=== PATIENT | male | born 1955 | race Caucasian/White ===

== ENCOUNTER → 2018-03-08 10:27 | Outpatient (CLI) | payer MEDICARE, SELFPAY ==
--- NOTE | 2018-03-08 10:30 | CT_ITS ---
CT lung screening EXAM: CT LUNG LOW DOSE WO CONTRAST COMPARISON: 09/14/2017 HISTORY: 63-year-old male with 96 pack-year smoking history asymptomatic, 6 month follow-up ITS.REASON: smoker; 6 month repeat recommended ORDERING PHYSICIAN: STACIA George PATIENT AGE: 63 years TECHNIQUE: The exam was performed on a GE Light Speed [address] scanner using 2.90 mGy CTDI. A low dose helical CT CHEST was performed on a multi-detector scanner. All CT scans at the facility use one or more dose reduction, viz: automated exposure control; ma/kV adjustment per patient size (including targeted exams where dose is matched to indication; i.e. head); or iterative reconstruction technique. The LDCT was performed in a facility that meets the criteria for the screening program. Data regarding this exam was submitted to ACR which is an approved registry. The order for this exam indicates that it came as a result of a lung cancer screening counseling shard decision-making visit that included all the elements required of such a visit including smoking cessation. The radiologist interpreting this exam meets the CMS criteria for the LDCT lung cancer screening program. The exam is reported using the Lung-RADS classification scale and reported to the ACR registry. NOTE: This study was performed for the specific purposes of lung cancer screening and is not an alternative to diagnostic chest CT. RADIATION DOSE: CTDI vol(CT dose Index-volume) = 2.90mG DLP (Dose Length Product) = 111.90 mGcm FINDINGS: Centrilobular emphysema with hyperinflation and mild diffuse bronchial thickening Previously described 4 mm nodule right upper lobe laterally somewhat less apparent.. 4 mm nodule central aspect of the right lower lobe unchanged.. The nodule within the right lung base laterally and lingula is not identified. There is however a new cavitating nodule within the right middle lobe measuring approximately 7 mm with some irregularity of the margins. This could be inflammatory/infective, or neoplastic. [address] follow-up suggested. Small nodes are present within mediastinum and axilla. Mild thickening noted of the pericardium as before. Degenerative changes are present in the thoracic and lumbar spine with sclerosis of T11-T12 endplates at L2 and L3 endplates. IMPRESSION: 1. Lung RADS Category: 4, suspicious. New 7 mm cavitating lesion within the right middle lobe 2. Other findings: Centrilobular emphysema/COPD RECOMMENDATIONS: [address] chest without and with contrast
== END ==
PROVIDERS: Family Provider Physician Assistant; PCP Physician Assistant; Visit Provider Physician Assistant
DX: Z87.891 Personal history of nicotine dependence (principal); Z12.2 Encounter for screening for malignant neoplasm of respiratory organs

== ENCOUNTER → 2018-09-05 14:32 | Outpatient (POV) | payer MEDICARE, MEDICAID, SELFPAY ==
[2018-09-05 14:58] VITALS: BP 156/82; PULSE 78; RESP 18; O2SAT 98
--- NOTE | 2018-09-06 08:30 | HMH.PMCON ---
Assessment and Plan (1) Degenerative joint disease of cervical spine Current visit: Yes Status: Chronic Qualifiers: Spinal osteoarthritis complication: with radiculopathy Qualified Code(s): M47.22 - Other spondylosis with radiculopathy, cervical region Category: Medical Code(s): M47.812 - Spondylosis without myelopathy or radiculopathy, cervical region (2) Lumbar disc disease with radiculopathy Current visit: No Status: Chronic Category: Medical - Assessment and plan all Dx Assessment and Plan for all problems:: I discussed with the patient that we would not be prescribing narcotic medications for him as a maintenance to his Suboxone program. I encouraged him to continue with his Suboxone clinic and the physician there. Patient and I discussed neurostimulator. I did provide him information on this. If patient is interested and would like to move forward with this he is going to contact our office and let us know. I will follow-up with the patient if he would like to pursue this. This note was dictated using voice recognition software and may contain errors or omissions HPI - Data of Consult Consult date: 09/05/18 Requesting Physician: Renae Hicks APRN Primary Care Provider: STACIA Lebron Family Provider: STACIA Lebron - Consult Narrative Reason for consult: Generalized pain History of present illness: Mr. Morgan is a 63 year old male who presents today for consultation in regards to his generalized pain. Patient was being seen by [facility] pain back in 2016. Patient stated he became immune to the Lortab that he was receiving and started buying Suboxone off the street. Patient states that after he realized Suboxone was working for him he enrolled in a Suboxone clinic. Patient states he has had injections in the past however he has not had any good relief with them. Patient states that he would like to add some maintenance medication to his Suboxone regimen. I had a discussion with him that this would not be appropriate. I encouraged him to continue with his Suboxone clinic and their management plan. Patient rates his pain today a 6 out of 10. He states that it is mostly in his low back and neck. Patient also has a lot of numbness in his left wrist. Patient states that rest decreases his pain. CC: Renae Hicks APRN [facility] History I have reviewed the patient's past medical history: Yes Medical History: Reports:: Asthma, Cancer, Chronic Obstructive Pulmonary Disease (COPD) Denies:: Internal Pacemaker, Seizures Other Medical History: Reports: Glaucoma Laterality Cases: Left: Carpal Tunnel Release Other Surgeries: Yes: Cholecystectomy. No: Pacemaker Amputation: No Fractures: No - *Social History Smoking Status: Current every day smoker Tobacco Type: cigarettes # Packs/Day (cigarettes): 1 Alcohol Intake: never Alcohol Intake Frequency:: holidays/special occasions only Substance Use Type: former substance user, painkillers Occupational Status: unemployed Household Members: spouse - Psychiatric History Expresses thoughts of harming self/others: None Suicide Plan Description: No Plan *Family Hx:: Cancer, Coronary Artery Disease, Diabetes, Stroke, Heart Attack Review of Systems - Review of Systems ROS General: no recent weight change, no fever, no sleep disturbances Respiratory: no cough, no shortness of air, no recurring pulmonary infections Cardiovascular/Peripheral Vascular: No chest pain, No palpitations, no edema, no shortness of breath. Gastrointestinal: no incontinence, normal bowel movements reported Genitourinary: no incontinence Musculoskeletal: Neck pain, back pain, arm pain, leg pain Psychiatric: normal mood/ affect Neurological: [denies weakness in extremities], [denies balance issues] Meds Home Medications Medication Instructions Recorded Confirmed Type buprenorphine 8 mg-naloxone 2 mg 1 film SUBLINGUAL Q24H
--- NOTE | 2018-09-06 08:34 | P.CONS_ITS ---
Assessment and Plan (1) Degenerative joint disease of cervical spine Current visit: Yes Status: Chronic Qualifiers: Spinal osteoarthritis complication: with radiculopathy Qualified Code(s): M47.22 - Other spondylosis with radiculopathy, cervical region Category: Medical Code(s): M47.812 - Spondylosis without myelopathy or radiculopathy, cervical region (2) Lumbar disc disease with radiculopathy Current visit: No Status: Chronic Category: Medical - Assessment and plan all Dx Assessment and Plan for all problems:: I discussed with the patient that we would not be prescribing narcotic medications for him as a maintenance to his Suboxone program. I encouraged him to continue with his Suboxone clinic and the physician there. Patient and I discussed neurostimulator. I did provide him information on this. If patient is interested and would like to move forward with this he is going to contact our office and let us know. I will follow-up with the patient if he would like to pursue this. This note was dictated using voice recognition software and may contain errors or omissions HPI - Data of Consult Consult date: 09/05/18 Requesting Physician: Renae Hicks APRN Primary Care Provider: STACIA Lebron Family Provider: STACIA Lebron - Consult Narrative Reason for consult: Generalized pain History of present illness: Mr. Morgan is a 63 year old male who presents today for consultation in regards to his generalized pain. Patient was being seen by [facility] pain back in 2016. Patient stated he became immune to the Lortab that he was receiving and started buying Suboxone off the street. Patient states that after he realized Suboxone was working for him he enrolled in a Suboxone clinic. Patient states he has had injections in the past however he has not had any good relief with them. Patient states that he would like to add some maintenance medication to his Suboxone regimen. I had a discussion with him that this would not be appropriate. I encouraged him to continue with his Suboxone clinic and their management plan. Patient rates his pain today a 6 out of 10. He states that it is mostly in his low back and neck. Patient also has a lot of numbness in his left wrist. Patient states that rest decreases his pain. CC: Renae Hciks APRN [facility] History I have reviewed the patient's past medical history: Yes Medical History: Reports:: Asthma, Cancer, Chronic Obstructive Pulmonary Disease (COPD) Denies:: Internal Pacemaker, Seizures Other Medical History: Reports: Glaucoma Laterality Cases: Left: Carpal Tunnel Release Other Surgeries: Yes: Cholecystectomy. No: Pacemaker Amputation: No Fractures: No - *Social History Smoking Status: Current every day smoker Tobacco Type: cigarettes # Packs/Day (cigarettes): 1 Alcohol Intake: never Alcohol Intake Frequency:: holidays/special occasions only Substance Use Type: former substance user, painkillers Occupational Status: unemployed Household Members: spouse - Psychiatric History Expresses thoughts of harming self/others: None Suicide Plan Description: No Plan *Family Hx:: Cancer, Coronary Artery Disease, Diabetes, Stroke, Heart Attack Review of Systems - Review of Systems ROS General: no recent weight change, no fever, no sleep disturbances Respiratory: no cough, no shortness of air, no recurring pulmonary infections Cardiovascular/Peripheral Vascular: No chest pain, No palpitations, no edema, no shortness of breath. Gastrointestinal: no incontine
== END ==
PROVIDERS: Family Provider Physician Assistant; PCP Physician Assistant; Visit Provider Clinical Nurse Specialist Family Health
DX: M47.22 Other spondylosis with radiculopathy, cervical region (principal); M51.16 Intervertebral disc disorders with radiculopathy, lumbar region
CPT/HCPCS: 99202

== ENCOUNTER → 2018-10-04 09:45 | Outpatient (CLI) | payer MEDICARE, SELFPAY | PROVIDERS: PCP Physician Assistant; Visit Provider Physician Assistant | DX: M54.5 Low back pain (principal) ==

== ENCOUNTER → 2018-10-07 14:32 | Outpatient (CLI) | payer MEDICARE, MEDICAID, SELFPAY ==
--- NOTE | 2018-10-07 14:43 | MR_ITS ---
MR lumbar spine wo con, MR 3-d myelogram/MRCP HISTORY: Low back pain radiating into legs. ITS.REASON: back pain ORDERING PHYSICIAN: STACIA George PATIENT AGE: 63 years Comparison: None TECHNIQUE: Standard multiplanar multiecho sequences are performed without contrast. 3-D MIP and myelographic images are also rendered and reviewed FINDINGS: The spinal cord ends at the L1-L2 level. There is mild lumbar scoliosis convex left. There is multilevel degenerative disc disease with bulging discs, endplate hypertrophy, and facet and ligamentum flavum hypertrophy. T11-T12: Degenerative disc disease with mild bulging disc. T12-L1: Degenerative disc disease with minimal bulging disc. L1-L2: Degenerative disc disease with bulging disc along with facet and ligamentum flavum hypertrophy. There is moderate bilateral lateral recess and foraminal narrowing. The apex of the scoliosis convex left is at this level L2-L3: Degenerative disc disease with bulging disc and endplate hypertrophic changes. There is facet and ligamentum flavum hypertrophy. There is moderate right lateral recess and severe right-sided foraminal narrowing. Borderline canal stenosis at this level. L3-L4: Degenerative disc disease with bulging disc with a small right paracentral disc protrusion along with facet and ligamentum flavum hypertrophy with severe bilateral lateral recess narrowing and severe right-sided foraminal narrowing. There is borderline canal stenosis. L4-5: Degenerative disc disease with bulging disc. There is mild anterolisthesis of L4.. There is facet and ligamentum flavum hypertrophy with severe left-sided foraminal narrowing. Type III endplate changes are present on the left with prominent left-sided lateral marginal osteophytes. There is borderline transverse narrowing of the canal. L5-S1: 5 mm anterolisthesis of L5 with degenerative disc disease. There is severe bilateral foraminal narrowing contributed by the spondylolisthesis. There appears to be a bilateral pars defect. This however is not for certain and could be confirmed with CT if clinically warranted. IMPRESSION: Abnormal MRI of the lumbar spine. There is severe lumbar spondylosis with multilevel degenerative disc disease from T11 to S1 with bulging disc along with facet and ligamentum flavum hypertrophy with resultant borderline canal stenosis, lateral recess and foraminal narrowing in varying degrees. PLEASE SEE ABOVE FOR DETAILED DESCRIPTION AT EACH LEVEL. No extruded herniated disc evident. There is a small right paracentral disc protrusion at L3-L4 and there is mild spondylolisthesis of L5 on S1 along with mild lumbar scoliosis convex left
== END ==
PROVIDERS: PCP Physician Assistant; Visit Provider Physician Assistant
DX: M51.16 Intervertebral disc disorders with radiculopathy, lumbar region (principal); M54.5 Low back pain
CPT/HCPCS: 72148; 76376

== ENCOUNTER → 2018-12-02 07:59 | Outpatient (CLI) | payer MEDICARE, MEDICAID, SELFPAY ==
--- NOTE | 2018-12-02 08:03 | XR_ITS ---
XR knee RT 4V HISTORY: Right posterior knee pain ITS.REASON: pain ORDERING PHYSICIAN: Nuzhat Milian PATIENT AGE: 63 years COMPARISON: None FINDINGS: No fracture or dislocation. No lytic or blastic change. Normal mineralization. No significant arthritic changes evident. There is an accessory ossification center along the lateral aspect of the patella there is increased density in the suprapatellar region indicating knee joint effusion. On the lateral view there is a faint calcific density along the posterior aspect of the patella centrally which could be from overlap from the accessory ossification center versus an avulsion injury. Please correlate with clinical findings. CT may further evaluated clinically warranted. IMPRESSION: 1. Suprapatellar effusion. 2. Accessory center of ossification lateral to the patella which may be causing the calcific density along the posterior aspect of the patella on the lateral view. An avulsion fracture could have a similar appearance. CT may be of further value if clinically warranted
== END ==
PROVIDERS: PCP Emergency Medicine; Visit Provider Nurse Practitioner Family
DX: M25.561 Pain in right knee (principal)
CPT/HCPCS: 73564

== ENCOUNTER → 2019-04-06 13:33 | Outpatient (CLI) | payer MEDICARE, MEDICAID, SELFPAY ==
[2019-04-06 14:16] LABS: Anion Gap 12.5 mEq/L (5-15); Blood Urea Nitrogen 12 mg/dL (7-18); Calcium 9.4 mg/dL (8.5-10.1); Carbon Dioxide 34 mmol/L (21.0-32.0); Chloride 91 mmol/L (98-107); Creatinine,Serum 0.81 mg/dL (0.70-1.30); Estimated Glomerular Filt Rate 96 ml/min (>60); GFR (African American) 116 ML/MIN (>60); Glucose 186 mg/dL (74-106); Potassium 4.5 mmoL/L (3.5-5.1); Sodium 133 mmol/L (136-145)
--- NOTE | 2019-04-06 14:22 | CT_ITS ---
CT chest wo/w con HISTORY: Recent pneumonia, lung mass follow-up ITS.REASON: F/U abnormal CT ORDERING PHYSICIAN: STACIA Lebron PATIENT AGE: 64 years COMPARISON: 03/08/2018, 02/24/2019 Technique: Axial images obtained without and with contrast. 75 mL Optiray 350 utilized. Sagittal, and coronal reformatted images are also generated and reviewed. All CT scans at the facility use one or more dose reduction, viz: automated exposure control, ma/kV adjustment per patient size (including targeted exams where dose is matched to indication, i.e. head), or iterative reconstruction technique. FINDINGS: No mediastinal or hilar mass or adenopathy. There is mild thickening of the pericardium anteriorly measuring up to 9 mm suggesting a small pericardial effusion. No central obstructing lesions. There is COPD with centrilobular emphysema. There is a patchy area of increased density in the right upper lobe anteriorly axial image 33 may be due to an area of patchy infiltrate or developing fibrosis not readily apparent on the previous exam. Patchy density also noted within the right middle lobe axial image #48. There is a faint nodular opacity in the right middle lobe measuring 5 mm. Previously there was a small cavitating nodule at this area. There are small air space opacities in the right middle lobe inferiorly which have developed since the previous exam. There is a partially calcified nodule in the right lower lobe unchanged and some scattered small airspace opacities in the right lower lobe laterally. The left lower lobe atelectasis has improved. Upper abdominal images show a left renal cyst and mild dilatation of the left renal pelvis and proximal ureter. There are degenerative changes in thoracic spine with mild wedging of T7 not significantly changed. IMPRESSION: 1. COPD with centrilobular edema. 2. Cavitating nodule within the right middle lobe has slightly decreased in size and no longer has central cavitation now measuring 5 mm previously 7 mm.. This may have been inflammatory/infectious in nature. Continued follow-up in one year is suggested. 3. There are patchy airspace opacities noted in the right upper and right middle lobe and may be due to small areas of pneumonia.
== END ==
PROVIDERS: Visit Provider Physician Assistant
DX: Z01.818 Encounter for other preprocedural examination (principal); R91.8 Other nonspecific abnormal finding of lung field
CPT/HCPCS: 36415; 71270; 80048

== ENCOUNTER → 2019-07-12 15:22 | Outpatient (CLI) | payer MEDICARE, MEDICAID, SELFPAY ==
[2019-07-12 18:27] LABS: Blood Urea Nitrogen 6 mg/dL (7-18); Calcium 9.3 mg/dL (8.5-10.1); Carbon Dioxide 32 mmol/L (21.0-32.0); Chloride 100 mmol/L (98-107); Creatinine,Serum 0.71 mg/dL (0.70-1.30); Estimated Glomerular Filt Rate 111 ml/min (>60); GFR (African American) 135 ML/MIN (>60); Glucose 109 mg/dL (74-106); Sodium 136 mmol/L (136-145)
== END ==
PROVIDERS: Urology; Visit Provider Physician Assistant
DX: R06.02 Shortness of breath (principal); R07.9 Chest pain, unspecified
CPT/HCPCS: 36415; 80048; 83880

== ENCOUNTER → 2019-07-28 08:40 | Outpatient (CLI) | payer MEDICARE, MEDICAID, SELFPAY ==
--- NOTE | 2019-07-28 08:42 | CA_ITS ---
APPROVED REPORT EXAM: Comprehensive 2D, Doppler, and color-flow Echocardiogram Corporate Aircraft Mechanic: Martha Amin RDCS Ht: 5 ft 8 in Wt: 146lbs BSA: 1.79 BP: 111/73 mmHg Indications: Shortness of Breath, Hypertension/HDD Hypertension/HDD SMOKER COPD EDEMA 2D Dimensions LVOT 2.40 cm (M/F) 1.5-2.5 M-Mode Dimensions RVDd 2.70 cm (0.9-2.6) LA Diam 2.90 cm (1.9-4.0) LVDd 4.40 cm (3.5-5.7) Ao Diam 3.40 cm (2.0-3.7) LVDs 3.10 cm (3.5-5.7) AV Cusp 2.00 cm (1.5-2.6) IVSd 1.00 cm (0.6-1.1) PWd 0.70 cm (0.6-1.1) EF (Teich) 56.80% FS 29.50% EDV (Teich) 87.70 mL ESV (Teich) 37.90 mL LV Diastology E/A Ratio 0.8 MED E' 6.82 (< 7 cm/sec) E'/MED E' Ratio 10.30 (>14) LAT E' 9.26 (<10 cm/sec) E/LAT E' Ratio 7.60 (>14) Mitral Valve MV E Max Leonel. 70.10 (40-130 cm/s) MV A Velocity 83.90 (40-130 cm/s) E/A Ratio 0.80 Tricuspid Valve TR P. Velocity 267.00 cm/s RAP Estimate 10.00 mmHg RVSP 39.00 mmHg Left Ventricle Left atrium is mildly enlarged, left ventricle is normal size, there is no concentric left ventricular hypertrophy, visually estimated ejection fraction 55% with no regional wall motion abnormality, grade 1 diastolic dysfunction seen without tissue Doppler evidence of raise left atrial pressure. Right Ventricle Right atrium and right ventricular mildly enlarged with normal contractility. Aortic Valve Aortic valve is minimally thickened and fibrosed, there is no aortic stenosis aortic insufficiency. Mitral Valve Mitral valve is grossly normal, there is mild mitral regurgitation. Tricuspid Valve Tricuspid valve is grossly normal, there is mild tricuspid regurgitation, tricuspid regurgitation jet velocity is inadequate for calculation of the right ventricular systolic pressure. Pulmonic Valve Pulmonic valve is poorly visualized. Great Vessels Aortic root is normal size. Pericardium No significant pericardial effusion noted. Conclusion 1. Mild biatrial enlargement, normal left ventricular size, visually estimated ejection fraction 55% with no regional wall motion abnormality, diastolic parameters are consistent with grade 1 diastolic dysfunction without tissue Doppler evidence of raise left atrial pressure. 2. Mildly enlarged right atrium and right ventricle, contractility of the right ventricle is normal. 3. Mild mitral and tricuspid regurgitation. 4. No significant pericardial effusion noted, inferior vena cava is mildly dilated without significant inspiratory collapse. Electronically signed by : Manolo Arcos, 07/28/2019 13:40:16
--- NOTE | 2019-07-28 08:42 | US_ITS ---
APPROVED REPORT Exam Type: Lower Extremity Segmental Pressures Steak Sauce Maker: Martha Amin RDCS Indications Claudication: Rest Pain: Edema PAD Current Smoker History of Smoking Pressures/Indices Right Indices Left Indices Brachial 99.00 mmHg Brachial 107.00 mmHg Low Thigh 132.00 mmHg 1.23 Low Thigh Calf 120.00 mmHg 1.12 Calf 127.00 mmHg 1.19 Ankle(PT) 142.00 mmHg 1.33 Ankle(PT) 129.00 mmHg 1.21 Ankle(DP) 140.00 mmHg 1.31 Ankle(DP) 129.00 mmHg 1.21 Digit 88.00 mmHg 0.82 Digit 90.00 mmHg 0.84 Findings R DIANE 1.3 L DIANE 1.2 R TBI .8 L TBI .8 NORMAL PULSES AND WAVEFORMS Conclusion No evidence significant arterial disease throughout the right and left lower extremities as evidenced by normal resting PVR waveforms and normal resting indices. Electronically signed by : Matthew Albrecht MD 07/28/2019 17:02:56
== END ==
PROVIDERS: PCP Physician Assistant; Visit Provider Urology
DX: R06.02 Shortness of breath (principal); R07.9 Chest pain, unspecified; I73.9 Peripheral vascular disease, unspecified
CPT/HCPCS: 93306; 93923

== ENCOUNTER → 2019-08-03 14:51 | Outpatient (CLI) | payer MEDICARE, MEDICAID, SELFPAY ==
[2019-08-03 16:07] LABS: Anion Gap 11.3 mEq/L (5-15); Blood Urea Nitrogen 11 mg/dL (7-18); Calcium 9.2 mg/dL (8.5-10.1); Carbon Dioxide 35 mmol/L (21.0-32.0); Chloride 98 mmol/L (98-107); Creatinine,Serum 0.75 mg/dL (0.70-1.30); Estimated Glomerular Filt Rate 105 ml/min (>60); GFR (African American) 126 ML/MIN (>60); Glucose 105 mg/dL (74-106); Potassium 3.3 mmoL/L (3.5-5.1); Sodium 141 mmol/L (136-145)
== END ==
PROVIDERS: Visit Provider Internal Medicine Cardiovascular Disease
DX: R06.02 Shortness of breath (principal); R60.9 Edema, unspecified
CPT/HCPCS: 36415; 80048

== ENCOUNTER → 2019-11-13 11:49 | Outpatient (CLI) | payer MEDICARE, MEDICAID, SELFPAY ==
--- NOTE | 2019-11-13 11:53 | XR_ITS ---
PROCEDURE: XR CHEST 2V CLINICAL HISTORY: cough COMPARISON: CXR CHEST(2 VIEWS-NOT PORTABLE) from 11/30/2014 CXR2V XR chest 2V from 02/24/[address] chest wo/w con from 04/06/2019 FINDINGS: The cardiomediastinal silhouette and pulmonary vascularity are within normal limits. There is stable elevation of the left hemidiaphragm. Lungs are clear. There is a stable 10 millimeter rectangular shaped sclerotic density distal 1/3 of the right clavicle suggesting benign bone island or bone reaction from old occult stress injury. IMPRESSION: No acute findings. Dictated by: Nathaniel Wakefield 11/13/2019 18:56 Electronically signed by Nathaniel Wakefield in [place] 11/13/2019 18:56
== END ==
PROVIDERS: PCP Emergency Medicine; Visit Provider Nurse Practitioner Family
DX: R05 Cough (principal); R06.2 Wheezing
CPT/HCPCS: 71046

== ENCOUNTER 2019-12-29 14:41 | Inpatient (IN) ==
[2019-12-29 15:09] LABS: Basophils % 0.4 % (0.1-2.0); Eosinophils # 0.1 K/mm3 (0.0-0.4); Eosinophils % 0.9 % (0.1-12.0); Hematocrit 40.6 % (42.0-52.0); Hemoglobin 12.7 g/dL (14.1-18.0); Lymphocytes # 2.2 K/mm3 (0.7-4.5); Lymphocytes % 23.8 % (10-50); Mean Corpuscular HGB Conc 31.2 g/dL (31.8-35.4); Mean Corpuscular Volume 91.1 fl (80-94); Mean Platelet Volume 7.9 fl (7.4-10.4); Monocytes # 0.6 K/mm3 (0.1-1.0); Neutrophils # 6.4 K/mm3 (1.8-7.8); Neutrophils % 68.8 % (37.0-80.0); Platelet Count 332 K/mm3 (142-424); Red Blood Count 4.45 M/mm3 (4.60-6.20); Red Cell Distribution Width 14.7 % (11.5-17.5); White Blood Count 9.3 K/mm3 (4.8-10.8)
[2019-12-29 15:22] LABS: Albumin/Globulin Ratio 1.2 (1.1-1.8); Anion Gap 7.2 mEq/L (5-15); Bilirubin,Total 0.5 mg/dL (0.2-1.0); Globulin 3.3 gm/dl (1.3-3.2); Total Protein,Serum 7.3 gm/dL (6.4-8.2)
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
[2019-12-29 16:22] LABS: Amphetamine/Metha Screen,Urine Negative ng/mL (<1000); Barbiturates Screen,Urine Negative ng/mL (<200); Benzodiazepines Screen,Urine Positive ng/mL (<200); Cannabinoid Screen,Urine Negative ng/mL (<50); Cocaine Screen,Urine Negative ng/mL (<300); Methadone Screen,Urine Negative ng/mL (<300); Opiate Screen,Urine Positive ng/mL (<300); Phencyclidine Screen,Urine Negative ng/mL (<25)
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
[2019-12-30 03:06] LABS: Basophils % 0.4 % (0.1-2.0); Eosinophils # 0.1 K/mm3 (0.0-0.4); Eosinophils % 1.7 % (0.1-12.0); Lymphocytes # 1.2 K/mm3 (0.7-4.5); Lymphocytes % 17.4 % (10-50); Mean Corpuscular HGB Conc 31.9 g/dL (31.8-35.4); Mean Corpuscular Volume 89.3 fl (80-94); Mean Platelet Volume 8.8 fl (7.4-10.4); Monocytes # 0.5 K/mm3 (0.1-1.0); Monocytes % 7.1 % (1.7-9.3); Neutrophils # 5.2 K/mm3 (1.8-7.8); Neutrophils % 73.4 % (37.0-80.0); Platelet Count 222 K/mm3 (142-424); Red Blood Count 3.81 M/mm3 (4.60-6.20); Red Cell Distribution Width 13.8 % (11.5-17.5); White Blood Count 7.1 K/mm3 (4.8-10.8)
[2019-12-30 03:08] LABS: Hemoglobin 10.8 g/dL (14.1-18.0)
[2019-12-30 03:36] LABS: Anion Gap 8.1 mEq/L (5-15); Blood Urea Nitrogen 10 mg/dL (7-18); Calcium 8.6 mg/dL (8.5-10.1); Carbon Dioxide 36 mmol/L (21.0-32.0); Chloride 105 mmol/L (98-107); Glucose 112 mg/dL (74-106); Sodium 145 mmol/L (136-145)
--- NOTE | 2019-12-30 08:20 | Progress Note ---
Internal Medicine - PN: Subj *Date: 12/30/19 *Time: 08:19 Interval history: Patient did fairly well overnight medically, he has some complaints about the timing of his pain Acacian administration and his lack of nicotine patch placement. Exam Vital signs and Labs for Last 24 Hours: Temp Pulse Resp BP Pulse Ox 98.5 F 78 17 94/58 L 91 L 12/30/19 04:00 12/30/19 04:00 12/30/19 04:00 12/30/19 04:00 12/30/19 04:00 Laboratory Results - last 24 hr 12/29/19 15:00: WBC 9.3, RBC 4.45 L, Hgb 12.7 L, Hct 40.6 L, MCV 91.1, MCH 28.4, MCHC 31.2 L, RDW 14.7, Plt Count 332, MPV 7.9, Neut % (Auto) 68.8, Lymph % (Auto) 23.8, [place] % (Auto) 6.0, Eos % (Auto) 0.9, Baso % (Auto) 0.4, Neut # (Auto) 6.4, Lymph # (Auto) 2.2, [place] # (Auto) 0.6, Eos # (Auto) 0.1, Baso # (Auto) 0.0 12/29/19 15:00: Sodium 137, Potassium 3.2 L, Chloride 98, Carbon Dioxide 35 H, Anion Gap 7.2, BUN 9, Creatinine 0.77, Estimated Creat Clear 75, Estimated GFR 101, Est GFR ( Amer) 123, Glucose 120 H, Calcium 9.0, Total Bilirubin 0. 5, AST 26, ALT 21, Alkaline Phosphatase 96, Total Protein 7.3, Albumin 4.0, Globulin 3.3 H, Albumin/Globulin Ratio 1.2 12/29/19 16:00: Urine Opiates Screen Positive H, Urine Methadone Screen Negative, Ur Barbituates Screen Negative, Ur Phencyclidine Scrn Negative, Ur Amphetamines Screen Negative, U Benzodiazepines Scrn Positive H, Urine Cocaine Screen Negative, U Marijuana (THC) Screen Negative 12/29/19 20:46: Troponin I < 0.02 12/30/19 02:55: WBC 7.1, RBC 3.81 L, Hgb 10.8 L D, Hct 34.0 L, MCV 89.3, MCH 28.5, MCHC 31.9, RDW 13.8, Plt Count 222 D, MPV 8.8, Neut % (Auto) 73.4, Lymph % (Auto) 17.4, [place] % (Auto) 7.1, Eos % (Auto) 1.7, Baso % (Auto) 0.4, Neut # (Auto) 5.2, Lymph # (Auto) 1.2, [place] # (Auto) 0.5, Eos # (Auto) 0.1, Baso # (Auto) 0.0 12/30/19 02:55: Sodium 145, Potassium 4.1 D, Chloride 105, Carbon Dioxide 36 H, Anion Gap 8.1, BUN 10, Creatinine 0.69 L, Estimated Creat Clear 71, Estimated GFR 115, Est GFR ( Amer) 139, Glucose 112 H, Calcium 8.6, Troponin I < 0.02 I & O for Last 24 hours: Intake & Output 12/27/19 12/28/19 12/29/19 12/30/19 11:59 11:59 11:59 11:59 Intake Total 828 / 828 Output Total 800 / 800 Balance Weight 151 lb 4.993 oz Narrative: Patient is awake, alert. Oriented x3. Oropharynx moist. No JVD. Lungs have fairly good air entry, in fact better than yesterday, minimal rhonc hi. Heart rate regular. Abdomen soft. Extremity exam unchanged. Assessment and Plan (1) Diastolic CHF Current visit: Yes Status: Acute Category: Medical Code(s): I50.30 - Unspecified diastolic (congestive) heart failure (2) Intertrochanteric fracture of right femur Current visit: Yes Status: Acute Qualifiers: Encounter type: initial encounter Fracture type: closed Fracture alignment: nondisplaced Qualified Code(s): S72.144A - Nondisplaced intertrochanteric fracture of right femur, initial encounter for closed fracture Category: Medical Code(s): S72.141A - Displaced intertrochanteric fracture of right femur, initial encounter for closed fracture (3) COPD (chronic obstructive pulmonary disease) Current visit: No Status: Chronic Qualifiers: COPD type: unspecified COPD Qualified Code(s): J44.9 - Chronic obstructive pulmonary disease, unspecified Category: Medical Code(s): J44.9 - Chronic obstructive pulmonary disease, unspecified - Assessment and plan all Dx Assessment and Plan for all problems:: Medically stable overnight, plan for corrective surgery of femur fracture
--- NOTE | 2019-12-30 09:36 | Progress Note ---
[facility] Anesthesia Checklist - Structural Data Admitted From: Inpatient Planned Operative Procedure/s: orif r hip Consent for Planned Operative Procedure(s) Verified: Yes - Airway Assessment C-Spine Mobility Assessed: Yes TMJ Mobility Assessed: Yes Dentition: Poor Dentition - Neurological Assessment Level of Consciousness: Awake, Alert, Appropriate - Anesthesia Plan Anesthesia Risk discussed: Yes Anesthesia Plan: Verified ASA Class: III Anesthesia Type: MAC w/Spinal [facility] History I have reviewed the patient's past medical history: Yes Medical History: Reports:: Asthma, Cancer, Congestive Heart Failure (Diastolic heart failure, preserved ejection fraction on heart cath 2017), Chronic Obstructive Pulmonary Disease (COPD) (Oxygen requiring at night), Hypertension Denies:: Internal Pacemaker, Seizures *Have you ever received a pneumonia vaccine?: Yes *Have you received a flu vaccine this season?: Yes Other Medical History: Reports: Glaucoma Anesthesia experience/problems:: none Laterality Cases: Left: Carpal Tunnel Release, Bilateral: Tonsillectomy Other Surgeries: Yes: Cardiac Catheterization, Cholecystectomy, Colonoscopy, Other. No: Pacemaker Amputation: No Fractures: Yes - *Social History Educational Level: Completed High School Smoking Status: Current every day smoker Tobacco Type: cigarettes # Packs/Day (cigarettes): 1 Alcohol Intake: never Alcohol Intake Frequency:: holidays/special occasions only Substance Use Type: former substance user, painkillers *Occupational Status:: retired Housing: house Household Members: spouse *Travel in the last 8 weeks: None Family Hx:: Cancer, Coronary Artery Disease, Diabetes, Stroke, Heart Attack
--- NOTE | 2019-12-30 10:26 | Progress Note ---
[facility] Anesthesia Record Part I Intake, IV Amount: 2,500 Estimated blood loss (mL): 25 Urine output (mL): 250 Blood Pressure: 107/63 SaO2: 96 Pulse Rate: 100 Respiratory Rate: 12 Temperature: 97.6 F Patient is:: Awake, Stable Stable to PACU at:: 10:20
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
--- NOTE | 2019-12-30 10:43 | Progress Note ---
Subjective Date: 12/30/19 Time: 10:40 Principal diagnosis: R hip IT fx Interval history: The patient underwent IMN R femur this morning for IT fx. Currently in PACU, spinal anesthesia still in effect and patient is comfortable. No complications occurred during the case. PN: Obj Ex Vital signs: Temp Pulse Resp BP Pulse Ox 97.6 F 100 H 12 107/63 L 95 12/30/19 10:26 12/30/19 10:26 12/30/19 10:26 12/30/19 10:12/30/19 08:00 - Constitutional no acute distress - Routine Respiratory Exam Present: CTA bilaterally - Routine Cardiovascular Exam Present: RRR - Routine Extremities Exam Comments: R hip dressings c/d/i spinal in effect, no movement/sensation below waist palpable pedal pulses RLE, foot warm/pink with brisk capillary refill Progress Note: A&P (1) Diastolic CHF Status: Acute Current Visit: Yes (2) Intertrochanteric fracture of right femur Status: Acute Current Visit: Yes (3) COPD (chronic obstructive pulmonary disease) Status: Chronic Current Visit: No Assessment and Plan for All Diagnoses:: 64yo M POD 0 s/p IMN R femur for IT fx -- WBAT RLE -- PT to eval -- ice pack R hip PRN -- pain control: norco/morphine ordered -- encourage IS 10x/hr while awake -- SCDs BLE -- complete 24 hr antibiotic prophylaxis -- lovenox to start tomorrow -- medical management per Dr. Guerrero -- dispo planning: pending PT eval
--- NOTE | 2019-12-30 11:50 | Electrocardiograph Report ---
APPROVED REPORT Exam: Resting ECG HR:76 bpm ECG Measurements Heart Rate 76 AXES IN 134 P 61 QRSd 76 QRS 65 QT 376 T61 QTc 423 <Conclusion> Normal sinus rhythm Low voltage QRS Borderline ECG Electronically signed by : Navdeep Guerrero, 12/30/2019 11:49:45
--- NOTE | 2019-12-30 13:36 | Pharmacy Consult Notes ---
[facility] Pharmacy VTE Monitoring - Patient Demographics Admission date: 12/29/19 Report Date: 12/30/19 Time: 13:35 Allergies/Adverse Reactions: Patient Allergies NSAIDS (Non-Steroidal Anti-Inflamma Allergy (Severe, Verified 11/13/19 10:52) STONACH PAIN Height: 1.73 m Weight: 68.634 kg Patient Problems: Current Active Problems Fall (Acute) Intertrochanteric fracture of right femur (Acute) Diastolic CHF (Acute) Tobacco user (Chronic) - VTE Risk Labs: VTE Related Lab Results Hgb 10.8 g/dL (14.1-18.0) L D 12/30/19 02:55 Hct 34.0 % (42.0-52.0) L 12/30/19 02:55 Plt Count 222 K/mm3 (142-424) D 12/30/19 02:55 BUN 10 mg/dL (7-18) 12/30/19 02:55 Creatinine 0.69 mg/dL (0.70-1.30) L 12/30/19 02:55 Estimated Creat Clear 71 mL/min (50-200) 12/30/19 02:55 - Prophylaxis VTE Prophylaxis Ordered?: Yes Types of VTE Prophylaxis: IPCS Thigh High, Pharmacological Location of Applied Device: Bilateral Lower Extremeties Pharmacologic Type: Enoxaparin
[2019-12-31 07:13] LABS: Basophils % 0.1 % (0.1-2.0); Eosinophils # 0.1 K/mm3 (0.0-0.4); Eosinophils % 1.1 % (0.1-12.0); Hematocrit 30.9 % (42.0-52.0); Lymphocytes # 1.3 K/mm3 (0.7-4.5); Lymphocytes % 15.4 % (10-50); Mean Corpuscular HGB Conc 32.3 g/dL (31.8-35.4); Mean Corpuscular Volume 89.7 fl (80-94); Monocytes # 0.5 K/mm3 (0.1-1.0); Monocytes % 6.4 % (1.7-9.3); Neutrophils # 6.3 K/mm3 (1.8-7.8); Platelet Count 184 K/mm3 (142-424); Red Blood Count 3.45 M/mm3 (4.60-6.20); Red Cell Distribution Width 13.6 % (11.5-17.5); White Blood Count 8.2 K/mm3 (4.8-10.8)
[2019-12-31 07:33] LABS: Anion Gap 10.4 mEq/L (5-15); Calcium 8.3 mg/dL (8.5-10.1)
--- NOTE | 2019-12-31 08:47 | Progress Note ---
Internal Medicine - PN: Subj *Date: 12/31/19 *Time: 08:45 Interval history: Surgery notes reviewed. Excellent surgical outcome. Patient complains of pain but notes his breathing is doing well. Notes that he is doing well with the incentive spirometer. Exam Vital signs and Labs for Last 24 Hours: Temp Pulse Resp BP Pulse Ox 98.5 F 84 18 108/65 L 87 L 12/31/19 07:41 12/31/19 07:41 12/31/19 07:41 12/31/19 07:41 12/31/19 07:41 Laboratory Results - last 24 hr 12/30/19 10:00: Urine Color Yellow, Urine Appearance Clear, Urine pH 7.5, Ur Specific [place] 1.015, Urine Protein Negative, Urine Glucose (UA) Negative, Urine Ketones Negative, Urine Blood Negative, Urine Nitrate Negative, Urine Bilirubin Negative, Urine Urobilinogen 0.2, Ur Leukocyte Esterase Negative, Urine RBC Occasional, Urine WBC Occasional, Ur Squamous Epith Cells None, Urine Bacteria None 12/31/19 06:55: WBC 8.2, RBC 3.45 L, Hgb 10.0 L, Hct 30.9 L, MCV 89.7, MCH 28.9, MCHC 32.3, RDW 13.6, Plt Count 184, MPV 9.0, Neut % (Auto) 77.0, Lymph % (Auto) 15.4, [place] % (Auto) 6.4, Eos % (Auto) 1.1, Baso % (Auto) 0.1, Neut # (Auto) 6.3, Lymph # (Auto) 1.3, [place] # (Auto) 0.5, Eos # (Auto) 0.1, Baso # (Auto) 0.0 12/31/19 06:55: Sodium 142, Potassium 4.4, Chloride 104, Carbon Dioxide 32, Anion Gap 10.4, BUN 10, Creatinine 0.74, Estimated Creat Clear 78, Estimated GFR 106, Est GFR ( Amer) 128, Glucose 118 H, Calcium 8.3 L I & O for Last 24 hours: Intake & Output 12/28/19 12/29/19 12/30/19 12/31/19 11:59 11:59 11:59 11:59 Intake Total 3688 / 3688 1772 / 1772 Output Total 800 / 800 2700 / 2700 Balance 2888 / 2888 -928 / -928 Weight 151 lb 4.993 oz 164 lb 6 oz Narrative: Patient has is normal talkative and garrulous affect. In no distress. Able to pull 1000 mL's on the incentive spirometer. When instructed in proper technique was able to pull 1200 mL's. Lungs actually sound better than yesterday, clearer-this may be because he is not smoking over the past 24 hours. Abdomen soft, heart rate regular. Oropharynx clear, no JVD. ENT exam otherwise on concerning. Extremities show no clubbing or cyanosis or edema. Able to wiggle his right foot, orthopedically is in much better position. Assessment and Plan (1) Diastolic CHF Current visit: Yes Status: Acute Category: Medical Code(s): I50.30 - Unspecified diastolic (congestive) heart failure (2) Intertrochanteric fracture of right femur Current visit: Yes Status: Acute Qualifiers: Encounter type: initial encounter Fracture type: closed Fracture alignment: nondisplaced Qualified Code(s): S72.144A - Nondisplaced intertrochanteric fracture of right femur, initial encounter for closed fracture Category: Medical Code(s): S72.141A - Displaced intertrochanteric fracture of right femur, initial encounter for closed fracture (3) COPD (chronic obstructive pulmonary disease) Current visit: No Status: Chronic Qualifiers: COPD type: unspecified COPD Qualified Code(s): J44.9 - Chronic obstructive pulmonary disease, unspecified Category: Medical Code(s): J44.9 - Chronic obstructive pulmonary disease, unspecified - Assessment and plan all Dx Assessment and Plan for all problems:: Continue current management, aggressive pulmonary toilet. Patient will need discussion tomorrow with his rehab team and primary physician about rehab placement versus going home. Patient aggressively wishes to be discharged home tomorrow. Patient is drinking well. Stop IV fluids today.
--- NOTE | 2019-12-31 13:03 | Progress Note ---
Subjective Date: 12/31/19 Time: 12:00 Principal diagnosis: R hip IT fx Interval history: The patient is doing well this morning. He has been out of bed with PT and performed well; some pain present in R hip, managed with pain medication. Otherwise well without complaint. PN: Obj Ex Vital signs: Temp Pulse Resp BP Pulse Ox 98.5 F 84 20 108/65 L 93 L 12/31/19 07:41 12/31/19 07:41 12/31/19 11:27 12/31/19 07:41 12/31/19 08:00 - Constitutional no acute distress - Routine HEENT Exam Head: Present: normocephalic Eye: Present: EOMI ENT: Present: mucous membranes moist - Routine Respiratory Exam Absent: wheezes - Routine Cardiovascular Exam Present: RRR - Routine Abdominal Exam Present: soft. Absent: tenderness - Routine Extremities Exam Comments: R hip dressings c/d/i +DF/PF/EHL RLE SILT distally RLE R calf soft, non-tender palpable pedal pulses RLE, foot warm with brisk cap refill - Routine Skin Exam Present: warm. Absent: ecchymosis - Routine Neurological Exam Present: alert, oriented X3, moving all extremities, normal tone, hearing grossly intact, normal speech. Absent: sensory deficit, motor deficit, altered mental status - Urinary Catheter Management Whitmore Cath placed during this visit: no Progress Note: A&P (1) Diastolic CHF Status: Acute Current Visit: Yes (2) Intertrochanteric fracture of right femur Status: Acute Current Visit: Yes (3) COPD (chronic obstructive pulmonary disease) Status: Chronic Current Visit: No Assessment and Plan for All Diagnoses:: 64yo M POD 1 s/p IMN R femur for IT fx -- WBAT RLE, continue PT -- ice pack R hip PRN -- pain control: norco/morphine ordered -- encourage IS 10x/hr while awake -- DVT prophy: lovenox + SCDs BLE -- medical management per Dr. Guerrero -- dispo planning: pending PT eval
[2020-01-01 06:38] LABS: Basophils % 0.3 % (0.1-2.0); Eosinophils # 0.1 K/mm3 (0.0-0.4); Hemoglobin 10.3 g/dL (14.1-18.0); Lymphocytes # 1.1 K/mm3 (0.7-4.5); Lymphocytes % 16.9 % (10-50); Mean Corpuscular HGB Conc 31.3 g/dL (31.8-35.4); Mean Corpuscular Volume 92.1 fl (80-94); Mean Platelet Volume 7.8 fl (7.4-10.4); Monocytes # 0.5 K/mm3 (0.1-1.0); Monocytes % 7.6 % (1.7-9.3); Neutrophils # 4.9 K/mm3 (1.8-7.8); Neutrophils % 74.3 % (37.0-80.0); Platelet Count 211 K/mm3 (142-424); Red Blood Count 3.58 M/mm3 (4.60-6.20); White Blood Count 6.6 K/mm3 (4.8-10.8)
[2020-01-01 06:46] LABS: Anion Gap 11.4 mEq/L (5-15); Calcium 8.7 mg/dL (8.5-10.1)
--- NOTE | 2020-01-01 09:10 | Progress Note ---
Internal Medicine - PN: Subj *Date: 01/01/20 *Time: 09:06 Interval history: Patient laying in bed voiced no complaints at this time Exam Vital signs and Labs for Last 24 Hours: Temp Pulse Resp BP Pulse Ox 98.1 F 81 18 122/71 93 L 01/01/20 08:00 01/01/20 08:00 01/01/20 08:00 01/01/20 08:00 01/01/20 08:00 Laboratory Results - last 24 hr 01/01/20 06:20: WBC 6.6, RBC 3.58 L, Hgb 10.3 L, Hct 33.0 L, MCV 92.1, MCH 28.8, MCHC 31.3 L, RDW 14.0, Plt Count 211, MPV 7.8, Neut % (Auto) 74.3, Lymph % (Auto) 16.9, [place] % (Auto) 7.6, Eos % (Auto) 1.0, Baso % (Auto) 0.3, Neut # (Auto) 4.9, Lymph # (Auto) 1.1, [place] # (Auto) 0.5, Eos # (Auto) 0.1, Baso # (Auto) 0.0 01/01/20 06:20: Sodium 140, Potassium 4.4, Chloride 105, Carbon Dioxide 28, Anion Gap 11.4, BUN 9, Creatinine 0.66 L, Estimated Creat Clear 73, Estimated GFR 121, Est GFR ( Amer) 147, Glucose 99, Calcium 8.7 I & O for Last 24 hours: Intake & Output 12/29/19 12/30/19 12/31/19 01/01/20 11:59 11:59 11:59 11:59 Intake Total 3688 / 3688 1772 / 1772 2260 / 2260 Output Total 800 / 800 2700 / 2700 2140 / 2140 Balance 2888 / 2888 -928 / -928 120 / 120 Weight 151 lb 4.993 oz 164 lb 6 oz 155 lb 7 oz - Constitutional no acute distress - *Routine HEENT Exam Head: Present: normocephalic Eye: Present: PERRL ENT: Present: mucous membranes moist - *Routine Neck Exam Present: supple. Absent: lymphadenopathy - *Routine Respiratory Exam Present: rhonchi - *Routine Cardiovascular Exam Present: RRR - *Routine Abdominal Exam Present: soft, normoactive bowel sounds. Absent: tenderness - *Routine Extremities Exam Present: full ROM, normal capillary refill. Absent: cyanosis, clubbing, edema - *Routine Skin Exam Present: warm. Absent: rash Comments: 2 dressing to rt hip c/d/i - *Routine Neurological Exam Present: alert, oriented X3 - Routine Psychiatric Exam Present: normal affect Assessment and Plan (1) Diastolic CHF Current visit: Yes Status: Acute Category: Medical Code(s): I50.30 - Unspecified diastolic (congestive) heart failure (2) Intertrochanteric fracture of right femur Current visit: Yes Status: Acute Qualifiers: Encounter type: initial encounter Fracture type: closed Fracture alignment: nondisplaced Qualified Code(s): S72.144A - Nondisplaced intertrochanteric fracture of right femur, initial encounter for closed fracture Category: Medical Code(s): S72.141A - Displaced intertrochanteric fracture of right femur, initial encounter for closed fracture Waiting for Ortho okay for discharge (3) COPD (chronic obstructive pulmonary disease) Current visit: No Status: Chronic Qualifiers: COPD type: unspecified COPD Qualified Code(s): J44.9 - Chronic obstructive pulmonary disease, unspecified Category: Medical Code(s): J44.9 - Chronic obstructive pulmonary disease, unspecified - Assessment and plan all Dx Assessment and Plan for all problems:: Rounded with Dr. Garcia all orders per Jose
--- NOTE | 2020-01-01 13:23 | Progress Note ---
Subjective Date: 01/01/20 Time: 12:00 Principal diagnosis: R hip IT fx Interval history: The patient is doing well this morning but doesn't feel ready to discharge yet. He would rather wait to be d/c tomorrow. Still requiring O2 via nasal cannula to maintain sats >90%. Pain present in R hip, no numbness/tingling, no drainage from wounds. PN: Obj Ex Vital signs: Temp Pulse Resp BP Pulse Ox 98.1 F 83 18 122/71 90 L 01/01/20 08:00 01/01/20 12:02 01/01/20 08:00 01/01/20 08:00 01/01/20 12:39 - Constitutional no acute distress - Routine Extremities Exam Comments: R hip dressings c/d/i --> dressings changed, incisions c/d/i with kalia intact, no erythema/drainage +DF/PF/EHL RLE SILT distally RLE R calf soft, non-tender palpable pedal pulses RLE, foot warm with brisk cap refill - Urinary Catheter Management Whitmore Cath placed during this visit: no Progress Note: A&P (1) Diastolic CHF Status: Acute Current Visit: Yes (2) Intertrochanteric fracture of right femur Status: Acute Current Visit: Yes (3) COPD (chronic obstructive pulmonary disease) Status: Chronic Current Visit: No Assessment and Plan for All Diagnoses:: 64yo M POD 2 s/p IMN R femur for IT fx -- WBAT RLE, continue PT -- ice pack R hip PRN -- pain control: norco/morphine ordered -- encourage IS 10x/hr while awake -- DVT prophy: lovenox + SCDs BLE -- medical management per Dr. Guerrero -- dispo planning: anticipate d/c later today or tomorrow; care management working on home health PT and DME
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
== END 2020-01-02 11:25 | disposition home health service (06) | DRG 480 ==
LOC: ER 14:41 → 2ND 17:06
PROVIDERS: ADMIT Internal Medicine Adolescent Medicine; ATTEND Emergency Medicine
CPT/HCPCS: 36415; 71010; 71045; 73502; 73552; 76000; 80048; 80053; 80305; 81001; 84484; 85025; 93005; 94640; 94761; 96375; 97110; 97116; 97163; 97530; 99284; C1713; J2405

== ENCOUNTER → 2020-01-15 11:59 | Outpatient (CLI) | payer MEDICARE, MEDICAID, SELFPAY ==
--- NOTE | 2020-01-15 12:07 | XR_ITS ---
PROCEDURE: XR FEMUR RT 2V CLINICAL INDICATION: post imn Rt femur 12/30/2019 COMPARISON: XR FEMUR RT 2V from 12/29/2019 XR HIP RT 2-3V W/PELVIS from 12/29/2019 XR HIP RT 2-3V W/PELVIS from 12/30/2019 FINDINGS: Status post ORIF intertrochanteric hip fracture on the right. Gamma nail with short intramedullary dhara is present. The mid distal aspect of the right femur have an unremarkable appearance. Right hip joint is intact. There are skin clips present. IMPRESSION: Good alignment status post ORIF intertrochanteric fracture of the right Dictated by: Matthew Albrecht MD 01/15/2020 12:34 Electronically signed by Matthew Albrecht MD in [place] 01/15/2020 12:34
== END ==
PROVIDERS: PCP Physician Assistant; Visit Provider Orthopaedic Surgery
DX: S72.141A Displaced intertrochanteric fracture of right femur, initial encounter for closed fracture (principal)
CPT/HCPCS: 73552

== ENCOUNTER → 2020-04-12 12:28 | Outpatient (CLI) | payer MEDICARE, MEDICAID, SELFPAY ==
--- NOTE | 2020-04-12 12:47 | CT_ITS ---
PROCEDURE: CT CHEST WO/W CON CLINCAL INDICATION: 12 mth f/u Follow-up pulmonary nodule COMPARISON: LUNGSCREEN CT lung screening from 03/08/[address] chest wo/w con from 04/06/2019 TECHNIQUE: IV Contrast: 75ml Optiray 350 Axial images obtained with sagittal and coronal reformats. All CT scans at the facility use one or more dose reduction, viz: automated exposure control, ma/kV adjustment per patient size (including targeted exams where dose is matched to indication, i.e. head), or iterative reconstruction technique. FINDINGS: HEART AND MEDIASTINAL STRUCTURES: No mediastinal or hilar mass or adenopathy. There is mild thickening of the pericardium anteriorly. This is less prominent than when compared to the previous exam LUNGS AND PLEURAL SPACES: COPD with centrilobular emphysema. There is mild bronchial thickening nonspecific patchy ground-glass density is present in the lingula. Mild fibrotic change or atelectasis in the left lung base. Patchy ground-glass density left lower lobe posteriorly nonspecific no suspicious nodules are evident. Previously noted nodule in the right middle lobe is no longer apparent. Left hemidiaphragm is elevated BONY STRUCTURES: Degenerative changes are present in thoracic spine. There is mild chronic wedging of T6 and T7 unchanged UPPER ABDOMEN: 2.5 cm left renal cyst. There is moderate thickening of the cardia and body of the stomach. This in part could be related to nondistention. cannot exclude the possibility of an infiltrating process such as gastritis or neoplasm. ADDITIONAL FINDINGS: No other significant abnormalities. IMPRESSION: 1. Centrilobular emphysema 2. Previously noted right middle lobe nodule no longer apparent. No suspicious nodules evident. 3. Thickening of the cardia and body of the stomach which could be due to nondistention. Infiltrative process such as neoplasm or gastritis is also consideration. Upper GI or upper endoscopy may provide further evaluation Dictated by: Matthew Albrecht MD 04/13/2020 08:34 Electronically signed by Matthew Albrecht MD in [place] 04/13/2020 08:34
[2020-04-12 12:58] LABS: Blood Urea Nitrogen 5 mg/dl (9-20); Estimated Glomerular Filt Rate 166 ml/min (>60); GFR (African American) 201 ML/MIN (>60)
== END ==
PROVIDERS: PCP Physician Assistant; Visit Provider Physician Assistant
DX: R91.1 Solitary pulmonary nodule (principal)
CPT/HCPCS: 36415; 71270; 82565; 84520; Q9967

== ENCOUNTER → 2020-05-16 13:20 | Outpatient (CLI) | payer MEDICARE, MEDICAID, SELFPAY ==
--- NOTE | 2020-05-16 13:21 | MR_ITS ---
PROCEDURE: MR HEAD/BRAIN WO CON CLINICAL INDICATION: Known MS COMPARISON: No exams were available for comparison TECHNIQUE: Standard unenhanced MRI brain protocol FINDINGS: No restricted diffusion abnormalities. The vertebrobasilar vascular flow voids, pituitary, 7th and 8th nerves, and orbits are unremarkable. There is mild mucosal thickening in the ethmoidal sinuses. There is scattered foci of T2 prolongation within the subcortical, periventricular, and pontine white matter. There is no definite evidence of a hemorrhage. IMPRESSION: Supratentorial lesions consistent with the diagnosis of multiple sclerosis as described above Dictated by: oRshan Carr 05/16/2020 14:55 Electronically signed by Roshan Carr in [place] 05/16/2020 14:55
== END ==
PROVIDERS: PCP Physician Assistant; Visit Provider Emergency Medicine
DX: G35 Multiple sclerosis (principal)
CPT/HCPCS: 70551

== ENCOUNTER 2020-07-21 12:53 | Inpatient (IN) | payer MEDICARE, MEDICAID, SELFPAY ==
[2020-07-21] VITALS (11 sets, daily range): BP systolic 113–127; BP diastolic 72–106; PULSE 71–89; RESP 18–22; TEMP 36.4–37.1; O2SAT 84–94; BMI 23.1; BMI 23.4
--- NOTE | 2020-07-21 13:31 | PC.NURSE ---
Pain reassessment, pt currently sleeping in bed
--- NOTE | 2020-07-21 13:33 | [facility].EDGENADL ---
ED Disposition Clinical Impression: Closed left hip fracture Qualifiers: Encounter type: initial encounter Qualified Code(s): S72.002A - Fracture of unspecified part of neck of left femur, initial encounter for closed fracture Disposition: Admitted As Inpatient Condition on Discharge: Fair - Critical Care Critical Care Time: No Attestation: On 07/21/20, the high probability of a clinically significant, sudden or life threatening deterioration of the following system(s) required my full and direct attention, intervention and personal management. The time I documented below is in addition to time spent performing reported procedures but includes the following listed in this critical care notation. Medical Decision Making - Medical Records Medical records reviewed: Yes: I reviewed the patient's medical records. - Sami Inquiry Pt receiving controlled substance: Yes Sami was queried for this patient: No Reason not queried -: Emergent pt cond-no time Risks and benefits of using a controlled substance: were not discussed with pt by me Vital Signs: 07/21/20 12:59 07/21/20 13:10 07/21/20 13:16 Temperature 97.5 F L Temperature Source Oral Pulse Rate [Right Brachial] 86 80 80 Respiratory Rate 22 20 Blood Pressure [Right Arm] 124/106 H 122/82 122/82 Blood Pressure Mean [Right Arm] 112 95 95 Blood Pressure Source [Right Arm] Automatic Cuff Automatic Cuff Automatic Cuff Blood Pressure Position [Right Arm] Supine Sitting Supine 02 Sat by Pulse Oximetry 89 L 93 L 92 L Oxygen Delivery Method Room Air Room Air Nasal Cannula Oxygen Flow Rate (LPM) 1 07/21/20 13:30 07/21/20 14:30 07/21/20 14:45 Temperature Temperature Source Pulse Rate [Right Brachial] 71 74 Respiratory Rate 18 20 Blood Pressure [Right Arm] 118/73 126/78 Blood Pressure Mean [Right Arm] 88 94 Blood Pressure Source [Right Arm] Automatic Cuff Automatic Cuff Blood Pressure Position [Right Arm] Supine Supine 02 Sat by Pulse Oximetry 92 L 90 L 84 L Oxygen Delivery Method Nasal Cannula Nasal Cannula Room Air Oxygen Flow Rate (LPM) 1 1 07/21/20 15:00 Temperature Temperature Source Pulse Rate [Right Brachial] 85 Respiratory Rate Blood Pressure [Right Arm] 127/77 Blood Pressure Mean [Right Arm] 93 Blood Pressure Source [Right Arm] Automatic Cuff Blood Pressure Position [Right Arm] Supine 02 Sat by Pulse Oximetry 91 L Oxygen Delivery Method Nasal Cannula Oxygen Flow Rate (LPM) 1 - Lab Data Lab results reviewed: Yes: I reviewed the patient's lab results. Lab Results 07/21/20 13:55: Urine Color Yellow, Urine Appearance Clear, Urine pH 7.5, Ur Specific [place] 1.010, Urine Protein Negative, Urine Glucose (UA) Negative, Urine Ketones Negative, Urine Blood Negative, Urine Nitrate Negative, Urine Bilirubin Negative, Urine Urobilinogen 0.2, Ur Leukocyte Esterase Negative, Urine RBC None, Urine WBC None, Ur Squamous Epith Cells Occasional, Urine Bacteria None 07/21/20 14:40: Sodium 132 L, Potassium 3.9, Chloride 94 L, Carbon Dioxide 33 H, Anion Gap 8.9, BUN 11, Creatinine 0.50 L, Estimated Creat Clear 71, Estimated GFR 166, Est GFR ( Amer) 201, Glucose 111 H, Calcium 8.9, Total Bilirubin 0.7, AST 31, ALT 17, Alkaline Phosphatase 104, Total Protein 6.3, Albumin 3.7, Globulin 2.6, Albumin/Globulin Ratio 1.4 07/21/20 14:40: SARS-CoV-2 IgG Ab (Rapid) Negative, SARS-CoV-2 IgM Ab (Rapid) Negative Result diagrams: 07/21/20 14:40 Orders (Tests/Meds): ED MEDICATIONS Generic Name Dose Route Start Last Admin Trade Name Michael PRN Reason Stop Dose Admin Buprenorphine/Naloxone 1 each 07/22/20 09:00 Suboxone 8mg/2mg Odt SL 08/21/20 08:59 DAILY NISA Furosemide 40 mg 07/21/20 21:00 Lasix 40mg Tablet PO 08/20/20 20:59 BID NISA Gabapentin 600 mg 07/21/20 17:00 Neurontin 600mg Tablet PO 08/20/20 16:59 QID NSIA Metoprolol Succinate 25 mg 07/22/20 09:00 Toprol Xl 25mg Tablet PO 08/21/20 08:59 DAILY SC
--- NOTE | 2020-07-21 13:34 | XR_ITS ---
PROCEDURE: XR FEMUR LT 2V CLINICAL INDICATION: fall Posttraumatic pain COMPARISON: CR XR FEMUR RT 2V from 01/15/2020 CR XR HIP LT 2-3V W/PELVIS from 07/21/2020 FINDINGS: There is a nondisplaced intertrochanteric fracture of the left hip. Mid distal aspect of the left femur have an unremarkable appearance. There is a gamma nail in the right femoral neck with intramedullary dhara. There is a linear area of sclerotic density noted in the medial aspect of the left femoral head IMPRESSION: Nondisplaced intertrochanteric left hip fracture Dictated by: Matthew Albrecht MD 07/21/2020 19:10 Matthew Albrecht MD in [place] 07/21/2020 19:10
[2020-07-21 14:14] LABS: Microscopic, Urine URINE MICROSCOPIC (MICROSCOPIC)
[2020-07-21 14:16] LABS: Appearance,Urine CLEAR (Clear); Bilirubin,Urine Negative (Negative); Blood, Urine Negative (Negative); Color,Urine YELLOW (Yellow); Glucose,Urine (UA) Negative (Negative); Ketones,Urine Negative (Negative); Leukocyte Esterase,Urine Negative (Negative); Nitrate,Urine Negative (Negative); PH,Urine 7.5 (5.0-8.5); Protein,Urine Negative (Negative); Urobilinogen,Urine 0.2 EU/dl (0.2)
--- NOTE | 2020-07-21 14:19 | XR_ITS ---
PROCEDURE: XR CHEST PORTABLE CLINICAL HISTORY: hip fracture COMPARISON: CR CXR2V XR chest 2V from 02/24/2019 CR XR CHEST 2V from 11/13/2019 CR XR CHEST PORTABLE from 12/29/[address] CHEST WO/W CON from 04/12/2020 FINDINGS: The cardiomediastinal silhouette and pulmonary vascularity are within normal limits. COPD with chronic changes. There is an opacity in the left lung base which may be due to an area of fibrosis/scarring not significantly changed. Degenerative changes of the shoulders. No acute bony abnormalities. IMPRESSION: Chronic change, no acute finding Dictated by: Matthew Albrecht MD 07/21/2020 19:06 Matthew Albrecht MD in OV 07/21/2020 19:06
[2020-07-21 14:20] LABS: Squamous Epithelial Cell,Urine Occasional #/hpf (0-5)
--- NOTE | 2020-07-21 14:22 | PC.NURSE ---
pt refused servin cath
--- NOTE | 2020-07-21 14:24 | PC.NURSE ---
Paging Dr. Millard, can not leave VM d/t box full. Will attempt to call again
--- NOTE | 2020-07-21 14:48 | PC.NURSE ---
bettie Lainez at this time.
--- NOTE | 2020-07-21 14:48 | PC.NURSE ---
DR AREVALO HAS AGREED TO ACCEPT PT , HE WILL DO SURGERY IN THE AM HE REQUESTED 5 LB TRACTION TO LEG , NPO AFTER MIDNIGHT
--- NOTE | 2020-07-21 14:51 | PC.NURSE ---
Pt SaO2 94% on 1LPM NC, room air trial was 84%. Pt placed back on O2 at 1LPM SaO2 currently 90%. Pt has h/o COPD and home O2 of 2.5LPM during sleep.
[2020-07-21 14:58] LABS: Chloride 94 mmol/L (98-107); Potassium 3.9 mmoL/L (3.5-5.1); Sodium 132 mmol/L (136-145)
[2020-07-21 15:01] LABS: Alanine Aminotransferase 17 U/L (12-78); Albumin Level 3.7 g/dl (3.5-5.0); Albumin/Globulin Ratio 1.4 (1.1-1.8); Alkaline Phosphatase 104 U/L (38-126); Anion Gap 8.9 mEq/L (5-15); Aspartate Amino Transferase 31 U/L (17-59); Bilirubin,Total 0.7 mg/dl (0.2-1.3); Blood Urea Nitrogen 11 mg/dl (9-20); Carbon Dioxide 33 mmol/L (22.0-30.0); Creatinine Clearance Estimated 71 mL/min (50-200); Estimated Glomerular Filt Rate 166 ml/min (>60); GFR (African American) 201 ML/MIN (>60); Globulin 2.6 g/dL (1.3-3.2); Total Protein,Serum 6.3 g/dl (6.3-8.2)
[2020-07-21 15:02] LABS: Calcium 8.9 mg/dl (8.4-10.2); Glucose 111 mg/dl (74-100)
--- NOTE | 2020-07-21 15:13 | ECG_ITS ---
APPROVED REPORT Exam: Resting ECG HR:77 bpm ECG Measurements Heart Rate 77 AXES FL 132 P 72 QRSd 78 QRS 34 QT 378 T 53 QTc 427 <Conclusion> Sinus rhythm with premature supraventricular complexes Low voltage QRS Borderline ECG Electronically signed by : Navdeep Guerrero, 07/26/2020 06:41:12
[2020-07-21 15:55] LABS: Coronavirus 19 IgG Antibody Negative (Negative); Coronavirus 19 IgM Antibody Negative (Negative)
--- NOTE | 2020-07-21 16:14 | PC.NURSE ---
called report to Alyse Rodrigues RN
--- NOTE | 2020-07-21 16:20 | PC.NURSE ---
Spoke with Jazmyn Love RN in ER and received report. Also, confirmed to run cbc and have notified lab of this and replaced order.
[2020-07-21 16:31] LABS: Basophils % 0.2 % (0.1-2.0); Eosinophils # 0.1 K/mm3 (0.0-0.4); Eosinophils % 0.7 % (0.1-12.0); Hematocrit 35.9 % (42.0-52.0); Hemoglobin 12.3 g/dL (14.1-18.0); Lymphocytes # 1.5 K/mm3 (0.7-4.5); Lymphocytes % 14.9 % (10-50); Mean Corpuscular HGB Conc 34.4 g/dL (31.8-35.4); Mean Corpuscular Hemoglobin 30.6 pg (27.0-31.2); Mean Platelet Volume 7.6 fl (7.4-10.4); Monocytes # 0.7 K/mm3 (0.1-1.0); Monocytes % 6.8 % (1.7-9.3); Neutrophils # 7.8 K/mm3 (1.8-7.8); Neutrophils % 77.4 % (37.0-80.0); Platelet Count 256 K/mm3 (142-424); Red Blood Count 4.03 M/mm3 (4.60-6.20); Red Cell Distribution Width 13.8 % (11.5-17.5); White Blood Count 10.1 K/mm3 (4.8-10.8)
--- NOTE | 2020-07-21 19:55 | INFXCTL.NOTE ---
Pt alert and oriented and able to make needs known. RR even and unlabored at this time. Pt is on 2 L NC. Pt is resting and has been given prn morphine x 1 per jan r/t pain in L hip -08/01. [place] traction is in place and pt tolerating well. CB in reach. Urinal in use. Lungs rhonchi upper lodes aleksandra. BS X 4. VSS. Have made RN now in charge on pt of need for consent and planned surgery in am. Pt has been informed of planned surgery as well and been made aware of NPO status at 0000.
[2020-07-22] VITALS (30 sets, daily range): BP systolic 96–142; BP diastolic 60–90; PULSE 80–112; RESP 14–25; TEMP 36.5–43; O2SAT 85–98; BMI 25.3
--- NOTE | 2020-07-22 03:12 | PC.NURSE ---
Pt is currently resting in bed. Has c/o some discomfort. Repositioning and Morphine IV admin this shift. [place] traction remains on LLE. Has tolerated it fair. Pt is currently NPO for morning procedure. Pt states he will take bath this AM. VSS. No other concerns at this time. Will continue to monitor.
--- NOTE | 2020-07-22 06:31 | PC.NURSE ---
LATE ENTRY- 628 PT OFF THE FLOOR VIA BED W/OR STAFF.
--- NOTE | 2020-07-22 06:32 | PC.NURSE ---
Consent for surgery obtained. Pt left floor with surgery team.
--- NOTE | 2020-07-22 06:39 | PC.NURSE ---
Patient was weighted with a Boyer's traction.
--- NOTE | 2020-07-22 07:08 | HMH.ORTHOCON ---
*Admission Date: 07/22/20 *Reason for consult:: L hip fracture *History of present illness: 65-year-old gentleman admitted yesterday through the ER after a fall at 2 AM that morning at home. He states that a rug came out from underneath his feet and he fell directly on the left side. He had pain in the left hip radiating down into the thigh and was unable to stand or ambulate. He underwent intramedullary nail placement on the right femur earlier this year in December by myself. The patient return for one postoperative follow-up to have his kalia removed, and then was lost to follow-up. We have tried multiple times to call the patient with no response, and he declined physical therapy. DEXA was planned during his recovery but has not been able to be done. Despite this, he says he is doing very well with regards to the right hip, which he says went on to heal well with no pain. His only complaint at this time is left hip pain. He has a medical history significant for congestive heart failure, pulmonary hypertension, COPD, depression, anxiety, hypertension, and home oxygen use. He denies any anticoagulant use at baseline. Denies any current chest pain or shortness of breath beyond baseline, though he has had a recent color change in his normal sputum production. No loss of consciousness reported during the injury. [facility] History I have reviewed the patient's past medical history: Yes Medical History: Reports:: Anxiety, Asthma, Congestive Heart Failure, Chronic Obstructive Pulmonary Disease (COPD), Depression, Home Oxygen, Hypertension, Lung Disease, Migraine Denies:: Cancer, Diabetes Mellitus Type 1, Diabetes Mellitus Type 2, Internal Pacemaker, MRSA, Seizures *Have you ever received a pneumonia vaccine?: No *Have you received a flu vaccine this season?: No Other Medical History: Reports: Anemia, Arthritis, Glaucoma Laterality Cases: Left: Carpal Tunnel Release, Bilateral: Tonsillectomy Other Surgeries: Yes: Cardiac Catheterization, Cholecystectomy, Colonoscopy, Other. No: Pacemaker Amputation: No Fractures: Yes (R hip fx 12/2019) - *Social History Last grade of school completed: High school graduate Smoking Status: Current every day smoker Tobacco Type: cigarettes # Packs/Day (cigarettes): 1 Alcohol Intake: never Alcohol Intake Frequency:: holidays/special occasions only Substance Use Type: former substance user, painkillers *Occupational Status:: retired Housing: house Household Members: spouse *Travel in the last 8 weeks: None - Psychiatric History Pschychiatric History:: Reports:: Anxiety, Depression Family Hx:: Cancer, Coronary Artery Disease, Diabetes, Stroke, Heart Attack Review of Systems - Review of Systems Review of systems:: pertinent systems reviewed and negative unless documented below - *Neurologic Denies headache(s), Denies numbness, Denies weakness Meds Home Medications Medication Instructions Recorded Confirmed Type Furosemide [Furosemide 40MG tAB] 40 mg PO BID 12/29/19 07/21/20 History Potassium Chloride 20 meq PO BID 12/29/19 07/21/20 History buprenorphine 8 mg-naloxone 2 mg 2.5 tab SL DAILY 01/15/20 07/22/20 History sublingual tablet Fluticasone/Umeclidin/Vilanter 1 puff IH DAILY 07/21/20 07/22/20 History [Trelegy Ellipta] Gabapentin 600 mg PO QID 07/21/20 07/21/20 History Albuterol Sulfate [Proventil Hfa] 2 puff IH Q6H 07/22/20 07/22/20 History Sildenafil Citrate [Sildenafil] 100 mg PO DAILYP PRN 07/22/20 07/22/20 History Allergies Allergy/AdvReac Type Severity Reaction Status Date / Time NSAIDS (Non-Steroidal AdvReac Severe STOMACH Verified 07/21/20 13:29 Anti-Inflamma PAIN Exam Vital signs and Labs for Last 24 Hours: Temp Pulse Resp BP Pulse Ox 97.7 F 93 H 18 112/66 91 L 07/22/20 04:00 07/22/20 04:00 07/22/20 04:00 07/22/20 04:00 07/22/20 04:00 Laboratory Results - last 24 hr 07/21/20 13:55: Urine Color Yellow, Urine Appearance Clear, Urine pH 7.5, Ur Specific
--- NOTE | 2020-07-22 07:30 | HMH.PHAINT ---
MEDICATION RECONCILIATION COMPLETED ON PATIENT USING EXTERNAL FILL HISTORY FROM PHARMACY. -ANAND BENEDICT, DAMID
--- NOTE | 2020-07-22 07:31 | P.CONPHA_ITS ---
[facility] Pharmacy VTE Monitoring - Patient Demographics Admission date: 07/21/20 Report Date: 07/22/20 Time: 07:31 Allergies/Adverse Reactions: Patient Allergies NSAIDS (Non-Steroidal Anti-Inflamma Adverse Reaction (Severe, Verified 07/21/20 13:29) STOMACH PAIN Height: 1.73 m Weight: 75.778 kg Patient Problems: Current Active Problems (Last Updated 08/03/19 @ 14:33 by Jazzmine Leone RN) Closed left hip fracture (Acute) - VTE Risk Labs: VTE Related Lab Results Hgb 12.3 g/dL (14.1-18.0) L 07/21/20 15:45 Hct 35.9 % (42.0-52.0) L 07/21/20 15:45 Plt Count 256 K/mm3 (142-424) 07/21/20 15:45 BUN 11 mg/dl (9-20) 07/21/20 14:40 Creatinine 0.50 mg/dl (0.66-1.25) L 07/21/20 14:40 Estimated Creat Clear 71 mL/min (50-200) 07/21/20 14:40 VTE Score: 4 VTE Risk Level: Low Risk - Prophylaxis VTE Prophylaxis Ordered?: Yes Types of VTE Prophylaxis: TEDS Knee High Location of Applied Device: Right Leg
--- NOTE | 2020-07-22 08:25 | SUR.OPER ---
0820-pt's updated at this time
--- NOTE | 2020-07-22 08:27 | XR_ITS ---
PROCEDURE: XR HIP LT 2-3V W/PELVIS CLINICAL INDICATION: FEMORAL NAILING IN OR Intertrochanteric fracture COMPARISON: CR XR HIP LT 2-3V W/PELVIS from 07/21/2020 FINDINGS: Fluoroscopy time: 1 minutes and 54 seconds. Multiple images are submitted during ORIF of the left intertrochanteric hip fracture. A short intramedullary dhara with a gamma nail was placed with good alignment IMPRESSION: Alignment status post ORIF left hip fracture Dictated by: Matthew Albrecht MD 07/22/2020 11:05 Matthew Albrecht MD in [place] 07/22/2020 11:05
--- NOTE | 2020-07-22 08:47 | P.PN_ITS ---
[facility] Anesthesia Checklist - Patient Identification Patient Identification: Arm Band, Verbal (Name & ) - Structural Data Admitted From: Inpatient Planned Operative Procedure/s: Left hip IM nailing Consent for Planned Operative Procedure(s) Verified: Yes Verified Documents: Surgical Consent, History and Physical - NPO Status Verified Time NPO: 00:00 - Chart Verification Results Verified: CBC, BMP - Additional verifications Anesthesia Reactions: No - Airway Assessment C-Spine Mobility Assessed: Yes TMJ Mobility Assessed: Yes Dentition: Poor Dentition (Missing teeth) - Neurological Assessment Level of Consciousness: Awake, Alert, Appropriate, Follows Commands Hx Seizures: No Numbness or tingling in extremities: No - Anesthesia Plan Anesthesia Risk discussed: Yes Anesthesia Plan: Verified ASA Class: III Anesthesia Type: General [facility] History I have reviewed the patient's past medical history: Yes Medical History: Reports:: Anxiety, Asthma, Congestive Heart Failure, Chronic Obstructive Pulmonary Disease (COPD), Depression, Home Oxygen, Hypertension, Lung Disease, Migraine Denies:: Cancer, Diabetes Mellitus Type 1, Diabetes Mellitus Type 2, Internal Pacemaker, MRSA, Seizures *Have you ever received a pneumonia vaccine?: No *Have you received a flu vaccine this season?: No Other Medical History: Reports: Anemia, Arthritis, Glaucoma Anesthesia experience/problems:: No prior complications Laterality Cases: Left: Carpal Tunnel Release, Bilateral: Tonsillectomy Other Surgeries: Yes: Cardiac Catheterization, Cholecystectomy, Colonoscopy, Other. No: Pacemaker Amputation: No Fractures: Yes (R hip fx 12/2019) - *Social History Last grade of school completed: High school graduate Smoking Status: Current every day smoker Tobacco Type: cigarettes # Packs/Day (cigarettes): 1 Alcohol Intake: never Alcohol Intake Frequency:: holidays/special occasions only Substance Use Type: former substance user, painkillers *Occupational Status:: retired Housing: house Household Members: spouse *Travel in the last 8 weeks: None - Psychiatric History Pschychiatric History:: Reports:: Anxiety, Depression Family Hx:: Cancer, Coronary Artery Disease, Diabetes, Stroke, Heart Attack
--- NOTE | 2020-07-22 08:47 | XR_ITS ---
PROCEDURE: XR CHEST PORTABLE CLINICAL HISTORY: possible rib fracture Pain COMPARISON: CR XR CHEST 2V from 11/13/2019 CR XR CHEST PORTABLE from 12/29/[address] CHEST WO/W CON from 04/12/2020 CR XR CHEST PORTABLE from 07/21/2020 FINDINGS: The left hemidiaphragm is elevated with chronic changes in the left lung base. There are changes of COPD. No lobar consolidation or collapse is evident. There are increased markings in the left suprahilar region. These may be vascular. Follow-up is recommended. No new areas of lobar consolidation. There is a nondisplaced fracture involving the left 9th rib laterally IMPRESSION: Nondisplaced left 9th rib fracture. Elevated left diaphragm with chronic changes in the left lung base. Dictated by: Matthew Albrecht MD 07/22/2020 10:05 Matthew Albrecht MD in [place] 07/22/2020 10:05
--- NOTE | 2020-07-22 08:49 | HMH.ANESI ---
[facility] Anesthesia Record Part I Intake, IV Amount: 400 Estimated blood loss (mL): 50 Urine output (mL): 0 (NM) Blood Products used (#): none Blood Pressure: 129/84 SaO2: 97 Pulse Rate: 112 Respiratory Rate: 16 Temperature: 97.8 F Patient is:: Awake, Drowsy, Nasal O2 (4 L O2 via NC), Stable Stable to PACU at:: 08:40
--- NOTE | 2020-07-22 08:51 | XR_ITS ---
PROCEDURE: XR HIP LT 2-3V W/PELVIS CLINICAL INDICATION: s/p left hip IM nailing Follow-up intertrochanteric fracture repair COMPARISON: CR XR HIP LT 2-3V W/PELVIS from 07/21/2020 FINDINGS: There has been interval insertion of a gamma nail and a short intramedullary dhara stabilizing the left intertrochanteric fracture which is in good alignment. Soft tissue gas noted along the lateral aspect of the hip with surgical clips present. IMPRESSION: Status post ORIF of the left hip with good alignment with postsurgical changes Dictated by: Matthew Albrecht MD 07/22/2020 10:43 Matthew Albrecht MD in [place] 07/22/2020 10:43
--- NOTE | 2020-07-22 09:43 | HMH.OPNOTE ---
Date of procedure: 07/23/20 Pre-op Diagnosis:: intertrochanteric fracture L femur Post-op Diagnosis:: intertrochanteric fracture L femur Procedure performed:: intramedullary nail (IMN) L femur Surgeon:: Marquita Merida MD Stadium Attendant(s):: Ivana Watt CUSTOMER SUPPORT SPECIALIST:: Robin Wilcox Anesthesia: GETA Estimated blood loss (mL): 25 Clinical Note:: 65-year-old gentleman admitted yesterday through the ER after a fall at 2 AM that morning at home. He states that a rug came out from underneath his feet and he fell directly on the left side. He had pain in the left hip radiating down into the thigh and was unable to stand or ambulate. He underwent intramedullary nail placement on the right femur earlier this year in December by myself. The patient return for one postoperative follow-up to have his kalia removed, and then was lost to follow-up. We have tried multiple times to call the patient with no response, and he declined physical therapy. DEXA was planned during his recovery but has not been able to be done. Despite this, he says he is doing very well with regards to the right hip, which he says went on to heal well with no pain. His only complaint at this time is left hip pain. He has a medical history significant for congestive heart failure, pulmonary hypertension, COPD, depression, anxiety, hypertension, and home oxygen use. He denies any anticoagulant use at baseline. Denies any current chest pain or shortness of breath beyond baseline, though he has had a recent color change in his normal sputum production. No loss of consciousness reported during the injury. I discussed the nature of the injury with the patient, including treatment options. He has the same fracture as the right side did in December, and I am recommending the same treatment: intramedullary nail placement. I discussed the risks and benefits to the procedure, including bleeding, infection, fracture non-union, persistent pain/limp, and need for further surgery, as well as the risk of anesthesia. The patient vocalized understanding and provided informed consent for the procedure. Operative findings:: [employer] gamma 3 femoral IMN system nail: 11 x 180mm; 125 degree lag screw: 10.5 x 100mm distal interlock: 5 x 40mm Operative note:: The patient was identified in preoperative holding and the L hip signed by myself. The patient was then taken to the operating room where he was left on his hospital bed and general anesthesia induced. Just prior to induction, 1g Ancef was infused intravenously. Once the patient was anesthetized, he was transferred to the fracture table. During positioning, the patient lost pulses and was identified to be in PEA. ACLS protocol was initiated and CPR immediately started. After 5 chest compressions, rapid ROSC was obtained and no further CPR needed. BP was in the 50's systolic, and ephedrine was given x1 dose to treat this; there were no further hemodynamic issues reported and we proceeded with surgery. The L leg was secured to the foot plate of the fracture table and the R leg placed in an extended/lowered position, scissoring the legs so that the R leg was well protected but out of the way of both the L hip and C-arm. Timeout was performed, identifying the correct patient, correct procedure and correct site. Next the L hip fracture was visualized under fluoro and as this was a nondisplaced fracture, no reduction maneuvers were necessary. The L hip was then prepped and draped in the usual sterile fashion for a femoral intramedullary nail procedure. The procedure was begun by using a free guide pin held over the L hip to localize the level of the greater trochanter. Approximately 3cm proximal to this, a longitudinal incision was made on the lateral aspect of the hip approximately 3 cm long. The guidepin was placed over the tip of the greater trochanter and fluoroscopy used to confirm the appropriate starting point on both AP and lateral views. The guidepin was advanc
--- NOTE | 2020-07-22 09:56 | HMH.HP ---
*Admission Date: 07/21/20 *Chief complaint: fracture hip *History of present illness: 65-year-old male presented to ed with pain in left hip. xray shows left hip fracture, pt admitted for left hip fracture after falling. Patient states the rug slipped out from underneath him causing him to fall and then had hip pain and could not stand. Patient states he is still recovering from a recent surgical repair of his right hip fracture in dec. Patient had no complications perioperatively earlier this year with hip repair. Pt was taken to the OR this morning for surgical repair of his left hip. Per Note after receiving anesthesia the patient developed hypotension and pulseless electrical activity. CPR was started along with epinephrine and IV fluids with successful return of circulation very quickly. Surgical correction of the hip was undertaken thereafter without complications. cardiology consult placed [facility] History I have reviewed the patient's past medical history: Yes Medical History: Reports:: Anxiety, Asthma, Congestive Heart Failure, Chronic Obstructive Pulmonary Disease (COPD), Depression, Home Oxygen, Hypertension, Lung Disease, Migraine Denies:: Cancer, Diabetes Mellitus Type 1, Diabetes Mellitus Type 2, Internal Pacemaker, MRSA, Seizures *Have you ever received a pneumonia vaccine?: No *Have you received a flu vaccine this season?: No Other Medical History: Reports: Anemia, Arthritis, Glaucoma Anesthesia experience/problems:: No prior complications Laterality Cases: Left: Carpal Tunnel Release, Bilateral: Tonsillectomy Other Surgeries: Yes: Cardiac Catheterization, Cholecystectomy, Colonoscopy, Other. No: Pacemaker Amputation: No Fractures: Yes (R hip fx 12/2019) - *Social History Last grade of school completed: High school graduate Smoking Status: Current every day smoker Tobacco Type: cigarettes # Packs/Day (cigarettes): 1 Alcohol Intake: never Alcohol Intake Frequency:: holidays/special occasions only Substance Use Type: former substance user, painkillers *Occupational Status:: retired Housing: house Household Members: spouse *Travel in the last 8 weeks: None - Psychiatric History Pschychiatric History:: Reports:: Anxiety, Depression Family Hx:: Cancer, Coronary Artery Disease, Diabetes, Stroke, Heart Attack Review of Systems - Review of Systems Review of systems:: pertinent systems reviewed and negative unless documented below - Constitutional Denies body ache(s) - Eyes Denies change in vision - ENT Denies change in voice, Denies sore throat - *Cardiovascular Denies fast heart rate - *Respiratory Denies shortness of breath with activity - *Gastrointestinal Denies change in bowel habits - *Genitourinary Denies urinary urgency - *Musculoskeletal Reports abnormal walking, Reports joint pain, Reports limited joint movement, Reports radiating pain into limb, Reports other - Integumentary/Breasts Denies rash - *Neurologic Denies headache(s), Denies numbness, Denies weakness - Psychiatric Denies anxiety - Endocrine Denies increased thirst - Hematologic/Lymphatic Denies enlarged lymph nodes - Allergic/Immunologic Denies lip swelling Meds Home Medications Medication Instructions Recorded Confirmed Type Furosemide [Furosemide 40MG tAB] 40 mg PO BID 12/29/19 07/21/20 History Potassium Chloride 20 meq PO BID 12/29/19 07/21/20 History buprenorphine 8 mg-naloxone 2 mg 2.5 tab SL DAILY 01/15/20 07/22/20 History sublingual tablet Fluticasone/Umeclidin/Vilanter 1 puff IH DAILY 07/21/20 07/22/20 History [Trelegy Ellipta] Gabapentin 600 mg PO QID 07/21/20 07/21/20 History Albuterol Sulfate [Proventil Hfa] 2 puff IH Q6H 07/22/20 07/22/20 History Sildenafil Citrate [Sildenafil] 100 mg PO DAILYP PRN 07/22/20 07/22/20 History Allergies Allergy/AdvReac Type Severity Reaction Status Date / Time NSAIDS (Non-Steroidal AdvReac Severe STOMACH Verified 07/21/20 13:29 Anti-Inflamma PAIN
--- NOTE | 2020-07-22 09:58 | CA_ITS ---
APPROVED REPORT EXAM: Comprehensive 2D, Doppler, and color-flow Echocardiogram Criminal Justice Teacher: Martha Amin RDCS Ht: 5 ft 8 in Wt: 167lbs BSA: 1.89 BP: 129/84 mmHg Indications: PEA DURING LEFT HIP FX,H/O CHF,COPD,HTN 2D Dimensions LVOT 1.95 cm (M/F) 1.5-2.5 M-Mode Dimensions RVDd 2.46 cm (0.9-2.6) LVDd 4.74 cm (3.5-5.7) LVDs 3.15 cm (3.5-5.7) IVSd 0.83 cm (0.6-1.1) PWd 0.68 cm (0.6-1.1) EF (Teich) 62.30% FS 33.50% EDV (Teich) 104.40 mL ESV (Teich) 39.40 mL LV Diastology E/A Ratio 0.66 Mitral Valve MV A Velocity 78.00 (40-130 cm/s) Left Ventricle Left atrium is mildly enlarged, left ventricle is normal size, mild concentric left ventricular hypertrophy, visually estimated ejection fraction 55%, there is abnormal septal motion. There is no regional wall motion abnormality, grade 1 diastolic dysfunction seen without tissue Doppler evidence of raise left atrial pressure. Right Ventricle Right atrium and right ventricle mildly enlarged with normal contractility. Aortic Valve Aortic valve is thickened and calcified leaflet continue to display good mobility, there is no aortic stenosis or aortic insufficiency. Mitral Valve Mitral valve leaflets are grossly normal, there is mild mitral regurgitation. Tricuspid Valve Tricuspid valve is grossly normal, there is mild tricuspid regurgitation. Pulmonic Valve Pulmonic valve is poorly visualized. Great Vessels Aortic root is normal size. Pericardium No significant pericardial effusion noted. Conclusion 1. Mild biatrial enlargement, normal left ventricular size, mild concentric left ventricular hypertrophy, visually estimated ejection fraction 55%, there is abnormal septal motion, grade 1 diastolic dysfunction seen without tissue Doppler evidence of raise left atrial pressure. 2. Mildly enlarged right ventricle with normal contractility. 3. Mild mitral and tricuspid regurgitation. 4. No significant pericardial effusion noted. Electronically signed by : Manolo Arcos, 07/22/2020 18:05:01
--- NOTE | 2020-07-22 11:57 | CT_ITS ---
PROCEDURE: CT ANGIO CHEST CLINCIAL INDICATION: PEA Shortness of air, recent code blue in operating room COMPARISON: CT CT CHEST WO/W CON from 04/12/2020 CR XR CHEST PORTABLE from 07/22/2020 TECHNIQUE: IV Contrast: 70ML OPTIRAY 350 Axial images obtained with sagittal and coronal reformats. All CT scans at the facility use one or more dose reduction, viz: automated exposure control, ma/kV adjustment per patient size (including targeted exams where dose is matched to indication, i.e. head), or iterative reconstruction technique. FINDINGS: HEART AND MEDIASTINAL STRUCTURES: No evidence of aortic aneurysm or dissection. No evidence of pulmonary embolus.. No mediastinal or hilar mass or adenopathy. LUNGS AND PLEURAL SPACES: Centrilobular emphysema with changes of COPD and scattered areas of scarring. There are atelectatic changes in the lower lobes on both sides more extensive on the left with consolidation and volume loss in the left lung base posteriorly. There is mild bronchial thickening at this area as well. There are trace bilateral effusions slightly larger on the left. BONY STRUCTURES: There are wedge compression changes of T6 with sclerosis along the superior aspect. There is loss of height of T6 of approximately 40 percent without obvious retropulsion stippled calcifications are present along the lower aspect of T6 which are unchanged. Coarse calcifications are also present along the lower aspect of T7 unchanged with mild wedging of T7 unchanged. UPPER ABDOMEN: Small left renal cyst is noted unchanged ADDITIONAL FINDINGS: No other significant abnormalities. IMPRESSION: 1. No evidence of pulmonary embolus, aortic aneurysm, or aortic dissection. 2. Bibasilar atelectatic changes left greater than right with trace bilateral effusions left greater than right with consolidation/volume loss in the left lower lobe posteriorly. 3. Centrilobular emphysema with COPD 4. Wedge compression changes of T6 with increased density along the mid and upper aspect of the T6 vertebral body possibly due to the increased wedge compression changes Dictated by: Matthew Albrecht MD 07/22/2020 13:53 Matthew Albrecht MD in OV 07/22/2020 13:53
--- NOTE | 2020-07-22 12:12 | HMH.CNCARD ---
History of Present Illness Consult date: 07/22/20 Requesting physician: Marquita Merida Chief complaint: Left hip fracture Additional Medical History:: 1. Severe diastolic dysfunction with normal coronary arteries, 05/2018 [facility], 05/2018, ANGIOGRAPHIC RESULTS: 1. The left main artery normal 2. The left anterior descending artery normal 3. The circumflex artery normal 4. The right coronary artery dominant normal 5. The GEORGE ventriculogram reveals normal 65% 6. The left ventricular end-diastolic pressure severely elevated 30 mmHg 2. Multiple sclerosis confirmed by MRI, 04/2020, A. No restricted diffusion abnormalities. The vertebrobasilar vascular flow voids, pituitary, 7th and 8th nerves, and orbits are unremarkable. There is mild mucosal thickening in the ethmoidal sinuses. There is scattered foci of T2 prolongation within the subcortical, periventricular, and pontine white matter. There is no definite evidence of a hemorrhage. 3. Hypertension A. Echo, 07/2019,1. Mild biatrial enlargement, normal left ventricular size, visually estimated ejection fraction 55% with no regional wall motion abnormality, diastolic parameters are consistent with grade 1 diastolic dysfunction without tissue Doppler evidence of raise left atrial pressure. 2. Mildly enlarged right atrium and right ventricle, contractility of the right ventricle is normal. 3. Mild mitral and tricuspid regurgitation. 4. No significant pericardial effusion noted, inferior vena cava is mildly dilated without significant inspiratory collapse. 4. Tobacco abuse with COPD 5. History of anxiety/depression 6. History of asthma History of present illness: 65-year-old white male admitted for left hip fracture after falling. Patient states the rug slipped out from underneath him causing him to fall. Pain noted in the left hip with evaluation in the ER confirming fracture. Patient is still recovering from a recent surgical repair of his right hip fracture earlier this year. Patient had no complications perioperatively earlier this year and was taken to the OR this morning for surgical repair of his left hip. After receiving anesthesia the patient developed hypotension and pulseless electrical activity. CPR was started along with epinephrine and IV fluids with successful return of circulation very quickly. Surgical correction of the hip was undertaken thereafter without complications. Cardiology was consulted postoperatively for evaluation and recommendations. As noted above patient has history of normal coronary arteries and elevated LVEDP in 2018 and echocardiogram in 2019 showing evidence of diastolic dysfunction. [facility] History Medical History: Reports:: Anxiety, Asthma, Congestive Heart Failure, Chronic Obstructive Pulmonary Disease (COPD), Depression, Home Oxygen, Hypertension, Lung Disease, Migraine Denies:: Cancer, Diabetes Mellitus Type 1, Diabetes Mellitus Type 2, Internal Pacemaker, MRSA, Seizures *Have you ever received a pneumonia vaccine?: No *Have you received a flu vaccine this season?: No Other Medical History: Reports: Anemia, Arthritis, Glaucoma Anesthesia experience/problems:: No prior complications Laterality Cases: Left: Carpal Tunnel Release, Bilateral: Tonsillectomy Other Surgeries: Yes: Cardiac Catheterization, Cholecystectomy, Colonoscopy, Other. No: Pacemaker Amputation: No Fractures: Yes (R hip fx 12/2019) - *Social History Last grade of school completed: High school graduate Smoking Status: Current every day smoker Tobacco Type: cigarettes # Packs/Day (cigarettes): 1 Alcohol Intake: never Alcohol Intake Frequency:: holidays/special occasions only Substance Use Type: former substance user, painkillers *Occupational Status:: retired Housing: house Household Members: spouse *Travel in the last 8 weeks: None - Psychiatric History Pschychiatric History:: Reports:: Anxiety, Depression Family Hx:: Cancer, Coronary A
[2020-07-22 12:55] LABS: Chloride 95 mmol/L (98-107); Potassium 5.3 mmoL/L (3.5-5.1); Sodium 134 mmol/L (136-145)
[2020-07-22 12:58] LABS: Anion Gap 10.3 mEq/L (5-15); Blood Urea Nitrogen 11 mg/dl (9-20); Carbon Dioxide 34 mmol/L (22.0-30.0); Creatinine Clearance Estimated 78 mL/min (50-200); Estimated Glomerular Filt Rate 135 ml/min (>60); GFR (African American) 163 ML/MIN (>60); Phosphorous 3.7 mg/dl (2.5-4.5)
[2020-07-22 12:59] LABS: Calcium 9.4 mg/dl (8.4-10.2); Glucose 144 mg/dl (74-100); Lactic Acid 1.1 mmol/L (0.7-2.1)
--- NOTE | 2020-07-22 13:06 | HMH.PULMCON ---
*Admission Date: 07/21/20 *Reason for consult:: Status post PEA *History of present illness: Mr. Morgan is a 65-year-old male with a history of COPD at 2 to 1/2 L long-term oxygen therapy at home, hip fracture in December status post repair, diastolic heart failure, presented to the hospital for hip fracture hip fracture. In the operation room today patient had an event of PEA where she received he received 5 -6 chest compressions with ROSC. Patient did not receive any drugs. Blood loss with the surgery minimal. On further questioning the patient he said that he has been experiencing worsening cough with yellowish phlegm production for the last couple of days, not associated with any fevers, no chills, no sick contacts. Patient covered serology negative. Patient states that he is back to his baseline except his chest is sore. [facility] History Medical History: Reports:: Anxiety, Asthma, Congestive Heart Failure, Chronic Obstructive Pulmonary Disease (COPD), Depression, Home Oxygen, Hypertension, Lung Disease, Migraine Denies:: Cancer, Diabetes Mellitus Type 1, Diabetes Mellitus Type 2, Internal Pacemaker, MRSA, Seizures *Have you ever received a pneumonia vaccine?: No *Have you received a flu vaccine this season?: No Other Medical History: Reports: Anemia, Arthritis, Glaucoma Anesthesia experience/problems:: No prior complications Laterality Cases: Left: Carpal Tunnel Release, Bilateral: Tonsillectomy Other Surgeries: Yes: Cardiac Catheterization, Cholecystectomy, Colonoscopy, Other. No: Pacemaker Amputation: No Fractures: Yes (R hip fx 12/2019) - *Social History Last grade of school completed: High school graduate Smoking Status: Current every day smoker Tobacco Type: cigarettes # Packs/Day (cigarettes): 1 Alcohol Intake: never Alcohol Intake Frequency:: holidays/special occasions only Substance Use Type: former substance user, painkillers *Occupational Status:: retired Housing: house Household Members: spouse *Travel in the last 8 weeks: None - Psychiatric History Pschychiatric History:: Reports:: Anxiety, Depression Family Hx:: Cancer, Coronary Artery Disease, Diabetes, Stroke, Heart Attack [facility] Pulmonology ROS - Review of Systems Review of systems:: pertinent systems reviewed and negative unless documented below - Constitutional Reports body ache(s), Denies anorexia, Denies headache(s) - *Cardiovascular Reports chest pain, Denies leg swelling - *Respiratory Respiratory: Yes change in phlegm color, Yes chest congestion, Yes cough, Yes excessive phlegm production - *Gastrointestinal Gastrointestingal: Reports: system reviewed and no additional complaints, except as docu - *Musculoskeletal Musculoskeletal: Reports system reviewed and no additional complaints, except as docu ( ) - *Neurologic Denies headache(s), Denies numbness, Denies weakness Meds Home Medications Medication Instructions Recorded Confirmed Type Furosemide [Furosemide 40MG tAB] 40 mg PO BID 12/29/19 07/21/20 History Potassium Chloride 20 meq PO BID 12/29/19 07/21/20 History buprenorphine 8 mg-naloxone 2 mg 2.5 tab SL DAILY 01/15/20 07/22/20 History sublingual tablet Fluticasone/Umeclidin/Vilanter 1 puff IH DAILY 07/21/20 07/22/20 History [Trelegy Ellipta] Gabapentin 600 mg PO QID 07/21/20 07/21/20 History Albuterol Sulfate [Proventil Hfa] 2 puff IH Q6H 07/22/20 07/22/20 History Sildenafil Citrate [Sildenafil] 100 mg PO DAILYP PRN 07/22/20 07/22/20 History Allergies Allergy/AdvReac Type Severity Reaction Status Date / Time NSAIDS (Non-Steroidal AdvReac Severe STOMACH Verified 07/21/20 13:29 Anti-Inflamma PAIN Exam Vital signs and Labs for Last 24 Hours: Temp Pulse Resp BP Pulse Ox 97.9 F 95 H 16 124/80 93 L 07/22/20 10:30 07/22/20 11:01 07/22/20 10:30 07/22/20 10:30 07/22/20 10:30 Laboratory Results - last 24 hr 07/21/20 13:55: Urine Color Yellow, Urine Appearance Clear, Urine pH 7.5, Ur Specific [place] 1.010, U
--- NOTE | 2020-07-22 15:48 | PC.NURSE ---
Patient is s/p Left Hip repair this shift, on 3LNC at this time, alert and oriented, vss, scud on R leg, medicated for pain per emar, no s/s of distress noted, nsr per telemetry, will continue to monitor.
--- NOTE | 2020-07-22 15:59 | SW/DCPLANNER ---
Addendum entered by [facility] 07/25/20 13:28: Maricarmen from [facility] has stated they will deliver a portable O2 tank to patients room today prior to discharge. I have informed patients nurse (Charisse). Addendum entered by [facility] 07/25/20 13:25: I have spoke with Sulma with [facility]....Sulma has stated that services will begin within the next 48 hours. Addendum entered by [facility] 07/25/20 10:59: Patient information and order for home health services (SN/PT/OT) has been faxed to Lorin with [facility]. I will follow up with Lorin once patient information is reviewed. Addendum entered by [facility] 07/24/20 10:29: I have spoke with Dia at [facility]. This patient already has continuous home O2 (thought he had only at night). This was confirmed by Dia. Once patient is stable for discharge I will set up with [facility]. Patient concurs with this plan. Original Note: I have spoke with this patient regarding discharge plans post hip fracture. Patient stated that he lives at home with significant other and intends to return there once stable for discharge. Patient stated that this past Dec he had surgery on his opposite hip and returned home with home health services with [facility]. Patient prefers to use [facility] at time of discharge. Patient stated that he will need a rolling walker at discharge. However a rolling walker was ordered for patient in December at previous admission. I explained to patient that his insurance will only pay for a walker every 5 years. Patient stated that a family member will let him borrow one. I will follow up with this patient once PT evaluation is completed tomorrow. Discharge date is unknown at this time.
--- NOTE | 2020-07-22 19:18 | PC.NURSE ---
report given to martha
--- NOTE | 2020-07-22 22:41 | PC.NURSE ---
He is A&Ox4. Have attempted to educate him on incentive spirometer use and he kept interupting saying he knew how then he blew into the spirometer. Would not allow full education. He has received PRN pain medication for left hip pain. While in his room he was snoring but awakened while public relations writer was in the room and he asked for pain medication. Went back into room to give PO PRN medication and he is snoring. Asked if he is awake and he did not respond. Respirations even, unlabored. DSG on left hip is C/D/I. He continues on 2LPM n/c. Voiding per urinal. Urine is dark yellow, clear.
[2020-07-23] VITALS (20 sets, daily range): BP systolic 89–160; BP diastolic 45–85; PULSE 70–90; RESP 13–18; TEMP 36.1–36.8; O2SAT 88–100; BMI 24.5
--- NOTE | 2020-07-23 06:38 | P.PN_ITS ---
[facility] Anesthesia Record Part II Discharge Time: 09:52 Destination: Medical Surgical Department PACU nurse assessment reviewed?: Yes Patient Condition:: Good Anesthesia Complications:: None Swallowing reflex intact?: Yes Cyanosis?: No Blood Pressure: 132/85 Pulse Rate: 90 Temperature: 97.8 F Mental Status: Alert & Oriented Pain level:: 7 Nausea and/or vomitting:: None Intake, IV Amount: 0
[2020-07-23 06:41] LABS: Basophils % 0.1 % (0.1-2.0); Eosinophils % 0.1 % (0.1-12.0); Hematocrit 32.1 % (42.0-52.0); Hemoglobin 10.8 g/dL (14.1-18.0); Lymphocytes # 1.1 K/mm3 (0.7-4.5); Lymphocytes % 10.6 % (10-50); Mean Corpuscular HGB Conc 33.5 g/dL (31.8-35.4); Mean Corpuscular Hemoglobin 31.1 pg (27.0-31.2); Mean Corpuscular Volume 92.8 fl (80-94); Mean Platelet Volume 7.8 fl (7.4-10.4); Monocytes # 0.8 K/mm3 (0.1-1.0); Monocytes % 7.1 % (1.7-9.3); Neutrophils # 8.8 K/mm3 (1.8-7.8); Neutrophils % 82.1 % (37.0-80.0); Platelet Count 223 K/mm3 (142-424); Red Blood Count 3.46 M/mm3 (4.60-6.20); Red Cell Distribution Width 13.7 % (11.5-17.5); White Blood Count 10.7 K/mm3 (4.8-10.8)
[2020-07-23 06:43] LABS: Chloride 97 mmol/L (98-107); Potassium 4.7 mmoL/L (3.5-5.1); Sodium 135 mmol/L (136-145)
[2020-07-23 06:46] LABS: Alanine Aminotransferase 13 U/L (12-78); Albumin Level 2.9 g/dl (3.5-5.0); Albumin/Globulin Ratio 1.1 (1.1-1.8); Alkaline Phosphatase 74 U/L (38-126); Anion Gap 7.7 mEq/L (5-15); Aspartate Amino Transferase 22 U/L (17-59); Bilirubin,Total 0.4 mg/dl (0.2-1.3); Blood Urea Nitrogen 11 mg/dl (9-20); Carbon Dioxide 35 mmol/L (22.0-30.0); Creatinine Clearance Estimated 78 mL/min (50-200); Estimated Glomerular Filt Rate 166 ml/min (>60); GFR (African American) 201 ML/MIN (>60); Globulin 2.6 g/dL (1.3-3.2); Total Protein,Serum 5.5 g/dl (6.3-8.2)
[2020-07-23 06:47] LABS: Calcium 8.9 mg/dl (8.4-10.2); Glucose 122 mg/dl (74-100)
--- NOTE | 2020-07-23 09:29 | HMH.PNCARD ---
Subjective Date: 07/23/20 Time: 09:29 Principal diagnosis: Status post hip fracture repair, PEA Interval history: 65-year-old white male in bed in no acute distress. Much more alert today and in no acute distress. Denies any chest pain except related to the rib fracture related to CPR. CTA of the chest showed no evidence of pulmonary embolus. Exam Vital signs and Labs for Last 24 Hours: Temp Pulse Resp BP Pulse Ox 97 F L 90 18 132/85 96 07/23/20 08:00 07/23/20 06:39 07/23/20 04:00 07/23/20 06:39 07/23/20 06:29 Laboratory Results - last 24 hr 07/22/20 12:40: Sodium 134 L, Potassium 5.3 H D, Chloride 95 L, Carbon Dioxide 34 H, Anion Gap 10.3, BUN 11, Creatinine 0.60 L, Estimated Creat Clear 78, Estimated GFR 135, Est GFR ( Amer) 163, Glucose 144 H D, Calcium 9.4, Phosphorus 3.7, Magnesium 2.0 07/22/20 12:40: Lactate 1.1 07/23/20 05:30: WBC 10.7, RBC 3.46 L, Hgb 10.8 L, Hct 32.1 L, MCV 92.8, MCH 31.1, MCHC 33.5, RDW 13.7, Plt Count 223, MPV 7.8, Neut % (Auto) 82.1 H, Lymph % (Auto) 10.6, Johnson % (Auto) 7.1, Eos % (Auto) 0.1, Baso % (Auto) 0.1, Neut # (Auto) 8.8 H, Lymph # (Auto) 1.1, Johnson # (Auto) 0.8, Eos # (Auto) 0.0, Baso # (Auto) 0.0 07/23/20 05:30: Sodium 135 L, Potassium 4.7, Chloride 97 L, Carbon Dioxide 35 H, Anion Gap 7.7, BUN 11, Creatinine 0.50 L, Estimated Creat Clear 78, Estimated GFR 166, Est GFR ( Amer) 201 D, Glucose 122 H, Calcium 8.9, Total Bilirubin 0.4, AST 22 D, ALT 13, Alkaline Phosphatase 74, Total Protein 5.5 L, Albumin 2.9 L, Globulin 2.6, Albumin/Globulin Ratio 1.1 I & O for Last 24 hours: Intake & Output 07/20/20 07/21/20 07/22/20 07/23/20 11:59 11:59 11:59 11:59 Intake Total 760 / 760 3297 / 3297 Output Total 625 / 625 200 / 200 Balance 135 / 135 3097 / 3097 Weight 167 lb 1 oz 162 lb 3 oz - *Routine Respiratory Exam Present: wheezes - *Routine Cardiovascular Exam Present: RRR - *Routine Extremities Exam Absent: cyanosis, clubbing, edema - *Routine Neurological Exam Present: alert, oriented X3 Progress Note: A&P (1) Intertrochanteric fracture of left femur Status: Acute Current Visit: Yes (2) Fall Status: Acute Current Visit: No (3) COPD (chronic obstructive pulmonary disease) Status: Chronic Current Visit: No (4) Nicotine dependence Status: Chronic Current Visit: No Assessment and Plan for All Diagnoses:: Cardiac status stable. Patient could be discharged home when cleared from orthopedic standpoint. We will restart Lasix therapy tomorrow. Follow up with Dr. JAMESON in 2-4 wks
--- NOTE | 2020-07-23 10:06 | HMH.ORTHPN ---
Subjective Date: 07/23/20 Time: 09:00 Principal diagnosis: s/p IMN L femur Interval history: The patient is doing well this morning. He is using his incentive spirometer and coughing up yellow sputum. Vitals are stable, oxygen saturation acceptable on 2 L nasal cannula, which is his baseline. Reports soreness in the left hip, tolerable with pain medication. He declined physical therapy yesterday, says he will participate today. PN: Obj Ex Vital signs: Temp Pulse Resp BP Pulse Ox 97 F L 90 18 132/85 96 07/23/20 08:00 07/23/20 06:39 07/23/20 04:00 07/23/20 06:39 07/23/20 06:29 - Constitutional no acute distress - Routine HEENT Exam Head: Present: normocephalic Eye: Present: EOMI ENT: Present: mucous membranes moist - Routine Respiratory Exam Absent: respiratory distress - Routine Cardiovascular Exam Present: RRR - Routine Abdominal Exam Present: soft. Absent: tenderness - Routine Extremities Exam Comments: L hip dressings c/d/i, no strikethrough/drainage +DF/PF/EHL LLE SILT distally LLE L calf soft, non-tender palpable pedal pulses LLE, foot pink/warm - Routine Skin Exam Present: warm - Routine Neurological Exam Present: alert, oriented X3, moving all extremities, normal tone, vision grossly intact, hearing grossly intact, normal speech. Absent: sensory deficit, motor deficit, altered mental status - Routine Psychiatric Exam Present: normal affect Progress Note: A&P (1) Intertrochanteric fracture of left femur Status: Acute Current Visit: Yes (2) Fall Status: Acute Current Visit: No (3) COPD (chronic obstructive pulmonary disease) Status: Chronic Current Visit: No (4) Nicotine dependence Status: Chronic Current Visit: No Assessment and Plan for All Diagnoses:: 65yo M POD 1 s/p IMN L femur -- WBAT LLE, OOB as pato with assist -- PT/OT to eval -- care mgmt consult for dispo planning -- pain control: oral/IV ordered PRN -- DVT prophy: lovenox 40mg SQ daily to start today -- finish 24hr antibiotic surgical prophy -- continue SCDs, encourage IS 10x/hr while awake
--- NOTE | 2020-07-23 10:33 | HMH.PTEV ---
Physical Therapy Evaluation Rehab PT IP Evaluation Start: 07/22/20 09:36 Freq: ONCE Status: Active Protocol: Document 07/23/20 09:00 FARIBA (Rec: 07/23/20 10:33 [id number]) Subjective/History History History THis is the initial IP PT evaluation for Parish Morgan. Pt is a 65 y/o male admitted to [facility] thru ER after fall at home. Pt reports he was in kitchen getting ready to go back into the living room and the rug slipped from underneath him causing him to fall. Pt reports he landed on L side fx L hip. Pt fx'd R hip earlier in the year. Pt had IMN placement Subjective Subjective Pt reprots c/o pain in LLE Rehab PT IP Eval Objective Appearance Patient Behavior Appropriate,Cooperative, Fearful Patient Orientation Name,Birthday,Year Difficulty following instructions none Speech Pattern Clear,Appropriate Ambulation Patient Able to Ambulate Yes Ambulation Observation IP General Gait Pattern Observation Antalgic Gait,Shuffling Step Ambulation Distance (feet) 10 Ambulation Assistive Device Standard Walker Ambulation Ability Contact Guard/Hand Hold Balance Ability to Arise Able, uses arms to help Sitting Balance Steady, safe Standing Balance Steady, wide stance Dynamic Sitting Balance Ability Normal Dynamic Standing Balance Ability Fair Transfers Bed Transfer Ability Contact Guard/Hand Hold Chair Transfer Ability Contact Guard/Hand Hold Sit to Stand Bed Transfer Ability Contact Guard/Hand Hold Sit to Stand Chair Transfer Ability Contact Guard/Hand Hold ROM All Extremities PT ROM Status WFL MMT All Extremities PT MMT WFL Rehab PT IP prob,goals,plan Problems Date of Evaluation: 07/23/20 PT IP Problems Bed Mobility,Transfers,Gait, Self care Rehab Potential Rehab Potential Fair Equipment Needs Assistive Devices Rolling / Wheeled Walker Plan PT Intervention Plan Bed Mobility,Transfers,Gait, Balance,Self care,Safety, Therapeutic Exercise PT Plan Frequency BID Duration LOS Discharge Goals Sit to Stand Chair Transfer Ability Contact Guard/Hand Hold Ambulation Assistive Device Rolling Walker Amb
--- NOTE | 2020-07-23 12:06 | HMH.ACPN2 ---
Internal Medicine - PN: Subj *Date: 07/23/20 *Time: 19:47 Interval history: 65-year-old male patient lying in bed resting quietly, he denies chest pain or shortness of breath during the night. He does complain of bilateral rib pain, he does have a nondisplaced ninth rib fracture per x-ray. Elastoplast dressing clean dry and intact to left hip. He was instructed to use I-S 10 times every hour, and he demonstrated use correctly. Pulmonary has seen and rec: pLAN: - f/u BMP Magnesium and phsphorus and replete if needed as per the primary team -We will await serum lactate -Follow-up with CT PE study -Continue Ancef as per Ortho recommendations for 24 hours and then change to azithromycin for a total of 5 days for COPD exacerbation -Trelegy once a day along with duo nebs every 6 hours as needed for shortness of breath and wheezing -We will follow the patient in 4 weeks after discharge for the management of his COPD -Continue oxygen supplementation with a sat goal above 92% Exam Vital signs and Labs for Last 24 Hours: Temp Pulse Resp BP Pulse Ox 98.0 F 81 16 160/63 H 97 07/23/20 12:00 07/23/20 12:00 07/23/20 12:00 07/23/20 12:00 07/23/20 12:00 Laboratory Results - last 24 hr 07/22/20 12:40: Sodium 134 L, Potassium 5.3 H D, Chloride 95 L, Carbon Dioxide 34 H, Anion Gap 10.3, BUN 11, Creatinine 0.60 L, Estimated Creat Clear 78, Estimated GFR 135, Est GFR ( Amer) 163, Glucose 144 H D, Calcium 9.4, Phosphorus 3.7, Magnesium 2.0 07/22/20 12:40: Lactate 1.1 07/23/20 05:30: WBC 10.7, RBC 3.46 L, Hgb 10.8 L, Hct 32.1 L, MCV 92.8, MCH 31.1, MCHC 33.5, RDW 13.7, Plt Count 223, MPV 7.8, Neut % (Auto) 82.1 H, Lymph % (Auto) 10.6, [place] % (Auto) 7.1, Eos % (Auto) 0.1, Baso % (Auto) 0.1, Neut # (Auto) 8.8 H, Lymph # (Auto) 1.1, [place] # (Auto) 0.8, Eos # (Auto) 0.0, Baso # (Auto) 0.0 07/23/20 05:30: Sodium 135 L, Potassium 4.7, Chloride 97 L, Carbon Dioxide 35 H, Anion Gap 7.7, BUN 11, Creatinine 0.50 L, Estimated Creat Clear 78, Estimated GFR 166, Est GFR ( Amer) 201 D, Glucose 122 H, Calcium 8.9, Total Bilirubin 0.4, AST 22 D, ALT 13, Alkaline Phosphatase 74, Total Protein 5.5 L, Albumin 2.9 L, Globulin 2.6, Albumin/Globulin Ratio 1.1 I & O for Last 24 hours: Intake & Output 07/20/20 07/21/20 07/22/20 07/23/20 23:59 23:59 23:59 23:59 Intake Total 360 / 360 1084 / 1084 2613 / 2613 Output Total 450 / 450 375 / 375 Balance -90 / -90 709 / 709 2613 / 2613 Weight 154 lb 3 oz 167 lb 1 oz 162 lb 3 oz - Constitutional no acute distress - *Routine HEENT Exam Head: Present: normocephalic ENT: Present: mucous membranes moist, sinus tenderness - *Routine Neck Exam Present: full ROM, trachea midline. Absent: JVD, tracheal deviation - *Routine Respiratory Exam Present: accessory muscle use, wheezes - *Routine Cardiovascular Exam Present: RRR - *Routine Abdominal Exam Present: soft, normoactive bowel sounds. Absent: tenderness, firm - *Routine Extremities Exam Present: edema, pulses intact, tenderness - *Routine Skin Exam Present: warm, wounds Comments: Dressing L Hip C/D/I - *Routine Neurological Exam Present: alert, oriented X3, CN II-XII intact. Absent: altered mental status Assessment and Plan (1) Intertrochanteric fracture of left femur Current visit: Yes Status: Acute Category: Medical Code(s): S72.142A - Displaced intertrochanteric fracture of left femur, initial encounter for closed fracture (2) Fall Current visit: No Status: Acute Qualifiers: Encounter type: initial encounter Qualified Code(s): W19.XXXA - Unspecified fall, initial encounter Category: Medical Code(s): W19.XXXA - Unspecified fall, initial encounter (3) COPD (chronic obstructive pulmonary disease) Current visit: No Status: Chronic Qualifiers: COPD type: unspecified COPD Qualified Code(s): J44.9 - Chronic obstructive pulmonary disease, unspecified Category: Medical Code(
--- NOTE | 2020-07-23 12:20 | HMH.PULMPN ---
Internal Medicine - PN: Subj *Date: 07/23/20 *Time: 12:20 Interval history: Patient denies any new complaints today. Stable 2 L nasal cannula Exam Vital signs and Labs for Last 24 Hours: Temp Pulse Resp BP Pulse Ox 98.0 F 81 16 160/63 H 97 07/23/20 12:00 07/23/20 12:00 07/23/20 12:00 07/23/20 12:00 07/23/20 12:00 Laboratory Results - last 24 hr 07/22/20 12:40: Sodium 134 L, Potassium 5.3 H D, Chloride 95 L, Carbon Dioxide 34 H, Anion Gap 10.3, BUN 11, Creatinine 0.60 L, Estimated Creat Clear 78, Estimated GFR 135, Est GFR ( Amer) 163, Glucose 144 H D, Calcium 9.4, Phosphorus 3.7, Magnesium 2.0 07/22/20 12:40: Lactate 1.1 07/23/20 05:30: WBC 10.7, RBC 3.46 L, Hgb 10.8 L, Hct 32.1 L, MCV 92.8, MCH 31.1, MCHC 33.5, RDW 13.7, Plt Count 223, MPV 7.8, Neut % (Auto) 82.1 H, Lymph % (Auto) 10.6, [place] % (Auto) 7.1, Eos % (Auto) 0.1, Baso % (Auto) 0.1, Neut # (Auto) 8.8 H, Lymph # (Auto) 1.1, [place] # (Auto) 0.8, Eos # (Auto) 0.0, Baso # (Auto) 0.0 07/23/20 05:30: Sodium 135 L, Potassium 4.7, Chloride 97 L, Carbon Dioxide 35 H, Anion Gap 7.7, BUN 11, Creatinine 0.50 L, Estimated Creat Clear 78, Estimated GFR 166, Est GFR ( Amer) 201 D, Glucose 122 H, Calcium 8.9, Total Bilirubin 0.4, AST 22 D, ALT 13, Alkaline Phosphatase 74, Total Protein 5.5 L, Albumin 2.9 L, Globulin 2.6, Albumin/Globulin Ratio 1.1 I & O for Last 24 hours: Intake & Output 07/20/20 07/21/20 07/22/20 07/23/20 23:59 23:59 23:59 23:59 Intake Total 360 / 360 1084 / 1084 2613 / 2613 Output Total 450 / 450 375 / 375 Balance -90 / -90 709 / 709 2613 / 2613 Weight 154 lb 3 oz 167 lb 1 oz 162 lb 3 oz - *Routine HEENT Exam Head: Present: normocephalic, atraumatic - *Routine Neck Exam Present: supple, full ROM. Absent: lymphadenopathy, thyromegaly - *Routine Respiratory Exam Present: CTA bilaterally, wheezes. Absent: accessory muscle use, patient mechanically ventilated - *Routine Cardiovascular Exam Present: RRR, Normal S1, Normal S2 - *Routine Abdominal Exam Present: soft, normoactive bowel sounds. Absent: tenderness, distended, rebound, guarding, organomegaly - *Routine Extremities Exam Absent: cyanosis, clubbing, edema - *Routine Skin Exam Present: intact, normal turgor. Absent: cyanosis, erythema Assessment and Plan (1) Intertrochanteric fracture of left femur Current visit: Yes Status: Acute Category: Medical Code(s): S72.142A - Displaced intertrochanteric fracture of left femur, initial encounter for closed fracture (2) Fall Current visit: No Status: Acute Qualifiers: Qualified Code(s): W19.XXXA - Unspecified fall, initial encounter Category: Medical Code(s): W19.XXXA - Unspecified fall, initial encounter (3) COPD (chronic obstructive pulmonary disease) Current visit: No Status: Chronic Qualifiers: Qualified Code(s): J44.9 - Chronic obstructive pulmonary disease, unspecified Category: Medical Code(s): J44.9 - Chronic obstructive pulmonary disease, unspecified (4) Nicotine dependence Current visit: No Status: Chronic Qualifiers: Qualified Code(s): F17.210 - Nicotine dependence, cigarettes, uncomplicated Category: Medical Code(s): F17.200 - Nicotine dependence, unspecified, uncomplicated - Assessment and plan all Dx Assessment and Plan for all problems:: #Acute exacerbation of COPD: # Status post PEA: # Leg left hip fracture status post repair: 65-year-old COPD on home oxygen presents for left hip repair in the OR where he experienced a PEA with ROSC after 5 compressions or CPR with not needing any medications. Patient is back to his baseline, no evidence of tachycardia. Saturating 95% on 2 L oxygen. CTA personally reviewed, did not show any evidence of pulmonary embolism /airspace disease. Serum electrolytes are within normal limits. Patient clinically stable since yesterday, respiratory status back to his baseline. No acute events overnight. Sophia
--- NOTE | 2020-07-23 16:19 | HMH.OTEV ---
OT Inpatient Evaluation Rehab OT IP Evaluation Start: 07/22/20 09:36 Freq: ONCE Status: Complete Protocol: Document 07/23/20 16:12 JACKELYNJOCELYNE (Rec: 07/23/20 16:18 ADRIANNADENIS [id number]) Rehab OT IP Assessment Subjective History 65 year old male admitted to [facility] after having an recent fall at home resulting in L hip pain. Findings were intertrochanteric fx of L femur with having s/p left hip IM nailing on 07/23/20. PMH: CHF, Pulmonary HTN, COPD, Depression and Anxiety. Subjective I'm still in alot of pain. Patient reported recently getting back into bed this p.m . and refused to get back out of of bed during OT evaluation . Patient agreed to participate in B UE exer while upright in bed. Objective Patient Orientation Person,Place,Time,Name,Age, Birthday,Day of Month,Day of Week,Month,Year Upper Extremity Gross ROM WNL Feeding Ability Independent Rehab OT IP prob,goals,plan Problems Date of Evaluation: 07/23/20 OT IP Problems Bed Mobility,Transfers,Gait, Balance,Self care Rehab Potential Rehab Potential Good Equipment Needs Assistive Devices None / NA Plan OT intervention Plan Bed Mobility,Transfers,Balance ,Self care,Therapeutic Exercise OT Plan Frequency Daily Duration LOS Discharge Goals Bed Mobility Ability Standby Assistance Sit to Stand Chair Transfer Ability Supervision/Stand by Chair Transfer Ability Supervision/Stand by Chair Transfer Technique Stand Step Pivot Chair Transfer Assistive Devices Rolling Walker Self care skills fully toilet trained Feeding Ability Independent Lower Body Dressing Ability Standby Assistance Upper Body Dressing Ability Standby Assistance Bathing Ability Standby Assistance Performing Toilet Hygiene Ability Standby Assistance Overall Commode/Toilet Transfer Ability Standby Assistance Commode/Toilet Transfer Technique Sit to/from Ambulatory Commode/Toilet Transfer Assistive Raised Toilet Seat Devices Discharge Plan OT Discharge Plan Planned to be d/c to home with HH se
--- NOTE | 2020-07-23 20:03 | PC.NURSE ---
Pt remains on 2 L O2 per nasal cannula w/ no s/s of resp distress. Has been medicated throughout shift w/ prn medication w/ noted relief. Dressing to L Hip remains C/D/I. Pt participated w/ PT today and sat up in chair for a few hours today, tolerated well. Voiding w/o difficulty. Urine noted to be izabel in color. Stool softener given to pt this AM. States that his last BM was on 07/21. No new needs voiced. Report given to Ngozi Jamil RN.
[2020-07-24] VITALS (9 sets, daily range): BP systolic 92–97; BP diastolic 59–68; PULSE 70–90; RESP 14–18; TEMP 31.7–36.7; O2SAT 92–96; BMI 25.0
--- NOTE | 2020-07-24 00:30 | PC.NURSE ---
He is A&Ox4. He continues on 2.5LPM n/c. Paulie barneye and SCD in place on right leg. He reported pain a 9/10 in his left hip and a 5/10 in his ribs during his initial assessment. He stated he wanted to wait until 2200 to get the IV morphine. A woman came to visit him. During round at 2200 he was noted to be sleeping. He continues to be sleeping. Respirations are even unlabored. DSG on left hip is C/D/I.
--- NOTE | 2020-07-24 04:29 | PC.NURSE ---
Per his request, his code status was changed from DNR to Full code. He is A&Ox4. He had mentioned earlier in the shift that he was probably going to change his code status.
[2020-07-24 06:39] LABS: Basophils % 0.4 % (0.1-2.0); Eosinophils # 0.1 K/mm3 (0.0-0.4); Hematocrit 29.9 % (42.0-52.0); Hemoglobin 9.8 g/dL (14.1-18.0); Lymphocytes # 1.6 K/mm3 (0.7-4.5); Mean Corpuscular HGB Conc 32.7 g/dL (31.8-35.4); Mean Corpuscular Hemoglobin 30.4 pg (27.0-31.2); Mean Platelet Volume 7.9 fl (7.4-10.4); Monocytes # 0.6 K/mm3 (0.1-1.0); Monocytes % 7.3 % (1.7-9.3); Neutrophils # 5.6 K/mm3 (1.8-7.8); Neutrophils % 71.4 % (37.0-80.0); Platelet Count 197 K/mm3 (142-424); Red Blood Count 3.21 M/mm3 (4.60-6.20); Red Cell Distribution Width 13.9 % (11.5-17.5); White Blood Count 7.9 K/mm3 (4.8-10.8)
[2020-07-24 06:42] LABS: Chloride 99 mmol/L (98-107); Potassium 4.7 mmoL/L (3.5-5.1); Sodium 135 mmol/L (136-145)
[2020-07-24 06:45] LABS: Anion Gap 7.7 mEq/L (5-15); Blood Urea Nitrogen 11 mg/dl (9-20); Calcium 9.2 mg/dl (8.4-10.2); Carbon Dioxide 33 mmol/L (22.0-30.0); Creatinine Clearance Estimated 76 mL/min (50-200); Estimated Glomerular Filt Rate 166 ml/min (>60); GFR (African American) 201 ML/MIN (>60); Glucose 99 mg/dl (74-100)
--- NOTE | 2020-07-24 08:18 | HMH.ACPN2 ---
Internal Medicine - PN: Subj *Date: 07/24/20 *Time: 18:01 Interval history: 75-year-old male patient resting in bed quietly, he reports pain is better controlled today. Elastoplast Dressing clean dry and intact to left hip he reports he was up out of bed yesterday and is for today's visit participating in physical therapy. Reminded him on the importance of participating in and completing full physical therapy schedule. Lengthy discussion regarding smoking cessation. Patient reports he is using incentive spirometer 2-3 times per hour instructed it needs to be 10 times per hour patient verbalizes understanding and agrees Pulmonary seen a nd rec: Patient is back to his baseline, no evidence of tachycardia. Saturating 95% on 2 L oxygen. CTA personally reviewed, did not show any evidence of pulmonary embolism /airspace disease. Serum electrolytes are within normal limits. Patient clinically stable since yesterday, respiratory status back to his baseline. No acute events overnight. pLAN: -Continue azithromycin for a total of 5 days for COPD exacerbation. We will hold off on initiating steroids at this point of time given his recent hip surgery -Trelegy once a day along with duo nebs every 6 hours as needed for shortness of breath and wheezing -We will follow the patient in 4 weeks after discharge for the management of his COPD -Continue oxygen supplementation with a sat goal above 92% -Follow with cardiology recommendations Exam Vital signs and Labs for Last 24 Hours: Temp Pulse Resp BP Pulse Ox 98.1 F 77 17 96/59 L 94 L 07/24/20 08:00 07/24/20 08:00 07/24/20 08:00 07/24/20 08:00 07/24/20 08:00 Laboratory Results - last 24 hr 07/24/20 05:22: WBC 7.9 D, RBC 3.21 L, Hgb 9.8 L, Hct 29.9 L, MCV 93.0, MCH 30.4, MCHC 32.7, RDW 13.9, Plt Count 197, MPV 7.9, Neut % (Auto) 71.4, Lymph % (Auto) 20.0, [place] % (Auto) 7.3, Eos % (Auto) 1.0, Baso % (Auto) 0.4, Neut # (Auto) 5.6, Lymph # (Auto) 1.6, [place] # (Auto) 0.6, Eos # (Auto) 0.1, Baso # (Auto) 0.0 07/24/20 05:22: Sodium 135 L, Potassium 4.7, Chloride 99, Carbon Dioxide 33 H, Anion Gap 7.7, BUN 11, Creatinine 0.50 L, Estimated Creat Clear 76, Estimated GFR 166, Est GFR ( Amer) 201, Glucose 99, Calcium 9.2 I & O for Last 24 hours: Intake & Output 07/21/20 07/22/20 07/23/20 07/24/20 23:59 23:59 23:59 23:59 Intake Total 360 / 360 1084 / 1084 4914 / 4914 1830 / 1830 Output Total 450 / 450 375 / 375 750 / 750 550 / 550 Balance -90 / -90 709 / 709 4164 / 4164 1280 / 1280 Weight 154 lb 3 oz 167 lb 1 oz 162 lb 3 oz 165 lb 4.8 oz Microbiology Reports for the Last 24 Hours: Microbiology 07/23/20 20:53 Sputum - Expectorated Sputum Gram Stain - Final - Constitutional no acute distress - *Routine HEENT Exam Head: Present: normocephalic. Absent: tenderness of temporal artery ENT: Present: mucous membranes moist. Absent: sinus tenderness - *Routine Neck Exam Present: trachea midline. Absent: swelling, tracheal deviation - *Routine Respiratory Exam Present: rhonchi, wheezes. Absent: accessory muscle use - *Routine Cardiovascular Exam Present: RRR - *Routine Abdominal Exam Present: soft, normoactive bowel sounds. Absent: distended - *Routine Extremities Exam Present: pulses intact. Absent: clubbing, calf tenderness, extremity cold to touch - *Routine Skin Exam Present: wounds Comments: Elastaplast dressing C/D/I to L hip - *Routine Neurological Exam Present: alert, oriented X3, normal speech. Absent: tremors - Routine Psychiatric Exam Present: normal affect, normal thought process. Absent: visual hallucinations Assessment and Plan (1) Intertrochanteric fracture of left femur Current visit: Yes Status: Acute Category: Medical Code(s): S72.142A - Displaced intertrochanteric fracture of left femur, initial encounter for closed fracture (2) Fall Current visit: No Status: Acute Qualifiers: Encounter type: initial encoun
--- NOTE | 2020-07-24 13:54 | HMH.ORTHPN ---
Subjective Date: 07/24/20 Time: 12:00 Principal diagnosis: s/p IMN L femur Interval history: The patient is doing well today, reports continued soreness in the left hip. He would like to be home by Wednesday, but does not feel he is ready to go home today. The plan is tentatively home with home physical therapy. He reports no increased shortness of breath or chest pain today, beyond what shortness of breath he normally experiences at baseline. He continues to cough up yellow sputum. PN: Obj Ex Vital signs: Temp Pulse Resp BP Pulse Ox 98.0 F 84 18 93/68 L 95 07/24/20 11:45 07/24/20 11:45 07/24/20 11:45 07/24/20 11:45 07/24/20 11:45 - Constitutional no acute distress - Routine HEENT Exam Head: Present: normocephalic Eye: Present: EOMI ENT: Present: mucous membranes moist - Routine Neck Exam Present: trachea midline - Routine Respiratory Exam Absent: respiratory distress - Routine Cardiovascular Exam Present: RRR - Routine Abdominal Exam Present: soft. Absent: tenderness - Routine Extremities Exam Comments: L hip dressings c/d/i, no strikethrough/drainage dressing removed, L hip incisions c/d/i, no drainage no erythema, ecchymosis L hip incisions, minimal tenderness +DF/PF/EHL LLE SILT distally LLE L calf soft, non-tender palpable pedal pulses LLE, foot pink/warm - Routine Skin Exam Present: warm - Routine Neurological Exam Present: alert, oriented X3, moving all extremities, normal tone, vision grossly intact, hearing grossly intact. Absent: sensory deficit, motor deficit, altered mental status Progress Note: A&P (1) Intertrochanteric fracture of left femur Status: Acute Current Visit: Yes (2) Fall Status: Acute Current Visit: No (3) COPD (chronic obstructive pulmonary disease) Status: Chronic Current Visit: No (4) Nicotine dependence Status: Chronic Current Visit: No (5) Acute exacerbation of COPD with asthma Status: Acute Current Visit: Yes (6) Pulseless electrical activity Status: Acute Current Visit: Yes Assessment and Plan for All Diagnoses:: 65yo M POD 2 s/p IMN L femur -- WBAT LLE, OOB as pato with assist -- PT/OT to continue -- care mgmt consult for dispo planning --> likely d/c home with HHPT -- pain control: oral/IV ordered PRN -- DVT prophy: lovenox 40mg SQ daily; continue per PCP -- continue SCDs, encourage IS 10x/hr while awake -- ok to d/c home anytime from ortho standpoint; Rx for pain medication and written discharge instruction placed on patient's chart -- f/u with me in the office 08/08/20 at 1:15pm; will need XR prior to visit.
--- NOTE | 2020-07-24 18:31 | PC.NURSE ---
Pt is pleasant and cooperative. A&O X4. Pt has had multiple complaints of pain and has been medicated per MAR with favorable results. Lungs CTA. No edema noted. LT hip surgical dressing is C/D/I. Pt is receiving O2 @ 2 LPM with sats. > 90%. Pt ambulates with 1 assist and uses the urinal to void clear, yellow urine. No BM this shift. Pt sat up in the chair for several hours today. 20 G peripheral IV in the RT AC is patent and infusing LR @ 100 ML/HR. VSS. Call light within reach. Will continue to monitor.
--- NOTE | 2020-07-24 19:26 | PC.NURSE ---
report given to beena
--- NOTE | 2020-07-24 20:31 | PC.NURSE ---
Pt's room air sat at rest = 77%.
[2020-07-25] VITALS: BP 99/68; PULSE 70; PULSE 86; RESP 17; TEMP 36.6; O2SAT 92
[2020-07-25 04:00] VITALS: BP 101/68; PULSE 75; PULSE 80; RESP 18; TEMP 36.7; O2SAT 94
[2020-07-25 05:00] VITALS: BMI 25.0
[2020-07-25 06:12] LABS: Basophils % 0.3 % (0.1-2.0); Eosinophils # 0.1 K/mm3 (0.0-0.4); Eosinophils % 1.5 % (0.1-12.0); Hematocrit 31.3 % (42.0-52.0); Hemoglobin 10.4 g/dL (14.1-18.0); Lymphocytes # 1.4 K/mm3 (0.7-4.5); Lymphocytes % 21.3 % (10-50); Mean Corpuscular HGB Conc 33.1 g/dL (31.8-35.4); Mean Corpuscular Hemoglobin 30.4 pg (27.0-31.2); Mean Corpuscular Volume 91.8 fl (80-94); Mean Platelet Volume 7.5 fl (7.4-10.4); Monocytes # 0.5 K/mm3 (0.1-1.0); Monocytes % 7.9 % (1.7-9.3); Neutrophils # 4.5 K/mm3 (1.8-7.8); Neutrophils % 69.1 % (37.0-80.0); Platelet Count 226 K/mm3 (142-424); Red Blood Count 3.41 M/mm3 (4.60-6.20); Red Cell Distribution Width 13.7 % (11.5-17.5); White Blood Count 6.5 K/mm3 (4.8-10.8)
[2020-07-25 06:27] LABS: Chloride 96 mmol/L (98-107); Potassium 4.8 mmoL/L (3.5-5.1); Sodium 135 mmol/L (136-145)
[2020-07-25 06:30] LABS: Anion Gap 6.8 mEq/L (5-15); Blood Urea Nitrogen 11 mg/dl (9-20); Calcium 8.9 mg/dl (8.4-10.2); Carbon Dioxide 37 mmol/L (22.0-30.0); Creatinine Clearance Estimated 77 mL/min (50-200); Estimated Glomerular Filt Rate 166 ml/min (>60); GFR (African American) 201 ML/MIN (>60); Glucose 105 mg/dl (74-100)
--- NOTE | 2020-07-25 06:55 | PC.NURSE ---
shift summary, pt complained of pain, treated successfully with PRN medication, rested t/o shift, in between doses
[2020-07-25 08:00] VITALS: BP 97/64; PULSE 74; PULSE 80; RESP 18; TEMP 36.7; O2SAT 95
--- NOTE | 2020-07-25 11:43 | PC.NURSE ---
pt moved to room 203
[2020-07-25 11:44] VITALS: BP 126/80; PULSE 83; RESP 17; TEMP 36.6
--- NOTE | 2020-07-25 12:37 | HMH.DCSUM ---
General - General Admission date:: 07/21/20 HPI HPI: 65-year-old male presented to ed with pain in left hip. xray shows left hip fracture, pt admitted for left hip fracture after falling. Patient states the rug slipped out from underneath him causing him to fall and then had hip pain and could not stand. Patient states he is still recovering from a recent surgical repair of his right hip fracture in dec. Patient had no complications perioperatively earlier this year with hip repair. Pt was taken to the OR this morning for surgical repair of his left hip. Per Note after receiving anesthesia the patient developed hypotension and pulseless electrical activity. CPR was started along with epinephrine and IV fluids with successful return of circulation very quickly. Surgical correction of the hip was undertaken thereafter without complications. cardiology consult placed Hospital Course Hospital Course: admitted for fracture left hip post fall taken to OR 07/22/20 intramedullary nail placed PEA episode in OR successful measures taken to correct post-op course remarkable for cough/sputum pain from rib fracture (cpr) cardiology and pulmonary followed he will be discharged to mother in law's house and has made plans for physical therapy Objective Vital signs: Temp Pulse Resp BP Pulse Ox 97.9 F 83 17 126/80 95 07/25/20 11:44 07/25/20 11:44 07/25/20 11:44 07/25/20 11:44 07/25/20 08:00 no acute distress - *Routine HEENT Exam Head: Present: normocephalic Eye: Present: EOMI, PERRL ENT: Present: mucous membranes moist - *Routine Neck Exam Present: supple - *Routine Respiratory Exam Present: rhonchi. Absent: accessory muscle use - *Routine Cardiovascular Exam Present: RRR - *Routine Abdominal Exam Present: soft, normoactive bowel sounds. Absent: tenderness - *Routine Extremities Exam Absent: cyanosis, clubbing, edema, extremity cold to touch - *Routine Skin Exam Present: warm. Absent: rash - *Routine Neurological Exam Present: alert, oriented X3, moving all extremities. Absent: altered mental status - Routine Psychiatric Exam Present: normal affect, cooperative Results Labs on day of discharge: Labs from last 24 hours 07/25/20 07/25/20 05:25 05:25 WBC 6.5 RBC 3.41 L Hgb 10.4 L Hct 31.3 L MCV 91.8 MCH 30.4 MCHC 33.1 RDW 13.7 Plt Count 226 MPV 7.5 Neut % (Auto) 69.1 Lymph % (Auto) 21.3 [place] % (Auto) 7.9 Eos % (Auto) 1.5 Baso % (Auto) 0.3 Neut # (Auto) 4.5 Lymph # (Auto) 1.4 [place] # (Auto) 0.5 Eos # (Auto) 0.1 Baso # (Auto) 0.0 Sodium 135 L Potassium 4.8 Chloride 96 L Carbon Dioxide 37 H Anion Gap 6.8 BUN 11 Creatinine 0.50 L Estimated Creat Clear 77 Estimated GFR 166 Est GFR ( Amer) 201 Glucose 105 H Calcium 8.9 Preliminary micro results at discharge 07/23/20 20:53 Sputum Culture - Preliminary Sputum - Expectorated Sputum Gram Negative Rods DS: Diagnosis - Discharge Diagnosis (1) Intertrochanteric fracture of left femur Status: Acute (2) Fall Status: Acute (3) COPD (chronic obstructive pulmonary disease) Status: Chronic (4) Nicotine dependence Status: Chronic (5) Acute exacerbation of COPD with asthma Status: Acute (6) Pulseless electrical activity Status: Acute (7) Rib fracture Status: Acute Discharge Plan - Patient Discharge Instructions ACTIVITY: Limited activity, Up with assistance DIET: continue same diet Additional Instructions: Ortho discharge instructions: (see also typed d/c instruction sheet on chart) -- WBAT LLE, OOB as pato with assist -- PT/OT to continue with HHPT -- ice pack to L hip as needed -- change dressing once daily -- may shower as desired, but recommend shower chair/assistance; replaced clean dressing after shower -- f/u with Dr. Merida in clinic on 08/08/20 at 1:15pm; will need XR pr
--- NOTE | 2020-07-25 13:34 | PC.NURSE ---
received call from Dr. Merida. She will be unable to change hip dressing until later today. Pt has discharge orders in. Dr. Merida changed hip dressing yesterday and is ok with pt going home as long as he is agreeable. Will relay info to pt and if he has questions or if issues arise, I will call her office back. She verbalized understanding.
--- NOTE | 2020-07-25 17:03 | PC.NURSE ---
pt refused Lasix prior to discharge
== END 2020-07-25 17:02 | disposition home or self-care (01) | DRG 480 ==
LOC: ER 14:54 → 2ND 15:28
PROVIDERS: Internal Medicine Pulmonary Disease; Nurse Practitioner Family; Orthopaedic Surgery; Admitting Provider Internal Medicine Adolescent Medicine; Emergency Provider Emergency Medicine; PCP Physician Assistant; Visit Provider Family Medicine
PROC: 0QH736Z Insertion of Intramedullary Internal Fixation Device into Left Upper Femur, Percutaneous Approach (ICD-10-PCS; CPT 27245; principal; 2020-07-22 07:00)
DX: S72.145A Nondisplaced intertrochanteric fracture of left femur, initial encounter for closed fracture (principal); I46.9 Cardiac arrest, cause unspecified; I97.791 Other intraoperative cardiac functional disturbances during other surgery; S22.32XA Fracture of one rib, left side, initial encounter for closed fracture; I50.30 Unspecified diastolic (congestive) heart failure; J44.1 Chronic obstructive pulmonary disease with (acute) exacerbation; W01.0XXA Fall on same level from slipping, tripping and stumbling without subsequent striking against object, initial encounter; Z91.81 History of falling; Y92.019 Unspecified place in single-family (private) house as the place of occurrence of the external cause; G35 Multiple sclerosis; I27.20 Pulmonary hypertension, unspecified; I11.0 Hypertensive heart disease with heart failure; Z99.81 Dependence on supplemental oxygen; Z72.0 Tobacco use
CPT/HCPCS: 27245; 36415; 71045; 71275; 73502; 73552; 76000; 80048; 80053; 81001; 83605; 83735; 84100; 85025; 86328; 87070; 87077; 87186; 87205; 93005; 93306; 94640; 94760; 94761; 96374; 96375; 97110; 97116; 97162; 97165; 97530; 99285; C1713; J0574; J2405; J2710; Q9967

== ENCOUNTER → 2020-08-08 13:51 | Outpatient (CLI) | payer MEDICARE, MEDICAID, SELFPAY ==
--- NOTE | 2020-08-08 13:56 | XR_ITS ---
PROCEDURE: XR HIP LT 2-3V W/PELVIS CLINICAL INDICATION: s/p left hip fracture Follow-up hip fracture COMPARISON: CR XR HIP LT 2-3V W/PELVIS from 07/22/2020 FINDINGS: Status post ORIF left intertrochanteric fracture with gamma nail and short intramedullary dhara with good alignment and no significant displacement. Skin clips are present laterally. There is an old right gamma nail with intramedullary dhara also present. IMPRESSION: Good alignment status post ORIF left hip Dictated by: Matthew Albrecht MD 08/08/2020 15:05 Matthew Albrecht MD in [facility] 08/08/2020 15:05
== END ==
PROVIDERS: PCP Emergency Medicine; Visit Provider Orthopaedic Surgery
DX: S72.142A Displaced intertrochanteric fracture of left femur, initial encounter for closed fracture (principal)
CPT/HCPCS: 73502

== ENCOUNTER → 2020-09-05 10:49 | Outpatient (CLI) | payer MEDICARE, MEDICAID, SELFPAY ==
--- NOTE | 2020-09-05 10:53 | XR_ITS ---
PROCEDURE: XR HIP LT 2-3V W/PELVIS CLINICAL INDICATION: Lt hip FX FU- weightbearing COMPARISON: CR XR HIP LT 2-3V W/PELVIS from 08/08/2020 FINDINGS: AP view of the pelvis shows bilateral femoral decompression screws with intramedullary rods. There is a healing fracture in the left intertrochanteric region with good alignment. Degenerative disc disease is present in the lower lumbar spine. IMPRESSION: Status post ORIF bilateral hips with developing callus formation of the intertrochanteric region on the left Dictated by: Matthew Albrecht MD 09/05/2020 13:01 Matthew Albrecht MD in [facility] 09/05/2020 13:01
== END ==
PROVIDERS: PCP Physician Assistant; Visit Provider Orthopaedic Surgery
DX: S72.142A Displaced intertrochanteric fracture of left femur, initial encounter for closed fracture (principal)
CPT/HCPCS: 73502

== ENCOUNTER → 2021-03-19 13:03 | Outpatient (CLI) | payer MEDICARE, MEDICAID, SELFPAY ==
--- NOTE | 2021-03-19 13:03 | CT_ITS ---
PROCEDURE: CT LUNG SCREENING CLINICAL INDICATION: lung cancer screening Current smoker 50 pack year smoking history COMPARISON: CT CHESTWW CT chest wo/w con from 04/06/[address] ANGIO CHEST from 07/22/2020 TECHNIQUE: The exam was performed on a [employer] [address] scanner using 2.90 mGy CTDI. A low dose helical CT CHEST was performed on a multi-detector scanner. All CT scans at the facility use one or more dose reduction, viz: automated exposure control, ma/kV adjustment per patient size (including targeted exams where dose is matched to indication, i.e. head), or iterative reconstruction technique. The LDCT was performed in a facility that meets the criteria for the screening program. Data regarding this exam was submitted to ACR which is an approved registry. The order for this exam indicates that it came as a result of a lung cancer screening counseling shard decision-making visit that included all the elements required of such a visit including smoking cessation. The radiologist interpreting this exam meets the CMS criteria for the LDCT lung cancer screening program. The exam is reported using the Lung-RADS classification scale and reported to the ACR registry. NOTE: This study was performed for the specific purposes of lung cancer screening and is not an alternative to diagnostic chest CT. RADIATION DOSE: CTDI vol(CT dose Index-volume) = 2.90mG DLP (Dose Length Product) = 103.16 mGcm FINDINGS: COPD. Mild bronchial thickening. The left hemidiaphragm is elevated with vascular crowding in the left lung base. A small irregular opacity is present within the lingula at approximately 5 mm not readily apparent previously but could be due to an area atelectatic change or scarring. OTHER FINDINGS: There are new wedge compression changes at T6 with loss of height of approximately 50 percent. Mild wedge compression changes involve T7 with loss of height of 30-40 percent not significantly changed. IMPRESSION: Lung-RADS Category 3 Probably Benign Follow-up: [address] Chest without and with contrast. Wedge compression changes of T6 which have developed compared to the previous exam. Dictated by: Matthew Albrecht MD 03/21/2021 13:59 Matthew Albrecht MD in [facility] 03/21/2021 13:59
== END ==
PROVIDERS: PCP Physician Assistant; Visit Provider Internal Medicine Pulmonary Disease
DX: Z87.891 Personal history of nicotine dependence (principal); Z12.2 Encounter for screening for malignant neoplasm of respiratory organs
CPT/HCPCS: 71271

== ENCOUNTER 2021-03-24 10:32 | Emergency (ER) | payer MEDICARE, MEDICAID, SELFPAY ==
[2021-03-24 10:32] VITALS: BP 129/83; PULSE 88; RESP 18; TEMP 36.9; O2SAT 89; BMI 24.3
--- NOTE | 2021-03-24 10:33 | XR_ITS ---
PROCEDURE: XR forearm RT CLINICAL INDICATION: fall COMPARISON: No exams were available for comparison FINDINGS: There may be a nondisplaced radial neck fracture. CT may confirm. The mid distal aspect of the forearm has an unremarkable appearance. The joint spaces are well-preserved. No significant degenerative/arthritic changes. No erosive changes evident. Other findings:None. IMPRESSION: Suspect nondisplaced radial neck fracture otherwise negative Dictated by: Matthew Albrecht MD 03/24/2021 11:06 Matthew Albrecht MD in [facility] 03/24/2021 11:06
--- NOTE | 2021-03-24 10:33 | XR_ITS ---
PROCEDURE: XR ELBOW RT MIN 3V CLINICAL INDICATION: fall COMPARISON: No exams were available for comparison FINDINGS: There is a displaced fat pad anteriorly. On the oblique view there is a faint lucency at the radial neck raising the question of a nondisplaced radial neck fracture. The joint spaces are well-preserved. No significant degenerative/arthritic changes. No erosive changes evident. Other findings:None. IMPRESSION: Nondisplaced transverse radial neck fracture. Dictated by: Matthew Albrecht MD 03/24/2021 11:05 Matthew Albrecht MD in [facility] 03/24/2021 11:05
--- NOTE | 2021-03-24 11:46 | [facility]H.EDFALL ---
ED Disposition Clinical Impression: Elbow fracture, right Disposition: Home, Self-Care Condition on Discharge: Fair Instructions: How to Prevent Falls Additional Instructions: Please note we have checked your head CT and it shows no acute findings; there is a non displaced radial neck fracture of the right forearm we have spoken to Dr. Casas and she has advised for you to follow-up with Dr. Vela at 10 AM we have provided you with a sling rest ice and anti-inflammatory medications are also advised Referrals: Marianna Larson PA [Primary Care Provider] - Time of Disposition: 13:15 - Critical Care Critical Care Time: No Attestation: On 03/24/21, the high probability of a clinically significant, sudden or life threatening deterioration of the following system(s) required my full and direct attention, intervention and personal management. The time I documented below is in addition to time spent performing reported procedures but includes the following listed in this critical care notation. Medical Decision Making - Medical Records Medical records reviewed: Yes: I reviewed the patient's medical records. MR Comment: 66 year old male here with a complaint that he tripped and fell and hit his head he has a small superficial laceration he also has pain in his right elbow. Radiology findings normal head CT , x-ray of the elbow showed nondisplaced radial neck fracture of the right to Dr. Casas and she has advised that the patient may follow-up with Dr. Vela at 10 AM tomorrow morning and advised a sling - Sami Inquiry Pt receiving controlled substance: No Vital Signs: 03/24/21 10:32 Temperature 98.4 F Temperature Source Oral Pulse Rate [Right Radial] 88 Respiratory Rate 18 Blood Pressure [Right Arm] 129/83 Blood Pressure Mean [Right Arm] 98 Blood Pressure Source [Right Arm] Automatic Cuff Blood Pressure Position [Right Arm] Sitting 02 Sat by Pulse Oximetry 89 L Oxygen Delivery Method Room Air Fall HPI - General Chief Complaint: Fall Stated Complaint: fall Time Seen by Provider: 03/24/21 11:15 Mode of Arrival: EMS Source of Information: Patient Limitations: No Limitations Description of Symptoms (Recalled from ER Triage Doc. by RN): Pt reports he tripped and fell on the sidewalk. Pt c/o R elbow and R humerus area pain, laceration above R eyebrow(no bleeding noted), abrasion to bridge of nose. Pt denies LOC. - History of Present Illness HPI Narrative: 66 year old male here with a complaint that he tripped and fell and hit his head he has a small superficial laceration he also has pain in his right elbow MD complaint: fall Onset (ago): hour(s) Fall from: walking Place fall occurred: home Loss of consciousness: none Prolonged down time: no Symptoms prior to fall: none Context: tripped/slipped Location of injury: head, other (right arm) Location of injury - extremities: Right: forearm Severity: mild Severity scale (1-10): 2 Quality: sharp Associated symptoms (after fall): denies - Related Data Home Medications Medication Instructions Recorded Confirmed buprenorphine 8 mg-naloxone 2 mg 2.5 tab SL DAILY 01/15/20 02/11/21 sublingual tablet Previous Rx's Medication Instructions Recorded albuterol sulfate 90 mcg/actuation 2 puff INHALATION Q6H #18 g 10/29/20 aerosol inhaler sildenafil (pulm.hypertension) 20 20 mg PO DAILYP PRN #20 tab 01/10/21 mg tablet fluticasone fur. 100 mcg-umeclid See Rx Instructions .ROUTE 01/30/21 62.5 mcg-vilant 25 mcg .COMPLEX #3 each inhalat.powder furosemide 40 mg tablet 40 mg PO BID #180 tab 01/30/21 ipratropium 0.5 mg-albuterol 3 mg 3 ml INHALATION Q6H PRN #180 ml 01/30/21 (2.5 mg base)/3 mL nebulization soln ipratropium 20 mcg-albuterol 100 1 puff INHALATION Q6H #4 g 01/30/21 mcg/actuation mist for inhalation potassium chloride 20 mEq 20 meq PO BID #180 tab 01/30/21 tablet,extended release ranolazine 500 mg tablet,
--- NOTE | 2021-03-24 11:52 | CT_ITS ---
PROCEDURE: CT HEAD/BRAIN WO CON CLINICAL INDICATION: headache worse than any previous COMPARISON: MR MR HEAD/BRAIN WO CON from 05/16/2020 TECHNIQUE: Axial images obtained. All CT scans at the facility use one or more dose reduction, viz: automated exposure control, ma/kV adjustment per patient size (including targeted exams where dose is matched to indication, i.e. head), or iterative reconstruction technique. FINDINGS: No midline shift, mass effect, intracranial hemorrhage, hydrocephalus, or extra-axial fluid collection is evident. There is mild mucosal thickening of the maxillary and ethmoid sinuses. The calvarium has an unremarkable appearance. No mastoid effusion. No sinus air-fluid level. Mild soft tissue swelling is present in the right supraorbital region. IMPRESSION: No acute intracranial finding Dictated by: Matthew Albrecht MD 03/24/2021 12:20 Matthew Albrecht MD in [facility] 03/24/2021 12:20
--- NOTE | 2021-03-24 11:53 | PC.NURSE ---
LEFT VOICEMAIL FOR ORTHO DOCTOR GEOSPATIAL INFORMATION TECHNOLOGIST TO PAGE ER DOCTOR
--- NOTE | 2021-03-24 12:02 | PC.NURSE ---
pt to CT
[2021-03-24 13:47] VITALS: BP 129/83; PULSE 88; RESP 18; TEMP 36.9; O2SAT 89
== END 2021-03-24 13:47 | disposition home or self-care (01) ==
PROVIDERS: Emergency Provider Emergency Medicine; PCP Physician Assistant
DX: S52.134A Nondisplaced fracture of neck of right radius, initial encounter for closed fracture (principal); S01.111A Laceration without foreign body of right eyelid and periocular area, initial encounter; S00.31XA Abrasion of nose, initial encounter; W01.0XXA Fall on same level from slipping, tripping and stumbling without subsequent striking against object, initial encounter; Y92.480 Sidewalk as the place of occurrence of the external cause; F41.9 Anxiety disorder, unspecified; J44.9 Chronic obstructive pulmonary disease, unspecified; I10 Essential (primary) hypertension; I50.9 Heart failure, unspecified; F32.9 Major depressive disorder, single episode, unspecified; F17.210 Nicotine dependence, cigarettes, uncomplicated; Z79.899 Other long term (current) drug therapy; Z99.81 Dependence on supplemental oxygen
CPT/HCPCS: 70450; 73060; 73080; 99282

== ENCOUNTER → 2021-03-25 11:04 | Outpatient (CLI) | payer MEDICARE, MEDICAID, SELFPAY | PROVIDERS: Visit Provider Internal Medicine Pulmonary Disease | DX: J44.9 Chronic obstructive pulmonary disease, unspecified (principal); Z87.891 Personal history of nicotine dependence | CPT/HCPCS: 87070; 87077; 87205 ==

== ENCOUNTER → 2021-04-07 09:58 | Outpatient (CLI) | payer MEDICARE, MEDICAID, SELFPAY ==
--- NOTE | 2021-04-07 10:03 | XR_ITS ---
PROCEDURE: XR ELBOW RT MIN 3V CLINICAL INDICATION: right radial neck fracture follow up COMPARISON: CR XR ELBOW RT MIN 3V from 03/24/2021 FINDINGS: There is a nondisplaced fracture of the radial neck not significantly changed. Displaced anterior fat pad once again noted. The joint spaces are well-preserved. No significant degenerative/arthritic changes. No erosive changes evident. Other findings:None. IMPRESSION: No change nondisplaced radial neck fracture with joint effusion. Dictated by: Matthew Albrecht MD 04/07/2021 10:32 Matthew Albrecht MD in [facility] 04/07/2021 10:32
== END ==
PROVIDERS: PCP Physician Assistant; Visit Provider Orthopaedic Surgery
DX: S52.131A Displaced fracture of neck of right radius, initial encounter for closed fracture (principal)
CPT/HCPCS: 73080

== ENCOUNTER → 2021-05-07 09:33 | Outpatient (CLI) | payer MEDICARE, MEDICAID, SELFPAY ==
--- NOTE | 2021-05-07 09:38 | XR_ITS ---
PROCEDURE: XR HIP LT 2-3V W/PELVIS CLINICAL INDICATION: sp femur/hip nailing by Dr Merida COMPARISON: CR XR HIP LT 2-3V W/PELVIS from 09/05/2020 FINDINGS: Postop changes of ORIF of left intertrochanteric hip fracture noted. No acute fracture or dislocation. Prior ORIF right intertrochanteric hip fracture noted. Some degenerative change of the lower lumbar spine. SI joints are normal. Pelvis appears intact. IMPRESSION: Postop changes of ORIF left intertrochanteric hip fracture with no acute abnormality noted. Prior or after right intertrochanteric hip fracture. Some degenerative change of both hip joints and visualized lower lumbar spine. Dictated by: Cain Cullen MD 05/07/2021 11:10 Cain Cullen MD in [facility] 05/07/2021 11:10
--- NOTE | 2021-05-07 10:20 | CT_ITS ---
PROCEDURE: CT HIP LT WO CON CLINICAL HISTORY: Fall on lt hip; s/p LT IMN 12/30/2019 COMPARISON: CR XR HIP LT 2-3V W/PELVIS from 05/07/2021 TECHNIQUE: Axial images obtained with sagittal and coronal reformats. All CT scans at the facility use one or more dose reduction, viz: automated exposure control, ma/kV adjustment per patient size (including targeted exams where dose is matched to indication, i.e. head), or iterative reconstruction technique. FINDINGS: Postop changes of ORIF of intertrochanteric fracture of the left hip noted. No abnormality of orthopedic hardware. Mild degenerative change of the left hip joint. There is mild soft tissue swelling about hip. No focal fluid collection. No other abnormality. IMPRESSION: Postop changes or if intertrochanteric fracture of the left hip with no abnormality of orthopedic hardware. Mild degenerative change of the left hip joint. Dictated by: Cain Cullen MD 05/07/2021 10:46 Cain Cullen MD in [facility] 05/07/2021 10:46
== END ==
PROVIDERS: PCP Physician Assistant; Visit Provider Orthopaedic Surgery Sports Medicine
DX: Z09 Encounter for follow-up examination after completed treatment for conditions other than malignant neoplasm (principal); M25.552 Pain in left hip
CPT/HCPCS: 73502; 73700

== ENCOUNTER → 2021-05-19 13:17 | Outpatient (CLI) | payer MEDICARE, MEDICAID, SELFPAY ==
--- NOTE | 2021-05-19 13:17 | MR_ITS ---
PROCEDURE: MR THORACIC SPINE WO CON CLINICAL INDICATION: thoracic compression fracture chest CT Mid back pain. Compression hx found on CT. Fell in December 2019. COMPARISON: No exams were available for comparison TECHNIQUE: Routine multiplanar multi echo sequences are performed without gadolinium enhancement. FINDINGS: There is normal alignment. At C6-C7 there is degenerative disc disease with bulging disc with suspected canal stenosis only imaged in the sagittal plane and on the edge the imaging field. There is multilevel degenerative disc disease at involving the entire thoracic spine and lower cervical spine. Minimal bulging disc at T3-T4 T4-T5 and T5-T6. Wedge compression changes are present at T6 with loss of height anteriorly of 50 percent. There is also mild wedge compression changes of T7 with loss of height anteriorly of 30-40 percent. These compression changes do not appear acute as there is no significant underlying bone marrow edema. No retropulsion evident. Minimal left paracentral disc protrusion at T6-T7 causing mild left lateral recess narrowing. Minimal bulging disc at T7-T8. Schmorl's node is present along the inferior aspect of T7. Bulging disc is present at T9-T10 with canal stenosis along with facet hypertrophic change with severe bilateral foraminal narrowing.. Facet hypertrophic changes at T10-T11 with severe bilateral foraminal narrowing with small bulging disc. Degenerative disc disease T11-T12 with bulging disc and facet hypertrophy with severe left-sided foraminal narrowing. Degenerative disc disease T12-L1 with bulging disc and mild facet hypertrophic change with moderate right and mild left-sided foraminal narrowing. Incidental note made of left renal cysts IMPRESSION: 1. Abnormal MRI of the thoracic spine with multilevel thoracic spondylosis with bulging disc, degenerative disc disease, and facet hypertrophic changes resulting in severe degrees of foraminal narrowing. Please see above for detailed description at each level. 2. Wedge compression changes at T6 and T7 which appear chronic. Dictated by: Matthew Albrecht MD 05/21/2021 08:57 Matthew Albrecht MD in [facility] 05/21/2021 08:57
--- NOTE | 2021-05-19 14:14 | XR_ITS ---
PROCEDURE: XR DEXA AXIAL SKELETON CLINICAL HISTORY: multiple fractures COMPARISON: No exams were available for comparison FINDINGS: The right forearm BMD is 0.565 with a T-score of -4.8. The lumbar spine BMD is 1.087 with a T-score of 0.0. IMPRESSION: This patient is considered osteoporotic according to the World Health Organization criteria. Fracture risk is high. Treatment is advised. Based on these results a follow-up exam is recommended in 1 year. Dictated by: Matthew Albrecht MD 05/20/2021 07:53 aMtthew Albrecht MD in [facility] 05/20/2021 07:55
== END ==
PROVIDERS: PCP Physician Assistant; Visit Provider Physician Assistant
DX: S22.000A Wedge compression fracture of unspecified thoracic vertebra, initial encounter for closed fracture (principal); T07.XXXA Unspecified multiple injuries, initial encounter
CPT/HCPCS: 72146; 77080

== ENCOUNTER 2021-08-05 08:00 | Inpatient (IN) | payer MEDICARE, MEDICAID, SELFPAY ==
[2021-08-05] VITALS (23 sets, daily range): BP systolic 106–140; BP diastolic 73–90; PULSE 78–103; RESP 16–30; TEMP 36.4–37; O2SAT 82–100; BMI 22.8; BMI 22.6
--- NOTE | 2021-08-05 08:06 | XR_ITS ---
PROCEDURE: XR CHEST PORTABLE CLINICAL HISTORY: sob, COVID COMPARISON: CR XR CHEST PORTABLE from 12/29/2019 CR XR CHEST PORTABLE from 07/21/[address] ANGIO CHEST from 07/22/2020 CR XR CHEST PORTABLE from 07/22/2020 FINDINGS: The cardiomediastinal silhouette and pulmonary vascularity are within normal limits. There has been interval development of consolidation in the right upper lobe inferiorly and left lower lobe consistent with bilateral pneumonia superimposed upon COPD. Persistent elevation of left hemidiaphragm. Degenerative changes of the shoulders. IMPRESSION: Interval development of bilateral pneumonia Dictated by: Matthew Albrecht MD 08/05/2021 09:02 Matthew Albrecht MD in [facility] 08/05/2021 09:02
--- NOTE | 2021-08-05 08:07 | HMH.EDGENADL ---
ED Disposition Clinical Impression: Acute respiratory failure with hypoxia, COVID-19 Pulmonary emboli Qualifiers: Pulmonary embolism type: multiple subsegmental (without acute cor pulmonale) Qualified Code(s): I26.94 - Multiple subsegmental pulmonary emboli without acute cor pulmonale Disposition: Admitted As Inpatient Condition on Discharge: Fair Time of Disposition: 15:24 - Critical Care Critical Care Time: Yes Attestation: On , the high probability of a clinically significant, sudden or life threatening deterioration of the following system(s) required my full and direct attention, intervention and personal management. The time I documented below is in addition to time spent performing reported procedures but includes the following listed in this critical care notation. Total Critical Care Time: 35 Vital system(s) involved:: Respiratory Failure My critical care processes included: Assessment & monitoring of V/S, Initial and Re-exams, Data Review/Interpretation, Coordinating Care, Medication Orders and management, Documentation Medical Decision Making - Medical Records Medical records reviewed: Yes: I reviewed the patient's medical records. - Sami Inquiry Pt receiving controlled substance: No Vital Signs: 08/05/21 08:00 08/05/21 08:30 08/05/21 09:00 Temperature 98.6 F Temperature Source Oral Pulse Rate 103 H 94 H Pulse Rate [Left Radial] 98 H Respiratory Rate 30 H 22 20 Blood Pressure 131/74 122/74 Blood Pressure [Left Arm] 106/74 L Blood Pressure Mean 93 90 Blood Pressure Mean [Left Arm] 84 Blood Pressure Source [Left Arm] Automatic Cuff Blood Pressure Position [Left Arm] Sitting 02 Sat by Pulse Oximetry 86 L 95 98 Oxygen Delivery Method Non-Rebreather Vapotherm Vapotherm Oxygen Flow Rate (LPM) 15 08/05/21 09:30 08/05/21 10:00 08/05/21 10:30 Temperature Temperature Source Pulse Rate 82 85 83 Pulse Rate [Left Radial] Respiratory Rate 20 20 20 Blood Pressure 131/79 117/79 121/83 Blood Pressure [Left Arm] Blood Pressure Mean 88 88 91 Blood Pressure Mean [Left Arm] Blood Pressure Source [Left Arm] Blood Pressure Position [Left Arm] 02 Sat by Pulse Oximetry 100 100 100 Oxygen Delivery Method Vapotherm Vapotherm Vapotherm Oxygen Flow Rate (LPM) 40 40 40 08/05/21 11:00 08/05/21 11:30 08/05/21 12:30 Temperature Temperature Source Pulse Rate 83 88 83 Pulse Rate [Left Radial] Respiratory Rate 18 16 20 Blood Pressure 127/79 122/73 128/84 Blood Pressure [Left Arm] Blood Pressure Mean 90 84 93 Blood Pressure Mean [Left Arm] Blood Pressure Source [Left Arm] Blood Pressure Position [Left Arm] 02 Sat by Pulse Oximetry 97 100 97 Oxygen Delivery Method Vapotherm Oxygen Flow Rate (LPM) 40 08/05/21 13:00 08/05/21 13:30 08/05/21 14:00 Temperature Temperature Source Pulse Rate 82 82 86 Pulse Rate [Left Radial] Respiratory Rate 20 20 22 Blood Pressure 124/81 115/77 129/82 Blood Pressure [Left Arm] Blood Pressure Mean 92 91 101 Blood Pressure Mean [Left Arm] Blood Pressure Source [Left Arm] Blood Pressure Position [Left Arm] 02 Sat by Pulse Oximetry 98 98 82 L Oxygen Delivery Method Vapotherm Oxygen Flow Rate (LPM) 08/05/21 14:30 Temperature Temperature Source Pulse Rate 84 Pulse Rate [Left Radial] Respiratory Rate 22 Blood Pressure 140/85 Blood Pressure [Left Arm] Blood Pressure Mean 104 Blood Pressure Mean [Left Arm] Blood Pressure Source [Left Arm] Blood Pressure Position [Left Arm] 02 Sat by Pulse Oximetry 90 L Oxygen Delivery Method Vapotherm Oxygen Flow Rate (LPM) - Lab Data Lab results reviewed: Yes: I reviewed the patient's lab results. Lab Results 08/05/21 08:00: WBC 10.3, RBC 3.89 L, Hgb 11.3 L, Hct 35.7 L, MCV 91.9, MCH 29.1, MCHC 31.7 L, RDW 13.9, Plt Count 329, MPV 8.4, Neut % (Auto) 90.0 H, Lymph % (Auto) 6.0 L, Dixon % (Auto) 3.8, Eos % (Auto) 0.1, Baso % (Auto) 0.1, Ne
--- NOTE | 2021-08-05 08:15 | PC.NURSE ---
pt placed on Vapotherm per RT upon arrival to ED
[2021-08-05 08:18] LABS: Basophils % 0.1 % (0.1-2.0); Eosinophils % 0.1 % (0.1-12.0); Hematocrit 35.7 % (42.0-52.0); Hemoglobin 11.3 g/dL (14.1-18.0); Lymphocytes # 0.6 K/mm3 (0.7-4.5); Mean Corpuscular HGB Conc 31.7 g/dL (31.8-35.4); Mean Corpuscular Hemoglobin 29.1 pg (27.0-31.2); Mean Corpuscular Volume 91.9 fl (80-94); Mean Platelet Volume 8.4 fl (7.4-10.4); Monocytes # 0.4 K/mm3 (0.1-1.0); Monocytes % 3.8 % (1.7-9.3); Neutrophils # 9.2 K/mm3 (1.8-7.8); Platelet Count 329 K/mm3 (142-424); Red Blood Count 3.89 M/mm3 (4.60-6.20); Red Cell Distribution Width 13.9 % (11.5-17.5); White Blood Count 10.3 K/mm3 (4.8-10.8)
[2021-08-05 08:24] LABS: MANUAL DIFFERENTIAL MANUAL DIFFERENTIAL (MANUAL DIFF)
--- NOTE | 2021-08-05 08:33 | PC.NURSE ---
rad at for portable cxr
[2021-08-05 08:34] LABS: Lymphocytes % 5 % (10-50); Monocytes % 6 % (2-9); Neutrophils % 89 % (42-76); Nucleated Red Blood Cells 1; Total Cells Counted 100
[2021-08-05 08:35] LABS: Hypochromasia 2+; Microcytosis 1+; Platelet Estimate Normal
[2021-08-05 08:47] LABS: Alanine Aminotransferase 33 U/L (12-78); Albumin Level 3.6 g/dl (3.5-5.0); Albumin/Globulin Ratio 1.1 (1.1-1.8); Alkaline Phosphatase 91 U/L (38-126); Aspartate Amino Transferase 55 U/L (17-59); Blood Urea Nitrogen 29 mg/dl (9-20); Calcium 8.8 mg/dl (8.4-10.2); Carbon Dioxide 33 mmol/L (22.0-30.0); Chloride 95 mmol/L (98-107); Creatinine Clearance Estimated 69 mL/min (50-200); Estimated Glomerular Filt Rate 84 ml/min (>60); GFR (African American) 102 ML/MIN (>60); Globulin 3.2 g/dL (1.3-3.2); Glucose 124 mg/dl (74-100); Sodium 139 mmol/L (136-145); Total Protein,Serum 6.8 g/dl (6.3-8.2)
[2021-08-05 08:59] LABS: Troponin I 0.02 ng/ml (0.00-0.034)
--- NOTE | 2021-08-05 10:48 | ECG_ITS ---
APPROVED REPORT Exam: Resting ECG HR:95 bpm ECG Measurements Heart Rate 95 AXES AK 120 P 68 QRSd 78 QRS 59 QT 332 T 58 QTc 417 Conclusion Sinus rhythm with premature atrial complexes Possible Left atrial enlargement Low voltage QRS Borderline ECG Electronically signed by : Navdeep Guerrero MD 08/06/2021 20:44:42
[2021-08-05 10:56] LABS: Influenza A, PCR Not Detected (NotDetected); Influenza B, PCR Not Detected (NotDetected)
--- NOTE | 2021-08-05 11:18 | CT_ITS ---
PROCEDURE: CT ANGIO CHEST PE PROTOCOL CLINCIAL INDICATION: resp failure, covid COMPARISON: CT CT ANGIO CHEST from 07/22/2020 CR XR CHEST PORTABLE from 08/05/2021 TECHNIQUE: IV Contrast: 70ML Isovue 370 Axial images obtained with sagittal and coronal reformats. All CT scans at the facility use one or more dose reduction, viz: automated exposure control, ma/kV adjustment per patient size (including targeted exams where dose is matched to indication, i.e. head), or iterative reconstruction technique. FINDINGS: HEART AND MEDIASTINAL STRUCTURES: There is a small embolus within the apical segmental branch of the right upper lobe pulmonary artery as well as a small embolus within the right middle lobe pulmonary artery medial segment and posterior basilar segmental right pulmonary artery. The RV/LV ratio is greater than 1 however, this was also present on 07/22/2020. The right ventricle and the right atrium are slightly enlarged somewhat similar to the previous exam. No evidence of aortic aneurysm or dissection. There is a small pericardial effusion LUNGS AND PLEURAL SPACES: There is a background of COPD now with prominence of the interstitial markings in the right upper lobe, left upper lobe, and left lower lobe. This could be due to a combination of interstitial pneumonitis non up on chronic COPD changes. Developing interstitial fibrosis is also consideration. This does not have the normal ground-glass pattern of consolidation for Covid19 pneumonia. There are mild bibasilar atelectatic changes. No evidence of pneumothorax. There is some minimal subpleural opacity in the right lower lobe posteriorly and superiorly. No significant effusion. BONY STRUCTURES: There chronic wedge compression changes of T6, T7, T11 and T12. The T11 compression changes have developed since the previous exam. UPPER ABDOMEN: Unremarkable. ADDITIONAL FINDINGS: No other significant abnormalities. IMPRESSION: 1. Positive for small pulmonary emboli to the right upper and right lower lobe 2. RV/LV ratio is greater than 1 with dilated right ventricle and right atrium. This however was present on the previous exam. There is reflux of contrast into the inferior vena cava which is enlarged suggesting right heart strain or dysfunction. 3. COPD with interval development of a prominent interstitial thickening in the right upper lobe, left upper lobe and left lower lobe. This could be inflammatory or infectious in nature. Diffuse acute interstitial pneumonitis is considered. This is not typical pattern for Covid19 pneumonia. Dictated by: Matthew Albrecht MD 08/05/2021 12:29 Matthew Albrecht MD in [facility] 08/05/2021 12:29
[2021-08-05 11:19] LABS: Coronavirus 19, PCR Detected (NotDetected)
--- NOTE | 2021-08-05 13:06 | PC.NURSE ---
Paged Dr.Gainey janet DOUGLAS
--- NOTE | 2021-08-05 13:31 | PC.NURSE ---
RT adjusted vapotherm pt is now on 60% and 35L
--- NOTE | 2021-08-05 13:33 | CA_ITS ---
APPROVED REPORT EXAM: Comprehensive 2D, Doppler, and color-flow Echocardiogram Dental Technologist: Tracy Maldonado, RT(R) Ht: 5 ft 8 in Wt: 150lbs BSA: 1.81 BP: 120/58 mmHg Indications: COVID, COPD, ex smoker, HTN, family history of HD, hypoxia, CHF, home o2, former substance user, currently on vapotherm, SOA 2D Dimensions LVOT 2.13 cm (M/F) 1.5-2.5 M-Mode Dimensions RVDd 2.87 cm (0.9-2.6) LA Diam 3.01 cm (1.9-4.0) LVDd 3.29 cm (3.5-5.7) Ao Diam 3.01 cm (2.0-3.7) LVDs 2.52 cm (3.5-5.7) IVSd 1.01 cm (0.6-1.1) PWd 0.79 cm (0.6-1.1) EF (Teich) 47.90% FS 23.40% EDV (Teich) 43.80 mL ESV (Teich) 22.80 mL LV Diastology E Decel Time 197.00 (160-240 msec) E/A Ratio 0.6 MED E' 9.30 (< 7 cm/sec) E'/MED E' Ratio 6.63 (>14) LAT E' 13.50 (<10 cm/sec) E/LAT E' Ratio 4.57 (>14) Mitral Valve MV E Max Leonel. 62.00 (40-130 cm/s) MV A Velocity 98.00 (40-130 cm/s) E/A Ratio 0.63 MV Decel. Time 197.00 (160-240 ms) MV PHT 58.00 ms Tricuspid Valve TR P. Velocity 219.00 cm/s RAP Estimate 15.00 mmHg RVSP 34.30 mmHg Left Ventricle Technically difficult study because of the patient fact in poor acoustic windows. Left atrium is mildly enlarged, left ventricle is normal size, mild concentric left ventricular hypertrophy, visually estimated ejection fraction 50% with no regional wall motion abnormality, diastolic parameters are inconclusive in the study, there is abnormal septal motion. Right Ventricle Right atrium and right ventricle mildly enlarged with normal contractility. Aortic Valve Aortic valve is minimally thickened and fibrosed, there is no aortic stenosis or aortic insufficiency. Mitral Valve Mitral valve looks grossly normal, there is mild mitral regurgitation. Tricuspid Valve Tricuspid valve grossly normal, there is mild tricuspid regurgitation, tricuspid regurgitation jet velocity is inadequate for calculation of the right ventricular systolic pressure. Pulmonic Valve Pulmonic valve is poorly visualized. Great Vessels Aortic root is normal size. Inferior vena cava is mildly dilated with less than 50% inspiratory collapse. Pericardium No significant pericardial effusion noted. Conclusion 1. Technically difficult study because of the patient factors and poor acoustic windows. Left atrium is mildly enlarged, left ventricle is normal size, mild concentric left ventricular hypertrophy, visually estimated ejection fraction 50% with no obvious regional wall motion abnormality, there is abnormal septal motion. Diastolic parameters are inconclusive. 2. Mildly enlarged right ventricle with normal contractility. 3. Mild mitral and tricuspid regurgitation, tricuspid regurgitation jet velocity is inadequate for calculation of the right ventricular systolic pressure. 4. No significant pericardial effusion noted 5. Inferior vena cava is mildly dilated with less than 50% inspiratory collapse. Electronically signed by : Manolo Arcos MD 08/05/2021 17:39:04
--- NOTE | 2021-08-05 13:40 | PC.NURSE ---
SPEAKING TO DR BROWN
--- NOTE | 2021-08-05 14:45 | PC.NURSE ---
RT has made multiple attempts to obtain blood gas on pt, RT is still trying, ER is aware.
[2021-08-05 15:11] LABS: ABG HCO3 27.3 mmhg (22.0-26.0); ABG Oxygen Saturation 89 % (90-100); ABG PCO2 40.9 mmhg (35.0-45.0); ABG PH 7.44 mmol/L (7.35-7.45); ABG PO2 57.1 mmhg (80-100); ABG TCO2 28.6 mmhg (23-27)
[2021-08-05 15:13] LABS: Allen's Test Acceptable; Oxygen 100% %; Source Right Radial; Tidal Volume 40 L; Vent Rate VAPOTHERM
--- NOTE | 2021-08-05 15:15 | PC.NURSE ---
RT increased pt vapotherm back to 40L and 100% r/t desatting while trying to get pt ABG
--- NOTE | 2021-08-05 15:51 | PC.NURSE ---
pt will be boarding in ER until bed is available, per limehouse worker there should be another bed available soon
--- NOTE | 2021-08-05 16:38 | PC.NURSE ---
per second floor staff pt has an assigned room but it needs to be cleaned, states they will let us know when room is ready for pt
--- NOTE | 2021-08-05 17:26 | PC.NURSE ---
pt sitting up in bed at this time, attempting to eat, pt is easily exerted, Sats drop to mid to low 80s while trying to eat. Will continue to monitor
--- NOTE | 2021-08-05 17:33 | PC.NURSE ---
report given to irving haji
--- NOTE | 2021-08-05 18:10 | PC.NURSE ---
PT ARRIVED TO THE FLOOR AT THIS TIME
[2021-08-06] VITALS: BP 107/74; PULSE 70; RESP 18; TEMP 36.4; O2SAT 93
[2021-08-06 03:41] VITALS: BP 109/72; PULSE 74; RESP 18; TEMP 36.6
--- NOTE | 2021-08-06 04:43 | PC.NURSE ---
Shift summary. No acute changes this shift. Pt continues to be on vapotherm 25 L 100% and has tolerated well with sats above 90%. Pt has not voiced any complaints to staff t/o shift. Pt currently sitting up in bed watching tv. Call light within reach. Will continue to monitor.
--- NOTE | 2021-08-06 06:28 | PC.NURSE ---
Chika KLEIN NOTIFIED OF CONSULT
[2021-08-06 07:13] LABS: Basophils % 0.3 % (0.1-2.0); Hematocrit 31.9 % (42.0-52.0); Hemoglobin 10.4 g/dL (14.1-18.0); Lymphocytes # 0.4 K/mm3 (0.7-4.5); Mean Corpuscular HGB Conc 32.7 g/dL (31.8-35.4); Mean Corpuscular Hemoglobin 30.2 pg (27.0-31.2); Mean Corpuscular Volume 92.5 fl (80-94); Mean Platelet Volume 7.8 fl (7.4-10.4); Monocytes # 0.3 K/mm3 (0.1-1.0); Monocytes % 5.6 % (1.7-9.3); Neutrophils # 3.9 K/mm3 (1.8-7.8); Neutrophils % 85.1 % (37.0-80.0); Platelet Count 284 K/mm3 (142-424); Red Blood Count 3.45 M/mm3 (4.60-6.20); Red Cell Distribution Width 13.8 % (11.5-17.5); White Blood Count 4.6 K/mm3 (4.8-10.8)
[2021-08-06 07:15] LABS: Anion Gap 11.9 mEq/L (5-15); Blood Urea Nitrogen 20 mg/dl (9-20); Calcium 8.3 mg/dl (8.4-10.2); Carbon Dioxide 33 mmol/L (22.0-30.0); Chloride 102 mmol/L (98-107); Creatinine Clearance Estimated 69 mL/min (50-200); Estimated Glomerular Filt Rate 134 ml/min (>60); GFR (African American) 163 ML/MIN (>60); Glucose 116 mg/dl (74-100); Magnesium 2.1 mg/dl (1.6-2.3); Potassium 4.9 mmoL/L (3.5-5.1); Sodium 142 mmol/L (136-145)
--- NOTE | 2021-08-06 07:28 | P.CONPHA_ITS ---
[facility] Pharm[facility] VTE Monitoring - Patient Demographics Admission date: 08/05/21 Report Date: 08/06/21 Time: 07:28 Allergies/Adverse Reactions: Patient Allergies amoxicillin [From Augmentin] Allergy (Verified 08/05/21 17:29) clavulanic acid [From Augmentin] Allergy (Verified 08/05/21 17:29) NSAIDS (Non-Steroidal Anti-Inflamma Adverse Reaction (Severe, Verified 05/07/21 10:06) STOMACH PAIN Height: 1.73 m Weight: 67.585 kg Patient Problems: Current Active Problems (Last Updated 08/03/19 @ 14:33 by Jazzmine Leone RN) Acute respiratory failure with hypoxia (Acute) COVID-19 (Acute) Pulmonary emboli (Acute) - VTE Risk Labs: VTE Related Lab Results Hgb 10.4 g/dL (14.1-18.0) L 08/06/21 06:47 Hct 31.9 % (42.0-52.0) L 08/06/21 06:47 Plt Count 284 K/mm3 (142-424) 08/06/21 06:47 BUN 20 mg/dl (9-20) D 08/06/21 06:47 Creatinine 0.60 mg/dl (0.66-1.25) L D 08/06/21 06:47 Estimated Creat Clear 69 mL/min (50-200) 08/06/21 06:47 Clinical Trial Participant: No - Prophylaxis VTE Prophylaxis Ordered?: Yes Types of VTE Prophylaxis: TEDS Knee High, Pharmacological (XARELTO)
[2021-08-06 07:29] LABS: MANUAL DIFFERENTIAL MANUAL DIFFERENTIAL (MANUAL DIFF)
--- NOTE | 2021-08-06 07:30 | XR_ITS ---
PROCEDURE: XR CHEST PORTABLE CLINICAL HISTORY: sob COMPARISON: CR XR CHEST PORTABLE from 07/21/2020 CR XR CHEST PORTABLE from 07/22/[address] ANGIO CHEST from 07/22/[address] ANGIO CHEST PE PROTOCOL from 08/05/2021 CR XR CHEST PORTABLE from 08/05/2021 FINDINGS: Mild cardiomegaly without failure. COPD with prominence of the interstitium once again noted.. Prominent interstitial markings in the left lower lobe and right upper lobe are once again noted slightly improved in the right upper lobe. Left hemidiaphragm remains elevated. IMPRESSION: Slightly improved pneumonia in the right upper lobe with persistent prominence of the interstitium especially in the left lower lobe overall not significantly changed on the left. Dictated by: Matthew Albrecht MD 08/06/2021 09:30 Matthew Albrecht MD in OV 08/06/2021 09:30
--- NOTE | 2021-08-06 07:45 | HMH.PHAINT ---
MEDICATION RECONCILIATION COMPLETED USING EXTERNAL FILL HISTORY AND OFFICE VISIT.
--- NOTE | 2021-08-06 07:59 | HMH.CNCARD ---
History of Present Illness Consult date: 08/06/21 Requesting physician: Parish Garcia Consult reason: shortness of breath Chief complaint: COVID, PE Additional Medical History:: 1. Severe diastolic dysfunction with normal coronary arteries, 05/2018 [facility], 05/2018, ANGIOGRAPHIC RESULTS: 1. The left main artery normal 2. The left anterior descending artery normal 3. The circumflex artery normal 4. The right coronary artery dominant normal 5. The GEORGE ventriculogram reveals normal 65% 6. The left ventricular end-diastolic pressure severely elevated 30 mmHg 2. Multiple sclerosis confirmed by MRI, 04/2020, A. No restricted diffusion abnormalities. The vertebrobasilar vascular flow voids, pituitary, 7th and 8th nerves, and orbits are unremarkable. There is mild mucosal thickening in the ethmoidal sinuses. There is scattered foci of T2 prolongation within the subcortical, periventricular, and pontine white matter. There is no definite evidence of a hemorrhage. 3. Hypertension A. Echo, 07/2021, . 1. Technically difficult study because of the patient factors and poor acoustic windows. Left atrium is mildly enlarged, left ventricle is normal size, mild concentric left ventricular hypertrophy, visually estimated ejection fraction 50% with no obvious regional wall motion abnormality, there is abnormal septal motion. Diastolic parameters are inconclusive. 2. Mildly enlarged right ventricle with normal contractility. 3. Mild mitral and tricuspid regurgitation, tricuspid regurgitation jet velocity is inadequate for calculation of the right ventricular systolic pressure. 4. No significant pericardial effusion noted 5. Inferior vena cava is mildly dilated with less than 50% inspiratory collapse. Electronically signed by : Manolo Arcos MD 08/05/2021 17:39:04 4. Tobacco abuse with COPD A. Pulmonary hypertension, on sildenafil therapy 5. History of anxiety/depression 6. History of asthma 7. Hyperlipidemia 8. History of bilateral hip fracture status post surgery on 2 separate occasions 9. Chronic pain medication use in the form of Suboxone History of present illness: 66yo M evaluated for shortness of breath with reported Covid positive status. Chest x-ray, blood work is ordered. Patient is started on Vapotherm nasal cannula as I do not have a BiPAP available at this time. He is tolerating that therapy well and it is improving his O2 saturations. Patient's blood work is nonactionable. Patient Covid test in house is positive. He was sent for a CT with contrast and found to have small right-sided pulmonary emboli, 1 upper lobe and one lower lobe. Case discussed with Dr. Garcia for admission. He request repeat ABG and an echocardiogram be completed prior to decision to admit. He has placed these orders. Dr. Garcia is willing to admit the patient for further management and states he will place his own admission orders. The above per Dr. Ray Patient admitted through the ER for increasing shortness of breath over the last several days. Found to be Covid positive and also having having multiple pulmonary emboli on CT of the chest for which he was started on anticoagulation therapy. Currently denies any chest pain except with coughing or breathing. Echocardiogram performed yesterday shows preserved ejection fraction but technically limited study due to pulmonary issues. Patient feels that he was exposed to the COVID-19 virus through his . 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 [facility] History Medical History: Reports:: Anxiety, Asthma, Congestive Heart Failure, Chronic Obstructive Pulmonary Disease (COPD), Depression, Home Oxygen, Hypertension, Lung Disease, Migraine Denies:: Cancer, Diabetes Mellitus Type 1, Diabetes Mellitus Type 2, Internal Pacemaker, MRSA, Seizures *Have you ever received a pneumon
[2021-08-06 08:00] VITALS: BP 115/76; PULSE 91; PULSE 92; RESP 15; TEMP 36.3; O2SAT 980
[2021-08-06 08:28] LABS: Lymphocytes % 7 % (10-50); Monocytes % 5 % (2-9); Neutrophils % 88 % (42-76); Total Cells Counted 100
[2021-08-06 08:29] LABS: Hypochromasia 1+; Platelet Estimate Normal
--- NOTE | 2021-08-06 08:37 | CA_ITS ---
APPROVED REPORT Bilateral Lower Extremity Venous Study for DVT. Garnisher: Bety Rudd RVT Indications Lower Extremity Edema: Bilateral Pulmonary Embolism Shortness of breath History of Smoking Pulmonary emboli, COVID 19 infection Vein Imaging CFV (R): compressive, spontaneous, phasic, augmentation FEM (R): compressive, spontaneous, phasic, augmentation POP (R): compressive, spontaneous, phasic, augmentation PTV (R): Compressible GSV (R): Compressible Peroneals (R):Thrombus GAS (R): Compressible CFV (L): compressive, spontaneous, phasic, augmentation FEM (L): compressive, spontaneous, phasic, augmentation POP (L): compressive, spontaneous, phasic, augmentation PTV (L): Compressible GSV (L): Compressible Peroneals (L):Compressible GAS (L): Thrombus Findings Study suggests a DVT in the right peroneal vein. Other deep veins of the right lower extremity are normal. Study suggests a DVT in the left gastrocnemius vein. Other deep veins of the left lower extremity are normal. Conclusion Study suggests a DVT in the right peroneal vein. Other deep veins of the right lower extremity are normal. Study suggests a DVT in the left gastrocnemius vein. Other deep veins of the left lower extremity are normal. Critical Notification Physician Notified Date: 08/06/2021 Time: 09:51 Physician Name: Jazmyn Byrd Electronically signed by : Matthew Albrecht MD 08/06/2021 16:22:42
[2021-08-06 08:41] LABS: Alanine Aminotransferase 23 U/L (12-78); Albumin/Globulin Ratio 1.1 (1.1-1.8); Alkaline Phosphatase 76 U/L (38-126); Aspartate Amino Transferase 41 U/L (17-59); Bilirubin,Total 0.3 mg/dl (0.2-1.3); Blood Urea Nitrogen 20 mg/dl (9-20); Calcium 8.4 mg/dl (8.4-10.2); Carbon Dioxide 32 mmol/L (22.0-30.0); Chloride 101 mmol/L (98-107); Creatinine Clearance Estimated 69 mL/min (50-200); Estimated Glomerular Filt Rate 166 ml/min (>60); GFR (African American) 201 ML/MIN (>60); Globulin 2.8 g/dL (1.3-3.2); Glucose 118 mg/dl (74-100); Sodium 141 mmol/L (136-145); Total Protein,Serum 5.8 g/dl (6.3-8.2)
--- NOTE | 2021-08-06 10:36 | PC.NURSE ---
Pt states he takes his suboxone spread out t/o the day. 1 tablet in the morning, 1 in afternoon, and .5 tab in the evening. Order states 2.5 tablets daily 0938-spoke to Ariel Philip regarding this. Parker confirmed that 2.5 tab had to be given 0949-Spoke to Brii Bonds regarding pt's frequent hypoxia and concern of pt taking 2.5tab at once. Jorge to return call [phone]- BRII Bonds stated MD Garcia states to give the whole dose of 2.5tab of suboxone 1035- 2.5 tablets given to pt
--- NOTE | 2021-08-06 11:31 | PC.NURSE ---
Sputum induced, specimen cup left at bedside.
[2021-08-06 11:35] VITALS: BMI 22.7
--- NOTE | 2021-08-06 11:47 | HMH.PULMCON ---
*Admission Date: 08/05/21 *Reason for consult:: Acute hypoxic respiratory failure, COVID-19 pneumonia, community-acquired p *History of present illness: Mr. Dobson is a 66-year-old male greater than 72-ceyi-htap smoking despite smoker is following in pulmonary clinic for exertional dyspnea presented to hospital worsening respiratory issues and found to be COVID-19 positive and pulmonary was called for further management. Patient has been having symptoms for the last 2 weeks recommended COVID-19 testing and treatment for community-acquired pneumonia however patient delayed his COVID-19 testing and received the testing a week ago during which she was resulted positive and eventually after that patient delayed presentation to the ER and eventually presented to the ER patient was revealed hypoxic respiratory failure needing high flow nasal cannula oxygen supplementation and pulmonary was called for further management. [facility] History Medical History: Reports:: Anxiety, Asthma, Congestive Heart Failure, Chronic Obstructive Pulmonary Disease (COPD), Depression, Home Oxygen, Hypertension, Lung Disease, Migraine Denies:: Cancer, Diabetes Mellitus Type 1, Diabetes Mellitus Type 2, Internal Pacemaker, MRSA, Seizures *Have you ever received a pneumonia vaccine?: No *Have you received a flu vaccine this season?: No Other Medical History: Reports: Anemia, Arthritis, Glaucoma Laterality Cases: Left: Carpal Tunnel Release, Bilateral: Tonsillectomy Other Surgeries: Yes: Cardiac Catheterization, Cholecystectomy, Colonoscopy, Other. No: Pacemaker Amputation: No Fractures: Yes (R hip fx 12/2019) - *Social History Smoking Status: Former smoker Tobacco Type: cigarettes # Packs/Day (cigarettes): 1 Alcohol Intake: former Alcohol Intake Frequency:: holidays/special occasions only Substance Use Type: former substance user, painkillers *Occupational Status:: retired Housing: house Household Members: spouse *Travel in the last 8 weeks: None - Psychiatric History Pschychiatric History:: Reports:: Anxiety, Depression Family Hx:: No significant family history ROS - Cons Reports anorexia, Reports body ache(s), Reports chills - Eyes Denies blind spots - ENT Denies bleeding gums - Card Reports shortness of breath, Reports shortness of breath with activity - Resp Respiratory: Reports change in phlegm color, Reports chest congestion, Reports cough, Reports excessive phlegm production - GI Gastrointestingal: Denies: abdominal pain - [place] Musculoskeletal: Reports back pain, Reports deformity - Psych Reports abnormal sleep pattern Meds Home Medications Medication Instructions Recorded Confirmed Type buprenorphine 8 mg-naloxone 2 mg 2.5 tab SL DAILY 01/15/20 08/05/21 History sublingual tablet furosemide 40 mg tablet 40 mg PO BID #180 tab 01/30/21 08/05/21 Rx potassium chloride 20 mEq 20 meq PO BID #180 tab 01/30/21 08/05/21 Rx tablet,extended release nystatin 100,000 unit/mL oral 10 ml PO QID #400 ml 02/03/21 08/05/21 Rx suspension ipratropium 0.5 mg-albuterol 3 mg 3 ml INHALATION Q6H PRN #180 ml 03/25/21 08/05/21 Rx (2.5 mg base)/3 mL nebulization soln ipratropium 20 mcg-albuterol 100 1 puff INHALATION Q6H #4 g 03/25/21 08/06/21 Rx mcg/actuation mist for inhalation sildenafil (pulm.hypertension) 20 20 mg PO Q12H PRN #60 tab 05/06/21 08/05/21 Rx mg tablet alendronate 70 mg tablet 70 mg PO WEEKLY #5 tab 05/20/21 08/05/21 Rx calcium carbonate 600 mg (1,500 1 tab PO DAILY #30 tab 05/20/21 08/05/21 Rx mg)-vitamin D3 400 unit tablet gabapentin 600 mg tablet 600 mg PO QID #120 tab 07/31/21 08/05/21 Rx Albuterol Sulfate [Proair 2 puffs IH Q6H 08/06/21 08/06/21 History Respiclick] Fluticasone/Umeclidin/Vilanter 1 dose IH DAILY 08/06/21 08/06/21 History [Trelegy Ellipta 100-62.5-25] Ranolazine [Ranolazine ER] 500 mg PO BID PRN 08/06/21 08/06/21 History Allergies Allergy/AdvReac Type Severity Reaction Status Date / T
--- NOTE | 2021-08-06 13:25 | HMH.HP ---
*Admission Date: 08/05/21 *Chief complaint: covid *History of present illness: 66yo M evaluated for shortness of breath with reported Covid positive status. Chest x-ray, blood work is ordered. Patient is started on Vapotherm nasal cannula as I do not have a BiPAP available at this time. Patient Covid test in house is positive. He was sent for a CT with contrast and found to have small right-sided pulmonary emboli, 1 upper lobe and one lower lobe. Patient admitted for increasing shortness of breath over the last several days. Found to be Covid positive and also having having multiple pulmonary emboli on CT of the chest for which he was started on anticoagulation therapy. Currently denies any chest pain except with coughing or breathing. Echocardiogram performed yesterday shows preserved ejection fraction but technically limited study due to pulmonary issues.Patient feels that he was exposed to the COVID-19 virus through his . 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 [facility] History I have reviewed the patient's past medical history: Yes Medical History: Reports:: Anxiety, Asthma, Congestive Heart Failure, Chronic Obstructive Pulmonary Disease (COPD), Depression, Home Oxygen, Hypertension, Lung Disease, Migraine Denies:: Cancer, Diabetes Mellitus Type 1, Diabetes Mellitus Type 2, Internal Pacemaker, MRSA, Seizures *Have you ever received a pneumonia vaccine?: No *Have you received a flu vaccine this season?: No Other Medical History: Reports: Anemia, Arthritis, Glaucoma Laterality Cases: Left: Carpal Tunnel Release, Bilateral: Tonsillectomy Other Surgeries: Yes: Cardiac Catheterization, Cholecystectomy, Colonoscopy, Other. No: Pacemaker Amputation: No Fractures: Yes (R hip fx 12/2019) - *Social History Smoking Status: Former smoker Tobacco Type: cigarettes # Packs/Day (cigarettes): 1 Alcohol Intake: former Alcohol Intake Frequency:: holidays/special occasions only Substance Use Type: former substance user, painkillers *Occupational Status:: retired Housing: house Household Members: spouse *Travel in the last 8 weeks: None - Psychiatric History Pschychiatric History:: Reports:: Anxiety, Depression Family Hx:: No significant family history Review of Systems - Review of Systems Review of systems:: pertinent systems reviewed and negative unless documented below - Constitutional Reports fatigue, Denies body ache(s) - Eyes Denies blurry vision - ENT Denies bleeding gums - *Cardiovascular Reports shortness of breath, Reports shortness of breath with activity, Denies chest pain at rest - *Respiratory Reports shortness of breath, Reports shortness of breath with activity - *Gastrointestinal Denies abdominal pain - *Genitourinary Denies difficulty urinating - *Musculoskeletal Denies joint pain - Integumentary/Breasts Denies rash - *Neurologic Denies dizziness - Psychiatric Denies lack of enjoyment - Endocrine Denies excessive sweating - Hematologic/Lymphatic Denies easy bleeding - Allergic/Immunologic Denies itchy eyes Meds Home Medications Medication Instructions Recorded Confirmed Type buprenorphine 8 mg-naloxone 2 mg 2.5 tab SL DAILY 01/15/20 08/05/21 History sublingual tablet furosemide 40 mg tablet 40 mg PO BID #180 tab 01/30/21 08/05/21 Rx potassium chloride 20 mEq 20 meq PO BID #180 tab 01/30/21 08/05/21 Rx tablet,extended release nystatin 100,000 unit/mL oral 10 ml PO QID #400 ml 02/03/21 08/05/21 Rx suspension ipratropium 0.5 mg-albuterol 3 mg 3 ml INHALATION Q6H PRN #180 ml 03/25/21 08/05/21 Rx (2.5 mg base)/3 mL nebulization soln ipratropium 20 mcg-albuterol 100 1 puff INHALATION Q6H #4 g 03/25/21 08/06/21 Rx mcg/actuation mist for inhalation sildenafil (pulm.hypertension) 20 20 mg PO Q12H PRN #60 tab 05/06/21 08/05/21 Rx mg tablet alendronate 70 mg tablet 70 mg PO WEEKLY
[2021-08-06 16:00] VITALS: BP 106/69; PULSE 76; RESP 16; TEMP 36.5; O2SAT 87
[2021-08-06 18:27] VITALS: PULSE 79; PULSE 82; O2SAT 98
[2021-08-06 20:00] VITALS: BP 122/74; PULSE 88; RESP 20; TEMP 36.7; O2SAT 90
[2021-08-07] VITALS (9 sets, daily range): BP systolic 102–125; BP diastolic 68–81; PULSE 64–88; RESP 16–22; TEMP 36.4–36.8; O2SAT 76–99; BMI 22.6
--- NOTE | 2021-08-07 04:20 | PC.NURSE ---
pt AxOx4, has been restless this shift, Was on 20/60% vapotherm until around 3, sats dropped to mid 70's at this point, and vapotherm was increased to 25L/100%, sats returned to mid 90's at this point, inspiratory and expiratory rhonchi noted on auscultation
[2021-08-07 07:28] LABS: Basophils % 0.2 % (0.1-2.0); Eosinophils % 0.1 % (0.1-12.0); Hematocrit 34.2 % (42.0-52.0); Hemoglobin 10.6 g/dL (14.1-18.0); Lymphocytes # 0.7 K/mm3 (0.7-4.5); Lymphocytes % 8.3 % (10-50); Mean Corpuscular HGB Conc 31.1 g/dL (31.8-35.4); Mean Corpuscular Hemoglobin 28.6 pg (27.0-31.2); Monocytes # 0.5 K/mm3 (0.1-1.0); Monocytes % 6.3 % (1.7-9.3); Neutrophils % 85.1 % (37.0-80.0); Platelet Count 341 K/mm3 (142-424); Red Blood Count 3.72 M/mm3 (4.60-6.20); Red Cell Distribution Width 13.7 % (11.5-17.5); White Blood Count 8.2 K/mm3 (4.8-10.8)
[2021-08-07 07:31] LABS: Alanine Aminotransferase 21 U/L (12-78); Albumin Level 2.9 g/dl (3.5-5.0); Alkaline Phosphatase 74 U/L (38-126); Anion Gap 10.2 mEq/L (5-15); Aspartate Amino Transferase 34 U/L (17-59); Bilirubin,Total 0.3 mg/dl (0.2-1.3); Blood Urea Nitrogen 23 mg/dl (9-20); Calcium 8.5 mg/dl (8.4-10.2); Carbon Dioxide 33 mmol/L (22.0-30.0); Chloride 101 mmol/L (98-107); Creatinine Clearance Estimated 69 mL/min (50-200); Estimated Glomerular Filt Rate 112 ml/min (>60); GFR (African American) 136 ML/MIN (>60); Globulin 2.8 g/dL (1.3-3.2); Glucose 117 mg/dl (74-100); Potassium 4.2 mmoL/L (3.5-5.1); Sodium 140 mmol/L (136-145); Total Protein,Serum 5.7 g/dl (6.3-8.2)
[2021-08-07 07:39] LABS: MANUAL DIFFERENTIAL MANUAL DIFFERENTIAL (MANUAL DIFF)
[2021-08-07 08:08] LABS: Lymphocytes % 5 % (10-50); Monocytes % 3 % (2-9); Neutrophils % 92 % (42-76); Nucleated Red Blood Cells 1; Total Cells Counted 100
[2021-08-07 08:09] LABS: Anisocytosis 1+; Hypochromasia 1+; Macrocytosis 1+; Platelet Estimate Normal
--- NOTE | 2021-08-07 08:28 | HMH.PNCARD ---
Subjective Date: 08/07/21 Time: 08:28 Principal diagnosis: Covid, PE, DVT Interval history: 66-year-old white male in bed in no acute distress. Still on high flow oxygen at 30 L/min with oxygen saturation maintaining 95 to 98%. Patient feels like he is getting better but knows he continues to need hospitalization. Lower extremity Doppler revealed bilateral DVTs. Exam Vital signs and Labs for Last 24 Hours: Temp Pulse Resp BP Pulse Ox 97.6 F 82 16 111/70 98 08/07/21 03:39 08/07/21 06:10 08/07/21 03:39 08/07/21 03:39 08/07/21 06:10 Laboratory Results - last 24 hr 08/06/21 06:47: Total Counted 100, Neutrophils % (Manual) 88 H, Lymphocytes % (Manual) 7 L, Monocytes % (Manual) 5, Platelet Estimate Normal, Hypochromasia 1+ 08/06/21 06:47: Sodium 141, Potassium 5.0, Chloride 101, Carbon Dioxide 32 H, Anion Gap 13.0, BUN 20, Creatinine 0.50 L, Estimated Creat Clear 69, Estimated GFR 166, Est GFR ( Amer) 201 D, Glucose 118 H, Calcium 8.4, Total Bilirubin 0.3, AST 41 D, ALT 23 D, Alkaline Phosphatase 76, Total Protein 5.8 L, Albumin 3.0 L D, Globulin 2.8, Albumin/Globulin Ratio 1.1 08/07/21 06:37: Sodium 140, Potassium 4.2, Chloride 101, Carbon Dioxide 33 H, Anion Gap 10.2, BUN 23 H, Creatinine 0.70 D, Estimated Creat Clear 69, Estimated GFR 112, Est GFR ( Amer) 136 D, Glucose 117 H, Calcium 8.5, Total Bilirubin 0.3, AST 34, ALT 21, Alkaline Phosphatase 74, Total Protein 5.7 L, Albumin 2.9 L, Globulin 2.8, Albumin/Globulin Ratio 1.0 L 08/07/21 06:37: WBC 8.2 D, RBC 3.72 L, Hgb 10.6 L, Hct 34.2 L, MCV 92.0, MCH 28.6, MCHC 31.1 L, RDW 13.7, Plt Count 341, MPV 8.0, Neut % (Auto) 85.1 H, Lymph % (Auto) 8.3 L, [place] % (Auto) 6.3, Eos % (Auto) 0.1, Baso % (Auto) 0.2, Neut # (Auto) 7.0, Lymph # (Auto) 0.7, [place] # (Auto) 0.5, Eos # (Auto) 0.0, Baso # (Auto) 0.0, Total Counted 100, Neutrophils % (Manual) 92 H, Lymphocytes % (Manual) 5 L, Monocytes % (Manual) 3, Nucleated RBCs 1, Platelet Estimate Normal, Hypochromasia 1+, Anisocytosis 1+, Macrocytosis 1+ I & O for Last 24 hours: Intake & Output 08/04/21 08/05/21 08/06/21 08/07/21 11:59 11:59 11:59 11:59 Intake Total 240 / 240 490 / 490 Output Total 1000 / 1000 925 / 925 Balance -760 / -760 -435 / -435 Weight 150 lb 149 lb 14.629 oz 149 lb 8 oz Microbiology Reports for the Last 24 Hours: Microbiology 08/06/21 16:45 Sputum - Expectorated Sputum Gram Stain - Final - *Routine Respiratory Exam Present: rhonchi, wheezes, diminished air movement - *Routine Cardiovascular Exam Present: RRR - *Routine Extremities Exam Present: edema. Absent: cyanosis, clubbing Progress Note: A&P (1) Acute respiratory failure with hypoxia Status: Acute (2) COVID-19 Status: Acute (3) Pulmonary emboli Status: Acute (4) Diastolic CHF Status: Acute (5) COPD (chronic obstructive pulmonary disease) Status: Chronic (6) Nicotine dependence Status: Chronic (7) Tobacco user Status: Chronic Assessment and Plan for All Diagnoses:: 1. Acute respiratory failure with hypoxia secondary to COVID-19 infection with along with multiple pulmonary emboli. Patient is on levofloxacin, dexamethasone and remdesivir therapy along with Xarelto 15 mg twice daily. 2. Pulmonary emboli likely related to COVID-19 infection, continue anticoagulation therapy with Xarelto 3. History of severe diastolic dysfunction with pulmonary hypertension, Patient is in a net negative fluid status at this point. Continue to monitor renal status and adjust Lasix with potassium as needed. 4. History of normal coronary arteries by cardiac catheterization 2017 but will continue Ranexa therapy for endothelial dysfunction related to tobacco use. 5. COPD with continued tobacco use 6. Bilateral lower extremity DVT, continue Xarelto therapy. Nothing further to add at this point. Recommend Xarelto therapy 15 mg twice daily for a total of 21 days and then switching to 20 mg daily
--- NOTE | 2021-08-07 09:23 | HMH.ACPN2 ---
Internal Medicine - PN: Subj *Date: 08/07/21 *Time: 15:31 Interval history: 66-year-old male patient sitting up in bed Vapotherm in place. He does get extremely short of breath while to having discussion he does report shortness of breath during night Exam Vital signs and Labs for Last 24 Hours: Temp Pulse Resp BP Pulse Ox 97.6 F 82 16 111/70 98 08/07/21 03:39 08/07/21 06:10 08/07/21 03:39 08/07/21 03:39 08/07/21 06:10 Laboratory Results - last 24 hr 08/07/21 06:37: Sodium 140, Potassium 4.2, Chloride 101, Carbon Dioxide 33 H, Anion Gap 10.2, BUN 23 H, Creatinine 0.70 D, Estimated Creat Clear 69, Estimated GFR 112, Est GFR ( Amer) 136 D, Glucose 117 H, Calcium 8.5, Total Bilirubin 0.3, AST 34, ALT 21, Alkaline Phosphatase 74, Total Protein 5.7 L, Albumin 2.9 L, Globulin 2.8, Albumin/Globulin Ratio 1.0 L 08/07/21 06:37: WBC 8.2 D, RBC 3.72 L, Hgb 10.6 L, Hct 34.2 L, MCV 92.0, MCH 28.6, MCHC 31.1 L, RDW 13.7, Plt Count 341, MPV 8.0, Neut % (Auto) 85.1 H, Lymph % (Auto) 8.3 L, [place] % (Auto) 6.3, Eos % (Auto) 0.1, Baso % (Auto) 0.2, Neut # (Auto) 7.0, Lymph # (Auto) 0.7, [place] # (Auto) 0.5, Eos # (Auto) 0.0, Baso # (Auto) 0.0, Total Counted 100, Neutrophils % (Manual) 92 H, Lymphocytes % (Manual) 5 L, Monocytes % (Manual) 3, Nucleated RBCs 1, Platelet Estimate Normal, Hypochromasia 1+, Anisocytosis 1+, Macrocytosis 1+ I & O for Last 24 hours: Intake & Output 08/04/21 08/05/21 08/06/21 08/07/21 23:59 23:59 23:59 23:59 Intake Total 730 / 730 Output Total 400 / 400 1125 / 1325 400 / 400 Balance -400 / -400 -395 / -595 -400 / -400 Weight 149 lb 149 lb 14.629 oz 149 lb 8 oz Microbiology Reports for the Last 24 Hours: Microbiology 08/06/21 16:45 Sputum - Expectorated Sputum Gram Stain - Final - Constitutional mild distress, chronically ill appearing - *Routine HEENT Exam Head: Present: normocephalic Eye: Present: EOMI ENT: Present: mucous membranes moist - *Routine Neck Exam Present: trachea midline. Absent: tracheal deviation - *Routine Respiratory Exam Present: wheezes, crackles - *Routine Cardiovascular Exam Present: RRR - *Routine Abdominal Exam Present: soft, normoactive bowel sounds. Absent: tenderness, distended - *Routine Extremities Exam Present: full ROM, pulses intact. Absent: cyanosis, clubbing - *Routine Skin Exam Present: intact, cyanosis, dry, warm. Absent: erythema - *Routine Neurological Exam Present: alert, oriented X3. Absent: altered mental status - Routine Psychiatric Exam Present: normal affect, normal thought process Assessment and Plan (1) Acute respiratory failure with hypoxia Status: Acute Category: Medical Code(s): J96.01 - Acute respiratory failure with hypoxia (2) COVID-19 Status: Acute Category: Medical Code(s): U07.1 - COVID-19 (3) Pulmonary emboli Status: Acute Qualifiers: Pulmonary embolism type: multiple subsegmental (without acute cor pulmonale) Qualified Code(s): I26.94 - Multiple subsegmental pulmonary emboli without acute cor pulmonale Category: Medical Code(s): I26.99 - Other pulmonary embolism without acute cor pulmonale (4) Diastolic CHF Status: Acute Category: Medical Code(s): I50.30 - Unspecified diastolic (congestive) heart failure (5) COPD (chronic obstructive pulmonary disease) Status: Chronic Qualifiers: COPD type: unspecified COPD Qualified Code(s): J44.9 - Chronic obstructive pulmonary disease, unspecified Category: Medical Code(s): J44.9 - Chronic obstructive pulmonary disease, unspecified (6) Nicotine dependence Status: Chronic Qualifiers: Nicotine product type: cigarettes Substance use status: uncomplicated Qualified Code(s): F17.210 - Nicotine dependence, cigarettes, uncomplicated Category: Medical Code(s): F17.200 - Nicotine dependence, unspecified, uncomplicated (7) Tobacco user Status: Chronic Category: Social Hx C
--- NOTE | 2021-08-07 09:27 | HMH.PULMPN ---
Internal Medicine - PN: Subj *Date: 08/07/21 *Time: 11:45 Interval history: No acute respiratory events overnight. Patient admits improvement in his symptoms. Exam - Constitutional Constitutional:: Present: no acute distress, comfortable - HENMT Exam HENMT: Present: normocephalic, atraumatic - Eye Exam Eyes:: Present: normal appearance both eyes and related structures - Neck Exam Neck:: Present: normal visual inspection - Respiratory Exam Respiratory:: Present: able to speak in complete sentences, no respiratory distress, crackles, wheezing - Cardiovascular Exam Cardiac:: Present: S1, S2 - GI Exam GI:: Present: soft - Skin Exam Skin: Present: warm, no rash - Neurological Exam Neurological: Present: alert, awake, normal cognition - Extremities Exam Extremities: Present: no cyanosis, no clubbing, no edema Assessment and Plan (1) Acute respiratory failure with hypoxia Status: Acute Category: Medical Code(s): J96.01 - Acute respiratory failure with hypoxia (2) COVID-19 Status: Acute Category: Medical Code(s): U07.1 - COVID-19 (3) Pulmonary emboli Status: Acute Qualifiers: Pulmonary embolism type: multiple subsegmental (without acute cor pulmonale) Qualified Code(s): I26.94 - Multiple subsegmental pulmonary emboli without acute cor pulmonale Category: Medical Code(s): I26.99 - Other pulmonary embolism without acute cor pulmonale (4) Diastolic CHF Status: Acute Category: Medical Code(s): I50.30 - Unspecified diastolic (congestive) heart failure (5) COPD (chronic obstructive pulmonary disease) Status: Chronic Qualifiers: COPD type: unspecified COPD Qualified Code(s): J44.9 - Chronic obstructive pulmonary disease, unspecified Category: Medical Code(s): J44.9 - Chronic obstructive pulmonary disease, unspecified (6) Nicotine dependence Status: Chronic Qualifiers: Nicotine product type: cigarettes Substance use status: uncomplicated Qualified Code(s): F17.210 - Nicotine dependence, cigarettes, uncomplicated Category: Medical Code(s): F17.200 - Nicotine dependence, unspecified, uncomplicated (7) Tobacco user Status: Chronic Category: Social Hx Code(s): Z72.0 - Tobacco use - Assessment and plan all Dx Assessment and Plan for all problems:: #Acute on chronic hypoxic respiratory failure: #Community-acquired pneumonia: #COVID-19 pneumonia: 66-year-old COPD recently diagnosed with community-acquired pneumonia present with worsening respiratory and found to be COVID-19 pneumonia positive. CTA on admission showed evidence of pulmonary embolism. CT also showed bilateral lower lobe predominant diffuse patchy airspace disease along with interstitial prominence. CT also showed evidence of elevated right-sided pressures. Evidence of lymphopenia. Afebrile. Patient respiratory status continued to improve throughout this hospital admission. We will continue to wean his high flow as tolerated, this morning decreased to 20 L 55% with saturations maintaining at 93%. We will continue to wean as tolerated. Plan: -Continue remdesivir dexamethasone for his COVID-19 pneumonia. -DuoNebs every 6 hours scheduled along with budesonide every 12 scheduled -Flutter valve -Continue levofloxacin for a total of 10 days awaiting repeat sputum cultures. Sputum Gram stain from his admission showing gram-positive cocci in pairs. (Patient sputum culture from 2019 grew Pseudomonas which is sensitive to levofloxacin. Preliminary temp staining showing gram-positive cocci in pairs. We will continue levofloxacin awaiting nasal MRSA PCR and final sputum culture results he is recently received Augmentin.)
--- NOTE | 2021-08-07 18:23 | PC.NURSE ---
Pt has done well this shift. Pt was titrated down to 25L 55% fio2 per RT, but around 1650 RT was notified d/t pt desatting and maintaining 70-75%. RT placed pt back on 30L, 90%fio2. Pt is currently 91%. No other acute changes or complaints, will continue to monitor.
[2021-08-08] VITALS (12 sets, daily range): BP systolic 93–136; BP diastolic 69–85; PULSE 71–105; RESP 18–20; TEMP 36.4–37.1; O2SAT 89–97; BMI 251.3; BMI 23.4
--- NOTE | 2021-08-08 03:40 | PC.NURSE ---
A&OX4. TOLERATING VAPOTHERM, 30L 90%. O2 SAT IN LOW 90S, DROPS TO UPPER 80S WHEN COUGHING. PT IS HAVING A PRODUCTIVE COUGH, PRODUCING THICK AND LIGHT YELLOW SPUTUM. PT HAS HAD NO C/O THUS FAR THIS SHIFT. HAS BEEN IN BED RESTING MAJORITY OF SHIFT. VSS WILL CONTINUE TO MONITOR.
--- NOTE | 2021-08-08 06:35 | PC.NURSE ---
RESPIRATORY CARE NOTE: HAD TO INCREASE 02 TO 100% AT THIS TIME DUE TO LOW SATURATIONS. SATS CAME UP TO 91%.
[2021-08-08 06:56] LABS: Basophils % 0.1 % (0.1-2.0); Hemoglobin 11.2 g/dL (14.1-18.0); Lymphocytes # 0.5 K/mm3 (0.7-4.5); Lymphocytes % 4.9 % (10-50); Mean Corpuscular HGB Conc 32.2 g/dL (31.8-35.4); Mean Corpuscular Hemoglobin 29.4 pg (27.0-31.2); Mean Corpuscular Volume 91.4 fl (80-94); Monocytes # 0.6 K/mm3 (0.1-1.0); Monocytes % 5.2 % (1.7-9.3); Neutrophils # 9.5 K/mm3 (1.8-7.8); Neutrophils % 89.7 % (37.0-80.0); Platelet Count 324 K/mm3 (142-424); Red Blood Count 3.83 M/mm3 (4.60-6.20); Red Cell Distribution Width 13.7 % (11.5-17.5); White Blood Count 10.6 K/mm3 (4.8-10.8)
[2021-08-08 06:58] LABS: MANUAL DIFFERENTIAL MANUAL DIFFERENTIAL (MANUAL DIFF)
[2021-08-08 07:15] LABS: Alanine Aminotransferase 18 U/L (12-78); Albumin Level 2.7 g/dl (3.5-5.0); Alkaline Phosphatase 68 U/L (38-126); Aspartate Amino Transferase 31 U/L (17-59); Bilirubin,Total 0.5 mg/dl (0.2-1.3); Blood Urea Nitrogen 16 mg/dl (9-20); Calcium 8.3 mg/dl (8.4-10.2); Carbon Dioxide 31 mmol/L (22.0-30.0); Chloride 103 mmol/L (98-107); Creatinine Clearance Estimated -43 mL/min (50-200); Estimated Glomerular Filt Rate 134 ml/min (>60); GFR (African American) 163 ML/MIN (>60); Globulin 2.7 g/dL (1.3-3.2); Glucose 94 mg/dl (74-100); Sodium 139 mmol/L (136-145); Total Protein,Serum 5.4 g/dl (6.3-8.2)
[2021-08-08 07:40] LABS: Lymphocytes % 7 % (10-50); Monocytes % 3 % (2-9); Neutrophils % 90 % (42-76); Platelet Estimate Normal; RBC Morphology Normal; Total Cells Counted 100
--- NOTE | 2021-08-08 08:54 | P.PN_ITS ---
Internal Medicine - PN: Subj *Date: 08/08/21 *Time: 11:39 Interval history: Patient complains of worsening respiratory status since yesterday. Exam - Constitutional Constitutional:: Present: no acute distress, comfortable - HENMT Exam HENMT: Present: normocephalic, atraumatic - Eye Exam Eyes:: Present: vision change - Neck Exam Neck:: Present: normal visual inspection - Respiratory Exam Respiratory:: Present: able to speak in complete sentences, respiratory distress, crackles, wheezing - Cardiovascular Exam Cardiac:: Present: S1, S2 - GI Exam GI:: Present: soft - Skin Exam Skin: Present: warm, no rash - Neurological Exam Neurological: Present: alert, awake, normal cognition - Extremities Exam Extremities: Present: no cyanosis, no clubbing, no edema Assessment and Plan (1) Acute respiratory failure with hypoxia Status: Acute Category: Medical Code(s): J96.01 - Acute respiratory failure with hypoxia (2) COVID-19 Status: Acute Category: Medical Code(s): U07.1 - COVID-19 (3) Pulmonary emboli Status: Acute Qualifiers: Pulmonary embolism type: multiple subsegmental (without acute cor pulmonale) Qualified Code(s): I26.94 - Multiple subsegmental pulmonary emboli without acute cor pulmonale Category: Medical Code(s): I26.99 - Other pulmonary embolism without acute cor pulmonale (4) Diastolic CHF Status: Acute Category: Medical Code(s): I50.30 - Unspecified diastolic (congestive) heart failure (5) COPD (chronic obstructive pulmonary disease) Status: Chronic Qualifiers: COPD type: unspecified COPD Qualified Code(s): J44.9 - Chronic obstructive pulmonary disease, unspecified Category: Medical Code(s): J44.9 - Chronic obstructive pulmonary disease, uns pecified (6) Nicotine dependence Status: Chronic Qualifiers: Nicotine product type: cigarettes Substance use status: uncomplicated Qualified Code(s): F17.210 - Nicotine dependence, cigarettes, uncomplicated Category: Medical Code(s): F17.200 - Nicotine dependence, unspecified, uncomplicated (7) Tobacco user Status: Chronic Category: Social Hx Code(s): Z72.0 - Tobacco use - Assessment and plan all Dx Assessment and Plan for all problems:: #Acute on chronic hypoxic respiratory failure: #Community-acquired pneumonia: #COVID-19 pneumonia: #Pulmonary embolism: 66-year-old COPD recently diagnosed with community-acquired pneumonia present with worsening respiratory and found to be COVID-19 pneumonia positive. CTA on admission showed evidence of pulmonary embolism. CT also showed bilateral lower lobe predominant diffuse patchy airspace disease along with interstitial prominence. CT also showed evidence of elevated right-sided pressures. Evidence of lymphopenia. Afebrile. Plan: - Lasix 40mg IV once -Continue flutter valve. We will add Mucomyst. -Will change DuoNeb to every 4 scheduled along with continuation of budesonide every 12 scheduled -Continue levofloxacin for a total of 10 days. We will add add vancomycin x 7 days given his sputum showing gram-positive cocci in the setting of nasal MRSA PCR positive and his worsening respiratory distress awaiting repeat sputum cultures. -Continue high flow nasal cannula oxygen supplementation to maintain O2 saturation goal of 88 to 92% we will aggressively wean as tolerated. -Continue remdesivir dexamethasone for his COVID-19 pneumonia. Thank you for involving pulmonary in this patient care. We will continue to follow.
--- NOTE | 2021-08-08 09:35 | HMH.ACPN2 ---
Internal Medicine - PN: Subj *Date: 08/08/21 *Time: 17:43 Interval history: 66-year-old male patient sitting up in bed, Vapotherm intact. He reports he feels worse today than he did yesterday. Still displaying shortness of breath during conversation. Exam Vital signs and Labs for Last 24 Hours: Temp Pulse Resp BP Pulse Ox 97.6 F 84 20 112/69 89 L 08/08/21 07:32 08/08/21 07:32 08/08/21 07:32 08/08/21 07:08/08/21 07:32 Laboratory Results - last 24 hr 08/08/21 06:28: Sodium 139, Potassium 4.0, Chloride 103, Carbon Dioxide 31 H, Anion Gap 9.0, BUN 16 D, Creatinine 0.60 L, Estimated Creat Clear -43 L, Estimated GFR 134, Est GFR ( Amer) 163, Glucose 94, Calcium 8.3 L, Total Bilirubin 0.5, AST 31, ALT 18, Alkaline Phosphatase 68, Total Protein 5.4 L, Albumin 2.7 L, Globulin 2.7, Albumin/Globulin Ratio 1.0 L 08/08/21 06:28: WBC 10.6 D, RBC 3.83 L, Hgb 11.2 L, Hct 35.0 L, MCV 91.4, MCH 29.4, MCHC 32.2, RDW 13.7, Plt Count 324, MPV 8.0, Neut % (Auto) 89.7 H, Lymph % (Auto) 4.9 L, [place] % (Auto) 5.2, Eos % (Auto) 0.0 L, Baso % (Auto) 0.1, Neut # (Auto) 9.5 H, Lymph # (Auto) 0.5 L, [place] # (Auto) 0.6, Eos # (Auto) 0.0, Baso # (Auto) 0.0, Total Counted 100, Neutrophils % (Manual) 90 H, Lymphocytes % (Manual) 7 L, Monocytes % (Manual) 3, Platelet Estimate Normal, RBC Morphology Normal I & O for Last 24 hours: Intake & Output 08/05/21 08/06/21 08/07/21 08/08/21 23:59 23:59 23:59 23:59 Intake Total 730 / 730 360 / 360 Output Total 400 / 400 1125 / 1325 1450 / 1650 550 / 550 Balance -400 / -400 -395 / -595 -1090 / -1290 -550 / -550 Weight 149 lb 149 lb 14.629 oz 149 lb 8 oz 154 lb 1 oz - Constitutional mild distress, chronically ill appearing - *Routine HEENT Exam Head: Present: normocephalic Eye: Present: EOMI ENT: Present: mucous membranes moist - *Routine Neck Exam Present: trachea midline. Absent: tracheal deviation - *Routine Respiratory Exam Present: wheezes, crackles. Absent: patient mechanically ventilated - *Routine Cardiovascular Exam Present: RRR - *Routine Abdominal Exam Present: soft, normoactive bowel sounds. Absent: tenderness, firm - *Routine Extremities Exam Present: full ROM, pulses intact. Absent: cyanosis, clubbing, calf tenderness - *Routine Skin Exam Present: intact, dry. Absent: cyanosis, erythema - *Routine Neurological Exam Present: alert, oriented X3. Absent: motor deficit - Routine Psychiatric Exam Present: normal affect, normal thought process. Absent: visual hallucinations Assessment and Plan (1) Acute respiratory failure with hypoxia Status: Acute Category: Medical Code(s): J96.01 - Acute respiratory failure with hypoxia (2) COVID-19 Status: Acute Category: Medical Code(s): U07.1 - COVID-19 (3) Pulmonary emboli Status: Acute Qualifiers: Pulmonary embolism type: multiple subsegmental (without acute cor pulmonale) Qualified Code(s): I26.94 - Multiple subsegmental pulmonary emboli without acute cor pulmonale Category: Medical Code(s): I26.99 - Other pulmonary embolism without acute cor pulmonale (4) Diastolic CHF Status: Acute Category: Medical Code(s): I50.30 - Unspecified diastolic (congestive) heart failure (5) COPD (chronic obstructive pulmonary disease) Status: Chronic Qualifiers: COPD type: unspecified COPD Qualified Code(s): J44.9 - Chronic obstructive pulmonary disease, unspecified Category: Medical Code(s): J44.9 - Chronic obstructive pulmonary disease, unspecified (6) Nicotine dependence Status: Chronic Qualifiers: Nicotine product type: cigarettes Substance use status: uncomplicated Qualified Code(s): F17.210 - Nicotine dependence, cigarettes, uncomplicated Category: Medical Code(s): F17.200 - Nicotine dependence, unspecified, uncomplicated (7) Tobacco user Status: Chronic Category: Social Hx Code(s): Z72.0 - Tobacco use - Assessment and plan all Dx A
--- NOTE | 2021-08-08 10:34 | PC.NURSE ---
1021- spoke to morelia in lab regarding positive MRSA screen. Name, and room number verified. 1030- notified MD Mackay (ordering provider) notified during rounds, NNO
--- NOTE | 2021-08-08 13:45 | HMH.PHACONS ---
- Pharmacy Consult Date: 08/08/21 Time: 13:45 Referring provider: DR. ESPOSITO Reason for Consult:: VANCOMYCIN DOSING Allergies and ADEs:: Allergies Allergy/AdvReac Type Severity Reaction Status Date / Time amoxicillin [From Augmentin] Allergy Verified 08/05/21 17:29 clavulanic acid Allergy Verified 08/05/21 17:29 [From Augmentin] NSAIDS (Non-Steroidal AdvReac Severe STOMACH Verified 05/07/21 10:06 Anti-Inflamma PAIN Home Medications:: Home Medications Medication Instructions Recorded Confirmed Type buprenorphine 8 mg-naloxone 2 mg 2.5 tab SL DAILY 01/15/20 08/05/21 History sublingual tablet furosemide 40 mg tablet 40 mg PO BID #180 tab 01/30/21 08/05/21 Rx potassium chloride 20 mEq 20 meq PO BID #180 tab 01/30/21 08/05/21 Rx tablet,extended release nystatin 100,000 unit/mL oral 10 ml PO QID #400 ml 02/03/21 08/05/21 Rx suspension ipratropium 0.5 mg-albuterol 3 mg 3 ml INHALATION Q6H PRN #180 ml 03/25/21 08/05/21 Rx (2.5 mg base)/3 mL nebulization soln ipratropium 20 mcg-albuterol 100 1 puff INHALATION Q6H #4 g 03/25/21 08/06/21 Rx mcg/actuation mist for inhalation sildenafil (pulm.hypertension) 20 20 mg PO Q12H PRN #60 tab 05/06/21 08/05/21 Rx mg tablet alendronate 70 mg tablet 70 mg PO WEEKLY #5 tab 05/20/21 08/05/21 Rx calcium carbonate 600 mg (1,500 1 tab PO DAILY #30 tab 05/20/21 08/05/21 Rx mg)-vitamin D3 400 unit tablet gabapentin 600 mg tablet 600 mg PO QID #120 tab 07/31/21 08/05/21 Rx Albuterol Sulfate [Proair 2 puffs IH Q6H 08/06/21 08/06/21 History Respiclick] Fluticasone/Umeclidin/Vilanter 1 dose IH DAILY 08/06/21 08/06/21 History [Trelegy Ellipta 100-62.5-25] Ranolazine [Ranolazine ER] 500 mg PO BID PRN 08/06/21 08/06/21 History Height: 1.73 m Weight: 69.882 kg Laboratory Results:: Laboratory Results - last 24 hr 08/08/21 06:28: Sodium 139, Potassium 4.0, Chloride 103, Carbon Dioxide 31 H, Anion Gap 9.0, BUN 16 D, Creatinine 0.60 L, Estimated Creat Clear -43 L, Estimated GFR 134, Est GFR ( Amer) 163, Glucose 94, Calcium 8.3 L, Total Bilirubin 0.5, AST 31, ALT 18, Alkaline Phosphatase 68, Total Protein 5.4 L, Albumin 2.7 L, Globulin 2.7, Albumin/Globulin Ratio 1.0 L 08/08/21 06:28: WBC 10.6 D, RBC 3.83 L, Hgb 11.2 L, Hct 35.0 L, MCV 91.4, MCH 29.4, MCHC 32.2, RDW 13.7, Plt Count 324, MPV 8.0, Neut % (Auto) 89.7 H, Lymph % (Auto) 4.9 L, [place] % (Auto) 5.2, Eos % (Auto) 0.0 L, Baso % (Auto) 0.1, Neut # (Auto) 9.5 H, Lymph # (Auto) 0.5 L, [place] # (Auto) 0.6, Eos # (Auto) 0.0, Baso # (Auto) 0.0, Total Counted 100, Neutrophils % (Manual) 90 H, Lymphocytes % (Manual) 7 L, Monocytes % (Manual) 3, Platelet Estimate Normal, RBC Morphology Normal Medical History: Reports:: Anxiety, Asthma, Congestive Heart Failure, Chronic Obstructive Pulmonary Disease (COPD), Depression, Home Oxygen, Hypertension, Lung Disease, Migraine Denies:: Cancer, Diabetes Mellitus Type 1, Diabetes Mellitus Type 2, Internal Pacemaker, MRSA, Seizures Assessment and Plan (1) Acute respiratory failure with hypoxia Status: Acute Category: Medical Code(s): J96.01 - Acute respiratory failure with hypoxia (2) COVID-19 Status: Acute Category: Medical Code(s): U07.1 - COVID-19 (3) Pulmonary emboli Status: Acute Qualifiers: Pulmonary embolism type: multiple subsegmental (without acute cor pulmonale) Qualified Code(s): I26.94 - Multiple subsegmental pulmonary emboli without acute cor pulmonale Category: Medical Code(s): I26.99 - Other pulmonary embolism without acute cor pulmonale (4) Diastolic CHF Status: Acute Category: Medical Code(s): I50.30 - Unspecified diastolic (congestive) heart failure (5) COPD (chronic obstructive pulmonary disease) Status: Chronic Qualifiers: COPD type: unspecified COPD Qualified Code(s): J44.9 - Chronic obstructive pulmonary disease, unspecified Category: Medical Code(s): J44.9 - Chronic obstructive pulmonary di
--- NOTE | 2021-08-08 14:08 | P.PN_ITS ---
Internal Medicine - PN: Subj *Date: 08/08/21 *Time: 14:08 Exam Vital signs and Labs for Last 24 Hours: Temp Pulse Resp BP Pulse Ox 98.1 F 97 H 18 127/81 94 L 08/08/21 12:00 08/08/21 12:00 08/08/21 12:00 08/08/21 12:00 08/08/21 12:00 Laboratory Results - last 24 hr 08/08/21 06:28: Sodium 139, Potassium 4.0, Chloride 103, Carbon Dioxide 31 H, Anion Gap 9.0, BUN 16 D, Creatinine 0.60 L, Estimated Creat Clear -43 L, Estimated GFR 134, Est GFR ( Amer) 163, Glucose 94, Calcium 8.3 L, Total Bilirubin 0.5, AST 31, ALT 18, Alkaline Phosphatase 68, Total Protein 5.4 L, Albumin 2.7 L, Globulin 2.7, Albumin/Globulin Ratio 1.0 L 08/08/21 06:28: WBC 10.6 D, RBC 3.83 L, Hgb 11.2 L, Hct 35.0 L, MCV 91.4, MCH 29.4, MCHC 32.2, RDW 13.7, Plt Count 324, MPV 8.0, Neut % (Auto) 89.7 H, Lymph % (Auto) 4.9 L, Bailey % (Auto) 5.2, Eos % (Auto) 0.0 L, Baso % (Auto) 0.1, Neut # (Auto) 9.5 H, Lymph # (Auto) 0.5 L, Bailey # (Auto) 0.6, Eos # (Auto) 0.0, Baso # (Auto) 0.0, Total Counted 100, Neutrophils % (Manual) 90 H, Lymphocytes % (Manual) 7 L, Monocytes % (Manual) 3, Platelet Estimate Normal, RBC Morphology Normal I & O for Last 24 hours: Intake & Output 08/05/21 08/06/21 08/07/21 08/08/21 23:59 23:59 23:59 23:59 Intake Total 730 / 730 360 / 360 720 / 720 Output Total 400 / 400 1125 / 1325 1450 / 1650 550 / 550 Balance -400 / -400 -395 / -595 -1090 / -1290 170 / 170 Weight 67.585 kg 68 kg 67.812 kg 69.882 kg Microbiology Reports for the Last 24 Hours: Microbiology 08/06/21 09:31 Nose - Nasal MRSA Culture - Final 08/06/21 16:45 Sputum - Expectorated Sputum Gram Stain - Final 08/06/21 16:45 Sputum - Expectorated Sputum Sputum Culture - Preliminary Assessment and Plan (1) Acute respiratory failure with hypoxia Status: Acute Category: Medical Code(s): J96.01 - Acute respiratory failure with hypoxia (2) COVID-19 Status: Acute Category: Medical Code(s): U07.1 - COVID-19 (3) Pulmonary emboli Status: Acute Qualifiers: Pulmonary embolism type: multiple subsegmental (without acute cor pulmonale) Qualified Code(s): I26.94 - Multiple subsegmental pulmonary emboli without acute cor pulmonale Category: Medical Code(s): I26.99 - Other pulmonary embolism without acute cor pulmonale (4) Diastolic CHF Status: Acute Category: Medical Code(s): I50.30 - Unspecified diastolic (congestive) heart failure (5) COPD (chronic obstructive pulmonary disease) Status: Chronic Qualifiers: COPD type: unspecified COPD Qualified Code(s): J44.9 - Chronic obstructive pulmonary disease, unspecified Category: Medical Code(s): J44.9 - Chronic obstructive pulmonary disease, unspecified (6) Nicotine dependence Status: Chronic Qualifiers: Nicotine product type: cigarettes Substance use status: uncomplicated Qualified Code(s): F17.210 - Nicotine dependence, cigarettes, uncomplicated Category: Medical Code(s): F17.200 - Nicotine dependence, unspecified, uncomp licated (7) Tobacco user Status: Chronic Category: Social Hx Code(s): Z72.0 - Tobacco use The patient's infection will respond to the chosen ABx?: Yes (SPUTUM PENDING) Is the patient receiving the right drug, dose, and route?: Yes Could a more targeted ABx be ordered?: No
--- NOTE | 2021-08-08 14:52 | DIET.NUTRFU ---
PO intakes 50%, weight up 4#, 2+ edema.
[2021-08-09] VITALS (12 sets, daily range): BP systolic 107–132; BP diastolic 60–84; PULSE 65–87; RESP 18–22; TEMP 36.2–36.8; O2SAT 87–94
--- NOTE | 2021-08-09 04:22 | PC.NURSE ---
pt is AxOx4, has rested well t/o shift, vapotherm in place, O2 sats 90-97% this shift, no complaints of SOA, did complain of a headache and was treated per MAR
[2021-08-09 07:21] LABS: Basophils % 0.1 % (0.1-2.0); Eosinophils % 0.1 % (0.1-12.0); Hematocrit 33.8 % (42.0-52.0); Hemoglobin 10.7 g/dL (14.1-18.0); Lymphocytes # 0.3 K/mm3 (0.7-4.5); Lymphocytes % 6.5 % (10-50); Mean Corpuscular HGB Conc 31.6 g/dL (31.8-35.4); Mean Corpuscular Hemoglobin 28.5 pg (27.0-31.2); Mean Corpuscular Volume 90.3 fl (80-94); Mean Platelet Volume 8.1 fl (7.4-10.4); Monocytes # 0.4 K/mm3 (0.1-1.0); Monocytes % 6.7 % (1.7-9.3); Neutrophils # 4.5 K/mm3 (1.8-7.8); Neutrophils % 86.6 % (37.0-80.0); Platelet Count 323 K/mm3 (142-424); Red Blood Count 3.74 M/mm3 (4.60-6.20); Red Cell Distribution Width 13.8 % (11.5-17.5); White Blood Count 5.2 K/mm3 (4.8-10.8)
[2021-08-09 07:22] LABS: MANUAL DIFFERENTIAL MANUAL DIFFERENTIAL (MANUAL DIFF)
[2021-08-09 07:33] LABS: Alanine Aminotransferase 20 U/L (12-78); Alkaline Phosphatase 69 U/L (38-126); Anion Gap 11.9 mEq/L (5-15); Aspartate Amino Transferase 29 U/L (17-59); Bilirubin,Total 0.4 mg/dl (0.2-1.3); Blood Urea Nitrogen 18 mg/dl (9-20); Calcium 8.4 mg/dl (8.4-10.2); Carbon Dioxide 33 mmol/L (22.0-30.0); Chloride 101 mmol/L (98-107); Creatinine Clearance Estimated 71 mL/min (50-200); Estimated Glomerular Filt Rate 134 ml/min (>60); GFR (African American) 163 ML/MIN (>60); Glucose 139 mg/dl (74-100); Potassium 3.9 mmoL/L (3.5-5.1); Sodium 142 mmol/L (136-145)
[2021-08-09 08:47] LABS: Hypochromasia 1+; Lymphocytes % 5 % (10-50); Monocytes % 1 % (2-9); Neutrophils % 94 % (42-76); Nucleated Red Blood Cells 1; Platelet Estimate Normal; Total Cells Counted 100
--- NOTE | 2021-08-09 10:20 | XR_ITS ---
PROCEDURE INFORMATION: Exam: XR Chest Exam date and time: 08/09/2021 10:20 AM Age: 66 years old Clinical indication: Shortness of breath; Additional info: Covid-19 pneumonia TECHNIQUE: Imaging protocol: XR of the chest. Views: 1 view. COMPARISON: CR XR CHEST PORTABLE 08/06/2021 8:21 AM FINDINGS: Lungs: Patchy bilateral opacities may represent multifocal pneumonia including COVID-19. Overall exacerbation of the appearance of the chest since the prior study.. Pleural spaces: Unremarkable. No pleural effusion. No pneumothorax. Heart/Mediastinum: Stable cardiac silhouette Diaphragm: Elevated left hemidiaphragm Bones/joints: Unremarkable. IMPRESSION: Patchy bilateral opacities may represent multifocal pneumonia including COVID-19. Overall exacerbation of the appearance of the chest since the prior study..
--- NOTE | 2021-08-09 10:21 | HMH.ACPN2 ---
Internal Medicine - PN: Subj *Date: 08/09/21 *Time: 22:59 Interval history: pt with sob - doing better - on vasotherm- labs ok but cxr inc inflitrate Exam Vital signs and Labs for Last 24 Hours: Temp Pulse Resp BP Pulse Ox 97.2 F L 80 20 132/84 90 L 08/09/21 08:00 08/09/21 08:00 08/09/21 08:00 08/09/21 08:00 08/09/21 08:00 Laboratory Results - last 24 hr 08/09/21 06:20: Sodium 142, Potassium 3.9, Chloride 101, Carbon Dioxide 33 H, Anion Gap 11.9, BUN 18, Creatinine 0.60 L, Estimated Creat Clear 71, Estimated GFR 134, Est GFR ( Amer) 163, Glucose 139 H D, Calcium 8.4, Total Bilirubin 0.4, AST 29, ALT 20, Alkaline Phosphatase 69, Total Protein 6.0 L, Albumin 3.0 L D, Globulin 3.0, Albumin/Globulin Ratio 1.0 L 08/09/21 06:20: WBC 5.2 D, RBC 3.74 L, Hgb 10.7 L, Hct 33.8 L, MCV 90.3, MCH 28.5, MCHC 31.6 L, RDW 13.8, Plt Count 323, MPV 8.1, Neut % (Auto) 86.6 H, Lymph % (Auto) 6.5 L, Piatt % (Auto) 6.7, Eos % (Auto) 0.1, Baso % (Auto) 0.1, Neut # (Auto) 4.5, Lymph # (Auto) 0.3 L, [place]att # (Auto) 0.4, Eos # (Auto) 0.0, Baso # (Auto) 0.0, Total Counted 100, Neutrophils % (Manual) 94 H, Lymphocytes % (Manual) 5 L, Monocytes % (Manual) 1 L, Nucleated RBCs 1, Platelet Estimate Normal, Hypochromasia 1+ I & O for Last 24 hours: Intake & Output 08/06/21 08/07/21 08/08/21 08/09/21 11:59 11:59 11:59 11:59 Intake Total 240 / 240 610 / 610 720 / 720 960 / 960 Output Total 1000 / 1000 1125 / 1125 1400 / 1400 1000 / 1000 Balance -760 / -760 -515 / -515 -680 / -680 -40 / -40 Weight 149 lb 14.629 oz 149 lb 8 oz 154 lb 1 oz 154 lb 1.015 oz Microbiology Reports for the Last 24 Hours: Microbiology 08/06/21 16:45 Sputum - Expectorated Sputum Gram Stain - Final 08/06/21 16:45 Sputum - Expectorated Sputum Sputum Culture - Preliminary Gram Positive Cocci 08/08/21 14:30 Sputum - Expectorated Sputum Gram Stain - Final 08/08/21 14:30 Sputum - Expectorated Sputum Sputum Culture - Preliminary 08/06/21 09:31 Nose - Nasal MRSA Culture - Final - Constitutional no acute distress - *Routine HEENT Exam Head: Present: normocephalic Eye: Present: EOMI, PERRL ENT: Present: mucous membranes dry - *Routine Neck Exam Absent: JVD - *Routine Respiratory Exam Present: decreased breath sounds - *Routine Cardiovascular Exam Present: RRR - *Routine Abdominal Exam Present: soft - *Routine Extremities Exam Absent: calf tenderness - *Routine Skin Exam Present: intact - *Routine Neurological Exam Present: alert, oriented X3, CN II-XII intact - Routine Psychiatric Exam Present: normal affect Assessment and Plan (1) Acute respiratory failure with hypoxia Status: Acute Category: Medical Code(s): J96.01 - Acute respiratory failure with hypoxia (2) COVID-19 Status: Acute Category: Medical Code(s): U07.1 - COVID-19 (3) Pulmonary emboli Status: Acute Qualifiers: Pulmonary embolism type: multiple subsegmental (without acute cor pulmonale) Qualified Code(s): I26.94 - Multiple subsegmental pulmonary emboli without acute cor pulmonale Category: Medical Code(s): I26.99 - Other pulmonary embolism without acute cor pulmonale (4) Diastolic CHF Status: Acute Category: Medical Code(s): I50.30 - Unspecified diastolic (congestive) heart failure (5) COPD (chronic obstructive pulmonary disease) Status: Chronic Qualifiers: COPD type: unspecified COPD Qualified Code(s): J44.9 - Chronic obstructive pulmonary disease, unspecified Category: Medical Code(s): J44.9 - Chronic obstructive pulmonary disease, unspecified (6) Nicotine dependence Status: Chronic Qualifiers: Nicotine product type: cigarettes Substance use status: uncomplicated Qualified Code(s): F17.210 - Nicotine dependence, cigarettes, uncomplicated Category: Medical Code(s): F17.200 - Nicotine dependence, unspecified, uncomplicated (7) Tobacco user Statu
[2021-08-10] VITALS (14 sets, daily range): BP systolic 105–134; BP diastolic 74–83; PULSE 64–102; RESP 18–22; TEMP 36.4–36.7; O2SAT 89–96; BMI 23.6
[2021-08-10 02:16] LABS: Vancomycin,Trough < 5.0 ug/mL (5.0-10.0)
--- NOTE | 2021-08-10 03:46 | PC.NURSE ---
pt is AxOx4, has remained on vapotherm t/o shift, O2 sats 92-93%, no complaints of SOA or pain
[2021-08-10 06:28] LABS: Basophils % 0.2 % (0.1-2.0); Eosinophils % 0.1 % (0.1-12.0); Hematocrit 31.5 % (42.0-52.0); Hemoglobin 10.1 g/dL (14.1-18.0); Lymphocytes # 0.4 K/mm3 (0.7-4.5); Lymphocytes % 6.4 % (10-50); Mean Corpuscular Volume 90.6 fl (80-94); Mean Platelet Volume 9.1 fl (7.4-10.4); Monocytes # 0.5 K/mm3 (0.1-1.0); Monocytes % 7.4 % (1.7-9.3); Neutrophils # 5.5 K/mm3 (1.8-7.8); Neutrophils % 85.8 % (37.0-80.0); Platelet Count 390 K/mm3 (142-424); Red Blood Count 3.48 M/mm3 (4.60-6.20); Red Cell Distribution Width 13.7 % (11.5-17.5); White Blood Count 6.5 K/mm3 (4.8-10.8)
[2021-08-10 06:38] LABS: MANUAL DIFFERENTIAL MANUAL DIFFERENTIAL (MANUAL DIFF)
[2021-08-10 06:39] LABS: Alanine Aminotransferase 17 U/L (12-78); Albumin Level 2.6 g/dl (3.5-5.0); Alkaline Phosphatase 64 U/L (38-126); Anion Gap 11.4 mEq/L (5-15); Aspartate Amino Transferase 34 U/L (17-59); Bilirubin,Total 0.3 mg/dl (0.2-1.3); Blood Urea Nitrogen 22 mg/dl (9-20); Calcium 8.8 mg/dl (8.4-10.2); Carbon Dioxide 25 mmol/L (22.0-30.0); Chloride 107 mmol/L (98-107); Creatinine Clearance Estimated 72 mL/min (50-200); Estimated Glomerular Filt Rate 166 ml/min (>60); GFR (African American) 201 ML/MIN (>60); Globulin 2.5 g/dL (1.3-3.2); Glucose 122 mg/dl (74-100); Potassium 4.4 mmoL/L (3.5-5.1); Sodium 139 mmol/L (136-145); Total Protein,Serum 5.1 g/dl (6.3-8.2)
[2021-08-10 06:48] LABS: Lymphocytes % 7 % (10-50); Neutrophils % 89 % (42-76); Platelet Estimate Normal; Poikilocytosis 2+; Total Cells Counted 100
[2021-08-10 08:01] LABS: Vancomycin,Peak 10.9 ug/ml (11-39)
--- NOTE | 2021-08-10 11:00 | HMH.ACPN2 ---
Internal Medicine - PN: Subj *Date: 08/10/21 *Time: 11:00 Interval history: no specific c/o at this time still on vapotherm Exam Vital signs and Labs for Last 24 Hours: Temp Pulse Resp BP Pulse Ox 97.7 F 77 21 127/83 93 L 08/10/21 08:00 08/10/21 09:44 08/10/21 08:00 08/10/21 08:00 08/10/21 09:44 Laboratory Results - last 24 hr 08/10/21 01:40: Sodium 139, Potassium 4.4, Chloride 107, Carbon Dioxide 25, Anion Gap 11.4, BUN 22 H, Creatinine 0.50 L, Estimated Creat Clear 72, Estimated GFR 166, Est GFR ( Amer) 201 D, Glucose 122 H, Calcium 8.8, Total Bilirubin 0.3, AST 34, ALT 17, Alkaline Phosphatase 64, Total Protein 5.1 L, Albumin 2.6 L D, Globulin 2.5, Albumin/Globulin Ratio 1.0 L 08/10/21 01:40: Vancomycin Trough < 5.0 L 08/10/21 06:00: WBC 6.5, RBC 3.48 L, Hgb 10.1 L, Hct 31.5 L, MCV 90.6, MCH 29.0, MCHC 32.0, RDW 13.7, Plt Count 390, MPV 9.1, Neut % (Auto) 85.8 H, Lymph % (Auto) 6.4 L, [place] % (Auto) 7.4, Eos % (Auto) 0.1, Baso % (Auto) 0.2, Neut # (Auto) 5.5, Lymph # (Auto) 0.4 L, [place] # (Auto) 0.5, Eos # (Auto) 0.0, Baso # (Auto) 0.0, Total Counted 100, Neutrophils % (Manual) 89 H, Band Neutrophils % 4.0, Lymphocytes % (Manual) 7 L, Platelet Estimate Normal, Poikilocytosis 2+, Target Cells , Ovalocytes , Stomatocytes 08/10/21 06:00: Vancomycin Peak 10.9 L I & O for Last 24 hours: Intake & Output 08/07/21 08/08/21 08/09/21 08/10/21 11:59 11:59 11:59 11:59 Intake Total 610 / 610 720 / 720 1080 / 1080 360 / 360 Output Total 1125 / 1125 1400 / 1400 1000 / 1000 1000 / 1000 Balance -515 / -515 -680 / -680 80 / 80 -640 / -640 Weight 149 lb 8 oz 154 lb 1 oz 154 lb 1.015 oz 155 lb 11.2 oz Microbiology Reports for the Last 24 Hours: Microbiology 08/08/21 14:30 Sputum - Expectorated Sputum Gram Stain - Final 08/08/21 14:30 Sputum - Expectorated Sputum Sputum Culture - Preliminary Gram Positive Cocci 08/06/21 16:45 Sputum - Expectorated Sputum Gram Stain - Final 08/06/21 16:45 Sputum - Expectorated Sputum Sputum Culture - Final Staphylococcus aureus - Constitutional no acute distress - *Routine HEENT Exam Head: Present: normocephalic Eye: Present: EOMI, PERRL ENT: Present: mucous membranes dry - *Routine Neck Exam Absent: JVD - *Routine Respiratory Exam Present: decreased breath sounds - *Routine Cardiovascular Exam Present: RRR - *Routine Abdominal Exam Present: soft - *Routine Extremities Exam Present: pulses intact - *Routine Skin Exam Present: intact - *Routine Neurological Exam Present: alert, CN II-XII intact - Routine Psychiatric Exam Present: normal affect Assessment and Plan (1) Acute respiratory failure with hypoxia Status: Acute Category: Medical Code(s): J96.01 - Acute respiratory failure with hypoxia (2) COVID-19 Status: Acute Category: Medical Code(s): U07.1 - COVID-19 (3) Pulmonary emboli Status: Acute Qualifiers: Pulmonary embolism type: multiple subsegmental (without acute cor pulmonale) Qualified Code(s): I26.94 - Multiple subsegmental pulmonary emboli without acute cor pulmonale Category: Medical Code(s): I26.99 - Other pulmonary embolism without acute cor pulmonale (4) Diastolic CHF Status: Acute Category: Medical Code(s): I50.30 - Unspecified diastolic (congestive) heart failure (5) COPD (chronic obstructive pulmonary disease) Status: Chronic Qualifiers: COPD type: unspecified COPD Qualified Code(s): J44.9 - Chronic obstructive pulmonary disease, unspecified Category: Medical Code(s): J44.9 - Chronic obstructive pulmonary disease, unspecified (6) Nicotine dependence Status: Chronic Qualifiers: Nicotine product type: cigarettes Substance use status: uncomplicated Qualified Code(s): F17.210 - Nicotine dependence, cigarettes, uncomplicated Category: Medical Code(s): F17.200 - Nicotine dependence, unsp
--- NOTE | 2021-08-10 12:44 | HMH.PHACONS ---
- Pharmacy Consult Date: 08/10/21 Time: 12:44 Referring provider: DR. ESPOSITO Reason for Consult:: VANCOMYCIN DOSE CHANGE Allergies and ADEs:: Allergies Allergy/AdvReac Type Severity Reaction Status Date / Time amoxicillin [From Augmentin] Allergy Verified 08/05/21 17:29 clavulanic acid Allergy Verified 08/05/21 17:29 [From Augmentin] NSAIDS (Non-Steroidal AdvReac Severe STOMACH Verified 05/07/21 10:06 Anti-Inflamma PAIN Home Medications:: Home Medications Medication Instructions Recorded Confirmed Type buprenorphine 8 mg-naloxone 2 mg 2.5 tab SL DAILY 01/15/20 08/05/21 History sublingual tablet furosemide 40 mg tablet 40 mg PO BID #180 tab 01/30/21 08/05/21 Rx potassium chloride 20 mEq 20 meq PO BID #180 tab 01/30/21 08/05/21 Rx tablet,extended release nystatin 100,000 unit/mL oral 10 ml PO QID #400 ml 02/03/21 08/05/21 Rx suspension ipratropium 0.5 mg-albuterol 3 mg 3 ml INHALATION Q6H PRN #180 ml 03/25/21 08/05/21 Rx (2.5 mg base)/3 mL nebulization soln ipratropium 20 mcg-albuterol 100 1 puff INHALATION Q6H #4 g 03/25/21 08/06/21 Rx mcg/actuation mist for inhalation sildenafil (pulm.hypertension) 20 20 mg PO Q12H PRN #60 tab 05/06/21 08/05/21 Rx mg tablet alendronate 70 mg tablet 70 mg PO WEEKLY #5 tab 05/20/21 08/05/21 Rx calcium carbonate 600 mg (1,500 1 tab PO DAILY #30 tab 05/20/21 08/05/21 Rx mg)-vitamin D3 400 unit tablet gabapentin 600 mg tablet 600 mg PO QID #120 tab 07/31/21 08/05/21 Rx Albuterol Sulfate [Proair 2 puffs IH Q6H 08/06/21 08/06/21 History Respiclick] Fluticasone/Umeclidin/Vilanter 1 dose IH DAILY 08/06/21 08/06/21 History [Trelegy Ellipta 100-62.5-25] Ranolazine [Ranolazine ER] 500 mg PO BID PRN 08/06/21 08/06/21 History Height: 1.73 m Weight: 70.624 kg Laboratory Results:: Laboratory Results - last 24 hr 08/10/21 01:40: Sodium 139, Potassium 4.4, Chloride 107, Carbon Dioxide 25, Anion Gap 11.4, BUN 22 H, Creatinine 0.50 L, Estimated Creat Clear 72, Estimated GFR 166, Est GFR ( Amer) 201 D, Glucose 122 H, Calcium 8.8, Total Bilirubin 0.3, AST 34, ALT 17, Alkaline Phosphatase 64, Total Protein 5.1 L, Albumin 2.6 L D, Globulin 2.5, Albumin/Globulin Ratio 1.0 L 08/10/21 01:40: Vancomycin Trough < 5.0 L 08/10/21 06:00: WBC 6.5, RBC 3.48 L, Hgb 10.1 L, Hct 31.5 L, MCV 90.6, MCH 29.0, MCHC 32.0, RDW 13.7, Plt Count 390, MPV 9.1, Neut % (Auto) 85.8 H, Lymph % (Auto) 6.4 L, [place] % (Auto) 7.4, Eos % (Auto) 0.1, Baso % (Auto) 0.2, Neut # (Auto) 5.5, Lymph # (Auto) 0.4 L, [place] # (Auto) 0.5, Eos # (Auto) 0.0, Baso # (Auto) 0.0, Total Counted 100, Neutrophils % (Manual) 89 H, Band Neutrophils % 4.0, Lymphocytes % (Manual) 7 L, Platelet Estimate Normal, Poikilocytosis 2+, Target Cells , Ovalocytes , Stomatocytes 08/10/21 06:00: Vancomycin Peak 10.9 L Medical History: Reports:: Anxiety, Asthma, Congestive Heart Failure, Chronic Obstructive Pulmonary Disease (COPD), Depression, Home Oxygen, Hypertension, Lung Disease, Migraine Denies:: Cancer, Diabetes Mellitus Type 1, Diabetes Mellitus Type 2, Internal Pacemaker, MRSA, Seizures Assessment and Plan (1) Acute respiratory failure with hypoxia Status: Acute Category: Medical Code(s): J96.01 - Acute respiratory failure with hypoxia (2) COVID-19 Status: Acute Category: Medical Code(s): U07.1 - COVID-19 (3) Pulmonary emboli Status: Acute Qualifiers: Pulmonary embolism type: multiple subsegmental (without acute cor pulmonale) Qualified Code(s): I26.94 - Multiple subsegmental pulmonary emboli without acute cor pulmonale Category: Medical Code(s): I26.99 - Other pulmonary embolism without acute cor pulmonale (4) Diastolic CHF Status: Acute Category: Medical Code(s): I50.30 - Unspecified diastolic (congestive) heart failure (5) COPD (chronic obstructive pulmonary disease) Status: Chronic Qualifiers: COPD type: unspecified COPD 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
[2021-08-11] VITALS (12 sets, daily range): BP systolic 112–125; BP diastolic 76–84; PULSE 60–95; RESP 16–20; TEMP 36.4–36.9; O2SAT 90–97
--- NOTE | 2021-08-11 05:07 | PC.NURSE ---
pt AxOx4, has remained on vapotherm t/o shift, O2 sats 90-97%, no complaints of SOA or pain
[2021-08-11 08:06] LABS: Alanine Aminotransferase 18 U/L (12-78); Albumin Level 2.8 g/dl (3.5-5.0); Alkaline Phosphatase 62 U/L (38-126); Anion Gap 10.4 mEq/L (5-15); Aspartate Amino Transferase 25 U/L (17-59); Bilirubin,Total 0.4 mg/dl (0.2-1.3); Blood Urea Nitrogen 22 mg/dl (9-20); Calcium 8.4 mg/dl (8.4-10.2); Carbon Dioxide 30 mmol/L (22.0-30.0); Chloride 104 mmol/L (98-107); Creatinine Clearance Estimated 72 mL/min (50-200); Estimated Glomerular Filt Rate 134 ml/min (>60); GFR (African American) 163 ML/MIN (>60); Globulin 2.7 g/dL (1.3-3.2); Glucose 94 mg/dl (74-100); Potassium 4.4 mmoL/L (3.5-5.1); Sodium 140 mmol/L (136-145); Total Protein,Serum 5.5 g/dl (6.3-8.2)
--- NOTE | 2021-08-11 09:29 | P.PN_ITS ---
Internal Medicine - PN: Subj *Date: 08/11/21 *Time: 09:29 Exam Vital signs and Labs for Last 24 Hours: Temp Pulse Resp BP Pulse Ox 97.7 F 62 16 118/78 96 08/11/21 08:00 08/11/21 08:00 08/11/21 08:00 08/11/21 08:00 08/11/21 08:00 Laboratory Results - last 24 hr 08/11/21 06:58: Sodium 140, Potassium 4.4, Chloride 104, Carbon Dioxide 30, Anion Gap 10.4, BUN 22 H, Creatinine 0.60 L, Estimated Creat Clear 72, Estimated GFR 134, Est GFR ( Amer) 163, Glucose 94, Calcium 8.4, Total Bilirubin 0.4, AST 25 D, ALT 18, Alkaline Phosphatase 62, Total Protein 5.5 L, Albumin 2.8 L, Globulin 2.7, Albumin/Globulin Ratio 1.0 L I & O for Last 24 hours: Intake & Output 08/08/21 08/09/21 08/10/21 08/11/21 23:59 23:59 23:59 23:59 Intake Total 1200 / 1200 600 / 600 480 / 480 120 / 120 Output Total 1050 / 1550 1150 / 1300 1150 / 1810 1060 / 1060 Balance 150 / -350 -550 / -700 -670 / -1330 -940 / -940 Weight 69.882 kg 70.624 kg Microbiology Reports for the Last 24 Hours: Microbiology 08/08/21 14:30 Sputum - Expectorated Sputum Gram Stain - Final 08/08/21 14:30 Sputum - Expectorated Sputum Sputum Culture - Preliminary Staphylococcus aureus 08/06/21 16:45 Sputum - Expectorated Sputum Gram Stain - Final 08/06/21 16:45 Sputum - Expectorated Sputum Sputum Culture - Final Staphylococcus aureus Assessment and Plan (1) Acute respiratory failure with hypoxia Status: Acute Category: Medical Code(s): J96.01 - Acute respiratory failure with hypoxia (2) COVID-19 Status: Acute Category: Medical Code(s): U07.1 - COVID-19 (3) Pulmonary emboli Status: Acute Qualifiers: Pulmonary embolism type: multiple subsegmental (without acute cor pulmonale) Qualified Code(s): I26.94 - Multiple subsegmental pulmonary emboli without acute cor pulmonale Category: Medical Code(s): I26.99 - Other pulmonary embolism without acute cor pulmonale (4) Diastolic CHF Status: Acute Category: Medical Code(s): I50.30 - Unspecified diastolic (congestive) heart failure (5) COPD (chronic obstructive pulmonary disease) Status: Chronic Qualifiers: COPD type: unspecified COPD Qualified Code(s): J44.9 - Chronic obstructive pulmonary disease, unspecified Category: Medical Code(s): J44.9 - Chronic obstructive pulmonary disease, unspecified (6) Nicotine dependence Status: Chronic Qualifiers: Nicotine product type: cigarettes Substance use status: uncomplicated Qualified Code(s): F17.210 - Nicotine dependence, cigarettes, uncomplicated Category: Medical Code(s): F17.200 - Nicotine dependence, unspecified, uncom plicated (7) Tobacco user Status: Chronic Category: Social Hx Code(s): Z72.0 - Tobacco use (8) Anemia Status: Acute Qualifiers: Anemia type: unspecified type Qualified Code(s): D64.9 - Anemia, unspecifie d Category: Medical Code(s): D64.9 - Anemia, unspecified The patient's infection will respond to the chosen ABx?: Yes Is the patient receiving the right drug, dose, and route?: Yes Could a more targeted ABx be ordered?: No 7
--- NOTE | 2021-08-11 10:46 | XR_ITS ---
PROCEDURE: XR CHEST PORTABLE CLINICAL HISTORY: pnm COMPARISON: CT CT ANGIO CHEST PE PROTOCOL from 08/05/2021 CR XR CHEST PORTABLE from 08/05/2021 CR XR CHEST PORTABLE from 08/06/2021 CR XR CHEST PORTABLE from 08/09/2021 FINDINGS: Normal heart size. Right upper lobe pneumonia appears slightly improved. Left lower lobe pneumonia does not appear significantly changed. No evidence of pneumothorax. Left hemidiaphragm remains elevated. No acute bony abnormalities. IMPRESSION: Bilateral pneumonia slightly improved on the right and unchanged on the left Dictated by: Matthew Albrecht MD 08/11/2021 13:54 Matthew Albrecht MD in [facility] 08/11/2021 13:54
--- NOTE | 2021-08-11 10:47 | HMH.PULMPN ---
Internal Medicine - PN: Subj *Date: 08/11/21 *Time: 13:44 Interval history: No acute respiratory events overnight. Exam - Constitutional Constitutional:: Present: no acute distress, comfortable - HENMT Exam HENMT: Present: normocephalic, atraumatic - Eye Exam Eyes:: Present: normal appearance both eyes and related structures - Neck Exam Neck:: Present: normal visual inspection - Respiratory Exam Respiratory:: Present: able to speak in complete sentences, respiratory distress, crackles - Cardiovascular Exam Cardiac:: Present: S1, S2 - GI Exam GI:: Present: soft - Skin Exam Skin: Present: warm, no rash - Neurological Exam Neurological: Present: alert, awake, normal cognition - Extremities Exam Extremities: Present: no cyanosis, no clubbing, no edema Assessment and Plan (1) Acute respiratory failure with hypoxia Status: Acute Category: Medical Code(s): J96.01 - Acute respiratory failure with hypoxia (2) COVID-19 Status: Acute Category: Medical Code(s): U07.1 - COVID-19 (3) Pulmonary emboli Status: Acute Qualifiers: Pulmonary embolism type: multiple subsegmental (without acute cor pulmonale) Qualified Code(s): I26.94 - Multiple subsegmental pulmonary emboli without acute cor pulmonale Category: Medical Code(s): I26.99 - Other pulmonary embolism without acute cor pulmonale (4) Diastolic CHF Status: Acute Category: Medical Code(s): I50.30 - Unspecified diastolic (congestive) heart failure (5) COPD (chronic obstructive pulmonary disease) Status: Chronic Qualifiers: COPD type: unspecified COPD Qualified Code(s): J44.9 - Chronic obstructive pulmonary disease, unspecified Category: Medical Code(s): J44.9 - Chronic obstructive pulmonary disease, unspecified (6) Nicotine dependence Status: Chronic Qualifiers: Nicotine product type: cigarettes Substance use status: uncomplicated Qualified Code(s): F17.210 - Nicotine dependence, cigarettes, uncomplicated Category: Medical Code(s): F17.200 - Nicotine dependence, unspecified, uncomplicated (7) Tobacco user Status: Chronic Category: Social Hx Code(s): Z72.0 - Tobacco use (8) Anemia Status: Acute Qualifiers: Anemia type: unspecified type Qualified Code(s): D64.9 - Anemia, unspecified Category: Medical Code(s): D64.9 - Anemia, unspecified - Assessment and plan all Dx Assessment and Plan for all problems:: #Acute on chronic hypoxic respiratory failure: #Community-acquired pneumonia: #COVID-19 pneumonia: #Pulmonary embolism: 66-year-old COPD recently diagnosed with community-acquired pneumonia present with worsening respiratory and found to be COVID-19 pneumonia positive. CTA on admission showed evidence of pulmonary embolism. CT also showed bilateral lower lobe predominant diffuse patchy airspace disease along with interstitial prominence. CT also showed evidence of elevated right-sided pressures. Sputum culture positive for MRSA. No blood cultures available. White count stable. Afebrile. Continues remain on high flow nasal cannula. Plan: - Awake proning protocol -Continue high flow nasal cannula oxygen supplementation to maintain O2 saturation goal of 88 to 92% we will aggressively wean as tolerated. - Lasix 40mg IV once again today -Continue flutter valve q 4 hrs and continue Mucomyst -uoNeb to every 4 scheduled along with continuation of budesonide every 12 scheduled - Vancomycin x 14 days, Vanco trough and peak suboptimal, pharmacy to dose. Completed 7 days of levofloxacin. -Continue remdesivir dexamethasone for his COVID-19 pneumonia. Thank you for involving pulmonary in this patient care. We will continue to follow. 7
--- NOTE | 2021-08-11 11:07 | HMH.ACPN2 ---
Internal Medicine - PN: Subj *Date: 08/11/21 *Time: 08:00 Interval history: feels some better still not sitting oob much Exam Vital signs and Labs for Last 24 Hours: Temp Pulse Resp BP Pulse Ox 97.8 F 68 18 115/77 90 L 08/11/21 10:58 08/11/21 10:58 08/11/21 10:58 08/11/21 10:58 08/11/21 10:58 Laboratory Results - last 24 hr 08/11/21 06:58: Sodium 140, Potassium 4.4, Chloride 104, Carbon Dioxide 30, Anion Gap 10.4, BUN 22 H, Creatinine 0.60 L, Estimated Creat Clear 72, Estimated GFR 134, Est GFR ( Amer) 163, Glucose 94, Calcium 8.4, Total Bilirubin 0.4, AST 25 D, ALT 18, Alkaline Phosphatase 62, Total Protein 5.5 L, Albumin 2.8 L, Globulin 2.7, Albumin/Globulin Ratio 1.0 L I & O for Last 24 hours: Intake & Output 08/08/21 08/09/21 08/10/21 08/11/21 11:59 11:59 11:59 11:59 Intake Total 720 / 720 1080 / 1080 360 / 360 480 / 480 Output Total 1400 / 1400 1000 / 1000 1000 / 1000 1860 / 1860 Balance -680 / -680 80 / 80 -640 / -640 -1380 / -1380 Weight 154 lb 1 oz 154 lb 1.015 oz 155 lb 11.2 oz Microbiology Reports for the Last 24 Hours: Microbiology 08/08/21 14:30 Sputum - Expectorated Sputum Gram Stain - Final 08/08/21 14:30 Sputum - Expectorated Sputum Sputum Culture - Final Staphylococcus aureus - Constitutional no acute distress - *Routine HEENT Exam Head: Present: normocephalic Eye: Present: EOMI, PERRL ENT: Present: mucous membranes dry - *Routine Neck Exam Absent: JVD - *Routine Respiratory Exam Present: decreased breath sounds - *Routine Cardiovascular Exam Present: RRR - *Routine Abdominal Exam Present: soft - *Routine Extremities Exam Absent: edema - *Routine Skin Exam Present: intact - *Routine Neurological Exam Present: alert, CN II-XII intact - Routine Psychiatric Exam Present: normal affect Assessment and Plan (1) Acute respiratory failure with hypoxia Status: Acute Category: Medical Code(s): J96.01 - Acute respiratory failure with hypoxia (2) COVID-19 Status: Acute Category: Medical Code(s): U07.1 - COVID-19 (3) Pulmonary emboli Status: Acute Qualifiers: Pulmonary embolism type: multiple subsegmental (without acute cor pulmonale) Qualified Code(s): I26.94 - Multiple subsegmental pulmonary emboli without acute cor pulmonale Category: Medical Code(s): I26.99 - Other pulmonary embolism without acute cor pulmonale (4) Diastolic CHF Status: Acute Category: Medical Code(s): I50.30 - Unspecified diastolic (congestive) heart failure (5) COPD (chronic obstructive pulmonary disease) Status: Chronic Qualifiers: COPD type: unspecified COPD Qualified Code(s): J44.9 - Chronic obstructive pulmonary disease, unspecified Category: Medical Code(s): J44.9 - Chronic obstructive pulmonary disease, unspecified (6) Nicotine dependence Status: Chronic Qualifiers: Nicotine product type: cigarettes Substance use status: uncomplicated Qualified Code(s): F17.210 - Nicotine dependence, cigarettes, uncomplicated Category: Medical Code(s): F17.200 - Nicotine dependence, unspecified, uncomplicated (7) Tobacco user Status: Chronic Category: Social Hx Code(s): Z72.0 - Tobacco use (8) Anemia Status: Acute Qualifiers: Anemia type: unspecified type Qualified Code(s): D64.9 - Anemia, unspecified Category: Medical Code(s): D64.9 - Anemia, unspecified 7
--- NOTE | 2021-08-11 15:08 | PC.NURSE ---
NO ACUTE CHANGES THIS SHIFT. AOX4. REQUIRES VAPOTHERM FOR O2 SUPPORT. DENIES N/V/D. VITAL SIGNS STABLE.
--- NOTE | 2021-08-11 15:17 | DIET.NUTRFU ---
PO intake has decreased slightly with 38% average at last 4 recorded meals. Will add ensure to pt tray at breakfast to help supplement diet. Glucose running at 139, 122, 94.
--- NOTE | 2021-08-11 17:17 | PC.NURSE ---
Acapella completed for 20 breaths followed by strong moist cough. Pt tolerated well.
[2021-08-11 20:22] LABS: POC Glucose,Bedside 188 (70-110)
[2021-08-11 20:31] LABS: Vancomycin,Peak 11.9 ug/ml (11-39)
[2021-08-12] VITALS (11 sets, daily range): BP systolic 98–125; BP diastolic 52–79; PULSE 74–97; RESP 14–20; TEMP 36.4–36.9; O2SAT 86–100; BMI 23.3
--- NOTE | 2021-08-12 03:48 | PC.NURSE ---
Pt is A/O x4. Vapotherm remains in place at 30L and 75% with O2 stats >90%. Pt denies any pain, N/V. VSS, call light within reach.
[2021-08-12 07:00] LABS: Alanine Aminotransferase 19 U/L (12-78); Albumin/Globulin Ratio 1.1 (1.1-1.8); Alkaline Phosphatase 63 U/L (38-126); Anion Gap 10.2 mEq/L (5-15); Aspartate Amino Transferase 24 U/L (17-59); Bilirubin,Total 0.5 mg/dl (0.2-1.3); Blood Urea Nitrogen 23 mg/dl (9-20); Calcium 8.6 mg/dl (8.4-10.2); Carbon Dioxide 32 mmol/L (22.0-30.0); Chloride 101 mmol/L (98-107); Creatinine Clearance Estimated 71 mL/min (50-200); Estimated Glomerular Filt Rate 112 ml/min (>60); GFR (African American) 136 ML/MIN (>60); Globulin 2.8 g/dL (1.3-3.2); Glucose 89 mg/dl (74-100); Potassium 4.2 mmoL/L (3.5-5.1); Sodium 139 mmol/L (136-145); Total Protein,Serum 5.8 g/dl (6.3-8.2)
--- NOTE | 2021-08-12 08:48 | XR_ITS ---
PROCEDURE: XR CHEST PORTABLE CLINICAL HISTORY: COVID COMPARISON: CT CT ANGIO CHEST PE PROTOCOL from 08/05/2021 CR XR CHEST PORTABLE from 08/06/2021 CR XR CHEST PORTABLE from 08/09/2021 CR XR CHEST PORTABLE from 08/11/2021 FINDINGS: The cardiomediastinal silhouette and pulmonary vascularity are within normal limits. Consolidation is noted in the left lower lobe and right upper lobe which appears slightly worse in the right upper lobe and unchanged in left lower lobe.. Persistent elevated left hemidiaphragm. IMPRESSION: Bilateral pneumonia slightly worse in the right upper lobe Dictated by: Matthew Albrecht MD 08/12/2021 09:55 Matthew Albrecht MD in [facility] 08/12/2021 09:55
--- NOTE | 2021-08-12 09:24 | HMH.PHACONS ---
- Pharmacy Consult Date: 08/12/21 Time: 09:24 Referring provider: DR. BROWN Reason for Consult:: VANCOMYCIN PEAK AND TROUGH Allergies and ADEs:: Allergies Allergy/AdvReac Type Severity Reaction Status Date / Time amoxicillin [From Augmentin] Allergy Verified 08/05/21 17:29 clavulanic acid Allergy Verified 08/05/21 17:29 [From Augmentin] NSAIDS (Non-Steroidal AdvReac Severe STOMACH Verified 05/07/21 10:06 Anti-Inflamma PAIN Home Medications:: Home Medications Medication Instructions Recorded Confirmed Type buprenorphine 8 mg-naloxone 2 mg 2.5 tab SL DAILY 01/15/20 08/05/21 History sublingual tablet furosemide 40 mg tablet 40 mg PO BID #180 tab 01/30/21 08/05/21 Rx potassium chloride 20 mEq 20 meq PO BID #180 tab 01/30/21 08/05/21 Rx tablet,extended release nystatin 100,000 unit/mL oral 10 ml PO QID #400 ml 02/03/21 08/05/21 Rx suspension ipratropium 0.5 mg-albuterol 3 mg 3 ml INHALATION Q6H PRN #180 ml 03/25/21 08/05/21 Rx (2.5 mg base)/3 mL nebulization soln ipratropium 20 mcg-albuterol 100 1 puff INHALATION Q6H #4 g 03/25/21 08/06/21 Rx mcg/actuation mist for inhalation sildenafil (pulm.hypertension) 20 20 mg PO Q12H PRN #60 tab 05/06/21 08/05/21 Rx mg tablet alendronate 70 mg tablet 70 mg PO WEEKLY #5 tab 05/20/21 08/05/21 Rx calcium carbonate 600 mg (1,500 1 tab PO DAILY #30 tab 05/20/21 08/05/21 Rx mg)-vitamin D3 400 unit tablet gabapentin 600 mg tablet 600 mg PO QID #120 tab 07/31/21 08/05/21 Rx Albuterol Sulfate [Proair 2 puffs IH Q6H 08/06/21 08/06/21 History Respiclick] Fluticasone/Umeclidin/Vilanter 1 dose IH DAILY 08/06/21 08/06/21 History [Trelegy Ellipta 100-62.5-25] Ranolazine [Ranolazine ER] 500 mg PO BID PRN 08/06/21 08/06/21 History Height: 1.73 m Weight: 69.853 kg Laboratory Results:: Laboratory Results - last 24 hr 08/11/21 13:25: Vancomycin Trough 10.0 08/11/21 17:45: POC Glucose 188 H 08/11/21 18:13: Vancomycin Peak 11.9 08/12/21 06:30: Sodium 139, Potassium 4.2, Chloride 101, Carbon Dioxide 32 H, Anion Gap 10.2, BUN 23 H, Creatinine 0.70, Estimated Creat Clear 71, Estimated GFR 112, Est GFR ( Amer) 136, Glucose 89, Calcium 8.6, Total Bilirubin 0.5, AST 24, ALT 19, Alkaline Phosphatase 63, Total Protein 5.8 L, Albumin 3.0 L, Globulin 2.8, Albumin/Globulin Ratio 1.1 Medical History: Reports:: Anxiety, Asthma, Congestive Heart Failure, Chronic Obstructive Pulmonary Disease (COPD), Depression, Home Oxygen, Hypertension, Lung Disease, Migraine Denies:: Cancer, Diabetes Mellitus Type 1, Diabetes Mellitus Type 2, Internal Pacemaker, MRSA, Seizures Assessment and Plan (1) Acute respiratory failure with hypoxia Status: Acute Category: Medical Code(s): J96.01 - Acute respiratory failure with hypoxia (2) COVID-19 Status: Acute Category: Medical Code(s): U07.1 - COVID-19 (3) Pulmonary emboli Status: Acute Qualifiers: Pulmonary embolism type: multiple subsegmental (without acute cor pulmonale) Qualified Code(s): I26.94 - Multiple subsegmental pulmonary emboli without acute cor pulmonale Category: Medical Code(s): I26.99 - Other pulmonary embolism without acute cor pulmonale (4) Diastolic CHF Status: Acute Category: Medical Code(s): I50.30 - Unspecified diastolic (congestive) heart failure (5) COPD (chronic obstructive pulmonary disease) Status: Chronic Qualifiers: COPD type: unspecified COPD Qualified Code(s): J44.9 - Chronic obstructive pulmonary disease, unspecified Category: Medical Code(s): J44.9 - Chronic obstructive pulmonary disease, unspecified (6) Nicotine dependence Status: Chronic Qualifiers: Nicotine product type: cigarettes Substance use status: uncomplicated Qualified Code(s): F17.210 - Nicotine dependence, cigarettes, uncomplicated Category: Medical Code(s): F17.200 - Nicotine dependence, unspecified, uncomplicated (7) Tobacco user Status: Chronic Ca
--- NOTE | 2021-08-12 09:24 | HMH.PULMPN ---
Internal Medicine - PN: Subj *Date: 08/12/21 *Time: 11:40 Interval history: No acute respiratory vents overnight. Patient continues remain on high flow nasal cannula. Exam - Constitutional Constitutional:: Present: no acute distress, comfortable - HENMT Exam HENMT: Present: normocephalic - Eye Exam Eyes:: Present: normal appearance both eyes and related structures - Neck Exam Neck:: Present: normal visual inspection - Respiratory Exam Respiratory:: Present: respiratory distress, crackles, rales. Absent: wheezing - Cardiovascular Exam Cardiac:: Present: S1, S2 - GI Exam GI:: Present: soft - Skin Exam Skin: Present: warm, no rash, dry - Neurological Exam Neurological: Present: alert, awake, normal cognition - Extremities Exam Extremities: Present: no cyanosis, no clubbing, no edema Assessment and Plan (1) Acute respiratory failure with hypoxia Status: Acute Category: Medical Code(s): J96.01 - Acute respiratory failure with hypoxia (2) COVID-19 Status: Acute Category: Medical Code(s): U07.1 - COVID-19 (3) Pulmonary emboli Status: Acute Qualifiers: Pulmonary embolism type: multiple subsegmental (without acute cor pulmonale) Qualified Code(s): I26.94 - Multiple subsegmental pulmonary emboli without acute cor pulmonale Category: Medical Code(s): I26.99 - Other pulmonary embolism without acute cor pulmonale (4) Diastolic CHF Status: Acute Category: Medical Code(s): I50.30 - Unspecified diastolic (congestive) heart failure (5) COPD (chronic obstructive pulmonary disease) Status: Chronic Qualifiers: COPD type: unspecified COPD Qualified Code(s): J44.9 - Chronic obstructive pulmonary disease, unspecified Category: Medical Code(s): J44.9 - Chronic obstructive pulmonary disease, unspecified (6) Nicotine dependence Status: Chronic Qualifiers: Nicotine product type: cigarettes Substance use status: uncomplicated Qualified Code(s): F17.210 - Nicotine dependence, cigarettes, uncomplicated Category: Medical Code(s): F17.200 - Nicotine dependence, unspecified, uncomplicated (7) Tobacco user Status: Chronic Category: Social Hx Code(s): Z72.0 - Tobacco use (8) Anemia Status: Acute Qualifiers: Anemia type: unspecified type Qualified Code(s): D64.9 - Anemia, unspecified Category: Medical Code(s): D64.9 - Anemia, unspecified - Assessment and plan all Dx Assessment and Plan for all problems:: #Acute on chronic hypoxic respiratory failure: #Community-acquired pneumonia: #COVID-19 pneumonia: #Pulmonary embolism: 66-year-old COPD recently diagnosed with community-acquired pneumonia present with worsening respiratory and found to be COVID-19 pneumonia positive. CTA on admission showed evidence of pulmonary embolism. CT also showed bilateral lower lobe predominant diffuse patchy airspace disease along with interstitial prominence. CT also showed evidence of elevated right-sided pressures. Sputum culture positive for MRSA. No blood cultures available. White count stable. Afebrile. Continues remain on high flow nasal cannula. Received 40 mg IV Lasix yesterday the urine output of 2.5 L. Plan: -Continue flutter valve q 4 hrs and continue Mucomyst. Will initiate incentive spirometry. -Continue awake proning protocol -Continue high flow nasal cannula oxygen supplementation to maintain O2 saturation goal of 88 to 92% we will aggressively wean as tolerated. -DuoNeb to every 4 scheduled along with continuation of budesonide every 12 scheduled - Vancomycin x 14 days, pharmacy to dose. Completed 7 days of levofloxacin. -Continue remdesivir dexamethasone for his COVID-19 pneumonia. Thank you for involving pulmonary in this patient care. We will continue to follow. 7
--- NOTE | 2021-08-12 10:24 | HMH.ACPN2 ---
Internal Medicine - PN: Subj *Date: 08/12/21 *Time: 19:27 Interval history: sats low 90's on vapotherm xarelto on board at 15 bid pulmonary notes reviewed pt relays dyspnea on exertion cxr was reviewed with radiologist elevated left diaphragm is chronic infiltrative process is again noted mrsa in sputum iv vancomycin on board Exam Vital signs and Labs for Last 24 Hours: Temp Pulse Resp BP Pulse Ox 97.9 F 76 19 125/72 100 08/12/21 08:00 08/12/21 08:00 08/12/21 08:00 08/12/21 08:00 08/12/21 08:00 Laboratory Results - last 24 hr 08/11/21 13:25: Vancomycin Trough 10.0 08/11/21 17:45: POC Glucose 188 H 08/11/21 18:13: Vancomycin Peak 11.9 08/12/21 06:30: Sodium 139, Potassium 4.2, Chloride 101, Carbon Dioxide 32 H, Anion Gap 10.2, BUN 23 H, Creatinine 0.70, Estimated Creat Clear 71, Estimated GFR 112, Est GFR ( Amer) 136, Glucose 89, Calcium 8.6, Total Bilirubin 0.5, AST 24, ALT 19, Alkaline Phosphatase 63, Total Protein 5.8 L, Albumin 3.0 L, Globulin 2.8, Albumin/Globulin Ratio 1.1 I & O for Last 24 hours: Intake & Output 08/09/21 08/10/21 08/11/21 08/12/21 23:59 23:59 23:59 23:59 Intake Total 600 / 600 480 / 480 720 / 720 Output Total 1150 / 1300 1150 / 1810 2560 / 2760 200 / 200 Balance -550 / -700 -670 / -1330 -1840 / -2040 -200 / -200 Weight 155 lb 11.2 oz 154 lb Microbiology Reports for the Last 24 Hours: Microbiology 08/08/21 14:30 Sputum - Expectorated Sputum Gram Stain - Final 08/08/21 14:30 Sputum - Expectorated Sputum Sputum Culture - Final Staphylococcus aureus - Constitutional no acute distress - *Routine HEENT Exam Head: Present: normocephalic Eye: Present: EOMI, PERRL ENT: Present: mucous membranes moist - *Routine Neck Exam Present: supple. Absent: lymphadenopathy - *Routine Respiratory Exam Present: rhonchi. Absent: accessory muscle use, respiratory distress, stridor - *Routine Cardiovascular Exam Present: RRR - *Routine Abdominal Exam Present: soft, normoactive bowel sounds. Absent: tenderness - *Routine Extremities Exam Absent: cyanosis, clubbing, edema - *Routine Skin Exam Present: warm. Absent: rash - *Routine Neurological Exam Present: alert, oriented X3 Assessment and Plan (1) Acute respiratory failure with hypoxia Status: Acute Category: Medical Code(s): J96.01 - Acute respiratory failure with hypoxia (2) COVID-19 Status: Acute Category: Medical Code(s): U07.1 - COVID-19 (3) Pulmonary emboli Status: Acute Qualifiers: Pulmonary embolism type: multiple subsegmental (without acute cor pulmonale) Qualified Code(s): I26.94 - Multiple subsegmental pulmonary emboli without acute cor pulmonale Category: Medical Code(s): I26.99 - Other pulmonary embolism without acute cor pulmonale (4) Diastolic CHF Status: Acute Category: Medical Code(s): I50.30 - Unspecified diastolic (congestive) heart failure (5) COPD (chronic obstructive pulmonary disease) Status: Chronic Qualifiers: COPD type: unspecified COPD Qualified Code(s): J44.9 - Chronic obstructive pulmonary disease, unspecified Category: Medical Code(s): J44.9 - Chronic obstructive pulmonary disease, unspecified (6) Nicotine dependence Status: Chronic Qualifiers: Nicotine product type: cigarettes Substance use status: uncomplicated Qualified Code(s): F17.210 - Nicotine dependence, cigarettes, uncomplicated Category: Medical Code(s): F17.200 - Nicotine dependence, unspecified, uncomplicated (7) Tobacco user Status: Chronic Category: Social Hx Code(s): Z72.0 - Tobacco use (8) Anemia Status: Acute Qualifiers: Anemia type: unspecified type Qualified Code(s): D64.9 - Anemia, unspecified Category: Medical Code(s): D64.9 - Anemia, unspecified (9) MRSA (methicillin resistant staph aureus) culture positive Status: Acute Category: Medical Code(s): Z
--- NOTE | 2021-08-12 10:46 | HMH.PTEV ---
Physical Therapy Evaluation Rehab PT IP Evaluation Start: 08/12/21 08:45 Freq: ONCE Status: Active Protocol: Document 08/12/21 10:37 FARIBA (Rec: 08/12/21 10:46 FARIBA [id number]) Subjective/History History History 6yo M evaluated for shortness of breath with reported Covid positive status. Chest x-ray, blood work is ordered. Patient is started on Vapotherm nasal cannula as I do not have a BiPAP available at this time. Patient Covid test in house is positive. He was sent for a CT with contrast and found to have small right-sided pulmonary emboli, 1 upper lobe and one lower lobe. Patient admitted for increasing shortness of breath over the last several days. Found to be Covid positive and also having having multiple pulmonary emboli on CT of the chest for which he was started on anticoagulation therapy. Currently denies any chest pain except with coughing or breathing. Echocardiogram performed yesterday shows preserved ejection fraction but technically limited study due to pulmonary issues. Patient feels that he was exposed to the COVID-19 virus through his . He did not receive the vaccine for Covid due to recommendations from his purse framer at the time of a pulmonary infection. - copied from ER H&P Subjective Subjective Pt has severe c/o SOA and dizziness Rehab PT IP Eval Objective Appearance Patient Behavior Anxious,Fatigued Patient Orientation Place,Name,Age,Birthday, Situation Difficulty following instructions none Speech Pattern Appropriate Ambulation Patient Able to Ambulate No Balance Ability to Arise Unable Sitting Balance Steady, safe
[2021-08-13] VITALS (10 sets, daily range): BP systolic 98–130; BP diastolic 69–81; PULSE 74–97; RESP 18–24; TEMP 36.5–36.8; O2SAT 85–99; BMI 21.8
--- NOTE | 2021-08-13 03:52 | PC.NURSE ---
No acute changes, VSS, will continue to monitor, Patient remains maxed on vaportherm.
[2021-08-13 07:13] LABS: Basophils % 0.1 % (0.1-2.0); Eosinophils % 0.2 % (0.1-12.0); Hematocrit 35.5 % (42.0-52.0); Hemoglobin 11.1 g/dL (14.1-18.0); Lymphocytes # 1.2 K/mm3 (0.7-4.5); Lymphocytes % 8.6 % (10-50); Mean Corpuscular HGB Conc 31.2 g/dL (31.8-35.4); Mean Corpuscular Hemoglobin 28.6 pg (27.0-31.2); Mean Corpuscular Volume 91.5 fl (80-94); Mean Platelet Volume 9.4 fl (7.4-10.4); Monocytes # 0.6 K/mm3 (0.1-1.0); Monocytes % 4.2 % (1.7-9.3); Neutrophils # 11.7 K/mm3 (1.8-7.8); Platelet Count 449 K/mm3 (142-424); Red Blood Count 3.88 M/mm3 (4.60-6.20); Red Cell Distribution Width 14.5 % (11.5-17.5); White Blood Count 13.5 K/mm3 (4.8-10.8)
--- NOTE | 2021-08-13 07:14 | PC.NURSE ---
Assignment was taken under duress at 7pm. Felecia Orozco RN manager was aware.
[2021-08-13 07:15] LABS: MANUAL DIFFERENTIAL MANUAL DIFFERENTIAL (MANUAL DIFF)
[2021-08-13 07:20] LABS: Alanine Aminotransferase 17 U/L (12-78); Albumin Level 2.8 g/dl (3.5-5.0); Alkaline Phosphatase 67 U/L (38-126); Aspartate Amino Transferase 23 U/L (17-59); Bilirubin,Total 0.3 mg/dl (0.2-1.3); Blood Urea Nitrogen 22 mg/dl (9-20); Calcium 8.3 mg/dl (8.4-10.2); Carbon Dioxide 30 mmol/L (22.0-30.0); Chloride 103 mmol/L (98-107); Creatinine Clearance Estimated 66 mL/min (50-200); Estimated Glomerular Filt Rate 112 ml/min (>60); GFR (African American) 136 ML/MIN (>60); Globulin 2.7 g/dL (1.3-3.2); Glucose 88 mg/dl (74-100); Sodium 140 mmol/L (136-145); Total Protein,Serum 5.5 g/dl (6.3-8.2)
--- NOTE | 2021-08-13 09:19 | HMH.PULMPN ---
Internal Medicine - PN: Subj *Date: 08/13/21 *Time: 13:07 Interval history: No acute respiratory events overnight. Patient denies any improvement in his symptoms. Exam - Constitutional Constitutional:: Present: comfortable - HENMT Exam HENMT: Present: normocephalic, atraumatic - Eye Exam Eyes:: Present: normal appearance both eyes and related structures - Neck Exam Neck:: Present: normal visual inspection - Respiratory Exam Respiratory:: Present: able to speak in complete sentences, respiratory distress, crackles, rales. Absent: wheezing - Cardiovascular Exam Cardiac:: Present: S1, S2 - GI Exam GI:: Present: soft - Skin Exam Skin: Present: warm, no rash - Neurological Exam Neurological: Present: alert, awake, normal cognition - Extremities Exam Extremities: Present: no cyanosis, no clubbing, no edema Assessment and Plan (1) Acute respiratory failure with hypoxia Status: Acute Category: Medical Code(s): J96.01 - Acute respiratory failure with hypoxia (2) COVID-19 Status: Acute Category: Medical Code(s): U07.1 - COVID-19 (3) Pulmonary emboli Status: Acute Qualifiers: Pulmonary embolism type: multiple subsegmental (without acute cor pulmonale) Qualified Code(s): I26.94 - Multiple subsegmental pulmonary emboli without acute cor pulmonale Category: Medical Code(s): I26.99 - Other pulmonary embolism without acute cor pulmonale (4) Diastolic CHF Status: Acute Category: Medical Code(s): I50.30 - Unspecified diastolic (congestive) heart failure (5) COPD (chronic obstructive pulmonary disease) Status: Chronic Qualifiers: COPD type: unspecified COPD Qualified Code(s): J44.9 - Chronic obstructive pulmonary disease, unspecified Category: Medical Code(s): J44.9 - Chronic obstructive pulmonary disease, unspecified (6) Nicotine dependence Status: Chronic Qualifiers: Nicotine product type: cigarettes Substance use status: uncomplicated Qualified Code(s): F17.210 - Nicotine dependence, cigarettes, uncomplicated Category: Medical Code(s): F17.200 - Nicotine dependence, unspecified, uncomplicated (7) Tobacco user Status: Chronic Category: Social Hx Code(s): Z72.0 - Tobacco use (8) Anemia Status: Acute Qualifiers: Anemia type: unspecified type Qualified Code(s): D64.9 - Anemia, unspecified Category: Medical Code(s): D64.9 - Anemia, unspecified (9) MRSA (methicillin resistant staph aureus) culture positive Status: Acute Category: Medical Code(s): Z22.322 - Carrier or suspected carrier of Methicillin resistant Staphylococcus aureus (10) Pneumonia Status: Acute Category: Medical Code(s): J18.9 - Pneumonia, unspecified organism - Assessment and plan all Dx Assessment and Plan for all problems:: #Acute on chronic hypoxic respiratory failure: #Community-acquired pneumonia: #COVID-19 pneumonia: #Pulmonary embolism: 66-year-old COPD recently diagnosed with community-acquired pneumonia present with worsening respiratory and found to be COVID-19 pneumonia positive. CTA on admission showed evidence of pulmonary embolism. CT also showed bilateral lower lobe predominant diffuse patchy airspace disease along with interstitial prominence. CT also showed evidence of elevated right-sided pressures. Sputum culture positive for MRSA. No blood cultures available. Slight worsening leukocytosis. We will closely monitor. Received 40 mg IV Lasix yesterday the urine output of 2.5 L. Plan: -Continue high flow nasal cannula oxygen supplementation to maintain O2 saturation goal of 88 to 92% we will aggressively wean as tolerated. -Adequate oral intake, discontinue maintenance fluids -Continue flutter valve q 4 hrs and continue Mucomyst. Incentive spirometry. -Continue awake proning protocol -DuoNeb to every 4 scheduled along with continuation of budesonide every 12 scheduled - Vancomycin x 14 days, pharmacy to dose. Completed 7 da
[2021-08-13 09:21] LABS: Lymphocytes % 7 % (10-50); Macrocytosis 1+; Monocytes % 7 % (2-9); Neutrophils % 86 % (42-76); Platelet Estimate Normal; Total Cells Counted 100
--- NOTE | 2021-08-13 09:30 | HMH.ACPN2 ---
Internal Medicine - PN: Subj *Date: 08/13/21 *Time: 12:51 Interval history: 66-year-old male patient sitting up in bed Vapotherm intact 40 L 100%. He does report shortness of breath during the evening and now becomes short of breath while talking. Tolerating meals without any difficulty and is up to bathroom with shortness of breath. Exam Vital signs and Labs for Last 24 Hours: Temp Pulse Resp BP Pulse Ox 97.9 F 97 H 20 123/74 86 L 08/13/21 08:00 08/13/21 08:00 08/13/21 08:00 08/13/21 08:00 08/13/21 08:00 Laboratory Results - last 24 hr 08/13/21 06:30: WBC 13.5 H, RBC 3.88 L, Hgb 11.1 L, Hct 35.5 L, MCV 91.5, MCH 28.6, MCHC 31.2 L, RDW 14.5, Plt Count 449 H, MPV 9.4, Neut % (Auto) 87.0 H, Lymph % (Auto) 8.6 L, [place] % (Auto) 4.2, Eos % (Auto) 0.2, Baso % (Auto) 0.1, Neut # (Auto) 11.7 H, Lymph # (Auto) 1.2, [place] # (Auto) 0.6, Eos # (Auto) 0.0, Baso # (Auto) 0.0, Total Counted 100, Neutrophils % (Manual) 86 H, Lymphocytes % (Manual) 7 L, Monocytes % (Manual) 7, Platelet Estimate Normal, Macrocytosis 1+ 08/13/21 06:30: Sodium 140, Potassium 4.0, Chloride 103, Carbon Dioxide 30, Anion Gap 11.0, BUN 22 H, Creatinine 0.70, Estimated Creat Clear 66, Estimated GFR 112, Est GFR ( Amer) 136, Glucose 88, Calcium 8.3 L, Total Bilirubin 0.3, AST 23, ALT 17, Alkaline Phosphatase 67, Total Protein 5.5 L, Albumin 2.8 L, Globulin 2.7, Albumin/Globulin Ratio 1.0 L I & O for Last 24 hours: Intake & Output 08/10/21 08/11/21 08/12/21 08/13/21 23:59 23:59 23:59 23:59 Intake Total 480 / 480 720 / 720 240 / 240 Output Total 1150 / 1810 2560 / 2760 1400 / 1400 Balance -670 / -1330 -1840 / -2040 -1400 / -1400 240 / 240 Weight 155 lb 11.2 oz 154 lb 144 lb 1 oz - Constitutional mild distress, chronically ill appearing - *Routine HEENT Exam Head: Present: normocephalic Eye: Present: EOMI ENT: Present: mucous membranes moist - *Routine Neck Exam Present: trachea midline. Absent: tracheal deviation - *Routine Respiratory Exam Present: rales - *Routine Cardiovascular Exam Present: RRR - *Routine Abdominal Exam Present: soft, normoactive bowel sounds. Absent: tenderness, firm - *Routine Extremities Exam Present: full ROM, pulses intact. Absent: cyanosis, clubbing - *Routine Skin Exam Present: intact, warm. Absent: cyanosis, erythema - *Routine Neurological Exam Present: alert, oriented X3. Absent: motor deficit - Routine Psychiatric Exam Present: normal affect, normal thought process. Absent: auditory hallucinations Assessment and Plan (1) Acute respiratory failure with hypoxia Status: Acute Category: Medical Code(s): J96.01 - Acute respiratory failure with hypoxia (2) COVID-19 Status: Acute Category: Medical Code(s): U07.1 - COVID-19 (3) Pulmonary emboli Status: Acute Qualifiers: Pulmonary embolism type: multiple subsegmental (without acute cor pulmonale) Qualified Code(s): I26.94 - Multiple subsegmental pulmonary emboli without acute cor pulmonale Category: Medical Code(s): I26.99 - Other pulmonary embolism without acute cor pulmonale (4) Diastolic CHF Status: Acute Category: Medical Code(s): I50.30 - Unspecified diastolic (congestive) heart failure (5) COPD (chronic obstructive pulmonary disease) Status: Chronic Qualifiers: COPD type: unspecified COPD Qualified Code(s): J44.9 - Chronic obstructive pulmonary disease, unspecified Category: Medical Code(s): J44.9 - Chronic obstructive pulmonary disease, unspecified (6) Nicotine dependence Status: Chronic Qualifiers: Nicotine product type: cigarettes Substance use status: uncomplicated Qualified Code(s): F17.210 - Nicotine dependence, cigarettes, uncomplicated Category: Medical Code(s): F17.200 - Nicotine dependence, unspecified, uncomplicated (7) Tobacco user Status: Chronic Category: Social Hx Code(s): Z72.0 - Tobacco use (8) Anemia Status: Acute Qual
--- NOTE | 2021-08-13 11:09 | DIET.NUTRFU ---
Pt with slight PO improvement but still poor. Pt with 50, 50, and 25% recorded at last three meals. Will add ensure to dinner tray as will to provide pt Ensure supplements BID. Glucose running lower at 84, 89, 88. Will continue to monitor.
--- NOTE | 2021-08-13 18:57 | PC.NURSE ---
no acute changes for patient throughout the shift. Patient is still on High flow nasal cannula at 100% Fio2. patient instructed to utilize i/s, cough and deep breathe. Provider gave verbal order to RN to discontinue med line fluids. will continue to monitor
[2021-08-14] VITALS (8 sets, daily range): BP systolic 123–135; BP diastolic 66–93; PULSE 71–90; RESP 12–20; TEMP 36.4–37.1; O2SAT 84–97; BMI 22.4
--- NOTE | 2021-08-14 03:44 | PC.NURSE ---
Patient is alert and oriented x4. Patient has remained on vapotherm at 40L/100%. Patient is noted to have scattered rhonchi throughout bilateral lungs. No complaints voiced this shift. Vital signs are stable, call light within reach, will continue to monitor.
--- NOTE | 2021-08-14 06:00 | XR_ITS ---
PROCEDURE INFORMATION: Exam: XR Chest Exam date and time: 08/14/2021 6:00 AM Age: 66 years old Clinical indication: Shortness of breath; Patient HX: SOA; Additional info: Covid TECHNIQUE: Imaging protocol: XR of the chest. Views: 1 view. COMPARISON: CR XR CHEST PORTABLE 08/12/2021 9:14 AM FINDINGS: Lungs: Patchy consolidation within RIGHT upper, LEFT lower lobes, similar to to previous examination. Pleural spaces: Cannot exclude small LEFT pleural effusion. No pneumothorax. Heart/Mediastinum: No cardiomegaly. Atherosclerosis of thoracic aorta. Diaphragm: Elevated LEFT hemidiaphragm. Bones/joints: No displaced fracture. Soft tissues: Unremarkable. IMPRESSION: Findings compatible with multifocal pneumonia, similar to previous examination. Followup to resolution to exclude underlying pathology.
[2021-08-14 07:09] LABS: Basophils % 0.2 % (0.1-2.0); Eosinophils % 0.2 % (0.1-12.0); Hematocrit 37.9 % (42.0-52.0); Lymphocytes # 0.9 K/mm3 (0.7-4.5); Lymphocytes % 7.4 % (10-50); Mean Corpuscular HGB Conc 31.6 g/dL (31.8-35.4); Mean Corpuscular Volume 91.8 fl (80-94); Mean Platelet Volume 8.9 fl (7.4-10.4); Monocytes # 0.5 K/mm3 (0.1-1.0); Monocytes % 4.3 % (1.7-9.3); Neutrophils # 11.1 K/mm3 (1.8-7.8); Neutrophils % 87.9 % (37.0-80.0); Platelet Count 500 K/mm3 (142-424); Red Blood Count 4.13 M/mm3 (4.60-6.20); Red Cell Distribution Width 14.5 % (11.5-17.5); White Blood Count 12.6 K/mm3 (4.8-10.8)
[2021-08-14 07:18] LABS: Alanine Aminotransferase 17 U/L (12-78); Alkaline Phosphatase 72 U/L (38-126); Anion Gap 12.2 mEq/L (5-15); Aspartate Amino Transferase 23 U/L (17-59); Bilirubin,Total 0.6 mg/dl (0.2-1.3); Blood Urea Nitrogen 22 mg/dl (9-20); Calcium 8.8 mg/dl (8.4-10.2); Carbon Dioxide 31 mmol/L (22.0-30.0); Chloride 101 mmol/L (98-107); Creatinine Clearance Estimated 68 mL/min (50-200); Estimated Glomerular Filt Rate 112 ml/min (>60); GFR (African American) 136 ML/MIN (>60); Globulin 2.9 g/dL (1.3-3.2); Glucose 94 mg/dl (74-100); Potassium 4.2 mmoL/L (3.5-5.1); Sodium 140 mmol/L (136-145); Total Protein,Serum 5.9 g/dl (6.3-8.2)
[2021-08-14 07:26] LABS: MANUAL DIFFERENTIAL MANUAL DIFFERENTIAL (MANUAL DIFF)
[2021-08-14 08:09] LABS: Hypochromasia 2+; Lymphocytes % 2 % (10-50); Monocytes % 5 % (2-9); Neutrophils % 93 % (42-76); Platelet Estimate Normal; Total Cells Counted 100
--- NOTE | 2021-08-14 09:30 | HMH.PULMPN ---
Internal Medicine - PN: Subj *Date: 08/14/21 *Time: 14:04 Interval history: Patient respiratory status did not show any improvement since yesterday. He denies any improvement. Exam - Constitutional Constitutional:: Present: no acute distress, comfortable - HENMT Exam HENMT: Present: normocephalic, atraumatic - Eye Exam Eyes:: Present: normal appearance both eyes and related structures - Neck Exam Neck:: Present: normal visual inspection - Respiratory Exam Respiratory:: Present: able to speak in complete sentences, respiratory distress, crackles. Absent: wheezing - Cardiovascular Exam Cardiac:: Present: S1, S2 - GI Exam GI:: Present: soft - Skin Exam Skin: Present: warm, no rash - Neurological Exam Neurological: Present: alert, awake, normal cognition Assessment and Plan (1) Acute respiratory failure with hypoxia Status: Acute Category: Medical Code(s): J96.01 - Acute respiratory failure with hypoxia (2) COVID-19 Status: Acute Category: Medical Code(s): U07.1 - COVID-19 (3) Pulmonary emboli Status: Acute Qualifiers: Pulmonary embolism type: multiple subsegmental (without acute cor pulmonale) Qualified Code(s): I26.94 - Multiple subsegmental pulmonary emboli without acute cor pulmonale Category: Medical Code(s): I26.99 - Other pulmonary embolism without acute cor pulmonale (4) Diastolic CHF Status: Acute Category: Medical Code(s): I50.30 - Unspecified diastolic (congestive) heart failure (5) COPD (chronic obstructive pulmonary disease) Status: Chronic Qualifiers: COPD type: unspecified COPD Qualified Code(s): J44.9 - Chronic obstructive pulmonary disease, unspecified Category: Medical Code(s): J44.9 - Chronic obstructive pulmonary disease, unspecified (6) Nicotine dependence Status: Chronic Qualifiers: Nicotine product type: cigarettes Substance use status: uncomplicated Qualified Code(s): F17.210 - Nicotine dependence, cigarettes, uncomplicated Category: Medical Code(s): F17.200 - Nicotine dependence, unspecified, uncomplicated (7) Tobacco user Status: Chronic Category: Social Hx Code(s): Z72.0 - Tobacco use (8) Anemia Status: Acute Qualifiers: Anemia type: unspecified type Qualified Code(s): D64.9 - Anemia, unspecified Category: Medical Code(s): D64.9 - Anemia, unspecified (9) MRSA (methicillin resistant staph aureus) culture positive Status: Acute Category: Medical Code(s): Z22.322 - Carrier or suspected carrier of Methicillin resistant Staphylococcus aureus (10) Pneumonia Status: Acute Category: Medical Code(s): J18.9 - Pneumonia, unspecified organism - Assessment and plan all Dx Assessment and Plan for all problems:: #Acute on chronic hypoxic respiratory failure: #Community-acquired pneumonia: #COVID-19 pneumonia: #Pulmonary embolism: 66-year-old COPD recently diagnosed with community-acquired pneumonia present with worsening respiratory and found to be COVID-19 pneumonia positive. CTA on admission showed evidence of pulmonary embolism. CT also showed bilateral lower lobe predominant diffuse patchy airspace disease along with interstitial prominence. CT also showed evidence of elevated right-sided pressures. Sputum culture positive for MRSA. No blood cultures available. Slight worsening leukocytosis. We will closely monitor. Received 40 mg IV Lasix on 08/12 the urine output of 2.5 L. CXR stable with no worsening. Overall Mr. Morgan respiratory status has been stable and critical since admission. His chest x-ray has been stable and he has been needing high flow oxygen requirements. This patient is also in significant comorbidities given his severe COPD along with his MRSA pneumonia, COVID-19 pneumonia and pulmonary embolisms thus complicating his clinical scenario. We will continue to closely monitor. Plan: -Continue high flow nasal cannula oxygen supplementation to maintain O2 sat
--- NOTE | 2021-08-14 10:52 | SW/DCPLANNER ---
I spoke with this patient today regarding discharge plans. Patient stated that he resides at home with his and mother in law. I discussed with this patient that per PT/OT they have recommended short term placement him. Patient is quick to refuse placement stating that he is returning back home once he is medically stable for discharge. Patient is very adamant to return home and is quick to refuse placement. I encouraged this patient to ambulate as much as possible around his room. Discharge date is unknown at this time. I will continue to follow up with this patient until medically stable for discharge.
--- NOTE | 2021-08-14 11:56 | HMH.ACPN2 ---
Internal Medicine - PN: Subj *Date: 08/14/21 *Time: 20:36 Interval history: feels so-so continues to cough feels chilly low 90's on vapotherm p/e right on xarelto cxr shows copd changes, chronic elevation of left diaphragm, and bilateral infiltrates more prominent on left Exam Vital signs and Labs for Last 24 Hours: Temp Pulse Resp BP Pulse Ox 98.3 F 80 20 135/86 85 L 08/14/21 08:00 08/14/21 08:00 08/14/21 08:00 08/14/21 08:00 08/14/21 08:00 Laboratory Results - last 24 hr 08/14/21 06:54: WBC 12.6 H, RBC 4.13 L, Hgb 12.0 L, Hct 37.9 L, MCV 91.8, MCH 29.0, MCHC 31.6 L, RDW 14.5, Plt Count 500 H, MPV 8.9, Neut % (Auto) 87.9 H, Lymph % (Auto) 7.4 L, [place] % (Auto) 4.3, Eos % (Auto) 0.2, Baso % (Auto) 0.2, Neut # (Auto) 11.1 H, Lymph # (Auto) 0.9, [place] # (Auto) 0.5, Eos # (Auto) 0.0, Baso # (Auto) 0.0, Total Counted 100, Neutrophils % (Manual) 93 H, Lymphocytes % (Manual) 2 L, Monocytes % (Manual) 5, Platelet Estimate Normal, Hypochromasia 2+ 08/14/21 06:54: Sodium 140, Potassium 4.2, Chloride 101, Carbon Dioxide 31 H, Anion Gap 12.2, BUN 22 H, Creatinine 0.70, Estimated Creat Clear 68, Estimated GFR 112, Est GFR ( Amer) 136, Glucose 94, Calcium 8.8, Total Bilirubin 0.6, AST 23, ALT 17, Alkaline Phosphatase 72, Total Protein 5.9 L, Albumin 3.0 L, Globulin 2.9, Albumin/Globulin Ratio 1.0 L I & O for Last 24 hours: Intake & Output 08/11/21 08/12/21 08/13/21 08/14/21 23:59 23:59 23:59 23:59 Intake Total 720 / 720 840 / 840 600 / 600 Output Total 2560 / 2760 1400 / 1400 1175 / 1175 Balance -1840 / -2040 -1400 / -1400 840 / 415 -575 / -575 Weight 154 lb 144 lb 1 oz 147 lb 11.2 oz - Constitutional no acute distress, thin, cooperative - *Routine HEENT Exam Head: Present: normocephalic Eye: Present: EOMI, PERRL ENT: Present: mucous membranes moist - *Routine Neck Exam Present: supple. Absent: lymphadenopathy - *Routine Respiratory Exam Present: rhonchi, crackles. Absent: accessory muscle use, respiratory distress, wheezes - *Routine Cardiovascular Exam Present: RRR - *Routine Abdominal Exam Present: soft, normoactive bowel sounds. Absent: tenderness - *Routine Extremities Exam Absent: cyanosis, clubbing, edema - *Routine Skin Exam Present: warm. Absent: rash - *Routine Neurological Exam Present: alert, oriented X3 Assessment and Plan (1) Acute respiratory failure with hypoxia Status: Acute Category: Medical Code(s): J96.01 - Acute respiratory failure with hypoxia (2) COVID-19 Status: Acute Category: Medical Code(s): U07.1 - COVID-19 (3) Pulmonary emboli Status: Acute Qualifiers: Pulmonary embolism type: multiple subsegmental (without acute cor pulmonale) Qualified Code(s): I26.94 - Multiple subsegmental pulmonary emboli without acute cor pulmonale Category: Medical Code(s): I26.99 - Other pulmonary embolism without acute cor pulmonale (4) Diastolic CHF Status: Acute Category: Medical Code(s): I50.30 - Unspecified diastolic (congestive) heart failure (5) COPD (chronic obstructive pulmonary disease) Status: Chronic Qualifiers: COPD type: unspecified COPD Qualified Code(s): J44.9 - Chronic obstructive pulmonary disease, unspecified Category: Medical Code(s): J44.9 - Chronic obstructive pulmonary disease, unspecified (6) Nicotine dependence Status: Chronic Qualifiers: Nicotine product type: cigarettes Substance use status: uncomplicated Qualified Code(s): F17.210 - Nicotine dependence, cigarettes, uncomplicated Category: Medical Code(s): F17.200 - Nicotine dependence, unspecified, uncomplicated (7) Tobacco user Status: Chronic Category: Social Hx Code(s): Z72.0 - Tobacco use (8) Anemia Status: Acute Qualifiers: Anemia type: unspecified type Qualified Code(s): D64.9 - Anemia, unspecified Category: Medical Code(s): D64.9 - Anemia, unspecified (9) MRSA (methicillin resist
[2021-08-14 14:29] LABS: Vancomycin,Trough 14.2 ug/mL (5.0-10.0)
--- NOTE | 2021-08-14 17:41 | PC.NURSE ---
Patient refuses to ambulate or bathe despite encouragement and education otherwise. Patient remains on 100% fio2. Patient refuses to turn self in bed q2 hours and is noncompliant with I/S. Patient continues to complain of pain and requests tylenol PO q4h, pain level goal is to remain below a 2 on a scale of 0 to 10. no further orders at this time. will continue to monitor
[2021-08-15] VITALS (10 sets, daily range): BP systolic 103–117; BP diastolic 71–78; PULSE 65–102; RESP 16–22; TEMP 36.2–36.8; O2SAT 85–99; BMI 22.0
--- NOTE | 2021-08-15 06:37 | PC.NURSE ---
Patient desat to low 79-82% without recovery on vapotherm. Rebreather added with vapotherm and patient O2 sat >90. No s/s of acute distress noted, call light within reach, bed at lowest level for safety; will continue to monitor.
--- NOTE | 2021-08-15 08:58 | HMH.PULMPN ---
Internal Medicine - PN: Subj *Date: 08/15/21 *Time: 11:21 Interval history: No acute respiratory events overnight. Exam - Constitutional Constitutional:: Present: no acute distress, comfortable - HENMT Exam HENMT: Present: normocephalic - Eye Exam Eyes:: Present: normal appearance both eyes and related structures - Neck Exam Neck:: Present: normal visual inspection - Respiratory Exam Respiratory:: Present: able to speak in complete sentences, crackles. Absent: wheezing - Cardiovascular Exam Cardiac:: Present: S1, S2 - GI Exam GI:: Present: soft - Skin Exam Skin: Present: warm, no rash - Neurological Exam Neurological: Present: alert, awake, normal cognition - Extremities Exam Extremities: Present: no cyanosis, no clubbing, no edema Assessment and Plan (1) Acute respiratory failure with hypoxia Status: Acute Category: Medical Code(s): J96.01 - Acute respiratory failure with hypoxia (2) COVID-19 Status: Acute Category: Medical Code(s): U07.1 - COVID-19 (3) Pulmonary emboli Status: Acute Qualifiers: Pulmonary embolism type: multiple subsegmental (without acute cor pulmonale) Qualified Code(s): I26.94 - Multiple subsegmental pulmonary emboli without acute cor pulmonale Category: Medical Code(s): I26.99 - Other pulmonary embolism without acute cor pulmonale (4) Diastolic CHF Status: Acute Category: Medical Code(s): I50.30 - Unspecified diastolic (congestive) heart failure (5) COPD (chronic obstructive pulmonary disease) Status: Chronic Qualifiers: COPD type: unspecified COPD Qualified Code(s): J44.9 - Chronic obstructive pulmonary disease, unspecified Category: Medical Code(s): J44.9 - Chronic obstructive pulmonary disease, unspecified (6) Nicotine dependence Status: Chronic Qualifiers: Nicotine product type: cigarettes Substance use status: uncomplicated Qualified Code(s): F17.210 - Nicotine dependence, cigarettes, uncomplicated Category: Medical Code(s): F17.200 - Nicotine dependence, unspecified, uncomplicated (7) Tobacco user Status: Chronic Category: Social Hx Code(s): Z72.0 - Tobacco use (8) Anemia Status: Acute Qualifiers: Anemia type: unspecified type Qualified Code(s): D64.9 - Anemia, unspecified Category: Medical Code(s): D64.9 - Anemia, unspecified (9) MRSA (methicillin resistant staph aureus) culture positive Status: Acute Category: Medical Code(s): Z22.322 - Carrier or suspected carrier of Methicillin resistant Staphylococcus aureus (10) Pneumonia Status: Acute Category: Medical Code(s): J18.9 - Pneumonia, unspecified organism - Assessment and plan all Dx Assessment and Plan for all problems:: #Acute on chronic hypoxic respiratory failure: #Community-acquired pneumonia: #COVID-19 pneumonia: #Pulmonary embolism: 66-year-old COPD recently diagnosed with community-acquired pneumonia present with worsening respiratory and found to be COVID-19 pneumonia positive. CTA on admission showed evidence of pulmonary embolism. CT also showed bilateral lower lobe predominant diffuse patchy airspace disease along with interstitial prominence. CT also showed evidence of elevated right-sided pressures. Sputum culture positive for MRSA. No blood cultures available. Slight worsening leukocytosis. We will closely monitor. Received 40 mg IV Lasix on 08/12 the urine output of 2.5 L. CXR stable with no worsening. Overall Mr. Morgan respiratory status has been stable and critical since admission. His chest x-ray has been stable and he has been needing high flow oxygen requirements. This patient is also in significant comorbidities given his severe COPD along with his MRSA pneumonia, COVID-19 pneumonia and pulmonary embolisms thus complicating his clinical scenario. Along with this patient has been relatively immobile and not following instructions for proning protocol using flutter valve to help cl
--- NOTE | 2021-08-15 09:09 | HMH.ACPN2 ---
Internal Medicine - PN: Subj *Date: 08/15/21 *Time: 09:51 Interval history: 66-year-old male sitting up in bed resting quite with eyes closed, awakens to verbal stimuli. Vapotherm intact patient does get short of breath during conversations and reports he has been short of breath when up out of bed. He has been encouraged to lie prone and to be up in room and sitting in chair as much as possible. Exam Vital signs and Labs for Last 24 Hours: Temp Pulse Resp BP Pulse Ox 97.8 F 70 19 112/76 91 L 08/15/21 08:00 08/15/21 08:00 08/15/21 08:00 08/15/21 08:00 08/15/21 08:00 Laboratory Results - last 24 hr 08/14/21 13:11: Vancomycin Trough 14.2 H 08/14/21 17:55: Vancomycin Peak 24.0 I & O for Last 24 hours: Intake & Output 08/12/21 08/13/21 08/14/21 08/15/21 23:59 23:59 23:59 23:59 Intake Total 840 / 840 1080 / 1080 490 / 490 Output Total 1400 / 1400 1975 / 2175 450 / 450 Balance -1400 / -1400 840 / 415 -895 / -1095 40 / 40 Weight 154 lb 144 lb 1 oz 147 lb 11.2 oz 145 lb 6.4 oz - Constitutional mild distress, chronically ill appearing - *Routine HEENT Exam Head: Present: normocephalic Eye: Present: EOMI ENT: Present: mucous membranes moist - *Routine Neck Exam Present: trachea midline. Absent: tracheal deviation - *Routine Respiratory Exam Present: rhonchi, crackles. Absent: accessory muscle use - *Routine Cardiovascular Exam Present: RRR - *Routine Abdominal Exam Present: soft, normoactive bowel sounds. Absent: tenderness, firm - *Routine Extremities Exam Present: full ROM, pulses intact. Absent: cyanosis, clubbing - *Routine Skin Exam Present: intact, dry, warm. Absent: cyanosis, erythema - *Routine Neurological Exam Present: alert, oriented X3. Absent: motor deficit - Routine Psychiatric Exam Present: normal affect, normal thought process. Absent: auditory hallucinations Assessment and Plan (1) Acute respiratory failure with hypoxia Status: Acute Category: Medical Code(s): J96.01 - Acute respiratory failure with hypoxia (2) COVID-19 Status: Acute Category: Medical Code(s): U07.1 - COVID-19 (3) Pulmonary emboli Status: Acute Qualifiers: Pulmonary embolism type: multiple subsegmental (without acute cor pulmonale) Qualified Code(s): I26.94 - Multiple subsegmental pulmonary emboli without acute cor pulmonale Category: Medical Code(s): I26.99 - Other pulmonary embolism without acute cor pulmonale (4) Diastolic CHF Status: Acute Category: Medical Code(s): I50.30 - Unspecified diastolic (congestive) heart failure (5) COPD (chronic obstructive pulmonary disease) Status: Chronic Qualifiers: COPD type: unspecified COPD Qualified Code(s): J44.9 - Chronic obstructive pulmonary disease, unspecified Category: Medical Code(s): J44.9 - Chronic obstructive pulmonary disease, unspecified (6) Nicotine dependence Status: Chronic Qualifiers: Nicotine product type: cigarettes Substance use status: uncomplicated Qualified Code(s): F17.210 - Nicotine dependence, cigarettes, uncomplicated Category: Medical Code(s): F17.200 - Nicotine dependence, unspecified, uncomplicated (7) Tobacco user Status: Chronic Category: Social Hx Code(s): Z72.0 - Tobacco use (8) Anemia Status: Acute Qualifiers: Anemia type: unspecified type Qualified Code(s): D64.9 - Anemia, unspecified Category: Medical Code(s): D64.9 - Anemia, unspecified (9) MRSA (methicillin resistant staph aureus) culture positive Status: Acute Category: Medical Code(s): Z22.322 - Carrier or suspected carrier of Methicillin resistant Staphylococcus aureus (10) Pneumonia Status: Acute Category: Medical Code(s): J18.9 - Pneumonia, unspecified organism - Assessment and plan all Dx Assessment and Plan for all problems:: Rounded with Dr. Garcia, all orders per Dr. Garcia: 1. Continue current medical management 2. W
--- NOTE | 2021-08-15 10:38 | HMH.PHACONS ---
- Pharmacy Consult Date: 08/15/21 Time: 10:38 Referring provider: DR. ESPOSITO Reason for Consult:: VANCOMYCIN LEVELS Allergies and ADEs:: Allergies Allergy/AdvReac Type Severity Reaction Status Date / Time amoxicillin [From Augmentin] Allergy Verified 08/05/21 17:29 clavulanic acid Allergy Verified 08/05/21 17:29 [From Augmentin] NSAIDS (Non-Steroidal AdvReac Severe STOMACH Verified 05/07/21 10:06 Anti-Inflamma PAIN Home Medications:: Home Medications Medication Instructions Recorded Confirmed Type buprenorphine 8 mg-naloxone 2 mg 2.5 tab SL DAILY 01/15/20 08/05/21 History sublingual tablet furosemide 40 mg tablet 40 mg PO BID #180 tab 01/30/21 08/05/21 Rx potassium chloride 20 mEq 20 meq PO BID #180 tab 01/30/21 08/05/21 Rx tablet,extended release nystatin 100,000 unit/mL oral 10 ml PO QID #400 ml 02/03/21 08/05/21 Rx suspension ipratropium 0.5 mg-albuterol 3 mg 3 ml INHALATION Q6H PRN #180 ml 03/25/21 08/05/21 Rx (2.5 mg base)/3 mL nebulization soln ipratropium 20 mcg-albuterol 100 1 puff INHALATION Q6H #4 g 03/25/21 08/06/21 Rx mcg/actuation mist for inhalation sildenafil (pulm.hypertension) 20 20 mg PO Q12H PRN #60 tab 05/06/21 08/05/21 Rx mg tablet alendronate 70 mg tablet 70 mg PO WEEKLY #5 tab 05/20/21 08/05/21 Rx calcium carbonate 600 mg (1,500 1 tab PO DAILY #30 tab 05/20/21 08/05/21 Rx mg)-vitamin D3 400 unit tablet gabapentin 600 mg tablet 600 mg PO QID #120 tab 07/31/21 08/05/21 Rx Albuterol Sulfate [Proair 2 puffs IH Q6H 08/06/21 08/06/21 History Respiclick] Fluticasone/Umeclidin/Vilanter 1 dose IH DAILY 08/06/21 08/06/21 History [Trelegy Ellipta 100-62.5-25] Ranolazine [Ranolazine ER] 500 mg PO BID PRN 08/06/21 08/06/21 History Height: 1.73 m Weight: 65.952 kg Laboratory Results:: Laboratory Results - last 24 hr 08/14/21 13:11: Vancomycin Trough 14.2 H 08/14/21 17:55: Vancomycin Peak 24.0 Medical History: Reports:: Anxiety, Asthma, Congestive Heart Failure, Chronic Obstructive Pulmonary Disease (COPD), Depression, Home Oxygen, Hypertension, Lung Disease, Migraine Denies:: Cancer, Diabetes Mellitus Type 1, Diabetes Mellitus Type 2, Internal Pacemaker, MRSA, Seizures Assessment and Plan (1) Acute respiratory failure with hypoxia Status: Acute Category: Medical Code(s): J96.01 - Acute respiratory failure with hypoxia (2) COVID-19 Status: Acute Category: Medical Code(s): U07.1 - COVID-19 (3) Pulmonary emboli Status: Acute Qualifiers: Pulmonary embolism type: multiple subsegmental (without acute cor pulmonale) Qualified Code(s): I26.94 - Multiple subsegmental pulmonary emboli without acute cor pulmonale Category: Medical Code(s): I26.99 - Other pulmonary embolism without acute cor pulmonale (4) Diastolic CHF Status: Acute Category: Medical Code(s): I50.30 - Unspecified diastolic (congestive) heart failure (5) COPD (chronic obstructive pulmonary disease) Status: Chronic Qualifiers: COPD type: unspecified COPD Qualified Code(s): J44.9 - Chronic obstructive pulmonary disease, unspecified Category: Medical Code(s): J44.9 - Chronic obstructive pulmonary disease, unspecified (6) Nicotine dependence Status: Chronic Qualifiers: Nicotine product type: cigarettes Substance use status: uncomplicated Qualified Code(s): F17.210 - Nicotine dependence, cigarettes, uncomplicated Category: Medical Code(s): F17.200 - Nicotine dependence, unspecified, uncomplicated (7) Tobacco user Status: Chronic Category: Social Hx Code(s): Z72.0 - Tobacco use (8) Anemia Status: Acute Qualifiers: Anemia type: unspecified type Qualified Code(s): D64.9 - Anemia, unspecified Category: Medical Code(s): D64.9 - Anemia, unspecified (9) MRSA (methicillin resistant staph aureus) culture positive Status: Acute Category: Medical Code(s): Z22.322 - Carrier or suspected carrier of
--- NOTE | 2021-08-15 11:27 | DIET.NUTRFU ---
Pt becomes short of breath during conversations and reports he has been short of breath when up out of bed per MD progress note. PO intake with some improvement with a 65% average at last 5 meals. Will continue with current plan of care and monitor.
--- NOTE | 2021-08-15 19:26 | PC.NURSE ---
Continues on vapotherm at this time. VSS. CB in reach.
[2021-08-16] VITALS (10 sets, daily range): BP systolic 95–128; BP diastolic 56–91; PULSE 71–136; RESP 16–24; TEMP 36.5–37.3; O2SAT 76–98; BMI 21.5
--- NOTE | 2021-08-16 04:00 | PC.NURSE ---
Shift summary. No acute changes. Pt continues to receive O2 via vapotherm 40 L, 100% with non rebreather applied on top. Pt has had multiple episodes of O2 decreasing to mid 70s-low 80s. Pt has refused to ambulate, sit up in chair, prone, or lay on side t/o shift. Education given to patient by multiple staff on importance. IS encouraged q4h. Pt currently resting in bed. VSS. Call light within reach. Will continue to monitor.
--- NOTE | 2021-08-16 09:13 | HMH.ACPN2 ---
Internal Medicine - PN: Subj *Date: 08/16/21 *Time: 09:14 Interval history: Patient looks just a little brighter today. He had some low saturations this morning, but when I examined him he was breathing room air. Saturations improved upon resumption of the Vapotherm. Patient is instructed to lie prone for possible, he has not been doing this. Is also been very resistant to ambulation and getting up in the chair, and is not using his incentive spirometer. I spent a good deal of time telling him how important these issues are. We will get chest film today. Previous films have been consistent with a multifocal pneumonia. Pulmonary emboli were noted on CTA. Exam Vital signs and Labs for Last 24 Hours: Temp Pulse Resp BP Pulse Ox 98.1 F 108 H 24 121/83 90 L 08/16/21 08:00 08/16/21 08:00 08/16/21 08:00 08/16/21 08:00 08/16/21 08:57 I & O for Last 24 hours: Intake & Output 08/13/21 08/14/21 08/15/21 08/16/21 23:59 23:59 23:59 23:59 Intake Total 840 / 840 1080 / 1080 1220 / 1220 Output Total 1975 / 2175 450 / 700 425 / 425 Balance 840 / 415 -895 / -1095 770 / 520 -425 / -425 Weight 144 lb 1 oz 147 lb 11.2 oz 145 lb 6.4 oz 142 lb - Constitutional no acute distress, chronically ill appearing, disheveled - *Routine HEENT Exam Head: Present: normocephalic Eye: Present: EOMI, PERRL ENT: Present: mucous membranes moist - *Routine Neck Exam Present: supple. Absent: lymphadenopathy - *Routine Respiratory Exam Present: decreased breath sounds, rhonchi, crackles. Absent: accessory muscle use - *Routine Cardiovascular Exam Present: RRR - *Routine Abdominal Exam Present: soft, normoactive bowel sounds. Absent: tenderness - *Routine Extremities Exam Absent: cyanosis, clubbing, edema - *Routine Skin Exam Present: warm. Absent: rash - *Routine Neurological Exam Present: alert, oriented X3 Assessment and Plan (1) Acute respiratory failure with hypoxia Status: Acute Category: Medical Code(s): J96.01 - Acute respiratory failure with hypoxia (2) COVID-19 Status: Acute Category: Medical Code(s): U07.1 - COVID-19 (3) Pulmonary emboli Status: Acute Qualifiers: Pulmonary embolism type: multiple subsegmental (without acute cor pulmonale) Qualified Code(s): I26.94 - Multiple subsegmental pulmonary emboli without acute cor pulmonale Category: Medical Code(s): I26.99 - Other pulmonary embolism without acute cor pulmonale (4) Diastolic CHF Status: Acute Category: Medical Code(s): I50.30 - Unspecified diastolic (congestive) heart failure (5) COPD (chronic obstructive pulmonary disease) Status: Chronic Qualifiers: COPD type: unspecified COPD Qualified Code(s): J44.9 - Chronic obstructive pulmonary disease, unspecified Category: Medical Code(s): J44.9 - Chronic obstructive pulmonary disease, unspecified (6) Nicotine dependence Status: Chronic Qualifiers: Nicotine product type: cigarettes Substance use status: uncomplicated Qualified Code(s): F17.210 - Nicotine dependence, cigarettes, uncomplicated Category: Medical Code(s): F17.200 - Nicotine dependence, unspecified, uncomplicated (7) Tobacco user Status: Chronic Category: Social Hx Code(s): Z72.0 - Tobacco use (8) Anemia Status: Acute Qualifiers: Anemia type: unspecified type Qualified Code(s): D64.9 - Anemia, unspecified Category: Medical Code(s): D64.9 - Anemia, unspecified (9) MRSA (methicillin resistant staph aureus) culture positive Status: Acute Category: Medical Code(s): Z22.322 - Carrier or suspected carrier of Methicillin resistant Staphylococcus aureus (10) Pneumonia Status: Acute Category: Medical Code(s): J18.9 - Pneumonia, unspecified organism - Assessment and plan all Dx Assessment and Plan for all problems:: We will continue his current regimen. MRSA cultured from sputum. Will look at chest film today. Radha
--- NOTE | 2021-08-16 19:43 | PC.NURSE ---
Have encouraged pt to lay prone this shift. Pt did have a lg bm after sitting on the bsc for extended period. Pt does desat quickly without non rebreather. MX continues. Meds given per jan. Report given to Judith Lucero RN. Have had to reinforce teaching all shift. Pt has had to be reminded multiple times to keep non rebreather on and 02 sensor for mx purposes has been taken off by pt multiple times this shift.
[2021-08-17] VITALS (7 sets, daily range): BP systolic 90–108; BP diastolic 57–79; PULSE 72–117; RESP 16–24; TEMP 36.1–36.9; O2SAT 86–99; BMI 21.6
--- NOTE | 2021-08-17 04:20 | PC.NURSE ---
Shift summary. No acute changes. Pt continues to receive O2 via vapotherm 40 L, 100% with nonrebreather on top. Pt refuses to lay prone but has laid on his sides t/o majority of shift. Multiple episodes of oxygen decreasing to upper 60s, low 70s while pt makes small movements. Pt has claimed to not be symptomatic t/o shift. Staff encouraged inserting a servin, pt refused. IS encouraged q4h, pt refused. Education on importance of these interventions given to pt multiple times. Pt O2 currently 98%, resting on side. VSS. CB in reach. Will continue to monitor.
--- NOTE | 2021-08-17 06:00 | XR_ITS ---
PROCEDURE INFORMATION: Exam: XR Chest Exam date and time: 08/17/2021 6:00 AM Age: 66 years old Clinical indication: Shortness of breath and other: Covid, pe; Additional info: Covid pneumonia SOA TECHNIQUE: Imaging protocol: XR of the chest. Views: 1 view. COMPARISON: CR XR CHEST PORTABLE 08/14/2021 4:55 AM FINDINGS: Lungs: Increasing opacities in the right upper lobe and left mid lung may represent exacerbation of COVID.. Large bulla in the right base Pleural spaces: Unremarkable. No pleural effusion. No pneumothorax. Heart/Mediastinum: Unremarkable. No cardiomegaly. Diaphragm: Elevated left hemidiaphragm Bones/joints: Unremarkable. IMPRESSION: Increasing opacities in the right upper lobe and left mid lung may represent exacerbation of COVID..
[2021-08-17 08:52] LABS: Basophils # 0.1 K/mm3 (0-0.2); Basophils % 0.4 % (0.1-2.0); Eosinophils # 0.1 K/mm3 (0.0-0.4); Eosinophils % 0.3 % (0.1-12.0); Hematocrit 40.7 % (42.0-52.0); Lymphocytes # 1.3 K/mm3 (0.7-4.5); Lymphocytes % 6.6 % (10-50); Mean Corpuscular HGB Conc 31.9 g/dL (31.8-35.4); Mean Corpuscular Hemoglobin 28.7 pg (27.0-31.2); Mean Corpuscular Volume 89.9 fl (80-94); Mean Platelet Volume 9.4 fl (7.4-10.4); Monocytes % 5.2 % (1.7-9.3); Neutrophils # 16.6 K/mm3 (1.8-7.8); Neutrophils % 87.5 % (37.0-80.0); Platelet Count 585 K/mm3 (142-424); Red Blood Count 4.53 M/mm3 (4.60-6.20); Red Cell Distribution Width 14.8 % (11.5-17.5)
[2021-08-17 08:55] LABS: MANUAL DIFFERENTIAL MANUAL DIFFERENTIAL (MANUAL DIFF)
--- NOTE | 2021-08-17 09:08 | HMH.ACPN2 ---
Internal Medicine - PN: Subj *Date: 08/17/21 *Time: 09:24 Interval history: No significant respiratory events overnight. Patient remains on a nonrebreather. Durations are measured between 82 and 99%, does desaturate to 60% with movement. Refusing incentive spirometer, using to ambulate, refusing to add up in the chair. He will prone for short periods on occasion. His refusal of vision change has led to the insertion of a [place] catheter. Chest film is reviewed, no substantial interval change. Is cultured MRSA. Exam Vital signs and Labs for Last 24 Hours: Temp Pulse Resp BP Pulse Ox 98.4 F 97 H 16 104/57 L 94 L 08/17/21 04:00 08/17/21 04:00 08/17/21 00:00 08/17/21 04:00 08/17/21 04:00 Laboratory Results - last 24 hr 08/17/21 08:40: WBC 19.0 H, RBC 4.53 L, Hgb 13.0 L, Hct 40.7 L, MCV 89.9, MCH 28.7, MCHC 31.9, RDW 14.8, Plt Count 585 H, MPV 9.4, Neut % (Auto) 87.5 H, Lymph % (Auto) 6.6 L, [place] % (Auto) 5.2, Eos % (Auto) 0.3, Baso % (Auto) 0.4, Neut # (Auto) 16.6 H, Lymph # (Auto) 1.3, [place] # (Auto) 1.0, Eos # (Auto) 0.1, Baso # (Auto) 0.1 I & O for Last 24 hours: Intake & Output 08/14/21 08/15/21 08/16/21 08/17/21 23:59 23:59 23:59 23:59 Intake Total 1080 / 1080 1220 / 1220 490 / 490 Output Total 1975 / 2175 450 / 700 1100 / 1600 500 / 500 Balance -895 / -1095 770 / 520 -610 / -1110 -500 / -500 Weight 147 lb 11.2 oz 145 lb 6.4 oz 142 lb 142 lb 11.2 oz - Constitutional no acute distress, thin, chronically ill appearing, disheveled - *Routine HEENT Exam Head: Present: normocephalic Eye: Present: EOMI, PERRL ENT: Present: mucous membranes moist - *Routine Neck Exam Present: supple. Absent: lymphadenopathy - *Routine Respiratory Exam Present: rhonchi, crackles. Absent: accessory muscle use, respiratory distress, wheezes - *Routine Cardiovascular Exam Present: RRR - *Routine Abdominal Exam Present: soft, normoactive bowel sounds. Absent: tenderness - *Routine Extremities Exam Absent: cyanosis, clubbing, edema - *Routine Skin Exam Present: warm. Absent: rash - *Routine Neurological Exam Present: alert, oriented X3 Assessment and Plan (1) Acute respiratory failure with hypoxia Status: Acute Category: Medical Code(s): J96.01 - Acute respiratory failure with hypoxia (2) COVID-19 Status: Acute Category: Medical Code(s): U07.1 - COVID-19 (3) Pulmonary emboli Status: Acute Qualifiers: Pulmonary embolism type: multiple subsegmental (without acute cor pulmonale) Qualified Code(s): I26.94 - Multiple subsegmental pulmonary emboli without acute cor pulmonale Category: Medical Code(s): I26.99 - Other pulmonary embolism without acute cor pulmonale (4) Diastolic CHF Status: Acute Category: Medical Code(s): I50.30 - Unspecified diastolic (congestive) heart failure (5) COPD (chronic obstructive pulmonary disease) Status: Chronic Qualifiers: COPD type: unspecified COPD Qualified Code(s): J44.9 - Chronic obstructive pulmonary disease, unspecified Category: Medical Code(s): J44.9 - Chronic obstructive pulmonary disease, unspecified (6) Nicotine dependence Status: Chronic Qualifiers: Nicotine product type: cigarettes Substance use status: uncomplicated Qualified Code(s): F17.210 - Nicotine dependence, cigarettes, uncomplicated Category: Medical Code(s): F17.200 - Nicotine dependence, unspecified, uncomplicated (7) Tobacco user Status: Chronic Category: Social Hx Code(s): Z72.0 - Tobacco use (8) Anemia Status: Acute Qualifiers: Anemia type: unspecified type Qualified Code(s): D64.9 - Anemia, unspecified Category: Medical Code(s): D64.9 - Anemia, unspecified (9) MRSA (methicillin resistant staph aureus) culture positive Status: Acute Category: Medical Code(s): Z22.322 - Carrier or suspected carrier of Methicillin resistant Staphylococcus aureus (10) Pneumonia Status: Acute Ca
[2021-08-17 10:18] LABS: Lymphocytes % 19 % (10-50); Monocytes % 2 % (2-9); Neutrophils % 79 % (42-76); Total Cells Counted 100
[2021-08-17 10:19] LABS: Platelet Estimate Moderate Increase; RBC Morphology Normal
[2021-08-17 12:34] LABS: Alanine Aminotransferase 21 U/L (12-78); Albumin Level 2.8 g/dl (3.5-5.0); Alkaline Phosphatase 66 U/L (38-126); Anion Gap 16.7 mEq/L (5-15); Aspartate Amino Transferase 47 U/L (17-59); Bilirubin,Total 0.9 mg/dl (0.2-1.3); Blood Urea Nitrogen 30 mg/dl (9-20); Carbon Dioxide 22 mmol/L (22.0-30.0); Chloride 107 mmol/L (98-107); Creatinine Clearance Estimated 66 mL/min (50-200); Estimated Glomerular Filt Rate 112 ml/min (>60); GFR (African American) 136 ML/MIN (>60); Globulin 2.7 g/dL (1.3-3.2); Glucose 88 mg/dl (74-100); Potassium 5.7 mmoL/L (3.5-5.1); Sodium 140 mmol/L (136-145); Total Protein,Serum 5.5 g/dl (6.3-8.2)
[2021-08-18] VITALS (13 sets, daily range): BP systolic 106–122; BP diastolic 59–77; PULSE 69–95; RESP 14–22; TEMP 36.2–37; O2SAT 91–100; BMI 20.5
--- NOTE | 2021-08-18 03:24 | PC.NURSE ---
Patient is alert and oriented x4. He has remained on vapotherm and a non rebreather this shift. Patient has slept well with no acute changes noted. He has remained in the 90% in oxygen saturation. VSS, call light within reach, will continue to monitor.
--- NOTE | 2021-08-18 10:21 | PC.NURSE ---
Parish Morgan was educated by nurse on importsnce of self care, bathing, ambulation, self turning and the importance of coughing deep breathing exercises with use of I/S. Patient continues to refuse assistance and care despite encouragement otherwise. Nurse will continue to discuss with patient q4 and provide appropriate education. No further orders at this time. Will continue to monitor
--- NOTE | 2021-08-18 10:47 | DIET.NUTRFU ---
Addendum entered by Torie Duong 08/22/21 09:58: PO intakes 50% + BID ensure, weight down 4#, pt has not had a BM since 08/16. Addendum entered by Torie Duong 08/20/21 09:56: PO intakes 50%, weight stable. Diet liberalized from cardiac to JARET and BID ensure on order. Original Note: PO intakes 50%, weight down 6#. Continuing to monitor.
--- NOTE | 2021-08-18 11:36 | PC.NURSE ---
patient prompted to utilize incentive spirometer; patient reached 500 with goal for shift 1,000. patient has been instructed to utilize 8-10 times per hour while awake. Patient has been noncompliant but nurse will encourage as needed. suction set up at bedside for sputum, patient given new container for sputum collection.
--- NOTE | 2021-08-18 11:44 | PC.NURSE ---
Provider states he wants patient up to chair qshift for no less than 4 hours. Blinds are to be open during day time hours. Patient is to lay prone during sleeping hours as able
--- NOTE | 2021-08-18 11:54 | HMH.PULMPN ---
Internal Medicine - PN: Subj *Date: 08/18/21 *Time: 11:54 Interval history: No acute respite events overnight. Exam - Constitutional Constitutional:: Present: no acute distress, comfortable - HENMT Exam HENMT: Present: normocephalic, atraumatic - Neck Exam Neck:: Present: normal visual inspection - Respiratory Exam Respiratory:: Present: respiratory distress, crackles - Cardiovascular Exam Cardiac:: Present: S1, S2 - GI Exam GI:: Present: soft - Skin Exam Skin: Present: warm - Neurological Exam Neurological: Present: alert - Extremities Exam Extremities: Present: no cyanosis, no clubbing, no edema - Psychiatric Exam Psychiatric: Present: normal affect Assessment and Plan (1) Acute respiratory failure with hypoxia Status: Acute Category: Medical Code(s): J96.01 - Acute respiratory failure with hypoxia (2) COVID-19 Status: Acute Category: Medical Code(s): U07.1 - COVID-19 (3) Pulmonary emboli Status: Acute Qualifiers: Pulmonary embolism type: multiple subsegmental (without acute cor pulmonale) Qualified Code(s): I26.94 - Multiple subsegmental pulmonary emboli without acute cor pulmonale Category: Medical Code(s): I26.99 - Other pulmonary embolism without acute cor pulmonale (4) Diastolic CHF Status: Acute Category: Medical Code(s): I50.30 - Unspecified diastolic (congestive) heart failure (5) COPD (chronic obstructive pulmonary disease) Status: Chronic Qualifiers: COPD type: unspecified COPD Qualified Code(s): J44.9 - Chronic obstructive pulmonary disease, unspecified Category: Medical Code(s): J44.9 - Chronic obstructive pulmonary disease, unspecified (6) Nicotine dependence Status: Chronic Qualifiers: Nicotine product type: cigarettes Substance use status: uncomplicated Qualified Code(s): F17.210 - Nicotine dependence, cigarettes, uncomplicated Category: Medical Code(s): F17.200 - Nicotine dependence, unspecified, uncomplicated (7) Tobacco user Status: Chronic Category: Social Hx Code(s): Z72.0 - Tobacco use (8) Anemia Status: Acute Qualifiers: Anemia type: unspecified type Qualified Code(s): D64.9 - Anemia, unspecified Category: Medical Code(s): D64.9 - Anemia, unspecified (9) MRSA (methicillin resistant staph aureus) culture positive Status: Acute Category: Medical Code(s): Z22.322 - Carrier or suspected carrier of Methicillin resistant Staphylococcus aureus (10) Pneumonia Status: Acute Category: Medical Code(s): J18.9 - Pneumonia, unspecified organism - Assessment and plan all Dx Assessment and Plan for all problems:: #Acute on chronic hypoxic respiratory failure: #Community-acquired pneumonia: #COVID-19 pneumonia: #Pulmonary embolism: 66-year-old COPD recently diagnosed with community-acquired pneumonia present with worsening respiratory and found to be COVID-19 pneumonia positive. CTA on admission showed evidence of pulmonary embolism. CT also showed bilateral lower lobe predominant diffuse patchy airspace disease along with interstitial prominence. CT also showed evidence of elevated right-sided pressures. Sputum culture positive for MRSA. No blood cultures available. Slight worsening leukocytosis. We will closely monitor. Received 40 mg IV Lasix on 08/12 the urine output of 2.5 L. This patient is also in significant comorbidities given his severe COPD along with his MRSA pneumonia, COVID-19 pneumonia and pulmonary embolisms thus complicating his clinical scenario. Along with this patient has been relatively immobile and not following instructions for proning protocol using flutter valve to help clear his secretions and this is also complicating his clinical scenario. Chest x-ray from slight worsening of right upper lobe pulmonary infiltrate. Patient remains on stable settings. Cefepime was added given concerns of hospital-acquired pneumonia and worsening chest x-ray. He c
--- NOTE | 2021-08-18 12:52 | HMH.ACPN2 ---
Internal Medicine - PN: Subj *Date: 08/18/21 *Time: 17:34 Interval history: Patient is maintaining decent saturations on Vapotherm. Clinically he looks a little brighter today. He remains on IV vancomycin and Xarelto Exam Vital signs and Labs for Last 24 Hours: Temp Pulse Resp BP Pulse Ox 97.1 F L 82 22 109/71 L 92 L 08/18/21 12:00 08/18/21 12:00 08/18/21 12:00 08/18/21 12:00 08/18/21 12:00 I & O for Last 24 hours: Intake & Output 08/15/21 08/16/21 08/17/21 08/18/21 23:59 23:59 23:59 23:59 Intake Total 1220 / 1220 490 / 490 610 / 610 360 / 360 Output Total 450 / 700 1100 / 1600 1150 / 1400 250 / 250 Balance 770 / 520 -610 / -1110 -540 / -790 110 / 110 Weight 145 lb 6.4 oz 142 lb 142 lb 11.2 oz 135 lb 8 oz - Constitutional no acute distress, thin, chronically ill appearing, disheveled, cooperative - *Routine HEENT Exam Head: Present: normocephalic Eye: Present: EOMI, PERRL ENT: Present: mucous membranes moist - *Routine Neck Exam Present: supple. Absent: lymphadenopathy - *Routine Respiratory Exam Present: rhonchi, crackles. Absent: accessory muscle use, respiratory distress - *Routine Cardiovascular Exam Present: RRR - *Routine Abdominal Exam Present: soft, normoactive bowel sounds. Absent: tenderness - *Routine Extremities Exam Absent: cyanosis, clubbing, edema - *Routine Skin Exam Present: warm. Absent: rash - *Routine Neurological Exam Present: alert, oriented X3 Assessment and Plan (1) Acute respiratory failure with hypoxia Status: Acute Category: Medical Code(s): J96.01 - Acute respiratory failure with hypoxia (2) COVID-19 Status: Acute Category: Medical Code(s): U07.1 - COVID-19 (3) Pulmonary emboli Status: Acute Qualifiers: Pulmonary embolism type: multiple subsegmental (without acute cor pulmonale) Qualified Code(s): I26.94 - Multiple subsegmental pulmonary emboli without acute cor pulmonale Category: Medical Code(s): I26.99 - Other pulmonary embolism without acute cor pulmonale (4) Diastolic CHF Status: Acute Category: Medical Code(s): I50.30 - Unspecified diastolic (congestive) heart failure (5) COPD (chronic obstructive pulmonary disease) Status: Chronic Qualifiers: COPD type: unspecified COPD Qualified Code(s): J44.9 - Chronic obstructive pulmonary disease, unspecified Category: Medical Code(s): J44.9 - Chronic obstructive pulmonary disease, unspecified (6) Nicotine dependence Status: Chronic Qualifiers: Nicotine product type: cigarettes Substance use status: uncomplicated Qualified Code(s): F17.210 - Nicotine dependence, cigarettes, uncomplicated Category: Medical Code(s): F17.200 - Nicotine dependence, unspecified, uncomplicated (7) Tobacco user Status: Chronic Category: Social Hx Code(s): Z72.0 - Tobacco use (8) Anemia Status: Acute Qualifiers: Anemia type: unspecified type Qualified Code(s): D64.9 - Anemia, unspecified Category: Medical Code(s): D64.9 - Anemia, unspecified (9) MRSA (methicillin resistant staph aureus) culture positive Status: Acute Category: Medical Code(s): Z22.322 - Carrier or suspected carrier of Methicillin resistant Staphylococcus aureus (10) Pneumonia Status: Acute Category: Medical Code(s): J18.9 - Pneumonia, unspecified organism - Assessment and plan all Dx Assessment and Plan for all problems:: We will continue current regimen. Needs to be up in the chair during the day, proned out whenever possible. Merits aggressive physical therapy. 7
--- NOTE | 2021-08-18 19:30 | PC.NURSE ---
Patient remains on High flow nasal cannula, unable to decrease FIO2 throughout shift due to oxygen dependence. Patient was instructed on use of incentive spirometer q4 and initiated use with encouragement. Suction set up at bedside. Patient continued to refuse ambulation through out shift. This has been addressed and patient has received several instances of education- despite encouragement otherwise, patient continues to refuse care. When skin assessment was attempted, patient refused to allow RN to look at skin on coccyx and back, patient also continually refuses to turn, even with assistance and encouragment. Patient received education on proper skin care and pressure injury prevention. no further orders. Provider has been notified of patient's continual refusal of care
[2021-08-19] VITALS (9 sets, daily range): BP systolic 93–114; BP diastolic 72–79; PULSE 70–88; RESP 14–22; TEMP 36.4–37; O2SAT 87–100; BMI 20.6
--- NOTE | 2021-08-19 03:11 | PC.NURSE ---
No acute changes t/o shift. Pt is A/O x4. Pt remains on vapotherm 30L and 80% with an non rebreather mask. Pt O2 stats have been >90%. Pt c/o of pain in his legs x2 this shift, admin meds per MAR with relief. Pt has used incentive spirometer independently t/o shift. Pt is able to make needs known to staff. VSS, will continue to monitor.
[2021-08-19 07:44] LABS: Basophils % 0.1 % (0.1-2.0); Eosinophils % 0.1 % (0.1-12.0); Hematocrit 36.8 % (42.0-52.0); Hemoglobin 11.6 g/dL (14.1-18.0); Lymphocytes % 9.8 % (10-50); Mean Corpuscular HGB Conc 31.5 g/dL (31.8-35.4); Mean Platelet Volume 8.8 fl (7.4-10.4); Monocytes # 0.7 K/mm3 (0.1-1.0); Monocytes % 6.6 % (1.7-9.3); Neutrophils # 8.8 K/mm3 (1.8-7.8); Neutrophils % 83.4 % (37.0-80.0); Platelet Count 500 K/mm3 (142-424); Red Cell Distribution Width 14.7 % (11.5-17.5); White Blood Count 10.6 K/mm3 (4.8-10.8)
[2021-08-19 07:55] LABS: Blood Urea Nitrogen 27 mg/dl (9-20); Calcium 8.9 mg/dl (8.4-10.2); Chloride 103 mmol/L (98-107); Glucose 104 mg/dl (74-100); Potassium 4.5 mmoL/L (3.5-5.1)
[2021-08-19 08:05] LABS: Anion Gap 7.5 mEq/L (5-15); Carbon Dioxide 33 mmol/L (22.0-30.0); Creatinine Clearance Estimated 63 mL/min (50-200); Estimated Glomerular Filt Rate 134 ml/min (>60); GFR (African American) 163 ML/MIN (>60); Sodium 139 mmol/L (136-145)
--- NOTE | 2021-08-19 09:27 | HMH.ACPN2 ---
Internal Medicine - PN: Subj *Date: 08/19/21 *Time: 19:19 Interval history: No significant overnight events noted. Nursing staff relays that he is still somewhat immobile. He does appear to be somewhat brighter today. He tells me that he will be cooperative with getting out of bed, soon, and proning. Exam Vital signs and Labs for Last 24 Hours: Temp Pulse Resp BP Pulse Ox 98.4 F 88 18 93/75 L 90 L 08/19/21 08:00 08/19/21 08:00 08/19/21 08:00 08/19/21 08:00 08/19/21 08:00 Laboratory Results - last 24 hr 08/19/21 07:11: WBC 10.6 D, RBC 4.00 L, Hgb 11.6 L, Hct 36.8 L, MCV 92.0, MCH 29.0, MCHC 31.5 L, RDW 14.7, Plt Count 500 H, MPV 8.8, Neut % (Auto) 83.4 H, Lymph % (Auto) 9.8 L, [place] % (Auto) 6.6, Eos % (Auto) 0.1, Baso % (Auto) 0.1, Neut # (Auto) 8.8 H, Lymph # (Auto) 1.0, [place] # (Auto) 0.7, Eos # (Auto) 0.0, Baso # (Auto) 0.0 08/19/21 07:11: Sodium 139, Potassium 4.5 D, Chloride 103, Carbon Dioxide 33 H, Anion Gap 7.5, BUN 27 H, Creatinine 0.60 L, Estimated Creat Clear 63, Estimated GFR 134, Est GFR ( Amer) 163, Glucose 104 H, Calcium 8.9 I & O for Last 24 hours: Intake & Output 08/16/21 08/17/21 08/18/21 08/19/21 23:59 23:59 23:59 23:59 Intake Total 490 / 490 610 / 610 720 / 720 120 / 120 Output Total 1100 / 1600 1150 / 1400 250 / 250 150 / 150 Balance -610 / -1110 -540 / -790 470 / 470 -30 / -30 Weight 142 lb 142 lb 11.2 oz 135 lb 8 oz 136 lb Microbiology Reports for the Last 24 Hours: Microbiology 08/18/21 14:30 Sputum - Expectorated Sputum Gram Stain - Final - Constitutional no acute distress, chronically ill appearing - *Routine HEENT Exam Head: Present: normocephalic Eye: Present: EOMI, PERRL ENT: Present: mucous membranes moist - *Routine Neck Exam Present: supple. Absent: lymphadenopathy - *Routine Respiratory Exam Present: rhonchi, crackles. Absent: accessory muscle use, stridor, wheezes - *Routine Cardiovascular Exam Present: RRR - *Routine Abdominal Exam Present: soft, normoactive bowel sounds. Absent: tenderness - *Routine Extremities Exam Absent: cyanosis, clubbing, edema - *Routine Skin Exam Present: warm. Absent: rash - *Routine Neurological Exam Present: alert, oriented X3 Assessment and Plan (1) Acute respiratory failure with hypoxia Status: Acute Category: Medical Code(s): J96.01 - Acute respiratory failure with hypoxia (2) COVID-19 Status: Acute Category: Medical Code(s): U07.1 - COVID-19 (3) Pulmonary emboli Status: Acute Qualifiers: Pulmonary embolism type: multiple subsegmental (without acute cor pulmonale) Qualified Code(s): I26.94 - Multiple subsegmental pulmonary emboli without acute cor pulmonale Category: Medical Code(s): I26.99 - Other pulmonary embolism without acute cor pulmonale (4) Diastolic CHF Status: Acute Category: Medical Code(s): I50.30 - Unspecified diastolic (congestive) heart failure (5) COPD (chronic obstructive pulmonary disease) Status: Chronic Qualifiers: COPD type: unspecified COPD Qualified Code(s): J44.9 - Chronic obstructive pulmonary disease, unspecified Category: Medical Code(s): J44.9 - Chronic obstructive pulmonary disease, unspecified (6) Nicotine dependence Status: Chronic Qualifiers: Nicotine product type: cigarettes Substance use status: uncomplicated Qualified Code(s): F17.210 - Nicotine dependence, cigarettes, uncomplicated Category: Medical Code(s): F17.200 - Nicotine dependence, unspecified, uncomplicated (7) Tobacco user Status: Chronic Category: Social Hx Code(s): Z72.0 - Tobacco use (8) Anemia Status: Acute Qualifiers: Anemia type: unspecified type Qualified Code(s): D64.9 - Anemia, unspecified Category: Medical Code(s): D64.9 - Anemia, unspecified (9) MRSA (methicillin resistant staph aureus) culture positive Status: Acute Category: Medical Code(s): Z22.322 - Carrier or suspe
--- NOTE | 2021-08-19 11:44 | PC.NURSE ---
During assessment pt refused to allow staff to do full skin assessment, pt refused to roll over to check bottom. Has been refusing turns since taking over care. Educated pt on importance of turning and repositioning for prevention of skin breakdown. Pt still not agreeable to turn over for assessment. He is currently sitting up on 30L/80% vapotherm w/ non-rebreather. Sat 89-92%.
--- NOTE | 2021-08-19 13:28 | HMH.PULMPN ---
Internal Medicine - PN: Subj *Date: 08/19/21 *Time: 13:28 Interval history: No acute respiratory vents overnight. Patient admits improvement in symptoms. Exam - Constitutional Constitutional:: Present: no acute distress, comfortable - HENMT Exam HENMT: Present: normocephalic, atraumatic - Eye Exam Eyes:: Present: normal appearance both eyes and related structures - Neck Exam Neck:: Present: normal visual inspection - Respiratory Exam Respiratory:: Present: respiratory distress, crackles, rales - Cardiovascular Exam Cardiac:: Present: S1, S2 - GI Exam GI:: Present: soft - Skin Exam Skin: Present: warm - Neurological Exam Neurological: Present: alert, awake - Extremities Exam Extremities: Present: no cyanosis, no clubbing, no edema Assessment and Plan (1) Acute respiratory failure with hypoxia Status: Acute Category: Medical Code(s): J96.01 - Acute respiratory failure with hypoxia (2) COVID-19 Status: Acute Category: Medical Code(s): U07.1 - COVID-19 (3) Pulmonary emboli Status: Acute Qualifiers: Pulmonary embolism type: multiple subsegmental (without acute cor pulmonale) Qualified Code(s): I26.94 - Multiple subsegmental pulmonary emboli without acute cor pulmonale Category: Medical Code(s): I26.99 - Other pulmonary embolism without acute cor pulmonale (4) Diastolic CHF Status: Acute Category: Medical Code(s): I50.30 - Unspecified diastolic (congestive) heart failure (5) COPD (chronic obstructive pulmonary disease) Status: Chronic Qualifiers: COPD type: unspecified COPD Qualified Code(s): J44.9 - Chronic obstructive pulmonary disease, unspecified Category: Medical Code(s): J44.9 - Chronic obstructive pulmonary disease, unspecified (6) Nicotine dependence Status: Chronic Qualifiers: Nicotine product type: cigarettes Substance use status: uncomplicated Qualified Code(s): F17.210 - Nicotine dependence, cigarettes, uncomplicated Category: Medical Code(s): F17.200 - Nicotine dependence, unspecified, uncomplicated (7) Tobacco user Status: Chronic Category: Social Hx Code(s): Z72.0 - Tobacco use (8) Anemia Status: Acute Qualifiers: Anemia type: unspecified type Qualified Code(s): D64.9 - Anemia, unspecified Category: Medical Code(s): D64.9 - Anemia, unspecified (9) MRSA (methicillin resistant staph aureus) culture positive Status: Acute Category: Medical Code(s): Z22.322 - Carrier or suspected carrier of Methicillin resistant Staphylococcus aureus (10) Pneumonia Status: Acute Category: Medical Code(s): J18.9 - Pneumonia, unspecified organism - Assessment and plan all Dx Assessment and Plan for all problems:: #Acute on chronic hypoxic respiratory failure: #Community-acquired pneumonia: #COVID-19 pneumonia: #Pulmonary embolism: 66-year-old COPD recently diagnosed with community-acquired pneumonia present with worsening respiratory and found to be COVID-19 pneumonia positive. CTA on admission showed evidence of pulmonary embolism. CT also showed bilateral lower lobe predominant diffuse patchy airspace disease along with interstitial prominence. CT also showed evidence of elevated right-sided pressures. Patient sputum cultures grew MRSA, he is so far completed 7 days of levofloxacin and currently on vancomycin. Repeat sputum cultures from showing gram-negative rods. He was also initiated on cefepime given worsening respiratory distress. Will be following sputum cultures. Chest x-ray from slight worsening of right upper lobe pulmonary infiltrate. This patient is also in significant comorbidities given his severe COPD along with his MRSA pneumonia, COVID-19 pneumonia and pulmonary embolisms thus complicating his clinical scenario. Along with this patient has been relatively immobile and not following instructions for proning protocol using flutter valve to help clear his secretions and thi
--- NOTE | 2021-08-19 16:27 | PC.NURSE ---
No acute changes. Remains on 30L/80% vapotherm w/ no NRB as well, sat > 88%. Cont pulse ox in place. Pt has refused most care this shift. He has been offered multiple times to be assisted w/ a bath and linen change. Still unable to assess skin for breakdown. He is A&O x4. HR regular. Abdomen soft, non-tender w/ active BS. Voiding w/o difficulty per urinal. He is currently sitting up in bed on cell phone. Call wesley w/in reach.
--- NOTE | 2021-08-19 17:03 | HMH.PHACONS ---
- Pharmacy Consult Date: 08/19/21 Time: 17:03 Referring provider: DR. ESPOSITO Reason for Consult:: VANCOMYCIN TROUGH LEVEL Allergies and ADEs:: Allergies Allergy/AdvReac Type Severity Reaction Status Date / Time amoxicillin [From Augmentin] Allergy Verified 08/05/21 17:29 clavulanic acid Allergy Verified 08/05/21 17:29 [From Augmentin] NSAIDS (Non-Steroidal AdvReac Severe STOMACH Verified 05/07/21 10:06 Anti-Inflamma PAIN Home Medications:: Home Medications Medication Instructions Recorded Confirmed Type buprenorphine 8 mg-naloxone 2 mg 2.5 tab SL DAILY 01/15/20 08/05/21 History sublingual tablet furosemide 40 mg tablet 40 mg PO BID #180 tab 01/30/21 08/05/21 Rx potassium chloride 20 mEq 20 meq PO BID #180 tab 01/30/21 08/05/21 Rx tablet,extended release nystatin 100,000 unit/mL oral 10 ml PO QID #400 ml 02/03/21 08/05/21 Rx suspension ipratropium 0.5 mg-albuterol 3 mg 3 ml INHALATION Q6H PRN #180 ml 03/25/21 08/05/21 Rx (2.5 mg base)/3 mL nebulization soln ipratropium 20 mcg-albuterol 100 1 puff INHALATION Q6H #4 g 03/25/21 08/06/21 Rx mcg/actuation mist for inhalation sildenafil (pulm.hypertension) 20 20 mg PO Q12H PRN #60 tab 05/06/21 08/05/21 Rx mg tablet alendronate 70 mg tablet 70 mg PO WEEKLY #5 tab 05/20/21 08/05/21 Rx calcium carbonate 600 mg (1,500 1 tab PO DAILY #30 tab 05/20/21 08/05/21 Rx mg)-vitamin D3 400 unit tablet gabapentin 600 mg tablet 600 mg PO QID #120 tab 07/31/21 08/05/21 Rx Albuterol Sulfate [Proair 2 puffs IH Q6H 08/06/21 08/06/21 History Respiclick] Fluticasone/Umeclidin/Vilanter 1 dose IH DAILY 08/06/21 08/06/21 History [Trelegy Ellipta 100-62.5-25] Ranolazine [Ranolazine ER] 500 mg PO BID PRN 08/06/21 08/06/21 History Height: 1.73 m Weight: 61.689 kg Laboratory Results:: Laboratory Results - last 24 hr 08/19/21 07:11: WBC 10.6 D, RBC 4.00 L, Hgb 11.6 L, Hct 36.8 L, MCV 92.0, MCH 29.0, MCHC 31.5 L, RDW 14.7, Plt Count 500 H, MPV 8.8, Neut % (Auto) 83.4 H, Lymph % (Auto) 9.8 L, [place] % (Auto) 6.6, Eos % (Auto) 0.1, Baso % (Auto) 0.1, Neut # (Auto) 8.8 H, Lymph # (Auto) 1.0, [place] # (Auto) 0.7, Eos # (Auto) 0.0, Baso # (Auto) 0.0 08/19/21 07:11: Sodium 139, Potassium 4.5 D, Chloride 103, Carbon Dioxide 33 H, Anion Gap 7.5, BUN 27 H, Creatinine 0.60 L, Estimated Creat Clear 63, Estimated GFR 134, Est GFR ( Amer) 163, Glucose 104 H, Calcium 8.9 08/19/21 13:24: Vancomycin Trough 12.0 H Medical History: Reports:: Anxiety, Asthma, Congestive Heart Failure, Chronic Obstructive Pulmonary Disease (COPD), Depression, Home Oxygen, Hypertension, Lung Disease, Migraine Denies:: Cancer, Diabetes Mellitus Type 1, Diabetes Mellitus Type 2, Internal Pacemaker, MRSA, Seizures Assessment and Plan (1) Acute respiratory failure with hypoxia Status: Acute Category: Medical Code(s): J96.01 - Acute respiratory failure with hypoxia (2) COVID-19 Status: Acute Category: Medical Code(s): U07.1 - COVID-19 (3) Pulmonary emboli Status: Acute Qualifiers: Pulmonary embolism type: multiple subsegmental (without acute cor pulmonale) Qualified Code(s): I26.94 - Multiple subsegmental pulmonary emboli without acute cor pulmonale Category: Medical Code(s): I26.99 - Other pulmonary embolism without acute cor pulmonale (4) Diastolic CHF Status: Acute Category: Medical Code(s): I50.30 - Unspecified diastolic (congestive) heart failure (5) COPD (chronic obstructive pulmonary disease) Status: Chronic Qualifiers: COPD type: unspecified COPD Qualified Code(s): J44.9 - Chronic obstructive pulmonary disease, unspecified Category: Medical Code(s): J44.9 - Chronic obstructive pulmonary disease, unspecified (6) Nicotine dependence Status: Chronic Qualifiers: Nicotine product type: cigarettes Substance use status: uncomplicated Qualified Code(s): F17.210 - Nicotine dependence, cigarettes, uncomplicated Cassandra
[2021-08-20] VITALS (12 sets, daily range): BP systolic 109–134; BP diastolic 61–81; PULSE 68–101; RESP 16–21; TEMP 36.3–36.9; O2SAT 80–100; BMI 20.6
--- NOTE | 2021-08-20 03:27 | PC.NURSE ---
No acute changes t/o shift. Pt remains to wear vapotherm 30L 80% with NRB. O2 stats have been >90%. Pt denies any pain t/o shift. Explained to pt the importance of proning t/o the night, pt states he will roll over on his side . While pt was on side O2 stats would reach to 96-97%. Pt refused skin assessment, bath and linen change this shift. VSS, call light within reach, will continue to monitor.
--- NOTE | 2021-08-20 09:15 | HMH.PULMPN ---
Internal Medicine - PN: Subj *Date: 08/20/21 *Time: 12:58 Interval history: No acute respiratory events overnight. Exam - Constitutional Constitutional:: Present: no acute distress, comfortable - HENMT Exam HENMT: Present: normocephalic, atraumatic - Eye Exam Eyes:: Present: normal appearance both eyes and related structures - Neck Exam Neck:: Present: normal visual inspection - Respiratory Exam Respiratory:: Present: respiratory distress, crackles, rales - Cardiovascular Exam Cardiac:: Present: S1, S2 - GI Exam GI:: Present: soft - Skin Exam Skin: Present: warm - Neurological Exam Neurological: Present: alert, awake, normal cognition - Extremities Exam Extremities: Present: no cyanosis, no clubbing, no edema Assessment and Plan (1) Acute respiratory failure with hypoxia Status: Acute Category: Medical Code(s): J96.01 - Acute respiratory failure with hypoxia (2) COVID-19 Status: Acute Category: Medical Code(s): U07.1 - COVID-19 (3) Pulmonary emboli Status: Acute Qualifiers: Pulmonary embolism type: multiple subsegmental (without acute cor pulmonale) Qualified Code(s): I26.94 - Multiple subsegmental pulmonary emboli without acute cor pulmonale Category: Medical Code(s): I26.99 - Other pulmonary embolism without acute cor pulmonale (4) Diastolic CHF Status: Acute Category: Medical Code(s): I50.30 - Unspecified diastolic (congestive) heart failure (5) COPD (chronic obstructive pulmonary disease) Status: Chronic Qualifiers: COPD type: unspecified COPD Qualified Code(s): J44.9 - Chronic obstructive pulmonary disease, unspecified Category: Medical Code(s): J44.9 - Chronic obstructive pulmonary disease, unspecified (6) Nicotine dependence Status: Chronic Qualifiers: Nicotine product type: cigarettes Substance use status: uncomplicated Qualified Code(s): F17.210 - Nicotine dependence, cigarettes, uncomplicated Category: Medical Code(s): F17.200 - Nicotine dependence, unspecified, uncomplicated (7) Tobacco user Status: Chronic Category: Social Hx Code(s): Z72.0 - Tobacco use (8) Anemia Status: Acute Qualifiers: Anemia type: unspecified type Qualified Code(s): D64.9 - Anemia, unspecified Category: Medical Code(s): D64.9 - Anemia, unspecified (9) MRSA (methicillin resistant staph aureus) culture positive Status: Acute Category: Medical Code(s): Z22.322 - Carrier or suspected carrier of Methicillin resistant Staphylococcus aureus (10) Pneumonia Status: Acute Category: Medical Code(s): J18.9 - Pneumonia, unspecified organism - Assessment and plan all Dx Assessment and Plan for all problems:: #Acute on chronic hypoxic respiratory failure: #Community-acquired pneumonia: #COVID-19 pneumonia: #Pulmonary embolism: 66-year-old COPD recently diagnosed with community-acquired pneumonia present with worsening respiratory and found to be COVID-19 pneumonia positive. CTA on admission showed evidence of pulmonary embolism. CT also showed bilateral lower lobe predominant diffuse patchy airspace disease along with interstitial prominence. CT also showed evidence of elevated right-sided pressures. Patient sputum cultures grew MRSA, he is so far completed 7 days of levofloxacin and currently on vancomycin. Repeat sputum cultures from showing gram-negative rods. He was also initiated on cefepime given worsening respiratory distress. Will be following sputum cultures. Chest x-ray from slight worsening of right upper lobe pulmonary infiltrate. This patient is also in significant comorbidities given his severe COPD along with his MRSA pneumonia, COVID-19 pneumonia and pulmonary embolisms thus complicating his clinical scenario. Along with this patient has been relatively immobile and not following instructions for proning protocol using flutter valve to help clear his secretions and this is also complicating
--- NOTE | 2021-08-20 10:39 | HMH.ACPN2 ---
Internal Medicine - PN: Subj *Date: 08/20/21 *Time: 10:39 Exam Vital signs and Labs for Last 24 Hours: Temp Pulse Resp BP Pulse Ox 98.1 F 95 H 16 114/74 93 L 08/20/21 08:00 08/20/21 08:00 08/20/21 08:00 08/20/21 08:00 08/20/21 08:00 Laboratory Results - last 24 hr 08/19/21 13:24: Vancomycin Trough 12.0 H I & O for Last 24 hours: Intake & Output 08/17/21 08/18/21 08/19/21 08/20/21 23:59 23:59 23:59 23:59 Intake Total 610 / 610 720 / 720 830 / 830 120 / 120 Output Total 1150 / 1400 250 / 250 950 / 1430 480 / 480 Balance -540 / -790 470 / 470 -120 / -600 -360 / -360 Weight 64.728 kg 61.462 kg 61.689 kg 61.689 kg Microbiology Reports for the Last 24 Hours: Microbiology 08/18/21 14:30 Sputum - Expectorated Sputum Gram Stain - Final 08/18/21 14:30 Sputum - Expectorated Sputum Sputum Culture - Preliminary Assessment and Plan (1) Acute respiratory failure with hypoxia Status: Acute Category: Medical Code(s): J96.01 - Acute respiratory failure with hypoxia (2) COVID-19 Status: Acute Category: Medical Code(s): U07.1 - COVID-19 (3) Pulmonary emboli Status: Acute Qualifiers: Pulmonary embolism type: multiple subsegmental (without acute cor pulmonale) Qualified Code(s): I26.94 - Multiple subsegmental pulmonary emboli without acute cor pulmonale Category: Medical Code(s): I26.99 - Other pulmonary embolism without acute cor pulmonale (4) Diastolic CHF Status: Acute Category: Medical Code(s): I50.30 - Unspecified diastolic (congestive) heart failure (5) COPD (chronic obstructive pulmonary disease) Status: Chronic Qualifiers: COPD type: unspecified COPD Qualified Code(s): J44.9 - Chronic obstructive pulmonary disease, unspecified Category: Medical Code(s): J44.9 - Chronic obstructive pulmonary disease, unspecified (6) Nicotine dependence Status: Chronic Qualifiers: Nicotine product type: cigarettes Substance use status: uncomplicated Qualified Code(s): F17.210 - Nicotine dependence, cigarettes, uncomplicated Category: Medical Code(s): F17.200 - Nicotine dependence, unspecified, uncomplicated (7) Tobacco user Status: Chronic Category: Social Hx Code(s): Z72.0 - Tobacco use (8) Anemia Status: Acute Qualifiers: Anemia type: unspecified type Qualified Code(s): D64.9 - Anemia, unspecified Category: Medical Code(s): D64.9 - Anemia, unspecified (9) MRSA (methicillin resistant staph aureus) culture positive Status: Acute Category: Medical Code(s): Z22.322 - Carrier or suspected carrier of Methicillin resistant Staphylococcus aureus (10) Pneumonia Status: Acute Category: Medical Code(s): J18.9 - Pneumonia, unspecified organism The patient's infection will respond to the chosen ABx?: Yes Is the patient receiving the right drug, dose, and route?: Yes Could a more targeted ABx be ordered?: No 7
--- NOTE | 2021-08-20 12:18 | HMH.ACPN2 ---
Internal Medicine - PN: Subj *Date: 08/20/21 *Time: 08:10 Interval history: pt sitting up in bed, pt states he will get oob today and take a bath. long discussion with pt about treatment plan and the need for him to comply will treatment plan. Exam Vital signs and Labs for Last 24 Hours: Temp Pulse Resp BP Pulse Ox 98.1 F 101 H 20 117/81 100 08/20/21 08:00 08/20/21 12:00 08/20/21 12:00 08/20/21 12:00 08/20/21 12:00 Laboratory Results - last 24 hr 08/19/21 13:24: Vancomycin Trough 12.0 H I & O for Last 24 hours: Intake & Output 08/18/21 08/19/21 08/20/21 08/21/21 11:59 11:59 11:59 11:59 Intake Total 970 / 970 480 / 480 830 / 830 Output Total 625 / 625 150 / 150 1280 / 1280 Balance 345 / 345 330 / 330 -450 / -450 Weight 135 lb 8 oz 136 lb 136 lb Microbiology Reports for the Last 24 Hours: Microbiology 08/18/21 14:30 Sputum - Expectorated Sputum Gram Stain - Final 08/18/21 14:30 Sputum - Expectorated Sputum Sputum Culture - Preliminary - Constitutional chronically ill appearing - *Routine HEENT Exam Head: Present: normocephalic Eye: Present: PERRL ENT: Present: mucous membranes moist - *Routine Neck Exam Present: supple. Absent: lymphadenopathy - *Routine Respiratory Exam Present: wheezes - *Routine Cardiovascular Exam Present: RRR - *Routine Abdominal Exam Present: soft, normoactive bowel sounds. Absent: tenderness - *Routine Extremities Exam Present: normal capillary refill. Absent: cyanosis, clubbing, edema - *Routine Skin Exam Present: warm. Absent: rash Comments: pt has breakdown but refuses to let anyone look at area - *Routine Neurological Exam Present: alert, oriented X3 - Routine Psychiatric Exam Present: normal affect Assessment and Plan (1) Acute respiratory failure with hypoxia Status: Acute Category: Medical Code(s): J96.01 - Acute respiratory failure with hypoxia (2) COVID-19 Status: Acute Category: Medical Code(s): U07.1 - COVID-19 (3) Pulmonary emboli Status: Acute Qualifiers: Pulmonary embolism type: multiple subsegmental (without acute cor pulmonale) Qualified Code(s): I26.94 - Multiple subsegmental pulmonary emboli without acute cor pulmonale Category: Medical Code(s): I26.99 - Other pulmonary embolism without acute cor pulmonale (4) Diastolic CHF Status: Acute Category: Medical Code(s): I50.30 - Unspecified diastolic (congestive) heart failure (5) COPD (chronic obstructive pulmonary disease) Status: Chronic Qualifiers: COPD type: unspecified COPD Qualified Code(s): J44.9 - Chronic obstructive pulmonary disease, unspecified Category: Medical Code(s): J44.9 - Chronic obstructive pulmonary disease, unspecified (6) Nicotine dependence Status: Chronic Qualifiers: Nicotine product type: cigarettes Substance use status: uncomplicated Qualified Code(s): F17.210 - Nicotine dependence, cigarettes, uncomplicated Category: Medical Code(s): F17.200 - Nicotine dependence, unspecified, uncomplicated (7) Tobacco user Status: Chronic Category: Social Hx Code(s): Z72.0 - Tobacco use (8) Anemia Status: Acute Qualifiers: Anemia type: unspecified type Qualified Code(s): D64.9 - Anemia, unspecified Category: Medical Code(s): D64.9 - Anemia, unspecified (9) MRSA (methicillin resistant staph aureus) culture positive Status: Acute Category: Medical Code(s): Z22.322 - Carrier or suspected carrier of Methicillin resistant Staphylococcus aureus (10) Pneumonia Status: Acute Category: Medical Code(s): J18.9 - Pneumonia, unspecified organism - Assessment and plan all Dx Assessment and Plan for all problems:: rounded with dr gann all orders per dr sanjuanita osorio adls wean o2 7
--- NOTE | 2021-08-20 17:28 | PC.NURSE ---
vapotherm currently 30 L and 100%
--- NOTE | 2021-08-20 19:01 | PC.NURSE ---
Pt has been encouraged all shift to get up and out of bed into chair. Pt stated he needed to sit on the side of bed and do his leg exercises. After pt done leg exercises this RN encouraged pt to get up and he said he couldn't get up that quick and needed to continue to sit on side of bed. Pt refused to be bathed or allow sheets to be changed. VSS. Continues on 30 L and 100% vapotherm and nonrebreather. CB in reach.
[2021-08-21] VITALS (12 sets, daily range): BP systolic 90–111; BP diastolic 47–69; PULSE 64–114; RESP 16–26; TEMP 36.4–36.9; O2SAT 89–97; BMI 20.6
[2021-08-21 07:13] LABS: Basophils % 0.2 % (0.1-2.0); Eosinophils # 0.1 K/mm3 (0.0-0.4); Eosinophils % 0.7 % (0.1-12.0); Hematocrit 40.3 % (42.0-52.0); Lymphocytes % 5.6 % (10-50); Mean Corpuscular HGB Conc 32.3 g/dL (31.8-35.4); Mean Corpuscular Hemoglobin 29.1 pg (27.0-31.2); Mean Platelet Volume 8.9 fl (7.4-10.4); Monocytes # 0.7 K/mm3 (0.1-1.0); Monocytes % 4.3 % (1.7-9.3); Neutrophils # 15.3 K/mm3 (1.8-7.8); Neutrophils % 89.1 % (37.0-80.0); Platelet Count 480 K/mm3 (142-424); Red Blood Count 4.48 M/mm3 (4.60-6.20); Red Cell Distribution Width 14.6 % (11.5-17.5); White Blood Count 17.2 K/mm3 (4.8-10.8)
[2021-08-21 07:18] LABS: MANUAL DIFFERENTIAL MANUAL DIFFERENTIAL (MANUAL DIFF)
[2021-08-21 07:20] LABS: Anion Gap 6.2 mEq/L (5-15); Blood Urea Nitrogen 30 mg/dl (9-20); Calcium 9.1 mg/dl (8.4-10.2); Carbon Dioxide 32 mmol/L (22.0-30.0); Chloride 103 mmol/L (98-107); Creatinine Clearance Estimated 63 mL/min (50-200); Estimated Glomerular Filt Rate 215 ml/min (>60); GFR (African American) 260 ML/MIN (>60); Glucose 99 mg/dl (74-100); Potassium 4.2 mmoL/L (3.5-5.1); Sodium 137 mmol/L (136-145)
[2021-08-21 08:04] LABS: Lymphocytes % 11 % (10-50); Monocytes % 7 % (2-9); Neutrophils % 82 % (42-76); Platelet Estimate Slight Increase; Stomatocytes 1+; Total Cells Counted 100
--- NOTE | 2021-08-21 09:38 | HMH.ACPN2 ---
Internal Medicine - PN: Subj *Date: 08/21/21 *Time: 08:30 Interval history: pt refusing to get oob, have nurse change bed, bath, or change his clothes. pt laying in urine with a stage 2. pt smells like urine. Exam Vital signs and Labs for Last 24 Hours: Temp Pulse Resp BP Pulse Ox 98.5 F 83 22 100/69 L 95 08/21/21 07:39 08/21/21 07:39 08/21/21 07:39 08/21/21 07:39 08/21/21 07:39 Laboratory Results - last 24 hr 08/21/21 06:57: WBC 17.2 H D, RBC 4.48 L, Hgb 13.0 L, Hct 40.3 L, MCV 90.0, MCH 29.1, MCHC 32.3, RDW 14.6, Plt Count 480 H, MPV 8.9, Neut % (Auto) 89.1 H, Lymph % (Auto) 5.6 L, [place] % (Auto) 4.3, Eos % (Auto) 0.7, Baso % (Auto) 0.2, Neut # (Auto) 15.3 H, Lymph # (Auto) 1.0, [place] # (Auto) 0.7, Eos # (Auto) 0.1, Baso # (Auto) 0.0, Total Counted 100, Neutrophils % (Manual) 82 H, Lymphocytes % (Manual) 11, Monocytes % (Manual) 7, Platelet Estimate Slight increase, Stomatocytes 1+ 08/21/21 06:57: Sodium 137, Potassium 4.2, Chloride 103, Carbon Dioxide 32 H, Anion Gap 6.2, BUN 30 H, Creatinine 0.40 L D, Estimated Creat Clear 63, Estimated GFR 215, Est GFR ( Amer) 260 D, Glucose 99, Calcium 9.1 I & O for Last 24 hours: Intake & Output 08/18/21 08/19/21 08/20/21 08/21/21 11:59 11:59 11:59 11:59 Intake Total 970 / 970 480 / 480 830 / 830 830 / 830 Output Total 625 / 625 150 / 150 1280 / 1280 900 / 900 Balance 345 / 345 330 / 330 -450 / -450 -70 / -70 Weight 135 lb 8 oz 136 lb 136 lb 136 lb Microbiology Reports for the Last 24 Hours: Microbiology 08/18/21 14:30 Sputum - Expectorated Sputum Gram Stain - Final 08/18/21 14:30 Sputum - Expectorated Sputum Sputum Culture - Final Achromobacter species - Constitutional no acute distress, thin - *Routine HEENT Exam Head: Present: normocephalic Eye: Present: PERRL ENT: Present: mucous membranes moist - *Routine Neck Exam Present: supple. Absent: lymphadenopathy - *Routine Respiratory Exam Present: CTA bilaterally - *Routine Cardiovascular Exam Present: RRR - *Routine Abdominal Exam Present: soft, normoactive bowel sounds. Absent: tenderness - *Routine Extremities Exam Absent: cyanosis, clubbing, edema - *Routine Skin Exam Present: warm, wounds. Absent: rash Comments: stage 2 to coccyx - *Routine Neurological Exam Present: alert, oriented X3 - Routine Psychiatric Exam Present: normal affect Assessment and Plan (1) Acute respiratory failure with hypoxia Status: Acute Category: Medical Code(s): J96.01 - Acute respiratory failure with hypoxia (2) COVID-19 Status: Acute Category: Medical Code(s): U07.1 - COVID-19 (3) Pulmonary emboli Status: Acute Qualifiers: Pulmonary embolism type: multiple subsegmental (without acute cor pulmonale) Qualified Code(s): I26.94 - Multiple subsegmental pulmonary emboli without acute cor pulmonale Category: Medical Code(s): I26.99 - Other pulmonary embolism without acute cor pulmonale (4) Diastolic CHF Status: Acute Category: Medical Code(s): I50.30 - Unspecified diastolic (congestive) heart failure (5) COPD (chronic obstructive pulmonary disease) Status: Chronic Qualifiers: COPD type: unspecified COPD Qualified Code(s): J44.9 - Chronic obstructive pulmonary disease, unspecified Category: Medical Code(s): J44.9 - Chronic obstructive pulmonary disease, unspecified (6) Nicotine dependence Status: Chronic Qualifiers: Nicotine product type: cigarettes Substance use status: uncomplicated Qualified Code(s): F17.210 - Nicotine dependence, cigarettes, uncomplicated Category: Medical Code(s): F17.200 - Nicotine dependence, unspecified, uncomplicated (7) Tobacco user Status: Chronic Category: Social Hx Code(s): Z72.0 - Tobacco use (8) Anemia Status: Acute Qualifiers: Anemia type: unspecified type Qualified Code(s): D64.9 - Anemia, unspecified Category: Medical
--- NOTE | 2021-08-21 15:18 | HMH.PTEV ---
Physical Therapy Evaluation Rehab PT IP Evaluation Start: 08/12/21 08:45 Freq: ONCE Status: Complete Protocol: Document 08/12/21 10:37 FARIBA (Rec: 08/12/21 10:46 [id number]) Subjective/History History History 6yo M evaluated for shortness of breath with reported Covid positive status. Chest x-ray, blood work is ordered. Patient is started on Vapotherm nasal cannula as I do not have a BiPAP available at this time. Patient Covid test in house is positive. He was sent for a CT with contrast and found to have small right-sided pulmonary emboli, 1 upper lobe and one lower lobe. Patient admitted for increasing shortness of breath over the last several days. Found to be Covid positive and also having having multiple pulmonary emboli on CT of the chest for which he was started on anticoagulation therapy. Currently denies any chest pain except with coughing or breathing. Echocardiogram performed yesterday shows preserved ejection fraction but technically limited study due to pulmonary issues. Patient feels that he was exposed to the COVID-19 virus through his . 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 - copied from ER H&P Subjective Subjective Pt has severe c/o SOA and dizziness Rehab PT IP Eval Objective Appearance Patient Behavior Anxious,Fatigued Patient Orientation Place,Name,Age,Birthday, Situation Difficulty following instructions none Speech Pattern Appropriate Ambulation Patient Able to Ambulate No Balance Ability to Arise Unable Sitting Balance Steady, safe
--- NOTE | 2021-08-21 16:09 | HMH.PULMPN ---
Internal Medicine - PN: Subj *Date: 08/21/21 *Time: 16:09 Interval history: No acute respiratory events overnight. Exam - Constitutional Constitutional:: Present: no acute distress, comfortable - HENMT Exam HENMT: Present: normocephalic, atraumatic - Eye Exam Eyes:: Present: normal appearance both eyes and related structures - Neck Exam Neck:: Present: normal visual inspection - Respiratory Exam Respiratory:: Present: able to speak in complete sentences, respiratory distress, crackles, rales - Cardiovascular Exam Cardiac:: Present: S1, S2 - GI Exam GI:: Present: soft - Skin Exam Skin: Present: warm, no rash - Neurological Exam Neurological: Present: alert, awake, normal cognition - Extremities Exam Extremities: Present: no cyanosis, no clubbing Assessment and Plan (1) Acute respiratory failure with hypoxia Status: Acute Category: Medical Code(s): J96.01 - Acute respiratory failure with hypoxia (2) COVID-19 Status: Acute Category: Medical Code(s): U07.1 - COVID-19 (3) Pulmonary emboli Status: Acute Qualifiers: Pulmonary embolism type: multiple subsegmental (without acute cor pulmonale) Qualified Code(s): I26.94 - Multiple subsegmental pulmonary emboli without acute cor pulmonale Category: Medical Code(s): I26.99 - Other pulmonary embolism without acute cor pulmonale (4) Diastolic CHF Status: Acute Category: Medical Code(s): I50.30 - Unspecified diastolic (congestive) heart failure (5) COPD (chronic obstructive pulmonary disease) Status: Chronic Qualifiers: COPD type: unspecified COPD Qualified Code(s): J44.9 - Chronic obstructive pulmonary disease, unspecified Category: Medical Code(s): J44.9 - Chronic obstructive pulmonary disease, unspecified (6) Nicotine dependence Status: Chronic Qualifiers: Nicotine product type: cigarettes Substance use status: uncomplicated Qualified Code(s): F17.210 - Nicotine dependence, cigarettes, uncomplicated Category: Medical Code(s): F17.200 - Nicotine dependence, unspecified, uncomplicated (7) Tobacco user Status: Chronic Category: Social Hx Code(s): Z72.0 - Tobacco use (8) Anemia Status: Acute Qualifiers: Anemia type: unspecified type Qualified Code(s): D64.9 - Anemia, unspecified Category: Medical Code(s): D64.9 - Anemia, unspecified (9) MRSA (methicillin resistant staph aureus) culture positive Status: Acute Category: Medical Code(s): Z22.322 - Carrier or suspected carrier of Methicillin resistant Staphylococcus aureus (10) Pneumonia Status: Acute Category: Medical Code(s): J18.9 - Pneumonia, unspecified organism - Assessment and plan all Dx Assessment and Plan for all problems:: #Acute on chronic hypoxic respiratory failure: #Community-acquired pneumonia: #COVID-19 pneumonia: #Pulmonary embolism: 66-year-old COPD recently diagnosed with community-acquired pneumonia present with worsening respiratory and found to be COVID-19 pneumonia positive. CTA on admission showed evidence of pulmonary embolism. CT also showed bilateral lower lobe predominant diffuse patchy airspace disease along with interstitial prominence. CT also showed evidence of elevated right-sided pressures. Patient sputum cultures grew MRSA, he is so far completed 7 days of levofloxacin and currently on vancomycin. Repeat sputum cultures from showing gram-negative rods. He was also initiated on cefepime given worsening respiratory distress. Will be following sputum cultures. Chest x-ray from slight worsening of right upper lobe pulmonary infiltrate. This patient is also in significant comorbidities given his severe COPD along with his MRSA pneumonia, COVID-19 pneumonia and pulmonary embolisms thus complicating his clinical scenario. He completed 10 days of remdesivir and dexamethasone. Interval update: Patient is more motivated and mobile after Dr. Garcia's conversation th
--- NOTE | 2021-08-21 20:38 | PC.NURSE ---
Pt did take bath today and this RN assisted pt up to chair. Vapotherm remains in use at 30 L and 90%. Non rebreather still in use as well. VSS. Pts sheets were changed and pt was bathed. Report given to Sanjay De La Garza RN. She is going to apply dsg to [facility] [address], [place].
[2021-08-22] VITALS (11 sets, daily range): BP systolic 97–128; BP diastolic 56–89; PULSE 66–128; RESP 16–24; TEMP 36.4–37.2; O2SAT 86–97; BMI 19.7
--- NOTE | 2021-08-22 06:11 | PC.NURSE ---
Addendum entered by Niurka De La Garza RN 08/22/21 06:24: Patient has been very sleepy this shift; has always been easily awakened though; Have noted that tonight and last night dinner meals the patient has not eaten either meal. Original Note: Kadet had a new IV placed in the left forearm. VSS;Patient had an uneventful night this shift; No acute distress noted this shift; Patient will continue, call light within reach, bed at lowest level for safety; will continue to monitor.
[2021-08-22 09:14] LABS: Basophils # 0.1 K/mm3 (0-0.2); Basophils % 0.3 % (0.1-2.0); Eosinophils # 0.1 K/mm3 (0.0-0.4); Eosinophils % 0.3 % (0.1-12.0); Hematocrit 38.4 % (42.0-52.0); Hemoglobin 12.3 g/dL (14.1-18.0); Lymphocytes # 0.7 K/mm3 (0.7-4.5); Lymphocytes % 3.4 % (10-50); Mean Corpuscular Hemoglobin 29.1 pg (27.0-31.2); Mean Corpuscular Volume 90.9 fl (80-94); Mean Platelet Volume 8.7 fl (7.4-10.4); Monocytes # 0.9 K/mm3 (0.1-1.0); Monocytes % 4.2 % (1.7-9.3); Neutrophils # 19.8 K/mm3 (1.8-7.8); Neutrophils % 91.8 % (37.0-80.0); Platelet Count 388 K/mm3 (142-424); Red Blood Count 4.23 M/mm3 (4.60-6.20); Red Cell Distribution Width 14.7 % (11.5-17.5); White Blood Count 21.6 K/mm3 (4.8-10.8)
[2021-08-22 09:23] LABS: Chloride 101 mmol/L (98-107); Potassium 4.4 mmoL/L (3.5-5.1); Sodium 138 mmol/L (136-145)
[2021-08-22 09:24] LABS: MANUAL DIFFERENTIAL MANUAL DIFFERENTIAL (MANUAL DIFF)
[2021-08-22 09:26] LABS: Anion Gap 9.4 mEq/L (5-15); Blood Urea Nitrogen 34 mg/dl (9-20); Carbon Dioxide 32 mmol/L (22.0-30.0); Creatinine Clearance Estimated 60 mL/min (50-200); Estimated Glomerular Filt Rate 134 ml/min (>60); GFR (African American) 163 ML/MIN (>60)
[2021-08-22 09:27] LABS: Calcium 8.9 mg/dl (8.4-10.2); Glucose 90 mg/dl (74-100)
--- NOTE | 2021-08-22 09:27 | HMH.ACPN2 ---
Internal Medicine - PN: Subj *Date: 08/23/21 *Time: 09:49 Interval history: looks better this am Exam Vital signs and Labs for Last 24 Hours: Temp Pulse Resp BP Pulse Ox 97.6 F 106 H 22 105/56 L 90 L 08/22/21 08:00 08/22/21 08:00 08/22/21 08:00 08/22/21 08:00 08/22/21 08:00 Laboratory Results - last 24 hr 08/22/21 09:00: WBC 21.6 H* D, RBC 4.23 L, Hgb 12.3 L, Hct 38.4 L, MCV 90.9, MCH 29.1, MCHC 32.0, RDW 14.7, Plt Count 388, MPV 8.7, Neut % (Auto) 91.8 H, Lymph % (Auto) 3.4 L, [place] % (Auto) 4.2, Eos % (Auto) 0.3, Baso % (Auto) 0.3, Neut # (Auto) 19.8 H, Lymph # (Auto) 0.7, [place] # (Auto) 0.9, Eos # (Auto) 0.1, Baso # (Auto) 0.1 I & O for Last 24 hours: Intake & Output 08/19/21 08/20/21 08/21/21 08/22/21 11:59 11:59 11:59 11:59 Intake Total 480 / 480 830 / 830 950 / 950 240 / 240 Output Total 150 / 150 1280 / 1280 900 / 900 300 / 300 Balance 330 / 330 -450 / -450 50 / 50 -60 / -60 Weight 136 lb 136 lb 136 lb 130 lb Microbiology Reports for the Last 24 Hours: Microbiology 08/18/21 14:30 Sputum - Expectorated Sputum Gram Stain - Final 08/18/21 14:30 Sputum - Expectorated Sputum Sputum Culture - Final Achromobacter species - Constitutional no acute distress - *Routine HEENT Exam Head: Present: normocephalic Eye: Present: EOMI, PERRL ENT: Present: mucous membranes dry - *Routine Neck Exam Absent: JVD - *Routine Respiratory Exam Present: decreased breath sounds - *Routine Cardiovascular Exam Present: RRR - *Routine Abdominal Exam Present: soft - *Routine Extremities Exam Absent: calf tenderness - *Routine Skin Exam Present: intact - *Routine Neurological Exam Present: CN II-XII intact - Routine Psychiatric Exam Present: cooperative Assessment and Plan (1) Acute respiratory failure with hypoxia Status: Acute Category: Medical Code(s): J96.01 - Acute respiratory failure with hypoxia (2) COVID-19 Status: Acute Category: Medical Code(s): U07.1 - COVID-19 (3) Pulmonary emboli Status: Acute Qualifiers: Pulmonary embolism type: multiple subsegmental (without acute cor pulmonale) Qualified Code(s): I26.94 - Multiple subsegmental pulmonary emboli without acute cor pulmonale Category: Medical Code(s): I26.99 - Other pulmonary embolism without acute cor pulmonale (4) Diastolic CHF Status: Acute Category: Medical Code(s): I50.30 - Unspecified diastolic (congestive) heart failure (5) COPD (chronic obstructive pulmonary disease) Status: Chronic Qualifiers: COPD type: unspecified COPD Qualified Code(s): J44.9 - Chronic obstructive pulmonary disease, unspecified Category: Medical Code(s): J44.9 - Chronic obstructive pulmonary disease, unspecified (6) Nicotine dependence Status: Chronic Qualifiers: Nicotine product type: cigarettes Substance use status: uncomplicated Qualified Code(s): F17.210 - Nicotine dependence, cigarettes, uncomplicated Category: Medical Code(s): F17.200 - Nicotine dependence, unspecified, uncomplicated (7) Tobacco user Status: Chronic Category: Social Hx Code(s): Z72.0 - Tobacco use (8) Anemia Status: Acute Qualifiers: Anemia type: unspecified type Qualified Code(s): D64.9 - Anemia, unspecified Category: Medical Code(s): D64.9 - Anemia, unspecified (9) MRSA (methicillin resistant staph aureus) culture positive Status: Acute Category: Medical Code(s): Z22.322 - Carrier or suspected carrier of Methicillin resistant Staphylococcus aureus (10) Pneumonia Status: Acute Category: Medical Code(s): J18.9 - Pneumonia, unspecified organism (11) Achromobacter pneumonia Status: Acute Category: Medical Code(s): J15.6 - Pneumonia due to other Gram-negative bacteria 7
[2021-08-22 10:11] LABS: Anisocytosis 1+; Eosinophils % 3 % (0-3); Hypochromasia 2+; Lymphocytes % 6 % (10-50); Macrocytosis 2+; Monocytes % 2 % (2-9); Neutrophils % 89 % (42-76); Platelet Estimate Normal; Total Cells Counted 100
--- NOTE | 2021-08-22 16:39 | HMH.PULMPN ---
Internal Medicine - PN: Subj *Date: 08/22/21 *Time: 16:39 Exam - Constitutional Constitutional:: Present: no acute distress, comfortable - HENMT Exam HENMT: Present: normocephalic, moist mucous membranes - Eye Exam Eyes:: Present: normal appearance both eyes and related structures - Neck Exam Neck:: Present: normal visual inspection - Respiratory Exam Respiratory:: Present: respiratory distress, crackles, rales - Cardiovascular Exam Cardiac:: Present: S1, S2 - GI Exam GI:: Present: soft - Skin Exam Skin: Present: warm - Neurological Exam Neurological: Present: alert, awake, normal cognition - Extremities Exam Extremities: Present: no cyanosis, no clubbing, no edema Assessment and Plan (1) Acute respiratory failure with hypoxia Status: Acute Category: Medical Code(s): J96.01 - Acute respiratory failure with hypoxia (2) COVID-19 Status: Acute Category: Medical Code(s): U07.1 - COVID-19 (3) Pulmonary emboli Status: Acute Qualifiers: Pulmonary embolism type: multiple subsegmental (without acute cor pulmonale) Qualified Code(s): I26.94 - Multiple subsegmental pulmonary emboli without acute cor pulmonale Category: Medical Code(s): I26.99 - Other pulmonary embolism without acute cor pulmonale (4) Diastolic CHF Status: Acute Category: Medical Code(s): I50.30 - Unspecified diastolic (congestive) heart failure (5) COPD (chronic obstructive pulmonary disease) Status: Chronic Qualifiers: COPD type: unspecified COPD Qualified Code(s): J44.9 - Chronic obstructive pulmonary disease, unspecified Category: Medical Code(s): J44.9 - Chronic obstructive pulmonary disease, unspecified (6) Nicotine dependence Status: Chronic Qualifiers: Nicotine product type: cigarettes Substance use status: uncomplicated Qualified Code(s): F17.210 - Nicotine dependence, cigarettes, uncomplicated Category: Medical Code(s): F17.200 - Nicotine dependence, unspecified, uncomplicated (7) Tobacco user Status: Chronic Category: Social Hx Code(s): Z72.0 - Tobacco use (8) Anemia Status: Acute Qualifiers: Anemia type: unspecified type Qualified Code(s): D64.9 - Anemia, unspecified Category: Medical Code(s): D64.9 - Anemia, unspecified (9) MRSA (methicillin resistant staph aureus) culture positive Status: Acute Category: Medical Code(s): Z22.322 - Carrier or suspected carrier of Methicillin resistant Staphylococcus aureus (10) Pneumonia Status: Acute Category: Medical Code(s): J18.9 - Pneumonia, unspecified organism - Assessment and plan all Dx Assessment and Plan for all problems:: #Acute on chronic hypoxic respiratory failure: #Community-acquired pneumonia: #COVID-19 pneumonia: #Pulmonary embolism: 66-year-old COPD recently diagnosed with community-acquired pneumonia present with worsening respiratory and found to be COVID-19 pneumonia positive. CTA on admission showed evidence of pulmonary embolism. CT also showed bilateral lower lobe predominant diffuse patchy airspace disease along with interstitial prominence. CT also showed evidence of elevated right-sided pressures. Patient sputum cultures grew MRSA, he is so far completed 7 days of levofloxacin and currently on vancomycin. Repeat sputum cultures from showing gram-negative rods. He was also initiated on cefepime given worsening respiratory distress. Will be following sputum cultures. Chest x-ray from slight worsening of right upper lobe pulmonary infiltrate. This patient is also in significant comorbidities given his severe COPD along with his MRSA pneumonia, COVID-19 pneumonia and pulmonary embolisms thus complicating his clinical scenario. He completed 10 days of remdesivir and dexamethasone. Interval update: Patient continued to be motivated mobile and using incentive spirometry. Respiratory status improved, his FiO2 weaned to 70% this morning and continued to rem
--- NOTE | 2021-08-22 17:59 | PC.NURSE ---
PT HAS BEEN SITTING UP IN THE CHAIR ALL SHIFT. PT HAS BEEN VERY COOPERATIVE WITH STAFF THIS SHIFT. O2 SATURATION 91-93% ON VAPOTHERM 70% FIO2 AND 30 L. PT HAS REQUIRED THE NON REBREATHER VERY MINIMALLY THIS SHIFT. LUNG SOUNDS DIMINISHED WITH LEFT SIDED CRACKLES. ABDOMEN SOFT/NON TENDER WITH ACTIVE BOWEL SOUNDS. EATING AND DRINKING FAIR. PT HAS REDNESS/STAGE 2 NOTED TO BUTTOCKS. VSS. WILL CONTINUE TO MONITOR.
[2021-08-23] VITALS (14 sets, daily range): BP systolic 86–114; BP diastolic 45–82; PULSE 79–112; RESP 16–22; TEMP 36.3–36.8; O2SAT 86–95; BMI 19.7
--- NOTE | 2021-08-23 04:45 | PC.NURSE ---
pt is AxOx4, has remained in chair t/o shift, remains on vapotherm with non rebreather intermittently, O2 sats 90-95%, no complaints of SOA or pain, pt has been reminded to shift positions while in chair due to redness to buttocks
--- NOTE | 2021-08-23 06:01 | PC.NURSE ---
pt is AxOx4, has spent most of shift in chair, remains on vapotherm with O2 sats 90-95%, no complaints of SOA or pain, patient educated on repositioning self in chair to avoid further break down of skin
[2021-08-23 08:24] LABS: Basophils % 0.3 % (0.1-2.0); Eosinophils % 0.1 % (0.1-12.0); Hematocrit 42.9 % (42.0-52.0); Hemoglobin 13.1 g/dL (14.1-18.0); Lymphocytes # 0.4 K/mm3 (0.7-4.5); Lymphocytes % 3.9 % (10-50); MANUAL DIFFERENTIAL MANUAL DIFFERENTIAL (MANUAL DIFF); Mean Corpuscular HGB Conc 30.4 g/dL (31.8-35.4); Mean Corpuscular Hemoglobin 29.4 pg (27.0-31.2); Mean Corpuscular Volume 96.7 fl (80-94); Mean Platelet Volume 9.7 fl (7.4-10.4); Monocytes # 0.4 K/mm3 (0.1-1.0); Monocytes % 4.6 % (1.7-9.3); Neutrophils # 8.7 K/mm3 (1.8-7.8); Neutrophils % 91.1 % (37.0-80.0); Platelet Count 331 K/mm3 (142-424); Red Blood Count 4.44 M/mm3 (4.60-6.20); Red Cell Distribution Width 14.4 % (11.5-17.5); White Blood Count 9.6 K/mm3 (4.8-10.8)
[2021-08-23 08:50] LABS: Lymphocytes % 6 % (10-50); Monocytes % 2 % (2-9); Neutrophils % 90 % (42-76); Platelet Estimate Normal; RBC Morphology Normal; Total Cells Counted 100
[2021-08-23 09:41] LABS: Chloride 100 mmol/L (98-107); Potassium 4.4 mmoL/L (3.5-5.1); Sodium 140 mmol/L (136-145)
[2021-08-23 09:44] LABS: Anion Gap 15.4 mEq/L (5-15); Blood Urea Nitrogen 46 mg/dl (9-20); Calcium 9.3 mg/dl (8.4-10.2); Carbon Dioxide 29 mmol/L (22.0-30.0); Creatinine Clearance Estimated 60 mL/min (50-200); Estimated Glomerular Filt Rate 96 ml/min (>60); GFR (African American) 117 ML/MIN (>60); Glucose 122 mg/dl (74-100)
--- NOTE | 2021-08-23 09:53 | HMH.ACPN2 ---
Internal Medicine - PN: Subj *Date: 08/23/21 *Time: 09:53 Interval history: pt oob in chair - feels better - blood work better Exam Vital signs and Labs for Last 24 Hours: Temp Pulse Resp BP Pulse Ox 98.0 F 112 H 20 86/62 L 91 L 08/23/21 07:34 08/23/21 07:34 08/23/21 07:34 08/23/21 07:34 08/23/21 07:34 Laboratory Results - last 24 hr 08/22/21 09:00: Total Counted 100, Neutrophils % (Manual) 89 H, Lymphocytes % (Manual) 6 L, Monocytes % (Manual) 2, Eosinophils % (Manual) 3, Platelet Estimate Normal, Hypochromasia 2+, Anisocytosis 1+, Macrocytosis 2+ 08/23/21 07:42: WBC 9.6 D, RBC 4.44 L, Hgb 13.1 L, Hct 42.9, MCV 96.7 H, MCH 29.4, MCHC 30.4 L, RDW 14.4, Plt Count 331, MPV 9.7, Neut % (Auto) 91.1 H, Lymph % (Auto) 3.9 L, Cross % (Auto) 4.6, Eos % (Auto) 0.1, Baso % (Auto) 0.3, Neut # (Auto) 8.7 H, Lymph # (Auto) 0.4 L, Cross # (Auto) 0.4, Eos # (Auto) 0.0, Baso # (Auto) 0.0, Total Counted 100, Neutrophils % (Manual) 90 H, Band Neutrophils % 1.0, Lymphocytes % (Manual) 6 L, Monocytes % (Manual) 2, Metamyelocytes % 1.0, Platelet Estimate Normal, RBC Morphology Normal 08/23/21 07:42: Sodium 140, Potassium 4.4, Chloride 100, Carbon Dioxide 29, Anion Gap 15.4 H, BUN 46 H D, Creatinine 0.80 D, Estimated Creat Clear 60, Estimated GFR 96, Est GFR ( Amer) 117 D, Glucose 122 H D, Calcium 9.3 I & O for Last 24 hours: Intake & Output 08/20/21 08/21/21 08/22/21 08/23/21 11:59 11:59 11:59 11:59 Intake Total 830 / 830 950 / 950 240 / 240 840 / 840 Output Total 1280 / 1280 900 / 900 300 / 300 825 / 825 Balance -450 / -450 50 / 50 -60 / -60 15 / 15 Weight 136 lb 136 lb 130 lb 130 lb - Constitutional cachectic - *Routine HEENT Exam Head: Present: normocephalic Eye: Present: EOMI, PERRL ENT: Present: mucous membranes dry - *Routine Neck Exam Absent: JVD - *Routine Respiratory Exam Present: decreased breath sounds (on high flow ) - *Routine Cardiovascular Exam Present: RRR, murmur - *Routine Abdominal Exam Present: soft - *Routine Extremities Exam Absent: calf tenderness - *Routine Skin Exam Present: dry - *Routine Neurological Exam no focal changes - Routine Psychiatric Exam Present: cooperative Assessment and Plan (1) Acute respiratory failure with hypoxia Status: Acute Category: Medical Code(s): J96.01 - Acute respiratory failure with hypoxia (2) COVID-19 Status: Acute Category: Medical Code(s): U07.1 - COVID-19 (3) Pulmonary emboli Status: Acute Qualifiers: Pulmonary embolism type: multiple subsegmental (without acute cor pulmonale) Qualified Code(s): I26.94 - Multiple subsegmental pulmonary emboli without acute cor pulmonale Category: Medical Code(s): I26.99 - Other pulmonary embolism without acute cor pulmonale (4) Diastolic CHF Status: Acute Category: Medical Code(s): I50.30 - Unspecified diastolic (congestive) heart failure (5) COPD (chronic obstructive pulmonary disease) Status: Chronic Qualifiers: COPD type: unspecified COPD Qualified Code(s): J44.9 - Chronic obstructive pulmonary disease, unspecified Category: Medical Code(s): J44.9 - Chronic obstructive pulmonary disease, unspecified (6) Nicotine dependence Status: Chronic Qualifiers: Nicotine product type: cigarettes Substance use status: uncomplicated Qualified Code(s): F17.210 - Nicotine dependence, cigarettes, uncomplicated Category: Medical Code(s): F17.200 - Nicotine dependence, unspecified, uncomplicated (7) Tobacco user Status: Chronic Category: Social Hx Code(s): Z72.0 - Tobacco use (8) Anemia Status: Acute Qualifiers: Anemia type: unspecified type Qualified Code(s): D64.9 - Anemia, unspecified Category: Medical Code(s): D64.9 - Anemia, unspecified (9) MRSA (methicillin resistant staph aureus) culture positive Status: Acute Category: Medical Code(s): Z22.322 - Carrier or suspected carrier of Methicillin r
--- NOTE | 2021-08-23 09:59 | XR_ITS ---
PROCEDURE INFORMATION: Exam: XR Chest Exam date and time: 08/23/2021 9:59 AM Age: 66 years old Clinical indication: Shortness of breath; Patient HX: Covid unit patient SOB TECHNIQUE: Imaging protocol: XR of the chest. Views: 1 view. COMPARISON: CR XR CHEST PORTABLE 08/17/2021 5:58 AM FINDINGS: Lungs: There is pleuroparenchymal scarring in the right upper lobe. There is a large bulla identified in the right lung base. There is elevation of the left hemidiaphragm. There is atelectasis and/or airspace opacity in the left lung base, with prominence of pulmonary interstitial markings. Interstitial infiltrate in the left lower lobe and right upper lobe have decreased compared to the prior examination. Otherwise, these findings are Pleural spaces: Unremarkable. No pleural effusion. No pneumothorax. Heart/Mediastinum: Unremarkable. No cardiomegaly. Bones/joints: Unremarkable. IMPRESSION: Decreased infiltrates and right upper lobe and left lower lobe. Otherwise, no significant change.
--- NOTE | 2021-08-23 18:34 | PC.NURSE ---
Pt has been pleasant and cooperative this shift. A&O X4. Pt is currently receiving O2 via Vapotherm @ 30 LPM with sats. >90%. Lung sounds reveal expiratory rhonchi. No edema noted. Multiple ulcerations noted to coccyx/buttocks and pt refuses dressings. Pt has stayed in the recliner today. Pt ambulates independently in the room and uses the BSC/Urinal. Urine is clear and yellow. No BM thus far this shift. Appetite is good and pt eats the majority of all meals. 20 G peripheral IV in the LT forearm is patent and SL. VSS. Call light within reach. Will continue to monitor.
[2021-08-24 04:00] VITALS: BP 97/63; PULSE 110; RESP 12; TEMP 36.4; O2SAT 85
[2021-08-24 05:00] VITALS: BMI 19.5
[2021-08-24 06:35] VITALS: PULSE 112; O2SAT 90
[2021-08-24 07:23] LABS: Basophils # 0.1 K/mm3 (0-0.2); Basophils % 0.6 % (0.1-2.0); Eosinophils % 0.1 % (0.1-12.0); Hemoglobin 13.1 g/dL (14.1-18.0); Lymphocytes # 0.7 K/mm3 (0.7-4.5); Mean Corpuscular HGB Conc 32.1 g/dL (31.8-35.4); Mean Corpuscular Hemoglobin 29.4 pg (27.0-31.2); Mean Corpuscular Volume 91.9 fl (80-94); Mean Platelet Volume 9.5 fl (7.4-10.4); Monocytes % 4.4 % (1.7-9.3); Neutrophils # 20.4 K/mm3 (1.8-7.8); Platelet Count 364 K/mm3 (142-424); Red Blood Count 4.46 M/mm3 (4.60-6.20); Red Cell Distribution Width 14.9 % (11.5-17.5)
[2021-08-24 07:26] LABS: White Blood Count 22.2 K/mm3 (4.8-10.8)
[2021-08-24 07:27] LABS: MANUAL DIFFERENTIAL MANUAL DIFFERENTIAL (MANUAL DIFF)
[2021-08-24 07:30] LABS: Lymphocytes % 4 % (10-50); Monocytes % 1 % (2-9); Neutrophils % 80 % (42-76); Platelet Estimate Normal; RBC Morphology Normal; Total Cells Counted 100
[2021-08-24 08:00] VITALS: BP 100/61; PULSE 113; RESP 22; TEMP 36.8; O2SAT 91
[2021-08-24 08:01] LABS: Anion Gap 15.5 mEq/L (5-15); Blood Urea Nitrogen 54 mg/dl (9-20); Calcium 9.6 mg/dl (8.4-10.2); Carbon Dioxide 29 mmol/L (22.0-30.0); Chloride 98 mmol/L (98-107); Creatinine Clearance Estimated 59 mL/min (50-200); Estimated Glomerular Filt Rate 84 ml/min (>60); GFR (African American) 102 ML/MIN (>60); Glucose 111 mg/dl (74-100); Potassium 4.5 mmoL/L (3.5-5.1); Sodium 138 mmol/L (136-145)
--- NOTE | 2021-08-24 08:16 | PC.NURSE ---
Patient on multiple occasions would desat in low to mid 70 s with no activity. Had non-rebreather added to assist in keeping O2 Sats >90%. No s/s of acute distress noted this shift, call light within reach, bed at lowest level for safety; will continue to monitor.
--- NOTE | 2021-08-24 09:02 | XR_ITS ---
PROCEDURE INFORMATION: Exam: XR Chest Exam date and time: 08/24/2021 9:02 AM Age: 66 years old Clinical indication: Shortness of breath; Patient HX: Follow up covid hypoxia TECHNIQUE: Imaging protocol: XR of the chest. Views: 1 view. COMPARISON: CR XR CHEST PORTABLE 08/23/2021 10:11 AM FINDINGS: Lungs: Patchy opacities in the left mid lung and right upper lobe may represent multifocal pneumonia.. Probable emphysematous changes in the right lung base.. Pleural spaces: Mild left pleural effusion Heart/Mediastinum: Stable cardiac silhouette Diaphragm: Elevated left hemidiaphragm.. Bones/joints: Stable IMPRESSION: 1. Patchy opacities in the left mid lung and right upper lobe may represent multifocal pneumonia.. 2. Probable emphysematous changes in the right lung base.. 3. Elevated left hemidiaphragm..
--- NOTE | 2021-08-24 10:43 | PC.NURSE ---
Rapid Red called at this time
--- NOTE | 2021-08-24 10:47 | PC.NURSE ---
Code Blue called at this time
--- NOTE | 2021-08-24 10:48 | HMH.ACPN2 ---
Internal Medicine - PN: Subj *Date: 08/24/21 *Time: 08:30 Interval history: pt oob and feels sob but otherwise about same with labs ok - pending cxr - Exam Vital signs and Labs for Last 24 Hours: Temp Pulse Resp BP Pulse Ox 98.3 F 113 H 22 100/61 L 91 L 08/24/21 08:00 08/24/21 08:00 08/24/21 08:00 08/24/21 08:00 08/24/21 08:00 Laboratory Results - last 24 hr 08/24/21 06:37: WBC 22.2 H* D, RBC 4.46 L, Hgb 13.1 L, Hct 41.0 L, MCV 91.9, MCH 29.4, MCHC 32.1, RDW 14.9, Plt Count 364, MPV 9.5, Neut % (Auto) 92.0 H, Lymph % (Auto) 3.0 L, [place] % (Auto) 4.4, Eos % (Auto) 0.1, Baso % (Auto) 0.6, Neut # (Auto) 20.4 H, Lymph # (Auto) 0.7, [place] # (Auto) 1.0, Eos # (Auto) 0.0, Baso # (Auto) 0.1, Total Counted 100, Neutrophils % (Manual) 80 H, Band Neutrophils % 15.0 H, Lymphocytes % (Manual) 4 L, Monocytes % (Manual) 1 L, Platelet Estimate Normal, RBC Morphology Normal 08/24/21 06:37: Sodium 138, Potassium 4.5, Chloride 98, Carbon Dioxide 29, Anion Gap 15.5 H, BUN 54 H, Creatinine 0.90, Estimated Creat Clear 59, Estimated GFR 84, Est GFR ( Amer) 102, Glucose 111 H, Calcium 9.6 I & O for Last 24 hours: Intake & Output 08/21/21 08/22/21 08/23/21 08/24/21 11:59 11:59 11:59 11:59 Intake Total 950 / 950 240 / 240 840 / 840 660 / 660 Output Total 900 / 900 300 / 300 825 / 825 600 / 600 Balance 50 / 50 -60 / -60 15 60 / 60 Weight 136 lb 130 lb 130 lb 129 lb 3.054 oz - Constitutional chronically ill appearing - *Routine HEENT Exam Head: Present: normocephalic Eye: Present: EOMI, PERRL ENT: Present: mucous membranes dry - *Routine Neck Exam Absent: JVD - *Routine Respiratory Exam Present: decreased breath sounds, other (on high flow ) - *Routine Cardiovascular Exam Present: RRR - *Routine Abdominal Exam Present: soft - *Routine Extremities Exam Absent: calf tenderness - *Routine Skin Exam Present: dry - *Routine Neurological Exam Present: oriented X3, CN II-XII intact - Routine Psychiatric Exam Present: cooperative Assessment and Plan (1) Acute respiratory failure with hypoxia Status: Acute Category: Medical Code(s): J96.01 - Acute respiratory failure with hypoxia (2) COVID-19 Status: Acute Category: Medical Code(s): U07.1 - COVID-19 (3) Pulmonary emboli Status: Acute Qualifiers: Pulmonary embolism type: multiple subsegmental (without acute cor pulmonale) Qualified Code(s): I26.94 - Multiple subsegmental pulmonary emboli without acute cor pulmonale Category: Medical Code(s): I26.99 - Other pulmonary embolism without acute cor pulmonale (4) Diastolic CHF Status: Acute Category: Medical Code(s): I50.30 - Unspecified diastolic (congestive) heart failure (5) COPD (chronic obstructive pulmonary disease) Status: Chronic Qualifiers: COPD type: unspecified COPD Qualified Code(s): J44.9 - Chronic obstructive pulmonary disease, unspecified Category: Medical Code(s): J44.9 - Chronic obstructive pulmonary disease, unspecified (6) Nicotine dependence Status: Chronic Qualifiers: Nicotine product type: cigarettes Substance use status: uncomplicated Qualified Code(s): F17.210 - Nicotine dependence, cigarettes, uncomplicated Category: Medical Code(s): F17.200 - Nicotine dependence, unspecified, uncomplicated (7) Tobacco user Status: Chronic Category: Social Hx Code(s): Z72.0 - Tobacco use (8) Anemia Status: Acute Qualifiers: Anemia type: unspecified type Qualified Code(s): D64.9 - Anemia, unspecified Category: Medical Code(s): D64.9 - Anemia, unspecified (9) MRSA (methicillin resistant staph aureus) culture positive Status: Acute Category: Medical Code(s): Z22.322 - Carrier or suspected carrier of Methicillin resistant Staphylococcus aureus (10) Pneumonia Status: Acute Category: Medical Code(s): J18.9 - Pneumonia, unspecified organism (11) Achromobacter pneumonia Status: Acut
--- NOTE | 2021-08-24 10:53 | PC.NURSE ---
Dr. Olson notified about pt needing a central line at this time. Per Furn[employer] martir hancock
--- NOTE | 2021-08-24 10:58 | PC.NURSE ---
Dr. Garcia at bedside. Dr. freitas notified he is not needed at this time
--- NOTE | 2021-08-24 11:22 | HMH.PROC ---
[facility] Procedure Note Procedure Note:: CODE BLUE NOTE: Was called up to this patient's room due to a rapid response red alert. On initial arrival the patient was on a BiPAP mask and was unresponsive. On my arrival the patient did not have any pulse and we immediately started chest compressions. Patient was also immediately given 1 mg of epinephrine. He had a 22-gauge IV in the left arm and we established another IV in the EJ. During this time he was intubated by Dr. Garcia. And he had bilateral breath sounds confirmed. Patient also received IV calcium as well as bicarbonate medications. After multiple rounds of chest compressions the patient was in pulseless electrical activity. We then were able to establish a pulse back. During this time patient was started on an epi drip as well as received a dose of atropine while I was on the phone with the patient's . His blood pressure was approximately 110/88 systolic. We did difficult time obtaining a pulse oxygen saturation however at one point we obtained a saturation of 88%. While talking to Mr. Morgan' , she said at this time if his heart does stop again she would like for us to resume compressions because she does not want to give up yet however after further discussion she agreed that if we do chest compressions for a prolonged period that he would not want this. Unfortunately the patient soon lost a pulse again and after this again we resumed chest compressions. During this time patient received another dose of epinephrine. We were unable to establish a pulse. Patient was asystole on the monitor. Time of called at 11:12. I updated the patient's over the phone and she was going to come to the hospital to see him.
--- NOTE | 2021-08-24 13:02 | PC.NURSE ---
1046- code blue called and CPR initiated 1047-epi in 1049- pulse check, sinus americo on monitor. epi gtt ordered by MD Albert 1051- EJ access placed 1052- 7.5 et inserted by MD Garcia, bilateral breath sounds noted 1053- asystole on the monithor, chest compressions resumed, epi in 1054- calcium gluconate in 1056- pulse check, asystole on the monitor, resume compressions 1056- bicarb in 1057- epi in 1058- carotid pulse found 1059- epi gtt started 1103- atropine in 1104- asystole on monitor, CPR resumed 1105- epi in 1107- asystole on monitor, cpr resumed 1110- pulse check-no pulses found 1112- pt remains in asystole, no pulses felt, TOD called at this time by MD Albert
--- NOTE | 2021-08-24 13:29 | HMH.DCSUM ---
General - General Admission date:: 08/05/21 Discharge date: 08/24/21 HPI HPI: 66yo M evaluated for shortness of breath with reported Covid positive status. Chest x-ray, blood work is ordered. Patient is started on Vapotherm nasal cannula as I do not have a BiPAP available at this time. Patient Covid test in house is positive. He was sent for a CT with contrast and found to have small right-sided pulmonary emboli, 1 upper lobe and one lower lobe. Patient admitted for increasing shortness of breath over the last several days. Found to be Covid positive and also having having multiple pulmonary emboli on CT of the chest for which he was started on anticoagulation therapy. Currently denies any chest pain except with coughing or breathing. Echocardiogram performed yesterday shows preserved ejection fraction but technically limited study due to pulmonary issues.Patient feels that he was exposed to the COVID-19 virus through his . 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 Hospital Course Hospital Course: Laboratory Tests 08/05/21 08/05/21 08/05/21 08:00 08:00 10:42 WBC 10.3 RBC 3.89 L Hgb 11.3 L Hct 35.7 L MCV 91.9 MCH 29.1 MCHC 31.7 L RDW 13.9 Plt Count 329 MPV 8.4 Neut % (Auto) 90.0 H Lymph % (Auto) 6.0 L [place] % (Auto) 3.8 Eos % (Auto) 0.1 Baso % (Auto) 0.1 Neut # (Auto) 9.2 H Lymph # (Auto) 0.6 L [place] # (Auto) 0.4 Eos # (Auto) 0.0 Baso # (Auto) 0.0 Total Counted 100 Neutrophils % (Manual) 89 H Band Neutrophils % Lymphocytes % (Manual) 5 L Monocytes % (Manual) 6 Eosinophils % (Manual) Metamyelocytes % Nucleated RBCs 1 Platelet Estimate Normal RBC Morphology Hypochromasia 2+ Poikilocytosis Anisocytosis Microcytosis 1+ Macrocytosis Target Cells Ovalocytes Stomatocytes Specimen Source O2 % ABG pH ABG pCO2 ABG pO2 ABG HCO3 ABG Total CO2 ABG O2 Saturation ABG Base Excess Matthew Test Vent Rate Tidal Volume Sodium 139 Potassium 4.0 Chloride 95 L Carbon Dioxide 33 H Anion Gap 15.0 BUN 29 H Creatinine 0.90 Estimated Creat Clear 69 Estimated GFR 84 Est GFR ( Amer) 102 Glucose 124 H POC Glucose Calcium 8.8 Magnesium Total Bilirubin 1.0 AST 55 ALT 33 Alkaline Phosphatase 91 Troponin I 0.02 Total Protein 6.8 Albumin 3.6 Globulin 3.2 Albumin/Globulin Ratio 1.1 Vancomycin Peak Vancomycin Trough SARS-CoV-2 (PCR) Detected A Influenza A Untype (PCR) Not detected Influenza Type B (PCR) Not detected 08/05/21 08/06/21 08/06/21 13:40 06:47 06:47 WBC 4.6 L D RBC 3.45 L Hgb 10.4 L Hct 31.9 L MCV 92.5 MCH 30.2 MCHC 32.7 RDW 13.8 Plt Count 284 MPV 7.8 Neut % (Auto) 85.1 H Lymph % (Auto) 9.0 L [place] % (Auto) 5.6 Eos % (Auto) 0.0 L Baso % (Auto) 0.3 Neut # (Auto) 3.9 Lymph # (Auto) 0.4 L [place] # (Auto) 0.3 Eos # (Auto) 0.0 Baso # (Auto) 0.0 Total Counted 100 Neutrophils % (Manual) 88 H Band Neutrophils % Lymphocytes % (Manual) 7 L Monocytes % (Manual) 5 Eosinophils % (Manual) Metamyelocytes % Nucleated RBCs Platelet Estimate Normal RBC Morphology Hypochromasia 1+ Poikilocytosis Anisocytosis Microcytosis Macrocytosis Target Cells Ovalocytes Stomatocytes Specimen Source Right radial O2 % 100% ABG pH 7.44 ABG pCO2 40.9 ABG pO2 57.1 L ABG HCO3 27.3 H ABG Total CO2 28.6 H ABG O2 Saturation 89 L ABG Base Excess 3.0 H Matthew Test Acceptable Vent Rate Vapotherm Tidal Volume 40 l Sodium 142 Potassium 4.9 D Chloride 102 Carbon Dioxide 33 H Anion Gap 11.9 BUN 20 D Creatinine 0.60 L D
[2021-08-29 11:44] LABS: ABG PCO2 41.6 mmhg (35.0-45.0)
[2021-08-29 11:45] LABS: ABG Base Excess 0.3 mmol/L (-2.4-2.3); ABG HCO3 25.1 mmhg (22.0-26.0); ABG Oxygen Saturation 76 % (90-100); ABG PO2 41.8 mmhg (80-100); ABG TCO2 26.4 mmhg (23-27); Lactate Arterial 3.1 mmol/L (0.4-2.0); Oxygen 100 %
[2021-08-29 11:46] LABS: Reflex Lactic Add Lactic Reflex
== END 2021-08-24 14:15 | disposition expired | DRG 177 ==
LOC: ER 08:35 → 2ND 21:19
PROVIDERS: Family Medicine; Internal Medicine Pulmonary Disease; Nurse Practitioner Family; Admitting Provider Emergency Medicine; Emergency Provider Family Medicine; PCP Physician Assistant; Visit Provider Emergency Medicine
DX: U07.1 COVID-19 (principal); I26.94 Multiple subsegmental thrombotic pulmonary emboli without acute cor pulmonale; J96.21 Acute and chronic respiratory failure with hypoxia; J12.82 Pneumonia due to coronavirus disease 2019; I50.31 Acute diastolic (congestive) heart failure; J15.211 Pneumonia due to Methicillin susceptible Staphylococcus aureus; J15.6 Pneumonia due to other Gram-negative bacteria; J44.0 Chronic obstructive pulmonary disease with (acute) lower respiratory infection; I82.451 Acute embolism and thrombosis of right peroneal vein; F17.210 Nicotine dependence, cigarettes, uncomplicated; Z22.322 Carrier or suspected carrier of Methicillin resistant Staphylococcus aureus; G35 Multiple sclerosis; Z99.81 Dependence on supplemental oxygen; E78.5 Hyperlipidemia, unspecified; I11.0 Hypertensive heart disease with heart failure; I27.20 Pulmonary hypertension, unspecified; D64.9 Anemia, unspecified; F32.A Depression, unspecified; I82.462 Acute embolism and thrombosis of left calf muscular vein
CPT/HCPCS: 36415; 71045; 71275; 80048; 80053; 80202; 82803; 82962; 83605; 83735; 84484; 85007; 85025; 87070; 87077; 87081; 87186; 87205; 93005; 93306; 93970; 94640; 94760; 94761; 96365; 96367; 96372; 96375; 97110; 97162; 97163; 97530; 99284; C9803; G0238; J0574; J1956; J3370; Q9967; U0003; U0005